=== PATIENT | female | born 1955 | race Caucasian/White ===

== ENCOUNTER 2018-04-05 20:21 | Emergency (ER) | payer MEDICARE, SELFPAY ==
[2018-04-05 20:22] VITALS: BP 161/92; PULSE 83; RESP 14; TEMP 36.4; O2SAT 97; BMI 25.4
--- NOTE | 2018-04-05 20:57 | ED.VISSUMM ---
- ER Visit Summary Date of Service: 04/05/18 Chief Complaint: Patient is here for medication refill. She is out of her propranolol, potassium, loratadine. History of Present Illness: The patient is a 63 F, she is asymptomatic. Physical Examination: Not appear in acute distress. Moist mucous membranes, no obvious facial deformity No C-spine tenderness supple neck. Regular rate and rhythm without any obvious murmurs Clear lungs bilaterally speaking in full sentences without any obvious respiratory distress Abdomen soft and nontender no guarding or rebound Moves all extremities without any difficulty or pain. Skin does not show any obvious rashes or lesions, no trauma. Alert oriented ?3 with no gross focal deficit Emergency Department Course and Treatment: Medications will be refilled she is told to follow-up with her PCP Disposition: [Discharge stable condition] Impression: [Medication refill] This note was generated with [employer] dictation software. It may contain incorrect words, spelling, and punctuation that were not noted in review of the chart prior to signing ED Disposition - Plan for ED Patient: Disposition: Home or Assisted Living Chief Complaint: Med Refill Prescriptions: Loratadine 10 mg PO DAILY #30 cap Potassium Chloride [K-Dur] 20 meq PO DAILY #30 tab Propranolol HCl 40 mg PO BID #60 tab Referrals: Marj Ryan MD [Primary Care Provider] - 3-5 Days
== END 2018-04-05 21:45 | disposition home or self-care (01) ==
PROVIDERS: Emergency Provider Emergency Medicine
DX: Z76.0 Encounter for issue of repeat prescription (principal); E11.9 Type 2 diabetes mellitus without complications; I10 Essential (primary) hypertension; Z79.899 Other long term (current) drug therapy
CPT/HCPCS: 99282

== ENCOUNTER 2018-06-14 03:34 | Emergency (ER) | payer MEDICARE, SELFPAY ==
[2018-06-14 03:35] VITALS: BP 186/88; PULSE 78; RESP 16; TEMP 36.8; O2SAT 100; BMI 25.6
--- NOTE | 2018-06-14 03:52 | ED.VIS.GEN ---
History of Present Illness Chief Complaint: Fall Informant: Patient, Family Onset: Today - JPTA Context: Sudden Onset - tripped over a cord Timing: Continuous Quality: ache Location: R shoulder Current Severity: Severe Maximum Severity: Severe Worsened by: movement Relieved by: remaining still Narrative: States that she bumped her head on the floor as well. She denies any significant headache, nausea, vomiting, loss of consciousness. She has no numbness in her hand, her elbow and distally right upper extremity are uninjured and without pain. She cannot move her right shoulder. She is right-hand dominant. - Past Medical History (1) Hyperlipidemia Status: Chronic (2) GERD (gastroesophageal reflux disease) Status: Chronic Past Medical History - Allergies and Home Meds Allergies/Adverse Reactions: Allergies codeine Adverse Reaction (Verified 04/05/18 20:22) Nausea/Vom/Diarrhea Primary Care Physician: Care Physician,No Primary [Primary Care Provider] - Smoking Status: Never smoker Review of Systems Eyes: Denies: Visual changes - bilaterally, Diplopia Cardiovascular: Denies: Chest pain, Palpitations Respiratory: Denies: Dyspnea, Cough Gastrointestinal: Denies: Abdominal pain, Nausea, Vomiting Musculoskeletal: Reports: Extremity Pain. Denies: Neck pain, Back pain Neurological: Denies: Headache, Weakness, Parasthesia, Numbness Physical Exam Vital Signs/Narrative: Vital Signs Temp Pulse Resp BP Pulse Ox 06/14/18 03:35 98.2 F 78 16 186/88 H 100 Inital Vital Signs reviewed: Yes General: Well nourished, Well developed, Unkempt Head: Normocephalic, Atraumatic Eyes: Perrl, EOMI ENT: Moist mucous membranes, No rhinorrhea Neck: Supple, Nontender, - - FROM Back: Nontender. Negative for: Spinal tenderness Extremities: Tenderness - At right AC joint with a deformity posteriorly/dorsally. Closed injury, no lacerations or breaks in the skin. No tenderness in the proximal humerus. Very limited range of motion secondary to pain. Excellent range of motion of the elbow and wrist and other joints of the right hand. Other extremities are atraumatic and benign. Skin: Normal color, No rash Neurological: Alert, Oriented x3, Cranial nerves II-XII grossly intact, Normal Strength, Normal Sensation, Normal Gait Psychological: Normal affect Diagnostic/Tx/Re-eval Right shoulder x-ray series interpreted by myself as displaced distal clavicle fracture. Humeral head is located and without acute fracture. - Medical Decision Making Patient was given [place], x-ray shows distal clavicular fracture without dislocation. She is placed in a sling, given a prescription for some [place], and advised to follow-up with orthopedics as an outpatient. ED Disposition - Plan for ED Patient: Disposition: Home or Assisted Living Chief Complaint: Fall Diagnosis: Displaced fracture of lateral end of right clavicle, initial encounter for closed fracture Instructions: ED Fx Clavicle, ED Sling Prescriptions: Hydrocodone Bitart/Apap 5-325 [[place] 5MG-325MG] 1 tab PO Q4H PRN PRN 2 Days #10 tab PRN Reason: Pain Referrals: Tiffany Hernandez DO [STAFF PHYSICIAN] - (call for appt to be seen within next 1-2 weeks)
--- NOTE | 2018-06-14 04:15 | RAD_ITS ---
STUDY: X-RAY - RIGHT SHOULDER REASON FOR EXAM: Female, 63 years old. Fall facial pain. TECHNIQUE: 4 view(s) of the shoulder. COMPARISON: None. FINDINGS: Normal glenohumeral articulation. There is a comminuted displaced fracture of the lateral end of the right clavicle. Normal acromion. Normal humeral head and visualized proximal humerus. The soft tissue structures are unremarkable. Normal visualized pulmonary apex. RAD/Shoulder min 2 Views IMPRESSION: There is a comminuted displaced fracture of the lateral end of the right clavicle. Electronically Signed: Lawson Arteaga MD at 4:39 EDT Tel , Service support ,
[2018-06-14] MEDS: HYDROcodone Bitartrate/Apap 5/325 Tablet PO (04:43)
[2018-06-14 04:50] VITALS: BP 166/88; PULSE 78; RESP 16; O2SAT 98
== END 2018-06-14 04:51 | disposition home or self-care (01) ==
PROVIDERS: Emergency Provider Emergency Medicine
DX: S42.031A Displaced fracture of lateral end of right clavicle, initial encounter for closed fracture (principal); W01.198A Fall on same level from slipping, tripping and stumbling with subsequent striking against other object, initial encounter; Y93.9 Activity, unspecified; Y92.9 Unspecified place or not applicable; Y99.9 Unspecified external cause status; E78.5 Hyperlipidemia, unspecified; K21.9 Gastro-esophageal reflux disease without esophagitis; Z79.899 Other long term (current) drug therapy
CPT/HCPCS: 73030; 99283

== ENCOUNTER 2018-06-16 19:06 | Emergency (ER) | payer MEDICARE, SELFPAY ==
[2018-06-16 19:07] VITALS: BP 158/87; PULSE 76; RESP 16; TEMP 36.6; O2SAT 98; BMI 26.5
--- NOTE | 2018-06-16 19:30 | RAD_ITS ---
STUDY: X-RAY - RIGHT CLAVICLE REASON FOR EXAM: Female, 63 years old. Known right clavicle fracture, increased pain. Question reinjury. TECHNIQUE: 2 view(s) of the clavicle. COMPARISON: Shoulder 06/14/2018. FINDINGS: Comminuted fracture of the left distal clavicle is again demonstrated. There is no displacement or angulation. Comminuted fractures extend superiorly and inferiorly. The acromioclavicular joint is maintained. There is increased dense material about the acromioclavicular joint which is increased compared to the prior study. This may represent early myositis ossificans. There is no new fracture. Bony structures are otherwise unremarkable. RAD/Clavicle IMPRESSION: 1. Distal clavicle fracture, no adverse change. No new fracture. 2. Increased dense material in the region of the AC joint, possible myositis ossificans. Electronically Signed: Joanie Barajas MD at 20:26 EDT Tel , Service support ,
[2018-06-16] MEDS: HYDROcodone Bitartrate/Apap 5/325 Tablet PO (19:43)
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
== END 2018-06-16 20:17 | disposition home or self-care (01) ==
PROVIDERS: Emergency Provider Emergency Medicine
DX: M25.519 Pain in unspecified shoulder (principal); S42.032A Displaced fracture of lateral end of left clavicle, initial encounter for closed fracture; W19.XXXA Unspecified fall, initial encounter; Y93.9 Activity, unspecified; Y92.9 Unspecified place or not applicable; Y99.9 Unspecified external cause status; E78.5 Hyperlipidemia, unspecified; K21.9 Gastro-esophageal reflux disease without esophagitis; Z79.899 Other long term (current) drug therapy
CPT/HCPCS: 73000; 99283

== ENCOUNTER → 2018-06-18 09:58 | Outpatient (CLI) | payer MEDICARE, SELFPAY ==
--- NOTE | 2018-06-18 10:01 | RAD_ITS ---
STUDY: X-RAY - RIGHT CLAVICLE REASON FOR EXAM: Fracture. TECHNIQUE: 2 view(s) of the clavicle. COMPARISON: Radiographs 06/16/2018. FINDINGS: There is no interval change of the comminuted distal clavicle fracture. There is calcification in the acromioclavicular joint capsule as on the prior study. Normal visualized sternoclavicular articulation. Normal visualized pulmonary apex. RAD/Clavicle IMPRESSION: No interval change of distal clavicle fracture. Electronically Signed: Georges Johnson MD at 10:43 EDT Tel , Service support ,
== END ==
PROVIDERS: Referring Provider Orthopaedic Surgery; Visit Provider Orthopaedic Surgery
DX: S42.002A Fracture of unspecified part of left clavicle, initial encounter for closed fracture (principal); X58.XXXA Exposure to other specified factors, initial encounter; Y93.9 Activity, unspecified; Y92.9 Unspecified place or not applicable; Y99.9 Unspecified external cause status
CPT/HCPCS: 73000

== ENCOUNTER 2018-07-02 00:31 | Emergency (ER) | payer MEDICARE, SELFPAY ==
[2018-07-02 00:32] VITALS: BP 156/86; PULSE 77; RESP 15; TEMP 36.9; O2SAT 96; BMI 25.0
--- NOTE | 2018-07-02 01:19 | ED.DCSUM_ITS ---
- ER Visit Summary Date of Service: 07/02/18 Chief Complaint: Right shoulder pain History of Present Illness: The patient is a 63 F who presents with right shoulder pain. She sustained a right clavicle fracture about 2-1/2 weeks ago. She has seen Dr. Hernandez in follow-up and is in the process of arranging for outpatient CT. She complains that she is out of pain medications and has been trying Tylenol and Aleve without relief so presented here. She has had one prior ER visit for pain medication refill. Denies numbness tingling weakness. Physical Examination: Afebrile vitals are stable No apparent distress resting comfortably Patient has some mild distal right clavicular tenderness no skin tenting no obvious bony deformity if she is neurovascularly intact with normal sensation and palpable radial pulse no soft tissue swelling skin warm and dry with brisk capillary refill Test Results: Not indicated Emergency Department Course and Treatment: Patient is 2-1/2 weeks out from her fracture. I do not believe continued opiates are indicated at this time. She was given naproxen as well as a prescription for the same. She was advised to follow-up with orthopedics and was discharged home. Treatment Plan: [] Disposition: Discharge Impression: Right clavicle fracture This note was generated with [employer] dictation software. It may contain incorrect words, spelling, and punctuation that were not noted in review of the chart prior to signing ED Disposition - Plan for ED Patient: Chief Complaint: Upper Extremity Injury Referrals: Care Physician,No Primary [Primary Care Provider] -
--- NOTE | 2018-07-02 01:19 | ED.DEP ---
ED Disposition - Plan for ED Patient: Chief Complaint: Upper Extremity Injury Instructions: ED Fx Clavicle Prescriptions: Naproxen [Naprosyn] 500 mg PO BID #20 tab Referrals: Care Physician,No Primary [Primary Care Provider] - Tiffany Hernandez DO [STAFF PHYSICIAN] -
[2018-07-02] MEDS: Naproxen 500 MG Tablet PO (01:29)
--- NOTE | 2018-07-02 01:31 | ED.RN ---
this rn educated pt on d/c instructions and prescription. pt verbalizes understanding and denies any further questions.pt educated on use and proper wear of sling. this rn adjusts sling for pt to fit properly.
== END 2018-07-02 01:35 | disposition home or self-care (01) ==
LOC: ED 01:24
PROVIDERS: Emergency Provider Emergency Medicine
DX: S42.001A Fracture of unspecified part of right clavicle, initial encounter for closed fracture (principal); X58.XXXA Exposure to other specified factors, initial encounter; Y93.9 Activity, unspecified; Y92.9 Unspecified place or not applicable; Y99.9 Unspecified external cause status; I10 Essential (primary) hypertension; Z79.899 Other long term (current) drug therapy
CPT/HCPCS: 99283

== ENCOUNTER → 2018-07-15 15:02 | Outpatient (CLI) | payer MEDICARE, SELFPAY ==
--- NOTE | 2018-07-15 15:06 | CT_ITS ---
STUDY: CT RIGHT CLAVICLE REASON FOR EXAM: Right clavicle fracture. TECHNIQUE: The patient was scanned in a multi detector CT scanner. High resolution transaxial imaging was performed without the administration of intravenous contrast material. Sagittal and coronal images were reconstructed. Individualized dose optimization techniques were used for this CT. COMPARISON: Radiographs 06/18/2018. FINDINGS: There is a comminuted fracture of the distal clavicle with mild superior displacement of the clavicular shaft (coronal reconstructions 44-48). Although there is some early callus formation there is no osseous bridging (coronal reconstructions 42-54). Normal glenohumeral articulation. Normal glenoid rim, neck and visualized scapula. Normal humeral head, neck and tuberosities. Normal coracoid process. There is calcification in the acromioclavicular joint capsule (coronal reconstructions 50-54). There is a Type II morphology (curved), with a neutral orientation. Normal right sternoclavicular joint. Normal visualized muscles and soft tissue structures. CT/Extremity Upper without Contra IMPRESSION: Distal clavicle fracture without osseous bridging. Electronically Signed: Georges Johnson MD at 13:13 EST Tel , Service support ,
--- OUTSIDE RECORDS SUMMARY | 2018-08-27 13:32 | XMS RPT_ITS ---
:1955 Author Organization OHIP Support Name Relationship Address Phone D Unavailable Unavailable Unavailable DICK, GENESIS Unavailable [address] + [place] [address] D Unavailable Unavailable Unavailable DICK, GENESIS Unavailable [address] + [place] [address] INOCENCIO JENNINGSLEY Unavailable Unavailable + INOCENCIO JENNINGSLEY Unavailable Unavailable + STEFFEN JENNINGS Unavailable Unavailable + D Unavailable Unavailable Unavailable DICK, GENESIS Unavailable [address] + [place] [address] D Unavailable Unavailable Unavailable DICK, GENESIS Unavailable [address] + [place] [address] D Unavailable Unavailable Unavailable DICK, GENESIS Unavailable [address] + [place] [address] D Unavailable Unavailable Unavailable DICK, GENESIS Unavailable [address] + [place] [address] D Unavailable Unavailable Unavailable DICK, GENESIS Unavailable [address] + [place] [address] D Unavailable Unavailable Unavailable DICK, GENESIS Unavailable [address] + [place] [address] INOCENCIO JENNINGSLEY Unavailable Unavailable + STEFFEN JENNINGS Unavailable Unavailable + STEFFEN JENNINGS Unavailable Unavailable + Care Team Providers Name Role Phone HEMA QUINTERO MD Attending Unavailable NEREYDA, MARJ Primary Care Unavailable WOAZUCENA ROBERTSON DO Attending Unavailable NEREYDA, MARJ Primary Care Unavailable Vladimir Lechuga Attending Unavailable Primay Care Physicia, No Primary Care Unavailable Primay Care Physicia, No Primary Care Unavailable NIRMAL GÓMEZ Attending Unavailable Primay Care Physicia, No Primary Care Unavailable Charlie Ricketts Attending Unavailable Chicorelli, Tiffany Attending Unavailable Primay Care Physicia, No Referring Unavailable Chicorelli, Tiffany Attending Unavailable Chicorelli, Tiffany Referring Unavailable Primay Care Physicia, No Primary Care Unavailable Primay Care Physicia, No Primary Care Unavailable Anmol Fleming Attending Unavailable Chicorelli, Tiffany Attending Unavailable Chicorelli, Tiffany Referring Unavailable Primay Care Physicia, No Primary Care Unavailable Ralph Wheatley Attending Unavailable Primay Care Physicia, No Referring Unavailable PROBLEMS PROBLEMS DATE TYPE CONDITION / CODE ATTENDING STATUS SOURCE 07/30/2018 Unknown S42.001A - Chicorelli, Active [facility] unspecified part Hospital of right Repository clavicle, initial encounter for closed fracture / S42.001A(ICD-10) 06/18/2018 Unknown S42.002A - Chicjackelinli, Active [facility] unspecified part Hospital of left clavicle, Repository initial encounter for closed fracture / S42.002A(ICD-10) 06/16/2018 Unknown S42.009A - Charlie Ricketts Active [facility] unspecified part Hospital of unspecified Repository clavicle, initial encounter for closed fracture / S42.009A(ICD-10) PROCEDURES PROCEDURES No Procedure Records FoundRESULTS RESULTS ORTHOPEDIC VISIT Observed: 07/25/2018 Status: F Source: MIKE REPORT 9:24 AM [facility] [place] [address] OFFICE VISIT Date of Service: 07/23/18 MR#: [id number] Acct: [id number] Name: QUEENIE WADSWORTH Rep #: [id number] : 1955 Provider: YANNI Wheatley Age/Sex: 63/F Location: [facility] [place] [place]: [place] Intake Intake Visit Reasons: clavicle Allergies codeine Adverse Reaction (Verified 07/02/18 00:31) Nausea/Vom/Diarrhea Medications Docusate Sodium [Colace] 100 mg PO DAILY #20 cap 11/06/14 [Rx Confirmed 07/02/18] Ibuprofen [Motrin] 400 mg PO Q6H #30 tab 11/10/14 [Rx Confirmed 07/02/18] Fenofibrate [Tricor] 145 mg PO DAILY #30 tab 01/21/15 [Rx Confirmed 07/02/18] Pravastatin [Pravachol] 40 mg PO DAILY #30 tab 01/21/15 [Rx Confirmed 07/02/18] Cyproheptadine HCl 4 mg PO BID #60 tab 04/12/15 [Rx Confirmed 07/02/18] Lisinopril [Zestril] 10 mg PO DAILY #30 tab 04/12/15 [Rx Confirmed 07/02/18] Calcium Carbonate/Vitamin D3 [Calcium 600 + D Tablet] 1 ea PO BID #60 tab 05/20/15 [Rx Confirmed 07/02/18] Cyproheptadine HCl 4 mg PO BID #60 tab 05/20/15 [Rx Confirmed 07/02/18] Loratadine [Claritin] 10 mg PO DAILY #30 tab 05/20/15 [Rx Confirmed 07/02/18] Pantoprazole Sodium [Protonix] 40 mg PO DAILY #30 tab 05/20/15 [Rx Confirmed 07/02/18] Potassium Chloride [K-Tab ER] 20 meq PO DAILY #30 tablet.er 05/20/15 [Rx Confirmed 07/02/18] Valacyclovir HCl [Valacyclovir] 1,000 mg PO DAILY #30 tab 05/20/15 [Rx Confirmed 07/02/18] Loratadine 10 mg PO DAILY #30 cap 04/05/18 [Rx Confirmed 07/02/18] Potassium Chloride [K-Dur] 20 meq PO DAILY #30 tab 04/05/18 [Rx Confirmed 07/02/18] Propranolol HCl 40 mg PO BID #60 tab 04/05/18 [Rx Confirmed 07/02/18] Naproxen [Naprosyn] 500 mg PO BID #20 tab 07/02/18 [Rx] PFSH Social History Smoking Status: Never smoker HPI clavicle: Details: QUEENIE WADSWORTH is a 63 year old F here today for right clavice ct scan f/u. She complains of pain all the time, in the trap and at the distal clavicle. She returned to the ED for pain and was given naproxen that is not helpful. She is not wearing a sling today. Denies numbness, tingling or other associated symptoms. Ortho Exam Right Shoulder Skin/Wound: No ecchymosis Contralateral Normal: Yes Testing: Positive TTP AC Joint; negative TTP Biceps, AROM-Forward Elevation 0-180 or AROM- External Rotation at side 0-60 SHOULDER: On inspection today of the right shoulder there is an evident bony protuberance on the distal clavicle region. This is the site of the fracture noted on x-ray. Tenderness today actually shows improvement from previous exam. She allows for palpation today without resisting or really guarding. There is still tenderness on palpation but is minimal. She is still limited in her range of motion as she states that all movements of the shoulder cause her pain and therefore she does not want to move it. Assessment AND Plan Problems 1. Closed nondisplaced fracture of acromial end of right clavicle with routine healing, subsequent encounter S42.034D Plan Patient is here today to go over her CAT scan results of the right clavicle. The CT scan images showed evidence of moderately comminuted fracture of the distal clavicle. There is some displacement at this time of the fracture site at the same time is relatively mild. We did discuss anatomy and physiology of the clavicle as well as the injury to this area. At this point it is over 6 weeks since her injury occurred. She does show some callus formation at the site and same time very minimal bridging. She actually has a minor tenderness on palpation of the fracture site which is some evidence of healing as this was initially extremely tender. So Being over 6 weeks since her injury, with some callus formation at the site, multiple small comminuted pieces involved, and relatively mild displacement, we discussed that surgical intervention at this time is not something that is the best next step. They state they do not want to have surgery at this time either. We discussed that the comminuted pieces at some point may cause some impingement leading to a arthroscopic decompression/debridement. At this time I would like patient to start some physical therapy to start working on motion of the shoulder to keep this from really getting stiff. Patient is to ice the area or can try some heat for relief and she can also take anti-inflammatories as needed. We are going to see her back in 3-4 weeks. Plan Detail Follow Up 3 Weeks Coding Level of Care Code Off vis,est,level 3 Diagnoses Closed nondisplaced fracture of acromial end of right clavicle with routine healing, subsequent encounter S42.034D Encounter type: subsequent encounter Fracture alignment: nondisplaced Laterality: right Fracture healing: with routine healing 07/25/18 0924 <Electronically signed by Ralph LIAO> Date Ralph LIAO Cosigner Signature: Date (if applicable) CC: EXTREMITY UPPER Observed: 07/15/2018 Status: F Source: LOMA MAR WITHOUT CONTRA 3:06 PM [facility] Imaging Services [address] [place] [address] Extremity Upper without Contra MR#: [id number] Acct: [id number] Name: ANANTHQUEENIE SCHRADER Carlene Rep #: [id number] : 1955 F 63 From: Georges Johnson MD PCP: Care Physician, No Primary Status: REG CLI Study: Extremity Upper without Contra Date of Exam: 07/15/18 Exam# [id number] Ordering Dr: Tiffany Hernandez DO STUDY: CT RIGHT CLAVICLE REASON FOR EXAM: Right clavicle fracture. TECHNIQUE: The patient was scanned in a multi detector CT scanner. High resolution transaxial imaging was performed without the administration of intravenous contrast material. Sagittal and coronal images were reconstructed. Individualized dose optimization techniques were used for this CT. COMPARISON: Radiographs 06/18/2018. FINDINGS: There is a comminuted fracture of the distal clavicle with mild superior displacement of the clavicular shaft (coronal reconstructions 44-48). Although there is some early callus formation there is no osseous bridging (coronal reconstructions 42-54). Normal glenohumeral articulation. Normal glenoid rim, neck and visualized scapula. Normal humeral head, neck and tuberosities. Normal coracoid process. There is calcification in the acromioclavicular joint capsule (coronal reconstructions 50-54). There is a Type II morphology (curved), with a neutral orientation. Normal right sternoclavicular joint. Normal visualized muscles and soft tissue structures. CT/Extremity Upper without Contra IMPRESSION: Distal clavicle fracture without osseous bridging. Electronically Signed: Georges Johnson MD at 13:13 EST Tel , Service support , CC: No Primary Care Physician; Tiffany Hernandez DO Mosaicist: Signed DISCHARGE INSTRUCTION Observed: 07/02/2018 Status: F Source: LOMA MAR 1:20 AM [facility] Medical Records Department [address] [place] [address] Discharge Instruction 07/02/189 MR#: [id number] Acct: [id number] Name: QUEENIE WADSWORTH Rep #: [id number] : 1955 63 From: Anmol Fleming MD PCP: Care Physician, No Primary Status: PRE ER ED Disposition - Plan for ED Patient: Chief Complaint: Upper Extremity Injury Instructions: ED Fx Clavicle Prescriptions: Naproxen [Naprosyn] 500 mg PO BID #20 tab Referrals: Care Physician,No Primary [Primary Care Provider] - Tiffany Hernandez DO [STAFF PHYSICIAN] - What to do if you have Problems For any increased pain, shortness of breath, bleeding, nausea or vomiting, chest pain, or any unexpected problems, contact your Primary Care Provider. Call [employer] [facility] ([phone]) or report to the closest Emergency Room. Call 911 if necessary. 07/02/18 0120 <Electronically signed by Anmol Fleming MD> Date Anmol Fleming MD Cosigner Signature (If Indicated): Date CC: No Primary Care Physician EMERGENCY DEPARTMENT Observed: 07/02/2018 Status: F Source: LOMA MAR SUMMARY 1:19 AM [facility] Medical Records Department [address] [facility] [place] [address] Emergency Department Summary 07/02/18 0117 MR#: [id number] Acct: [id number] Name: QUEENIE WADSWORTH Rep #: [id number] : 1955 63 From: Anmol Fleming MD PCP: Care Physician, No Primary Status: PRE ER - ER Visit Summary Date of Service: 07/02/18 Chief Complaint: Right shoulder pain History of Present Illness: The patient is a 63 F who presents with right shoulder pain. She sustained a right clavicle fracture about 2-1/2 weeks ago. She has seen Dr. Hernandez in follow-up and is in the process of arranging for outpatient CT. She complains that she is out of pain medications and has been trying Tylenol and Aleve without relief so presented here. She has had one prior ER visit for pain medication refill. Denies numbness tingling weakness. Physical Examination: Afebrile vitals are stable No apparent distress resting comfortably Patient has some mild distal right clavicular tenderness no skin tenting no obvious bony deformity if she is neurovascularly intact with normal sensation and palpable radial pulse no soft tissue swelling skin warm and dry with brisk capillary refill Test Results: Not indicated Emergency Department Course and Treatment: Patient is 2-1/2 weeks out from her fracture. I do not believe continued opiates are indicated at this time. She was given naproxen as well as a prescription for the same. She was advised to follow-up with orthopedics and was discharged home. Treatment Plan: [] Disposition: Discharge Impression: Right clavicle fracture This note was generated with Dragon dictation software. It may contain incorrect words, spelling, and punctuation that were not noted in review of the chart prior to signing ED Disposition - Plan for ED Patient: Chief Complaint: Upper Extremity Injury Referrals: Care Physician,No Primary [Primary Care Provider] - What to do if you have Problems For any increased pain, shortness of breath, bleeding, nausea or vomiting, chest pain, or any unexpected problems, contact your Primary Care Provider. Call [facility] ([phone]) or report to the closest Emergency Room. Call 911 if necessary. 07/02/18 0119 <Electronically signed by Anmol Fleming MD> Date Anmol Fleming MD Cosigner Signature (If Indicated): Date CC: No Primary Care Physician ORTHOPEDIC VISIT Observed: 06/18/2018 Status: F Source: MIKE REPORT 10:35 AM [facility] [address] [place] [address] OFFICE VISIT Date of Service: 06/18/18 MR#: [id number] Acct: [id number] Name: QUEENIE WADSWORTH Rep #: [id number] : 1955 Provider: Tiffany Hernandez DO Age/Sex: 63/F [place] [facility] [place]: Signed Intake Intake Visit Reasons: RIGHT CLAVICLE Is patient in pain?: Yes Pain scale (1-10): 9 Allergies codeine Adverse Reaction (Verified 06/16/18 19:07) Nausea/Vom/Diarrhea Medications Docusate Sodium [Colace] 100 mg PO DAILY #20 cap 11/06/14 [Rx Confirmed 05/06/17] Ibuprofen [Motrin] 400 mg PO Q6H #30 tab 11/10/14 [Rx Confirmed 05/06/17] Fenofibrate [Tricor] 145 mg PO DAILY #30 tab 01/21/15 [Rx Confirmed 05/06/17] Pravastatin [Pravachol] 40 mg PO DAILY #30 tab 01/21/15 [Rx Confirmed 05/06/17] Cyproheptadine HCl 4 mg PO BID #60 tab 04/12/15 [Rx Confirmed 05/06/17] Lisinopril [Zestril] 10 mg PO DAILY #30 tab 04/12/15 [Rx Confirmed 05/06/17] Calcium Carbonate/Vitamin D3 [Calcium 600 + D Tablet] 1 ea PO BID #60 tab 05/20/15 [Rx Confirmed 05/06/17] Cyproheptadine HCl 4 mg PO BID #60 tab 05/20/15 [Rx Confirmed 05/06/17] Loratadine [Claritin] 10 mg PO DAILY #30 tab 05/20/15 [Rx Confirmed 05/06/17] Pantoprazole Sodium [Protonix] 40 mg PO DAILY #30 tab 05/20/15 [Rx Confirmed 05/06/17] Potassium Chloride [K-Tab ER] 20 meq PO DAILY #30 tablet.er 05/20/15 [Rx Confirmed 05/06/17] Valacyclovir HCl [Valacyclovir] 1,000 mg PO DAILY #30 tab 05/20/15 [Rx Confirmed 05/06/17] Hydrocodone/Acetaminophen [[place] 7.5-325 Tablet] 1 ea PO Q6H PRN PRN #14 tab 05/06/17 [Rx] Loratadine 10 mg PO DAILY #30 cap 04/05/18 [Rx] Potassium Chloride [K-Dur] 20 meq PO DAILY #30 tab 04/05/18 [Rx] Propranolol HCl 40 mg PO BID #60 tab 04/05/18 [Rx] Hydrocodone Bitart/Apap 5-325 [[place] 5MG-325MG] 1 tab PO Q6H PRN PRN 3 Days #12 tab 06/16/18 [Rx] oxycodone-acetaminophen 10 mg-325 mg tablet 1 tab PO Q6H PRN 5 Days #30 tab 06/18/18 [Rx Confirmed 06/18/18] PFSH Social History Smoking Status: Never smoker HPI RIGHT CLAVICLE: Details: QUEENIE WADSWORTH is a 63 year old F here today for f/u left clavicle fracture from falling at home when she tripped in flip flops. She complains of pain in the entire shoulder. She has been compliant with the sling. Denies numbness, tingling or other associated symptoms. She has good rom in the hand and fingers, she states she has full rom of the elbow. She has been using the norco from the ED, the daughter states the medication is not helpful and has had to return her to the ED for additional medications, she also needed an extra pain medication to be able to sleep. Ortho Exam Right Shoulder SHOULDER: ttp at distal clavicle, med/uln/rad nerves intact, secondary survey negative Assessment AND Plan 1. Closed displaced fracture of acromial end of right clavicle, initial encounter S42.031A Plan Discussed risks and benefits of surgical versus nonsurgical intervention. Patient needs preop clearance and workup to ensure that she is stable and safe medically to have surgery. This is all discussed with family that was in the room. We will order CT first have a better idea of what the fracture itself looks like find a good day to fix and then family will discuss whether or not they are willing to proceed understanding the risks of surgery risks including but not limited to blood loss, blood clot, infection, neurovascular injury, failure procedure, loss of life and loss of limb. We will follow with patient after CT is done. Next This note was generated with [employer] dictation software. It may contain incorrect words, spelling, and punctuation that were not noted in checking the note before signing. This note was generated with [employer] dictation software. It may contain incorrect words, spelling, and punctuation that were not noted in checking the note before signing. X-rays were reviewed. There is displaced distal clavicle fracture noted. Explained that she will need a plate and screws to realign or allow it to heal on its own with potential for scope latera. We will order a CT scan prior to surgery to decide on the procedure to repair. SHe has right knee swelling as well and if she has surgery we can discuss an aspiration. Follow up after CT scan or sooner if pain, swelling, numbness or associated symptoms, or concerns develop. agree Plan Detail Other Orders Orders: Other Medications New: oxycodone-acetaminophen 10-325 mg take one ta1 tab PO Q6H 5 days PRN 30 tabs 0RF pain b every 6 hours as needed for pain, stop all oth er narcotics and tylenol Coding Level of Care Code Off vis,est,level 4 Diagnoses Closed displaced fracture of acromial end of right clavicle, initial encounter S42.031A Clavicle location: lateral end Encounter type: initial encounter 06/18/18 1035 <Electronically signed by Tiffany Hernandez DO> Date Tiffany Hernandez DO Cosigner Signature: Date (if applicable) CC: CLAVICLE Observed: 06/18/2018 Status: F Source: LOMA MAR 10:01 AM [facility] Imaging Services [address] [place] [address] Clavicle MR#: [id number] Acct: [id number] Name: QUEENIE WADSWORTH Rep #: [id number] : 1955 F 63 From: Georges Johnson MD PCP: Care Physician, No Primary Status: REG CLI Study: Clavicle Date of Exam: 06/18/18 Exam# [id number] Ordering Dr: Tiffany Hernandez DO STUDY: X-RAY - RIGHT CLAVICLE REASON FOR EXAM: Fracture. TECHNIQUE: 2 view(s) of the clavicle. COMPARISON: Radiographs 06/16/2018. FINDINGS: There is no interval change of the comminuted distal clavicle fracture. There is calcification in the acromioclavicular joint capsule as on the prior study. Normal visualized sternoclavicular articulation. Normal visualized pulmonary apex. RAD/Clavicle IMPRESSION: No interval change of distal clavicle fracture. Electronically Signed: Georges Johnson MD at 10:43 EDT Tel , Service support , CC: No Primary Care Physician; Tiffany Hernandez DO Mosaicist: Signed EMERGENCY DEPARTMENT Observed: 06/16/2018 Status: F Source: LOMA MAR SUMMARY 11:54 PM [facility] Medical Records Department [address] [place] [address] Emergency Department Summary 06/16/181952 MR#: [id number] Acct: [id number] Name: QUEENIE WADSWORTH Rep #: [id number] : 1955 63 From: Charlie Ricketts MD PCP: Care Physician, No Primary Status: DEP ER - ER Visit Summary Date of Service: 06/16/18 Chief Complaint: Shoulder pain History of Present Illness: The patient is a 63 F presenting for evaluation secondary to shoulder pain. Patient suffered a fall 2 days ago. She was in the emergency department had x-rays that showed that she had a comminuted distal clavicle fracture on the right. Patient states that she has been giving her dogs lots of hugs and kisses and it caused her to have increased pain. She reports a family member also padded her very hard on the back and it also caused her increased pain. Patient is going to follow-up with orthopedics coming early this week. Physical Examination: Vital signs are within normal limits. Right upper extremity exam shows no tenderness to palpation of the hand wrist forearm elbow or upper arm. There is pain in the shoulder with ecchymosis and swelling over the distal portion of the patient's clavicle. Test Results: Radiographs reconfirm a fracture and show no evidence of worsening Emergency Department Course and Treatment: Patient presented with shoulder pain. She was given [place] in the emergency department. Patient's prescription reporting record shows only 2 controlled substance prescription. Patient will be given 2 more days worth of [place] and is instructed she needs to follow-up with orthopedics. Disposition: Discharge Impression: 1. Right clavicle fracture, subsequent encounter This note was generated with [employer] software. It may contain incorrect words, spelling, and punctuation that were not noted in review of the chart prior to signing ED Disposition - Plan for ED Patient: Disposition: Home or Assisted Living Chief Complaint: Upper Extremity Injury Diagnosis: Right clavicle fracture Instructions: ED Fx Clavicle Prescriptions: Hydrocodone Bitart/Apap 5-325 [[place] 5MG-325MG] 1 tab PO Q6H PRN PRN 3 Days #12 tab PRN Reason: Pain What to do if you have Problems For any increased pain, shortness of breath, bleeding, nausea or vomiting, chest pain, or any unexpected problems, contact your Primary Care Provider. Call [facility] ([phone]) or report to the closest Emergency Room. Call 911 if necessary. 06/16/18 8687 <Electronically signed by Charlie Ricketts MD> Date Charlie Ricketts MD Cosigner Signature (If Indicated): Date CC: No Primary Care Physician CLAVICLE Observed: 06/16/2018 Status: F Source: LOMA MAR 7:25 PM [facility] Imaging Services [address] [place] [address] Clavicle MR#: [id number] Acct: [id number] Name: QUEENIE WADSWORTH Rep #: [id number] : 1955 F 63 From: Joanie Barajas MD PCP: Care Physician, No Primary Status: DEP ER Study: Clavicle Date of Exam: 06/16/18 Exam# [id number] Ordering Dr: Charlie Ricketts MD STUDY: X-RAY - RIGHT CLAVICLE REASON FOR EXAM: Female, 63 years old. Known right clavicle fracture, increased pain. Question reinjury. TECHNIQUE: 2 view(s) of the clavicle. COMPARISON: Shoulder 06/14/2018. FINDINGS: Comminuted fracture of the left distal clavicle is again demonstrated. There is no displacement or angulation. Comminuted fractures extend superiorly and inferiorly. The acromioclavicular joint is maintained. There is increased dense material about the acromioclavicular joint which is increased compared to the prior study. This may represent early myositis ossificans. There is no new fracture. Bony structures are otherwise unremarkable. RAD/Clavicle IMPRESSION: 1. Distal clavicle fracture, no adverse change. No new fracture. 2. Increased dense material in the region of the AC joint, possible myositis ossificans. Electronically Signed: Joanie Barajas MD at 20:26 EDT Tel , Service support , CC: No Primary Care Physician; Charlie Ricketts Mosaicist: Signed EMERGENCY DEPARTMENT Observed: 06/14/2018 Status: F Source: LOMA MAR SUMMARY 4:33 AM [facility] Medical Records Department [address] [place] [address] Emergency Department Summary 06/14/18 0352 MR#: [id number] Acct: [id number] Name: QUEENIE WADSWORTH Rep #: [id number] : 1955 63 From: Nirmal Gómez MD PCP: Care Physician, No Primary Status: REG ER History of Present Illness Chief Complaint: Fall Informant: Patient, Family Onset: Today - JPTA Context: Sudden Onset - tripped over a cord Timing: Continuous Quality: ache Location: R shoulder Current Severity: Severe Maximum Severity: Severe Worsened by: movement Relieved by: remaining still Narrative: States that she bumped her head on the floor as well. She denies any significant headache, nausea, vomiting, loss of consciousness. She has no numbness in her hand, her elbow and distally right upper extremity are uninjured and without pain. She cannot move her right shoulder. She is right-hand dominant. - Past Medical History (1) Hyperlipidemia Status: Chronic (2) GERD (gastroesophageal reflux disease) Status: Chronic Past Medical History - Allergies and Home Meds Allergies/Adverse Reactions: Allergies codeine Adverse Reaction (Verified 04/05/18 20:22) Nausea/Vom/Diarrhea Primary Care Physician: Care Physician,No Primary [Primary Care Provider] - Smoking Status: Never smoker Review of Systems Eyes: Denies: Visual changes - bilaterally, Diplopia Cardiovascular: Denies: Chest pain, Palpitations Respiratory: Denies: Dyspnea, Cough Gastrointestinal: Denies: Abdominal pain, Nausea, Vomiting Musculoskeletal: Reports: Extremity Pain. Denies: Neck pain, Back pain Neurological: Denies: Headache, Weakness, Parasthesia, Numbness Physical Exam Vital Signs/Narrative: Vital Signs 06/14/18 03:35 98.2 F 78 16 186/88 H 100 Inital Vital Signs reviewed: Yes General: Well nourished, Well developed, Unkempt Head: Normocephalic, Atraumatic Eyes: Perrl, EOMI ENT: Moist mucous membranes, No rhinorrhea Neck: Supple, Nontender, - - FROM Back: Nontender. Negative for: Spinal tenderness Extremities: Tenderness - At right AC joint with a deformity posteriorly/dorsally. Closed injury, no lacerations or breaks in the skin. No tenderness in the proximal humerus. Very limited range of motion secondary to pain. Excellent range of motion of the elbow and wrist and other joints of the right hand. Other extremities are atraumatic and benign. Skin: Normal color, No rash Neurological: Alert, Oriented x3, Cranial nerves II-XII grossly intact, Normal Strength, Normal Sensation, Normal Gait Psychological: Normal affect Diagnostic/Tx/Re-eval Right shoulder x-ray series interpreted by myself as displaced distal clavicle fracture. Humeral head is located and without acute fracture. - Medical Decision Making Patient was given [place], x-ray shows distal clavicular fracture without dislocation. She is placed in a sling, given a prescription for some [place], and advised to follow-up with orthopedics as an outpatient. ED Disposition - Plan for ED Patient: Disposition: Home or Assisted Living Chief Complaint: Fall Diagnosis: Displaced fracture of lateral end of right clavicle, initial encounter for closed fracture Instructions: ED Fx Clavicle, ED Sling Prescriptions: Hydrocodone Bitart/Apap 5-325 [[place] 5MG-325MG] 1 tab PO Q4H PRN PRN 2 Days #10 tab PRN Reason: Pain Referrals: Tiffany Hernandez DO [STAFF PHYSICIAN] - (call for appt to be seen within next 1-2 weeks) What to do if you have Problems For any increased pain, shortness of breath, bleeding, nausea or vomiting, chest pain, or any unexpected problems, contact your Primary Care Provider. Call [facility] ([phone]) or report to the closest Emergency Room. Call 911 if necessary. 06/14/18 0433 <Electronically signed by Nirmal Gómez MD> Date Nirmal Gómez MD Cosigner Signature (If Indicated): Date CC: No Primary Care Physician SHOULDER MIN 2 VIEWS Observed: 06/14/2018 Status: F Source: [place] 3:45 AM [facility] Imaging Services [address] [place] [address] Shoulder min 2 Views MR#: [id number] Acct: [id number] Name: ANANTHQUEENIE Rep #: [id number] : 1955 F 63 From: Lawson Arteaga MD PCP: Care Physician, No Primary Status: REG ER Study: Shoulder min 2 Views Date of Exam: 06/14/18 Exam# [id number] Ordering Dr: Nirmal Gómez MD STUDY: X-RAY - RIGHT SHOULDER REASON FOR EXAM: Female, 63 years old. Fall facial pain. TECHNIQUE: 4 view(s) of the shoulder. COMPARISON: None. FINDINGS: Normal glenohumeral articulation. There is a comminuted displaced fracture of the lateral end of the right clavicle. Normal acromion. Normal humeral head and visualized proximal humerus. The soft tissue structures are unremarkable. Normal visualized pulmonary apex. RAD/Shoulder min 2 Views IMPRESSION: There is a comminuted displaced fracture of the lateral end of the right clavicle. Electronically Signed: Lawson Arteaga MD at 4:39 EDT Tel , Service support , CC: No Primary Care Physician; NIRMAL GÓMEZ MD Mosaicist: Signed EMERGENCY DEPARTMENT Observed: 04/05/2018 Status: F Source: [place] [facility] SUMMARY 9:00 PM [facility] Medical Records Department [address] [place] [address] Emergency Department Summary 04/05/182056 MR#: [id number] Acct: [id number] Name: QUEENIE WADSWORTH Rep #: [id number] : 1955 63 From: Vladimir Lechuga MD PCP: Marj Ryan MD Status: PRE ER - ER Visit Summary Date of Service: 04/05/18 Chief Complaint: Patient is here for medication refill. She is out of her propranolol, potassium, loratadine. History of Present Illness: The patient is a 63 F, she is asymptomatic. Physical Examination: Not appear in acute distress. Moist mucous membranes, no obvious facial deformity No C-spine tenderness supple neck. Regular rate and rhythm without any obvious murmurs Clear lungs bilaterally speaking in full sentences without any obvious respiratory distress Abdomen soft and nontender no guarding or rebound Moves all extremities without any difficulty or pain. Skin does not show any obvious rashes or lesions, no trauma. Alert oriented 3 with no gross focal deficit Emergency Department Course and Treatment: Medications will be refilled she is told to follow-up with her PCP Disposition: [Discharge stable condition] Impression: [Medication refill] This note was generated with [employer] dictation software. It may contain incorrect words, spelling, and punctuation that were not noted in review of the chart prior to signing ED Disposition - Plan for ED Patient: Disposition: Home or Assisted Living Chief Complaint: Med Refill Prescriptions: Loratadine 10 mg PO DAILY #30 cap Potassium Chloride [K-Dur] 20 meq PO DAILY #30 tab Propranolol HCl 40 mg PO BID #60 tab Referrals: Marj Ryan MD [Primary Care Provider] - 3-5 Days What to do if you have Problems For any increased pain, shortness of breath, bleeding, nausea or vomiting, chest pain, or any unexpected problems, contact your Primary Care Provider. Call [facility] ([phone]) or report to the closest Emergency Room. Call 911 if necessary. 04/05/18 2100 <Electronically signed by Vladimir Lechuga MD> Date Vladimir Lechuga MD Cosigner Signature (If Indicated): Date CC: Marj Ryan MD ALLERGIES ALLERGIES DATE TYPE / CODE NAME / CODE REACTION SEVERITY SOURCE 07/02/2018 Drug codeine/F006 Nausea/Vom/Diarr Unknown [facility] Allergy/4160 468235([facility] 54447(SNOMED M) Repository CT) ENCOUNTERS ENCOUNTERS ADMIT/DISCHARGE ACCOUNT NUMBER ADMITTING ENCOUNTER LOCATION SOURCE CLASS 07/23/2018/07/23/20 [id number] Ambulatory BMSBuilding: Petal [facility] Repository 07/15/2018 [id number] Ambulatory [facility] ding:CT Repository 07/06/2018/07/07/20 [id number] Emergency BBuilding:ER Zo [address] [place] [address] Repository 07/02/2018/07/02/20 [id number] Emergency [address] ding:ED Repository 06/18/2018 [id number] Ambulatory [facility] ding:HPRAD Repository 06/18/2018/06/18/20 [id number] Ambulatory BMSBuilding: [place] 18 [facility] Repository 06/16/2018/06/16/20 [id number] Emergency [address] ding:ED Repository 06/14/2018/06/14/20 [id number] Emergency Petal Petal [address] [place] [address] ding:ED Repository 04/05/2018/04/05/20 [id number] Emergency Mike [place] 18 [facility] ding:ED Repository 01/03/2018/01/05/20 [id number] Emergency BBuilding:ER [address] Repository PAYERS PAYERS ENCOUNTER GUARANTOR PAYER SUBSCRIBER SOURCE 07/23/2018 QUEENIE K Primary QUEENIE K Mike [id number] Insurance:MYCARE CRSC SCHERERDOB: Community [address] *IN [facility] [id number] Number: Repository [id number]: 330 [id number] () Date:[id number] CLAIMS [address]PTPO [address] [place] [address]NC: 07/23/2018 Secondary NOT GIVENUNK Mike Insurance:SELF PAY [facility] Number: Effective Repository Date:2018-07-23 07/15/2018 QUEENIE K Primary QUEENIE K Petal [id number] Insurance:MYCARE CRSC SCHERERDOB: Community [address] *IN [facility] [id number] Number: Repository [phone]: 330 [id number] () Date:2697-38-19VQIS CLAIMS DEPTPO [address] [place] [address]HH: 07/15/2018 Secondary NOT GIVENUNK Mike Insurance:SELF PAY [facility] Number: Effective Repository Date:2018-07-08 07/06/2018 QUEENIE K Primary QUEENIE Concepcion [facility] SCHERERDOB: Insurance:CARESOURCE SCHERERDOB: [facility] 1955 [facility] [id number] O Repository [address] [place] [address] Number: [address] [place] [address]Wzj: [id number] [place] [address]Gmq: Date:2018-07-06 - ()Tel: [phone] (HP) () Name:NATTN Claims [id number] (WP) [address], [place] [address]ZA: 07/02/2018 QUEENIE K Primary QUEENIE K Petal [address] Insurance:MYCARE CRSC SCHERERDOB: Community [address] [place] [address], [place] [facility] [id number] Hospital [address]Pxb: (330) Number: Repository [phone] () [id number] Date:[id number] CLAIMS [address], [place] [address]EH: 07/02/2018 Secondary NOT GIVENUNK Mike Insurance:SELF PAY [facility] Number: Effective Repository Date:2018-07-02 06/18/2018 QUEENIE K Primary QUEENIE K Mike [address] Insurance:MYCARE CRSC SCHERERDOB: Community [address] [place] [address], [place] [facility] [id number] Hospital [address]Iuw: (330) Number: Repository [phone] () [id number] Date:8437-03-12JIOK [address]S [address] [address]FF: 06/18/2018 Secondary NOT GIVENUNK Petal Insurance:SELF PAY [facility] Number: Effective Repository Date:2018-06-18 06/18/2018 QUEENIE K Primary QUEENIE K Petal [address] Insurance:MYCARE CRSC SCHERERDOB: Community [address] [place] [address], [place] [facility] [id number] Hospital [address]Mpc: (330) Number: Repository [phone] () [id number] Date:0168-00-76VTML [address]S [address] [address]AU: 06/18/2018 Secondary NOT GIVENUNK Mike Insurance:SELF PAY [facility] Number: Effective Repository Date:2018-06-18 06/16/2018 Queenie K Primary Queenie K Mike [address] Insurance:MYCARE CRSC SchererDOB: Community [address], [place] [facility] [id number] Hospital [address]Nrf: (330) Number: Repository [phone] () [id number] Date:8461-80-32VQSC CLAIMS [address] [address]OP: 06/16/2018 Secondary NOT GIVENUNK Mike Insurance:SELF PAY [facility] Number: Effective Repository Date:2018-06-16 06/14/2018 Queenie K Primary Queenie K Mike [address] Insurance:MYCARE CRSC SchererDOB: Community [address], [place] [facility] [id number] Hospital [address]Puj: (330) Number: Repository [phone] () [id number] Date:[id number] [address]S [address] [address]NZ: 06/14/2018 Secondary NOT GIVENUNK Petal Insurance:SELF PAY [facility] Number: Effective Repository Date:2018-06-14 04/05/2018 Queenie K Primary Queenie K Petal [address] Insurance:MYCARE CRSC SchererDOB: Community [address] [facility] [id number] Hospital [address]Btw: (330) Number: Repository [phone] () [id number] Date:5068-86-89XBUY CLAIMS [address] [address]FS: 04/05/2018 Secondary NOT GIVENUNK Petal Insurance:SELF PAY [facility] Number: Effective Repository Date:2018-04-05 01/03/2018 QUEENIE Concepcion Primary QUEENIE [facility] SCHERERDOB: Insurance:[facility] SCHERERDOB: [facility] 1955 O [facility] [place] [id number] O [address]ository [address]WOOUNM [facility], DUALPolicy Number: [facility] [address], [place] [address]Apz: [id number] [place] [address]Bzx: Date:2018-01-03 ()Tel: [phone] (HP) (WP) Name:NATTN Claims [id number] (WP) [facility] [address], [place] [address]HQ:
== END ==
PROVIDERS: Referring Provider Orthopaedic Surgery; Visit Provider Orthopaedic Surgery
DX: S42.001A Fracture of unspecified part of right clavicle, initial encounter for closed fracture (principal); X58.XXXA Exposure to other specified factors, initial encounter; Y93.9 Activity, unspecified; Y92.9 Unspecified place or not applicable; Y99.9 Unspecified external cause status
CPT/HCPCS: 73200

== ENCOUNTER 2019-01-13 13:42 | Emergency (ER) | payer MEDICARE, SELFPAY ==
[2019-01-13 13:43] VITALS: BP 167/87; PULSE 77; RESP 16; TEMP 36.6; O2SAT 95; BMI 28.5
--- NOTE | 2019-01-13 14:28 | RAD_ITS ---
STUDY: X-RAY CHEST REASON FOR EXAM: Female, 63 years old. Edema TECHNIQUE: Portable upright chest COMPARISON: None. FINDINGS: The lungs are clear and expanded. Normal cardiomediastinal silhouette, jj and pleural margins. No acute osseous or upper abdominal process. RAD/Chest 1 View (Portable) IMPRESSION: No acute cardiopulmonary process. Electronically Signed: Dell Jones MD at 15:01 EDT Tel , Service support ,
[2019-01-13 14:33] LABS: Absolute Lymphocyte Count 1.01 X10^3/ul (0.83-4.51); Absolute Neutrophil Count 3.1 X10^3/uL (2.0-7.7); Basophil# 0.02 X10^3/uL; Basophil% 0.4 % (0-1); Eosinophil# 0.23 X10^3/uL; Eosinophils% 4.7 % (0-5); Hematocrit 41.3 % (37-47); Hemoglobin 13.5 g/dl (12.0-15.0); Lymphocyte # 1.01 X10^3/ul (4.0); Lymphocyte % 20.6 % (19-41); Mean Corp Hgb Conc 32.7 g/gl (32-36); Mean Corpuscular Hgb 28.8 pg (27.0-32.0); Mean Corpuscular Volume 88.1 fL (81-99); Mean Platelet Vol. 9.5 fl (6.2-12.0); Monocyte% 10.2 % (0-10); Neutrophil # 3.14 X10^3/uL (2.7-7.7); Neutrophil % 64.1 % (47-70); Platelet Count 241 K/mm3 (150-450); RBC Distribution Width CV 13.9 % (11.6-14.6); RBC Distribution Width SD 44.5 fl (35.1-43.9); Red Blood Count 4.69 M/mm3 (4.2-5.4); White Blood Count 4.9 K/mm3 (4.4-11.0)
[2019-01-13 14:34] LABS: POSITIVE COUNT NO; POSITIVE DIFFERENTIAL NO; POSITIVE MORPHOLOGY NO
[2019-01-13 14:43] LABS: ALB/GLOB Ratio 0.9 RATIO (0.9-2.4); AST(SGOT) 15 U/L (15-37); Alanine Aminotransfer ALT/SGPT 17 U/L (13-56); Albumin, Serum 3.5 g/dL (3.2-5.0); Alkaline Phosphatase 119 U/L (45-117); Anion Gap 6 (5-15); BUN 20 mg/dL (7-18); BUN/Creat Ratio 20.4 RATIO (10-20); Chloride 106 mmol/L (98-107); Creatinine, Serum 0.98 mg/dL (0.55-1.02); EST Glomerular Filtration Rate 61 mL/min (>60); Est Glom Filt Rate - Afr Amer 74 mL/min (>60); Estimated Creatinine Clearance 47.68 ml/min; Globulin 3.7 g/dL (2.2-4.2); Glucose 101 mg/dL (74-106); Potassium 3.5 mmol/L (3.5-5.1); Protein, Total 7.2 g/dL (6.4-8.2); Sodium Level 141 mmol/L (136-145)
--- NOTE | 2019-01-13 15:34 | ED.VISSUMM ---
- ER Visit Summary Date of Service: 01/13/19 Chief Complaint: [Edema History of Present Illness: The patient is a 63 F with bilateral lower extremity edema for 1 to 2 weeks. She has no chest pain shortness of breath no fever or chills no PE or DVT risk factors. Physical Examination: Not appear in acute distress. Moist mucous membranes, no obvious facial deformity No C-spine tenderness supple neck. Regular rate and rhythm without any obvious murmurs Clear lungs bilaterally speaking in full sentences without any obvious respiratory distress Abdomen soft and nontender no guarding or rebound Symmetric bilateral lower extremity edema Skin does not show any obvious rashes or lesions, no trauma. Alert oriented ?3 with no gross focal deficit Emergency Department Course and Treatment: She is clear lungs otherwise normal exam she has normal kidney function on work-up and a normal overall work-up. I will treat her with a low-dose of Lasix and discharge her to follow-up with PCP Disposition: Discharge stable condition Impression: Bilateral lower extremity edema This note was generated with [employer] dictation software. It may contain incorrect words, spelling, and punctuation that were not noted in review of the chart prior to signing ED Disposition - Plan for ED Patient: Disposition: Home or Assisted Living Prescriptions: Furosemide [Lasix] 20 mg PO DAILY #7 tab Referrals: Care Physician,No Primary [Primary Care Provider] - 5-7 Days
--- NOTE | 2019-01-13 15:37 | ED.DCSUM_ITS ---
- ER Visit Summary Date of Service: 01/13/19 Chief Complaint: [Edema History of Present Illness: The patient is a 63 F with bilateral lower extremity edema for 1 to 2 weeks. She has no chest pain shortness of breath no fever or chills no PE or DVT risk factors. Physical Examination: Not appear in acute distress. Moist mucous membranes, no obvious facial deformity No C-spine tenderness supple neck. Regular rate and rhythm without any obvious murmurs Clear lungs bilaterally speaking in full sentences without any obvious respiratory distress Abdomen soft and nontender no guarding or rebound Symmetric bilateral lower extremity edema Skin does not show any obvious rashes or lesions, no trauma. Alert oriented ?3 with no gross focal deficit Emergency Department Course and Treatment: She is clear lungs otherwise normal exam she has normal kidney function on work- up and a normal overall work-up. I will treat her with a low-dose of Lasix and discharge her to follow-up with PCP Disposition: Discharge stable condition Impression: Bilateral lower extremity edema This note was generated with [employer] dictation software. It may contain incorrect words, spelling, and punctuation that were not noted in review of the chart prior to signing ED Disposition - Plan for ED Patient: Disposition: Home or Assisted Living Prescriptions: Furosemide [Lasix] 20 mg PO DAILY #7 tab Referrals: Care Physician,No Primary [Primary Care Provider] - 5-7 Days
[2019-01-13 15:41] VITALS: BP 144/76; PULSE 77; RESP 16; O2SAT 95
== END 2019-01-13 15:42 | disposition home or self-care (01) ==
PROVIDERS: Emergency Provider Emergency Medicine
DX: R60.0 Localized edema (principal); E11.9 Type 2 diabetes mellitus without complications
CPT/HCPCS: 36415; 71045; 80053; 85025; 99282

== ENCOUNTER → 2019-02-04 | Outpatient (CLI) | payer MEDICARE, SELFPAY ==
[2019-02-04 14:57] VITALS: BMI 28.5
--- NOTE | 2019-02-04 15:07 | RAD_ITS ---
STUDY: X-RAY - LEFT KNEE REASON FOR EXAM: Female, 63 years old. Bilateral knee pain. TECHNIQUE: 4 view(s) of the knee. COMPARISON: January 21, 2014 FINDINGS: Generalized osteopenia with mild varus deformity. Normal visualized proximal tibia and fibula. Normal proximal tibiofibular articulation. Severe arthrosis of the medial compartment, mild arthrosis of the lateral compartment and severe arthrosis of the patellofemoral compartment. Progression of osteoarthrosis in each compartment. The soft tissue structures are unremarkable. RAD/Knee 4 or More Views IMPRESSION: Osteopenia with progression of tricompartmental arthrosis as described. Electronically Signed: Guicho Galeano MD at 16:30 EDT , Service support ,
--- NOTE | 2019-02-04 15:07 | RAD_ITS ---
STUDY: X-RAY - RIGHT KNEE REASON FOR EXAM: Bilateral knee pain. TECHNIQUE: 4 view(s) of the knee. COMPARISON: Radiographs 01/01/2012. FINDINGS: Normal visualized distal femur. Normal visualized proximal tibia and fibula. Normal proximal tibiofibular articulation. There is advanced arthrosis of the medial femorotibial compartment with marginal osteophytes and severe increased joint space loss. Normal lateral femorotibial compartment. There are small marginal osteophytes and mild joint space narrowing of the patellofemoral articulation. There are intra-articular bodies in the distal popliteus tendon sheath and posterior to the medial tibial plateau. There is chondrocalcinosis. RAD/Knee 4 or More Views IMPRESSION: Arthrosis of the medial femorotibial and patellofemoral compartments. Intra-articular bodies. Chondrocalcinosis. Electronically Signed: Georges Johnson MD at 10:48 EDT Tel , Service support ,
== END | disposition home or self-care (01) ==
LOC: HPRAD 15:05
PROVIDERS: Referring Provider Orthopaedic Surgery; Visit Provider Orthopaedic Surgery
DX: M25.561 Pain in right knee (principal); M25.562 Pain in left knee
CPT/HCPCS: 73564

== ENCOUNTER 2019-02-12 12:36 | Outpatient (RCR) | payer MEDICARE, SELFPAY ==
[2019-02-04 14:57] VITALS: BMI 28.5
--- NOTE | 2019-02-12 13:45 | HP.PTEVAL_ITS ---
Patient's Visit Information ADARSH WADSWORTH is a 63 year old F referred to Physical Therapy by Tiffany Hernandez DO with a diagnosis of BILATERAL KNEE ARTHRITIS,LBP. Date of Evaluation: 02/12/19 Physical Therapist: Cesar Moss PT, Cert MDT, OCS - Visit Plan Frequency: 1 VISITS Plan: PATIENT SEEN FOR PT EVAL ONLY PER PATIENT AND ONLY WANTS A TENS UNIT. - Subjective Findings: This 63 y/o female pesnets to pysical therapy with bilateral knee arthritis ,LBP .Patient has h/o of back,knee pain many years. Patient seen DR Hernandez did x-rays of knees DJD . Removed fuid from knees . Patient is here for TENS unit only per patient. Patient has h/o seen DR Chamberlain for pain managemnent. Patient stated that she will do exercises on own . Knee pain global ,and symtrical lumbar pain . Symptoms worse with walking ,standing unble to lift or squat. Patient does steps one step at time. Patient c/o parathesia fingers ,toes. Coughing/sneezing -. Bowel/bladder -. Symptoms of pain affect QOL. VOCATION: disablity. SOCIAL: single - Pain Bilateral Knee Pain Intensity (Out of 10): 7 Pain Intensity Range: 10 Bilateral Back Pain Intensity (Out of 10): 7 Pain Intensity Range: 10 - Objective POSTURE: mild foward ,bilteral knee varus. GAIT: antalgic gait bilateral knee varus slow waddle type gait. EDEMA: mild edema knee. PALPATION: global medial/lateral joint line,L-S. AROM: 0-120 supine knee flexion. MMT: quads/hams 4-/5,hip flexion 4-/5,hip abd 3+/5,ankle n4-/5. LUMBAR ROM: flexion mod loss,extension severe loss,side glides mod loss - Special Tests L/S Slump test left side: Negative L/S Slump test right side: Negative L/S Left Straight Leg Raise: Negative L/S Right Straight Leg Raise: Negative - Goals Goal 1:: Patient to be educated on TENS UNIT for ho.me - Rehabilitation Potential Physical Therapy Diagnosis: This patient has medical cormorbities to include pshyosocial along pain lumbar,knee with poor ROM ,strength impairs function thus benifit Rehabilitation Potential: Good - Anticipated Interventions Patient/Client Instruction: Educate patient on: Condition, Plan of Care Other: TENS UNIT Thank you for the opportunity to evaluate your patient. For Medicare and Medicare HMO plans, please review the plan of care and approve it. It will need to be FAXED BACK to us at [phone] for Medicare purposes. For Medicare only, by signing this I certify the plan of care. Please let me know if there are questions or concerns regarding this plan of care. Physician Signature: D ate:
== END 2019-02-12 19:00 | disposition home or self-care (01) ==
LOC: PT 12:36
PROVIDERS: Family Provider Internal Medicine; PCP Internal Medicine; Referring Provider Orthopaedic Surgery; Visit Provider Orthopaedic Surgery
DX: M17.0 Bilateral primary osteoarthritis of knee (principal); M54.5 Low back pain; Z87.39 Personal history of other diseases of the musculoskeletal system and connective tissue
CPT/HCPCS: 97163

== ENCOUNTER 2019-04-05 18:45 | Emergency (ER) | payer MEDICARE, SELFPAY ==
[2019-03-03 14:55] VITALS: BMI 28.5
[2019-04-05 18:46] VITALS: BP 136/77; PULSE 76; RESP 17; TEMP 36.8; O2SAT 92; BMI 29.2
[2019-04-05] MEDS: HYDROcodone Bitartrate/Apap 5/325 Tablet PO (19:43)
[2019-04-05 20:02] LABS: Absolute Lymphocyte Count 1.33 X10^3/uL (0.83-4.51); Absolute Neutrophil Count 2.3 X10^3/uL (2.0-7.7); Basophil# 0.03 X10^3/uL; Basophil% 0.7 % (0-1); Eosinophil# 0.37 X10^3/uL; Eosinophils% 8.3 % (0-5); Hematocrit 41.5 % (37-47); Hemoglobin 13.2 g/dL (12.0-15.0); Lymphocyte # 1.33 X10^3/ul (4.0); Lymphocyte % 29.7 % (19-41); Mean Corp Hgb Conc 31.8 g/dL (32-36); Mean Corpuscular Hgb 29.5 pg (27.0-32.0); Mean Corpuscular Volume 92.6 fL (81-99); Mean Platelet Vol. 9.8 fl (6.2-12.0); Monocyte# 0.41 X10^3/uL; Monocyte% 9.2 % (0-10); NRBC Flagged by Analyzer 0 % (0-5); Neutrophil # 2.32 X10^3/uL (2.7-7.7); Neutrophil % 51.7 % (47-70); Platelet Count 250 K/mm3 (150-450); RBC Distribution Width CV 14.2 % (11.6-14.6); RBC Distribution Width SD 49.1 fl (35.1-43.9); Red Blood Count 4.48 M/mm3 (4.2-5.4); White Blood Count 4.5 K/mm3 (4.4-11.0)
[2019-04-05 20:11] LABS: International Normalized Ratio 1.1; Prothrombin Time (Protime)PT. 13.7 SECONDS (11.7-14.9)
[2019-04-05 20:12] LABS: Anion Gap 9 (5-15); BUN 28 mg/dL (7-18); Calcium,Total 9.3 mg/dL (8.5-10.1); Chloride 112 mmol/L (98-107); Creatinine, Serum 1.27 mg/dL (0.55-1.02); EST Glomerular Filtration Rate 45 mL/min (>60); Est Glom Filt Rate - Afr Amer 55 mL/min (>60); Estimated Creatinine Clearance 36.33 ml/min; Glucose 85 mg/dL (74-106); Partial Thromboplast Time 29.3 Seconds (24.1-36.2); Potassium 4.1 mmol/L (3.5-5.1); Sodium Level 148 mmol/L (136-145)
[2019-04-05 20:49] LABS: AST(SGOT) 14 U/L (15-37); Alanine Aminotransfer ALT/SGPT 17 U/L (13-56); Albumin, Serum 3.6 g/dL (3.2-5.0); Alkaline Phosphatase 102 U/L (45-117); Bilirubin, Direct 0.12 mg/dL (0.00-0.30); Globulin 4.2 g/dL (2.2-4.2); Protein, Total 7.8 g/dL (6.4-8.2)
[2019-04-05] MEDS: 0.9% Normal Saline 1,000 ML 1000 ML IV (20:52)
[2019-04-05 21:37] LABS: Mucous, Urine 0 SEEN /hpf (<or=2+); Squamous Epithelial Cells - UA 0 SEEN /hpf (5-10)
[2019-04-05 21:38] LABS: Color, Urine Straw (Yellow); Glucose, Dipstick Normal (Normal); Ketone-Dipstick Negative (Negative); Leukocyte Esterase-Dipstick 100 /ul (Negative); Nitrite-Dipstick Negative (Negative); Occult Blood-Urine Negative /ul (Negative); Protein-Dipstick Negative (Negative); Urine Bilirubin Dipstick Negative (Negative); Urine Clarity Clear (Clear); Urine Urobilinogen Normal (Normal)
[2019-04-05 21:44] LABS: Bacteria 1+ /hpf (None Seen); Red Blood Cells-Urine 0-5 SEEN /hpf (0-5); White Blood Cells 5-10 SEEN /hpf (0-5)
--- NOTE | 2019-04-05 21:58 | ED.DCSUM_ITS ---
- ER Visit Summary Date of Service: 04/05/19 Chief Complaint: Rash History of Present Illness: The patient is a [address] Gorman. She reports that she has ulcers on her left buttock that began approximately 1 week ago. States that she believes these are from her diaper. She complains of a sharp pain in the area and stated 10 severity. Is worsened by sitting up. Is relieved by Volmax and Tylenol. She denies any change in soap, shampoo, laundry detergent, fabric softener. No new clothing, bedding, carpeting, or pets. Her review of systems is negative. Physical Examination: Vitals: Stable. Afebrile. General: Well-nourished and well-developed. Head: Normocephalic atraumatic. Neck: Supple, no lymphadenopathy. No JVD. Nontender. Cardiovascular: Regular rate and rhythm. No murmurs. Respiratory: No respiratory distress. Clear to auscultation bilaterally. Abdominal: Soft, nontender, nondistended, normal bowel sounds. No guarding, rebound, or peritoneal signs. Back: Nontender. Extremities: Nontender, no edema. Skin: Multiple superficial ulcers that are approximately 3 cm x 2 cm over the left buttock. There is no induration or fluctuance to suggest infection. There is no erythema. She has multiple 1 to 4 mm nonpalpable, non-blanchable purpura over her lateral left and right thighs, right lower back, and left back.. Neurologic: Alert and oriented ?3. Cranial nerves II through XII are intact. Normal strength and sensation. Psych: Normal affect. Test Results: CBC shows eosinophils of 8. Chem-7 shows a sodium 140, chloride 112, BUN 20, creatinine 1.27. BUN/creatinine ratio 22.0. Coags are normal. UA shows leukocytes and 5-10 white blood cells. Emergency Department Course and Treatment: Patient is due to a dose of [place] and Keflex. She had her wounds cleansed and a dressing was placed. Treatment Plan: Patient be discharged on Keflex for her urine. This will also hopefully prevent her ulcers on her left buttock from getting infected. She is instructed to follow-up with her primary care physician in 2 days for a wound check. She does understand that she will likely need to go to the wound center for these to heal. I suggested that she stop wearing a diaper. She also instructed to follow-up with Dr. Contreras of dermatology for further evaluation of her purpura. Return to the emergency department for any worsening symptoms. Disposition: To home in improved and stable condition. Impression: 1. Multiple superficial ulcers left buttock. 2. Purpura to left thigh and back. This note was generated with [employer] dictation software. It may contain incorrect words, spelling, and punctuation that were not noted in review of the chart prior to signing ED Disposition - Plan for ED Patient: Disposition: Home or Assisted Living Instructions: DERMATITIS, Non-Specific Prescriptions: Cephalexin [Keflex] 500 mg PO Q6 #28 cap Prescription Printed Hydrocodone Bitart/Apap 5-325 [[place] 5MG-325MG] 1 tab PO Q4H PRN PRN 2 Days #10 tab PRN Reason: Pain Prescription Printed Referrals: Sebastian Gorman MD [Primary Care Provider] - 2 Days for wound check Mitzi Contreras [NON-STAFF] - As soon as possible
[2019-04-05] MEDS: Cephalexin 250 MG Capsule 500 MG PO (22:16)
[2019-04-05 22:17] VITALS: BP 175/90; PULSE 63; RESP 16
== END 2019-04-05 22:25 | disposition home or self-care (01) ==
LOC: ED 19:33
PROVIDERS: Emergency Provider Emergency Medicine; Family Provider Internal Medicine; PCP Internal Medicine
DX: L98.411 Non-pressure chronic ulcer of buttock limited to breakdown of skin (principal); D69.2 Other nonthrombocytopenic purpura; J44.9 Chronic obstructive pulmonary disease, unspecified; E11.9 Type 2 diabetes mellitus without complications; I10 Essential (primary) hypertension; Z79.82 Long term (current) use of aspirin; Z79.899 Other long term (current) drug therapy
CPT/HCPCS: 80048; 80076; 81001; 85025; 85610; 85730; 96360; 96361; 99284; J7030; A4216

== ENCOUNTER → 2019-06-04 17:30 | Outpatient (CLI) | payer MEDICARE, SELFPAY ==
[2019-06-04 16:42] VITALS: BMI 29.2
[2019-06-05 10:04] LABS: Bacteria 0 SEEN /hpf (None Seen); Mucous, Urine 0 SEEN /hpf (<or=2+); Red Blood Cells-Urine 0 SEEN /hpf (0-5); White Blood Cells 0 SEEN /hpf (0-5)
[2019-06-05 12:12] LABS: Color, Urine Yellow (Yellow); Glucose, Dipstick Normal (Normal); Ketone-Dipstick Negative (Negative); Leukocyte Esterase-Dipstick Negative /ul (Negative); Nitrite-Dipstick Negative (Negative); Occult Blood-Urine Negative /ul (Negative); Protein-Dipstick Negative (Negative); Specific Gravity, Urine 1.015 (1.002-1.030); Urine Bilirubin Dipstick Negative (Negative); Urine Clarity Clear (Clear); Urine Urobilinogen Normal (Normal)
[2019-06-05 12:19] LABS: Squamous Epithelial Cells - UA 0-5 SEEN /hpf (5-10)
== END ==
PROVIDERS: Family Provider Internal Medicine; PCP Internal Medicine; Visit Provider Internal Medicine
DX: R10.2 Pelvic and perineal pain (principal)
CPT/HCPCS: 81001

== ENCOUNTER → 2019-06-24 13:00 | Outpatient (CLI) | payer MEDICARE, SELFPAY ==
[2019-05-14 11:52] VITALS: BMI 29.2
[2019-06-24 11:49] VITALS: BMI 29.2
--- NOTE | 2019-06-24 12:53 | EKG12_ITS ---
Test Reason : PRE OP Blood Pressure : / mmHG Vent. Rate : 070 BPM Atrial Rate : 070 BPM P-R Int : 144 ms QRS Dur : 082 ms QT Int : 448 ms P-R-T Axes : 068 024 094 degrees QTc Int : 483 ms Normal sinus rhythm Nonspecific T wave abnormality Prolonged QT Abnormal ECG Confirmed by SHARMIN FARLEY, KASSANDRA ([id number]), video editor DANNY RODRIGUEZ ([id number]) on 06/25/2019 11:15:00 AM Referred By: HITESH Confirmed By:KASSANDRA FINNEY MD
[2019-06-24 13:57] LABS: Hemoglobin A1c 5.6 % (4.2-6.3)
[2019-06-24 13:58] LABS: Anion Gap 7 (5-15); BUN 36 mg/dL (7-18); BUN/Creat Ratio 26.5 RATIO (10-20); Calcium,Total 9.3 mg/dL (8.5-10.1); Chloride 108 mmol/L (98-107); Creatinine, Serum 1.36 mg/dL (0.55-1.02); EST Glomerular Filtration Rate 42 mL/min (>60); Est Glom Filt Rate - Afr Amer 51 mL/min (>60); Glucose 108 mg/dL (74-106); Potassium 4.3 mmol/L (3.5-5.1); Sodium Level 140 mmol/L (136-145)
[2019-06-24 14:00] LABS: Alcohol, Blood (Medical)-Serum < 3.0 mg/dL
== END ==
PROVIDERS: Family Provider Internal Medicine; PCP Internal Medicine; Visit Provider Orthopaedic Surgery
DX: Z01.818 Encounter for other preprocedural examination (principal); I10 Essential (primary) hypertension; J45.909 Unspecified asthma, uncomplicated; E11.9 Type 2 diabetes mellitus without complications
CPT/HCPCS: 36415; 80048; 80320; 83036; 87077; 87081; 93005; G0480

== ENCOUNTER → 2019-12-16 12:11 | Outpatient (CLI) | payer MEDICARE, SELFPAY ==
[2019-09-10 18:50] VITALS: BMI 29.2
[2019-12-16 12:48] LABS: AST(SGOT) 19 U/L (15-37); Alanine Aminotransfer ALT/SGPT 20 U/L (13-56); Albumin, Serum 3.7 g/dL (3.2-5.0); Alkaline Phosphatase 99 U/L (45-117); Anion Gap 8 (5-15); BUN 34 mg/dL (7-18); BUN/Creat Ratio 25.2 RATIO (10-20); Calcium,Total 9.1 mg/dL (8.5-10.1); Chloride 107 mmol/L (98-107); Cholesterol 224 mg/dL (200); Creatinine, Serum 1.35 mg/dL (0.55-1.02); EST Glomerular Filtration Rate 42 mL/min (>60); Est Glom Filt Rate - Afr Amer 51 mL/min (>60); Globulin 3.8 g/dL (2.2-4.2); Glucose 121 mg/dL (74-106); High Density Lipoprotein 59 mg/dL; Potassium 3.4 mmol/L (3.5-5.1); Protein, Total 7.5 g/dL (6.4-8.2); Sodium Level 138 mmol/L (136-145); Triglycerides 137 mg/dL; Very Low Density Lipoprotein 27 mg/dL (5-40)
== END ==
PROVIDERS: PCP Internal Medicine; Referring Provider Internal Medicine; Visit Provider Internal Medicine
DX: I10 Essential (primary) hypertension (principal); E78.5 Hyperlipidemia, unspecified
CPT/HCPCS: 80053; 80061

== ENCOUNTER 2021-01-15 21:30 | Emergency (ER) | payer MEDICARE, MEDICAID, SELFPAY ==
[2020-01-15 16:30] VITALS: BMI 29.8
[2021-01-15 21:31] VITALS: BP 151/114; PULSE 83; RESP 16; TEMP 35.9; O2SAT 97; BMI 30.2
[2021-01-15 21:41] VITALS: O2SAT 98
--- NOTE | 2021-01-15 21:47 | EX.ED.GENINJ ---
HPI History of Present Illness Chief Complaint: Fall Informant: patient Narrative Narrative: 65-year-old female states she was at the [employer]rom[employer] sitting in a chair. She states that she was doing the laundry right side of her head. No loss of consciousness. She takes a daily aspirin. and fell over to the side. She struck the back of her head in the She states that she also struck the right shoulder on the ground. She states that it is painful for her to move it. [facility] Medical History (Updated 01/15/21 @ 21:[address] Trae Aguilar, DO) Cataracts, bilateral Chronic bronchitis Depression with anxiety Diabetes Gout Herpes History of gallstones History of pneumonia Hypertension IBS (irritable bowel syndrome) Non-smoker Osteoarthritis Seasonal allergies Home Medications citalopram 40 mg tablet 40 mg PO DAILY 01/24/19 [History Last Taken Unknown] vit A 7,160 unit-vit C 113 mg-vit E 100 vbve-vgea-mhehwb tablet 1 tab PO BID tab 01/24/19 [History Last Taken Unknown] quetiapine 50 mg PO QHS 06/24/19 [History Last Taken Unknown] quetiapine 400 mg PO QHS 06/24/19 [History Last Taken Unknown] fluticasone propionate 50 mcg/actuation nasal spray,suspension 2 spray INTRANASAL DAILY #47.4 g 07/23/19 [Rx Last Taken Unknown] amlodipine 2.5 mg tablet 2.5 mg PO DAILY #90 tab 04/06/20 [Rx Last Taken Unknown] famotidine 20 mg tablet 20 mg PO BID 60 Days #120 tab 06/03/20 [Rx Last Taken Unknown] sumatriptan succinate 25 mg tablet 25 mg PO ONCE PRN #20 tab 06/03/20 [Rx Last Taken Unknown] potassium chloride 20 mEq tablet,extended release(part/cryst) 20 meq .ROUTE .COMPLEX #90 tab 06/30/20 [Rx Last Taken Unknown] valacyclovir 500 mg tablet 500 mg PO DAILY #90 tab 06/30/20 [Rx Last Taken Unknown] aspirin 81 mg chewable tablet 81 mg PO DAILY@0800 #90 tab 07/29/20 [Rx Last Taken Unknown] lisinopril 20 mg tablet 20 mg PO DAILY #90 tab 08/11/20 [Rx Last Taken Unknown] oxybutynin chloride 15 mg tablet,extended release 24 hr 15 mg PO DAILY #90 tab 09/02/20 [Rx Last Taken Unknown] Allergy/AdvReac Type Severity Reaction Status Date / Time codeine AdvReac Nausea/Vom/ Verified 01/15/21 21:34 Diarrhea Family History Other Alcoholism Breast cancer Depression Diabetes Heart disease Hypertension Surgical History History of hysterectomy Hx of bladder repair surgery Social History Smoking Status: Never smoker alcohol intake: current alcohol intake frequency: holidays/special occasions only substance use type: marijuana what type of physical activity do you participate in: none ROS ROS ED Constitutional Constitutional ED: Denies chills or weight loss Eyes Eyes: Denies change in vision or diplopia ENT ENT ED: Denies ear pain, rhinorrhea or sore throat Cardiovascular Cardiovascular: Denies chest pain, orthopnea, palpitations or racing heartbeat Respiratory/Chest Respiratory/Chest: Denies cough, dyspnea or orthopnea Gastrointestinal Gastrointestinal: Denies abdominal pain, diarrhea, nausea or vomiting Genitourinary Genitourinary ED: Denies dysuria, hematuria or urinary frequency Musculoskeletal Musculoskeletal: Reports other Details: See history of present illness ; Denies arthralgias or myalgias Integumentary Denies abscess or rash Neurologic Neurologic: Reports headache(s); Denies weakness Psychiatric Psychiatric: Denies anxiety, depression, suicidal ideation or suicidal thoughts Endocrine Endocrinology: Denies polydipsia, polyphagia or polyuria Allergic/Immunologic Allergic/Immunologic ED: Denies mouth swelling, tongue swelling or urticaria EXAM Physical Exam Const Vital Signs: 01/15/21 21:31 01/15/21 21:41 Temperature 96.6 F L Temperature Source Temporal Pulse Rate 83 Respiratory Rate 16 Respiratory Effort Normal Respiratory Depth Normal Respiratory Pattern Normal Blood Pressure 151/114 H Blood Pressure Mean 126 Pulse Ox 97 98 Oxygen Delivery Method Room Air Room Air Positive well nourished and well developed General Appearance ED: well developed HEENT Reports normocephalic, head/scalp atraumatic and moist mucous membranes Eyes PERRL and EOMs intact bilaterally Neck no lymphadenopathy, supple and no JVD Resp normal respiratory effort and clear to auscultation bilaterally Cardio regular rate, regular rhythm and no murmurs GI normal to inspection, nondistended, normoactive bowel sounds and non-tender Palpation: soft Back/Spine no CVA tenderness and normal ROM Extremity full ROM Extremity Narrative: Patient has full range of motion but painful. There is no deformity. Neurovascular intact General Extremety ED: Yes tenderness; Negative for edema General Extremity: Negative for edema Neuro oriented x3 and CN's II-XII intact bilaterally Sensorium / Orientation: alert Motor Exam: strength 5/5 throughout Psych mental status grossly normal Mood & Affect: Negative for depressed or tearful Skin no rashes or lesions noted and no wounds MDM MDM MDM Narrative Medical decision making narrative: My impression of the plain films of the right shoulder is no acute fracture. CT of the brain was read by radiology reviewed by myself and is negative. Patient will be discharged home with supportive care. Instructions for ice Tylenol or Motrin. Follow with primary care 10 to 14 days if not improved Discharge Plan Triage Chief Complaint: Fall ED Provider: Trae Aguilar Dx/Rx/DC Orders Clinical Impression: Contusion of scalp, Contusion of right shoulder Instructions: ED Contusion, Upper Extremity, ED Head Injury (Adult) Prescriptions: No Action citalopram 40 mg tablet 40 mg PO DAILY RF: 0 vit A-vit C-vit A-avsf-uxeluz 7,160-113-100 wvcn-tf-bogs tablet 1 tab PO BID RF: 0 quetiapine 50 MG tablet 50 mg PO QHS RF: 0 quetiapine 400 MG tablet 400 mg PO QHS RF: 0 fluticasone propionate 50 mcg/actuation spray,suspension 2 spray intranasal DAILY Qty: 47.4 RF: 1 amlodipine 2.5 mg tablet 2.5 mg PO DAILY Qty: 90 RF: 1 famotidine 20 mg tablet 20 mg PO BID 60 Days Qty: 120 RF: 2 sumatriptan succinate [Imitrex] 25 mg tablet 25 mg PO ONCE PRN (Reason: Headache) Qty: 20 RF: 3 potassium chloride 20 mEq tablet,ER particles/crystals 20 meq .Route .COMPLEX Qty: 90 RF: 1 valacyclovir 500 mg tablet 500 mg PO DAILY Qty: 90 RF: 1 aspirin 81 mg tablet,chewable 81 mg PO DAILY@0800 Qty: 90 RF: 1 lisinopril 20 mg tablet 20 mg PO DAILY Qty: 90 RF: 1 oxybutynin chloride 15 mg tablet extended release 24hr 15 mg PO DAILY Qty: 90 RF: 1 Primary Care Provider: Sebastian Gorman Referrals: Sebastian Gorman MD [Primary Care Provider] - As Needed
--- NOTE | 2021-01-15 22:00 | CT_ITS ---
HISTORY: INJURY Technique:CT Head or Brain W/O Contrast Injection. Sagittal and coronal 2-D reformats Number of Images including paperwork:243 Comparison: None available. Findings: Periventricular deep and subcortical white matter disease is present. Paranasal sinuses are clear. The brain is atrophic. Calcific ASCVD involves intracranial arteries. No acute intracranial edema or hemorrhage. No acute abnormality of orbits. Middle ear cavities and mastoid air cells are well aerated. Skull is normal. CT/Brain/Head without Contrast IMPRESSION: No acute intracranial abnormality. Chronic changes as above. ASPECT 10. Individualized dose optimization techniques were used for this CT. at 2214 Reported and signed by: Scott Burkett MD Electronically Signed: Scott Burkett MD at 22:13 EDT Tel , Service support ,
--- NOTE | 2021-01-15 22:07 | RAD_ITS ---
HISTORY: INJURY Exam: Right Shoulder 4 images COMPARISON: None FINDINGS: # of images incl. paperwork: 4 XR Shoulder Min 2 Views: The humeral head is well-positioned within the glenoid fossa. No acute fracture or subluxation perceived. There is hyperostosis and irregular contour to the lateral aspect of the right clavicle extending to the right acromioclavicular joint suggestive of previous fracture healing is hyperostosis and ossification in the coracoclavicular ligament. The acromioclavicular joint is degenerative. The adjacent chest is unremarkable. RAD/Shoulder min 2 Views IMPRESSION: No acute fracture or dislocation to the Right shoulder. at 2224 Reported and signed by: Scott Burkett MD Electronically Signed: Scott Burkett MD at 22:23 EDT Tel , Service support ,
[2021-01-15 22:45] VITALS: RESP 16
== END 2021-01-15 22:45 | disposition home or self-care (01) ==
LOC: ED 22:32
PROVIDERS: Emergency Provider Emergency Medicine; PCP Internal Medicine
DX: S00.03XA Contusion of scalp, initial encounter (principal); S40.011A Contusion of right shoulder, initial encounter; W19.XXXA Unspecified fall, initial encounter
CPT/HCPCS: 70450; 73030; 99282

== ENCOUNTER → 2021-02-15 16:02 | Outpatient (CLI) | payer MEDICARE, MEDICAID, SELFPAY ==
[2021-02-15 15:29] VITALS: BMI 31.2
[2021-02-15 17:08] LABS: Absolute Lymphocyte Count 1.08 X10^3/uL (0.83-4.51); Absolute Neutrophil Count 4.3 X10^3/uL (2.0-7.7); Basophil# 0.03 X10^3/uL; Basophil% 0.5 % (0-1); Eosinophils% 4.8 % (0-5); Hematocrit 45.7 % (37-47); Hemoglobin 14.3 g/dL (12.0-15.0); Lymphocyte # 1.08 X10^3/ul (0.83-4.51); Lymphocyte % 17.3 % (19-41); Mean Corp Hgb Conc 31.3 g/dL (32-36); Mean Corpuscular Hgb 29.2 pg (27.0-32.0); Mean Corpuscular Volume 93.5 fL (81-99); NRBC Flagged by Analyzer 0 % (0-5); Neutrophil % 68.9 % (47-70); Platelet Count 312 K/mm3 (150-450); RBC Distribution Width CV 13.9 % (11.6-14.6); RBC Distribution Width SD 47.9 fl (35.1-43.9); Red Blood Count 4.89 M/mm3 (4.2-5.4); White Blood Count 6.2 K/mm3 (4.4-11.0)
[2021-02-15 18:00] LABS: AST(SGOT) 14 U/L (15-37); Alanine Aminotransfer ALT/SGPT 20 U/L (13-56); Albumin, Serum 3.9 g/dL (3.2-5.0); Alkaline Phosphatase 102 U/L (45-117); Anion Gap 8 (5-15); BUN 24 mg/dL (7-18); BUN/Creat Ratio 14.8 RATIO (10-20); Calcium,Total 9.6 mg/dL (8.5-10.1); Chloride 109 mmol/L (98-107); Cholesterol 260 mg/dL (200); Creatinine, Serum 1.62 mg/dL (0.55-1.02); EST Glomerular Filtration Rate 34 mL/min (>60); Est Glom Filt Rate - Afr Amer 41 mL/min (>60); Globulin 4.1 g/dL (2.2-4.2); Glucose 90 mg/dL (74-106); High Density Lipoprotein 48 mg/dL; Potassium 4.1 mmol/L (3.5-5.1); Sodium Level 140 mmol/L (136-145); Thyroid Stim Hormone (TSH) 1.53 uIU/mL (0.358-3.74); Triglycerides 359 mg/dL; Very Low Density Lipoprotein 72 mg/dL (5-40)
== END ==
PROVIDERS: PCP Internal Medicine; Referring Provider Nurse Practitioner Family; Visit Provider Nurse Practitioner Family
DX: I10 Essential (primary) hypertension (principal); E78.5 Hyperlipidemia, unspecified; F31.9 Bipolar disorder, unspecified; K21.9 Gastro-esophageal reflux disease without esophagitis
CPT/HCPCS: 36415; 80053; 80061; 84443; 85025

== ENCOUNTER → 2021-05-12 14:30 | Outpatient (CLI) | payer MEDICARE, MEDICAID, SELFPAY ==
[2021-05-12 15:03] LABS: Mucous, Urine 0 SEEN /hpf (<or=2+); Red Blood Cells-Urine 0 SEEN /hpf (0-5)
[2021-05-12 15:17] LABS: Anion Gap 6 (5-15); BUN 20 mg/dL (7-18); BUN/Creat Ratio 17.4 RATIO (10-20); Calcium,Total 10.1 mg/dL (8.5-10.1); Chloride 106 mmol/L (98-107); Creatinine, Serum 1.15 mg/dL (0.55-1.02); EST Glomerular Filtration Rate 51 mL/min (>60); Est Glom Filt Rate - Afr Amer 61 mL/min (>60); Glucose 133 mg/dL (74-106); Sodium Level 140 mmol/L (136-145)
[2021-05-12 16:43] LABS: Color, Urine Yellow (Yellow); Glucose, Dipstick Normal (Normal); Ketone-Dipstick Negative (Negative); Leukocyte Esterase-Dipstick 500 /ul (Negative); Nitrite-Dipstick Negative (Negative); Occult Blood-Urine Negative /ul (Negative); Protein-Dipstick 100 mg/dl (Negative); Specific Gravity, Urine 1.025 (1.002-1.030); Urine Bilirubin Dipstick Negative (Negative); Urine Clarity Clear (Clear); Urine Urobilinogen Normal (Normal)
[2021-05-12 16:49] LABS: Squamous Epithelial Cells - UA 5-10 SEEN /hpf (5-10); White Blood Cells 5-10 SEEN /hpf (0-5)
[2021-05-12 16:50] LABS: Bacteria 1+ /hpf (None Seen); Renal Epithelial Cells 0-5 SEEN /hpf (0-5)
== END ==
PROVIDERS: PCP Internal Medicine; Referring Provider Internal Medicine; Visit Provider Internal Medicine
DX: I10 Essential (primary) hypertension (principal); R10.2 Pelvic and perineal pain
CPT/HCPCS: 36415; 80048; 81001

== ENCOUNTER → 2021-07-05 14:24 | Outpatient (CLI) | payer MEDICARE, MEDICAID, SELFPAY ==
--- NOTE | 2021-07-05 14:26 | BI_ITS ---
MAMMOGRAPHY - BILATERAL SCREENING REASON FOR EXAM: Female, 66 years old. Routine annual screening examination. PERTINENT HISTORY: Aunt with breast cancer. TECHNIQUE: Digital bilateral breast ciro (3D mammographic acquisition) in the CC and MLO projections. 2-D mediolateral oblique (MLO) and craniocaudad (CC) views of both breasts were obtained. CAD: Full Field Digital Mammography with Computer Added Detection was performed. COMPARISON: None. Baseline examination. FINDINGS: Breast Composition: There are scattered areas of fibroglandular density. There are no dominant masses or suspicious calcifications. No other significant abnormalities are identified. BI/SCRN MAMM (CAD)W/CIRO BILAT IMPRESSION: Negative screening mammogram. Yearly followup mammogram recommended. (A) ASSESSMENT CATEGORY: BIRADS Category 1: Negative. A letter regarding these results will be sent to the patient by the facility within 30 days. Approximately 10% of breast cancers are not detected by mammography. A normal mammogram should not delay biopsy of a clinically suspicious abnormality. [id number] Electronically Signed: J Luis Doll MD at 15:36 EST , Service support ,
== END ==
PROVIDERS: PCP Internal Medicine; Referring Provider Nurse Practitioner Women's Health; Visit Provider Nurse Practitioner Women's Health
DX: Z12.31 Encounter for screening mammogram for malignant neoplasm of breast (principal); Z80.3 Family history of malignant neoplasm of breast
CPT/HCPCS: 77063; 77067

== ENCOUNTER → 2022-01-19 | Outpatient (CLI) | payer MEDICARE, MEDICAID, SELFPAY ==
--- NOTE | 2022-01-19 14:21 | BI_ITS ---
MAMMOGRAPHY - BILATERAL DIAGNOSTIC REASON FOR EXAM: Female, 66 years old. Painful right upper outer quadrant breast lump for 6 months. PERTINENT HISTORY: Aunt with breast cancer. TECHNIQUE: Digital bilateral breast dayan (3D mammographic acquisition) in the CC and MLO projections. 2-D mediolateral oblique (MLO) and craniocaudad (CC) views of both breasts were obtained. 90 degree lateral view of the left breast was obtained as well. CAD: Full Field Digital Mammography with Computer Added Detection was performed. COMPARISON: Comparison is made with prior study dated 04/04/2021. FINDINGS: Breast Composition: There are scattered areas of fibroglandular density. There are no dominant masses or suspicious calcifications. Stable small calcified nodules in breasts. No other significant abnormalities are identified. There has been no significant change since the prior study. BI/DIAG MAMM W/CAD, BILAT IMPRESSION: Stable bilateral diagnostic mammogram. With the patient''s history of a palpable lump in the right breast, correlation with ultrasound recommended. ASSESSMENT CATEGORY: BIRADS Category 0: Incomplete. Need additional imaging evaluation. A letter regarding these results will be sent to the patient by the facility within 30 days. Approximately 10% of breast cancers are not detected by mammography. A normal mammogram should not delay biopsy of a clinically suspicious abnormality. Electronically Signed: J Luis Doll MD at 15:26 EDT ,
--- NOTE | 2022-01-19 15:20 | US_ITS ---
STUDY: ULTRASOUND BREAST - RIGHT REASON FOR EXAM: Female, 66 years old. Pain in the right breast. TECHNIQUE: Axial and longitudinal images of the RIGHT breast were performed with a high resolution ultrasound transducer. # OF IMAGES: 40 COMPARISON: Comparison is made with prior mammogram done earlier today. FINDINGS: RIGHT Breast: Imaging of the upper medial aspect of the right breast was performed. There is a 6 mm x 5 mm x 5 mm hypoechoic/cystic nodule with calcific rims at the 11 o''clock position of the breast 4 cm from nipple. A similar appearing nodule is also seen at the 11 o''clock position in the breast at 3 cm from nipple and at the 10 o''clock position of the breast at 5 cm from the nipple. These correspond to the partially calcified nodules seen on the mammogram. US/Breast Limited Unilateral IMPRESSION: 3 subcentimeters nodules are seen in the upper medial aspect of the right breast corresponding to the partially calcified nodule on the mammogram. ASSESSMENT CATEGORY: BIRADS Category 2: Benign. A letter regarding these results will be sent to the patient by the facility within 30 days. Electronically Signed: J Luis Doll MD at 8:52 EDT ,
== END | disposition home or self-care (01) ==
PROVIDERS: PCP Internal Medicine; Visit Provider Internal Medicine
DX: N63.10 Unspecified lump in the right breast, unspecified quadrant (principal); N64.4 Mastodynia
CPT/HCPCS: 76642; 77062; 77066; G0279

== ENCOUNTER → 2022-05-16 | Outpatient (CLI) | payer MEDICARE, MEDICAID, SELFPAY ==
[2022-05-16 16:44] LABS: Absolute Lymphocyte Count 1.11 X10^3/uL (0.83-4.51); Absolute Neutrophil Count 3.8 X10^3/uL (2.0-7.7); Basophil# 0.02 X10^3/uL; Basophil% 0.4 % (0-1); Eosinophil# 0.24 X10^3/uL; Eosinophils% 4.3 % (0-5); Hematocrit 39.4 % (37-47); Hemoglobin 12.6 g/dL (12.0-15.0); Lymphocyte # 1.11 X10^3/ul (0.83-4.51); Lymphocyte % 19.9 % (19-41); Monocyte# 0.42 X10^3/uL; Monocyte% 7.5 % (0-10); NRBC Flagged by Analyzer 0 % (0-5); Neutrophil # 3.76 X10^3/uL (2.7-7.7); Neutrophil % 67.4 % (47-70); Platelet Count 268 K/mm3 (150-450); RBC Distribution Width CV 13.8 % (11.6-14.6); RBC Distribution Width SD 49.7 fl (35.1-43.9); Red Blood Count 4.06 M/mm3 (4.2-5.4); White Blood Count 5.6 K/mm3 (4.4-11.0)
[2022-05-16 17:15] LABS: ALB/GLOB Ratio 0.9 RATIO (0.9-2.4); AST(SGOT) 16 U/L (15-37); Alanine Aminotransfer ALT/SGPT 19 U/L (13-56); Albumin, Serum 3.5 g/dL (3.2-5.0); Alkaline Phosphatase 87 U/L (45-117); Anion Gap 7 (5-15); BUN 24 mg/dL (7-18); BUN/Creat Ratio 22.6 RATIO (10-20); Calcium,Total 9.5 mg/dL (8.5-10.1); Chloride 108 mmol/L (98-107); Cholesterol 116 mg/dL (200); Creatinine, Serum 1.06 mg/dL (0.55-1.02); EST Glomerular Filtration Rate 55 mL/min (>60); Est Glom Filt Rate - Afr Amer 67 mL/min (>60); Glucose 102 mg/dL (74-106); High Density Lipoprotein 56 mg/dL; Potassium 4.2 mmol/L (3.5-5.1); Protein, Total 7.5 g/dL (6.4-8.2); Sodium Level 140 mmol/L (136-145); Triglycerides 123 mg/dL; Very Low Density Lipoprotein 25 mg/dL (5-40)
== END | disposition home or self-care (01) ==
PROVIDERS: PCP Internal Medicine; Referring Provider Internal Medicine; Visit Provider Internal Medicine
DX: E78.5 Hyperlipidemia, unspecified (principal); I10 Essential (primary) hypertension
CPT/HCPCS: 36415; 80053; 80061; 85025

== ENCOUNTER 2023-10-06 14:01 | Emergency (ER) | payer MEDICARE, MEDICAID, SELFPAY ==
[2023-10-06 14:03] VITALS: BP 118/73; PULSE 92; RESP 18; TEMP 37.9; O2SAT 97
[2023-10-06 14:37] LABS: Absolute Neutrophil Count 4.3 X10^3/uL (2.0-7.7); Basophil# 0.03 X10^3/uL; Basophil% 0.6 % (0-1); Eosinophil# 0.01 X10^3/uL; Eosinophils% 0.2 % (0-5); Hematocrit 29.9 % (37-47); Hemoglobin 7.8 g/dL (12.0-15.0); Lymphocyte % 7.7 % (19-41); Mean Corp Hgb Conc 26.1 g/dL (32-36); Mean Corpuscular Hgb 16.7 pg (27.0-32.0); Mean Corpuscular Volume 63.9 fL (81-99); Mean Platelet Vol. 9.7 fl (6.2-12.0); Monocyte# 0.45 X10^3/uL; Monocyte% 8.7 % (0-10); NRBC Flagged by Analyzer 0 % (0-5); Neutrophil # 4.25 X10^3/uL (2.7-7.7); Neutrophil % 82.2 % (47-70); POSITIVE DIFFERENTIAL YES; POSITIVE MORPHOLOGY YES; Platelet Count 423 K/mm3 (150-450); RBC Distribution Width CV 20.2 % (11.6-14.6); RBC Distribution Width SD 44.7 fl (35.1-43.9); Red Blood Count 4.68 M/mm3 (4.2-5.4); White Blood Count 5.2 K/mm3 (4.4-11.0)
[2023-10-06 14:43] LABS: Differential Indicated SCAN CRITERIA MET
--- NOTE | 2023-10-06 14:56 | EX.ED.DYSGE1 ---
HPI <YANNI Banuelos - Last Filed: 10/06/23 18:31> History of Present Illness Chief Complaint: Abd Pain Narrative Narrative: Patient presenting today due to flulike symptoms that she has had for the past few days. She reports that she has concerns for walking pneumonia. She reports that she has had nasal congestion and a productive cough. She also reports that she has had generalized abdominal pain for, a long time. This pain is worse after she eat. This pain has never been worked up in the past. PMH includes CKD, GERD, bipolar disorder, hypertension, type 2 diabetes mellitus. She denies chest pain, shortness of breath, melena, and hematochezia. PFSH <YANNI Banuelos - Last Filed: 10/06/23 18:31> [facility] Medical History Abdominal pain Allergic rhinitis Bilateral primary osteoarthritis of knee Cataracts, bilateral Chronic bronchitis CKD (chronic kidney disease) Depression with anxiety Diabetes Gout Health care maintenance Herpes History of gallstones History of pneumonia Hypertension IBS (irritable bowel syndrome) Intertriginous dermatitis associated with moisture Neck pain Non-smoker Osteoarthritis Painful lumpy right breast Preventative health care Seasonal allergies Suprapubic pain Vomiting Home Medications citalopram 40 mg tablet 40 mg PO DAILY ANXIETY 01/24/19 [History Last Taken Unknown] vit A 7,160 unit-vit C 113 mg-vit E 100 [id number] tablet 1 tab PO BID SUPPLEMENT 01/24/19 [History Last Taken Unknown] quetiapine 400 mg tablet 400 mg PO QHS SLEEP 06/24/19 [History Last Taken Unknown] quetiapine 50 mg tablet 50 mg PO QHS SLEEP 06/24/19 [History Last Taken Unknown] bismuth subsalicylate 262 mg chewable tablet (Pepto-Bismol) 2 tab PO Q30-60M PRN 02/15/21 [History Last Taken Unknown] ipratropium bromide 21 mcg (0.03 %) nasal spray 2 spray intranasal BID-TID PRN allergy symptoms #30 mL 02/15/21 [Rx Last Taken Unknown] lisinopril 20 mg tablet 20 mg PO DAILY BP #90 tabs 02/15/21 [Rx Last Taken Unknown] potassium chloride 20 mEq tablet,extended release(part/cryst) 20 meq .Route .COMPLEX SUPPLEMENT #90 tabs 02/15/21 [Rx Last Taken Unknown] quetiapine 100 mg tablet 100 mg PO 02/15/21 [History Last Taken Unknown] quetiapine 25 mg tablet 25 mg PO 02/15/21 [History Last Taken Unknown] nystatin 100,000 unit/gram topical powder 1 applic topical TID #60 grams 05/12/21 [Rx Last Taken Unknown] clotrimazole-betamethasone 1 %-0.05 % topical cream 1 applic topical BID 2 weeks #45 grams 07/05/21 [Rx Last Taken Unknown] leg brace (BERTHA Knee Brace) #2 ea 10/19/21 [Rx Last Taken Unknown] aspirin 81 mg chewable tablet 81 mg PO DAILY@0800 BLOOD THINNER #90 tabs 01/11/22 [Rx Last Taken Unknown] rosuvastatin 10 mg tablet 10 mg PO DAILY #90 tabs 03/10/22 [Rx Last Taken Unknown] sumatriptan succinate 25 mg tablet (Imitrex) 25 mg PO ONCE PRN Headache #14 tabs 05/16/22 [Rx Last Taken Unknown] valacyclovir 500 mg tablet 500 mg PO DAILY HERPES #90 tabs 05/17/22 [Rx Last Taken Unknown] amlodipine 10 mg tablet 10 mg PO DAILY BP #90 tabs 08/29/22 [Rx Last Taken Unknown] pantoprazole 40 mg tablet,delayed release (Protonix) 40 mg PO DAILY #90 tabs 11/27/22 [Rx Last Taken Unknown] oxybutynin chloride 15 mg tablet,extended release 24 hr See Rx Instructions .Route .COMPLEX #60 tabs 03/02/23 [Rx Last Taken Unknown] cetirizine 10 mg tablet See Rx Instructions .Route .COMPLEX #30 tabs 03/29/23 [Rx Last Taken Unknown] Allergy/AdvReac Type Severity Reaction Status Date / Time codeine AdvReac Nausea/Vom/ Verified 10/06/23 14:01 Diarrhea Family History Other Alcoholism Breast cancer Depression Diabetes Heart disease Hypertension Surgical History History of hysterectomy Hx of bladder repair surgery Social History Smoking Status: Never smoker alcohol intake: current alcohol intake frequency: holidays/special occasions only substance use type: marijuana caffeine: Yes what type of physical activity do you participate in: none seatbelt use: always do you feel safe at home: Yes additional social history: retired ROS <YANNI Banuelos - Last Filed: 10/06/23 18:31> ROS ED Constitutional Constitutional ED: Reports fever(s); Denies chills Eyes Eyes: Denies blurry vision Cardiovascular Cardiovascular: Denies chest pain Respiratory/Chest Respiratory/Chest: Reports cough; Denies dyspnea Gastrointestinal Gastrointestinal: Reports abdominal pain; Denies constipation, diarrhea, hematochezia, melena, nausea or vomiting Genitourinary Genitourinary ED: Denies dysuria, hematuria or urinary urgency Musculoskeletal Musculoskeletal: Denies arthralgias or myalgias Integumentary Denies rash Neurologic Neurologic: Denies weakness EXAM <YANNI Banuelos - Last Filed: 10/06/23 18:31> Physical Exam Const Vital Signs: 10/06/23 14:03 10/06/23 17:22 Temperature 100.2 F H 98.5 F Temperature Source Oral Pulse Rate 92 88 Respiratory Rate 18 16 Blood Pressure 118/73 120/64 Blood Pressure Mean 88 82 Pulse Ox 97 95 Oxygen Delivery Method Room Air Positive well nourished, well developed and no apparent distress General Appearance ED: well developed HEENT Reports normocephalic and head/scalp atraumatic Mouth ED: Yes moist mucous membranes normal Eyes PERRL and EOMs intact bilaterally General Eye ED: Negative for scleral icterus Neck full ROM and supple Chest Wall inspection of chest normal Resp normal respiratory effort and clear to auscultation bilaterally Cardio regular rate and regular rhythm GI soft to palpation, non-tender, non-distended and no masses Back/Spine normal ROM and normal to inspection Extremity normal to inspection and full ROM Neuro oriented x3, CN's II-XII intact bilaterally, moves all extremities, no focal motor deficits and no sensory deficits noted Sensorium / Orientation: awake and alert Psych mental status grossly normal and thought process normal Skin no rashes or lesions noted and no wounds <Dr. Jeffrey Norris DO - Last Filed: 10/06/23 18:42> Physical Exam Const Vital Signs: 10/06/23 14:03 10/06/23 17:22 Temperature 100.2 F H 98.5 F Temperature Source Oral Pulse Rate 92 88 Respiratory Rate 18 16 Blood Pressure 118/73 120/64 Blood Pressure Mean 88 82 Pulse Ox 97 95 Oxygen Delivery Method Room Air General Appearance ED: pallor Skin General Skin Exam: pallor [facility] <YANNI Banuelos - Last Filed: 10/06/23 18:31> [facility] Narrative Medical decision making narrative: Patient presenting today due to cold-like symptoms and abdominal pain. She reports that she has had both of the symptoms for a long time and is unable to give me a timeframe for how long they have been going on for. The triage note does say that patient is jaundiced, however, she does not have scleral icterus and is more so pale appearing, not jaundiced. Labs obtained. She does have an H&H of 7.8 and 29.9, this is decreased from previous labs in 2021. She denies any melena/hematochezia. She also has elevated AST, ALT, and alkaline phosphatase. She denies any history of hepatitis or alcohol use. CT of the abdomen and pelvis shows intra and extrahepatic bile duct distention. She is influenza A positive and was given Toradol for fever and abdominal pain, she was also given IV fluids. I do recommend that she call her PCP and have a follow-up appointment in the next 3 to 5 days to have the anemia worked up and the elevated liver enzymes. Given I do not know when her flulike symptoms started, I do not think that Tamiflu is appropriate. Supportive care measures discussed. She will be discharged home in stable condition and is comfortable with plan. Lab Data Labs: Laboratory Results - last 24 hr 10/06/23 10/06/23 14:30 15:20 WBC 5.2 RBC 4.68 Hgb 7.8 L Hct 29.9 L MCV 63.9 L MCH 16.7 L MCHC 26.1 L RDW Std Deviation 44.7 H RDW Coeff of Jose Alfredo 20.2 H Plt Count 423 MPV 9.7 Immature Gran % (Auto) 0.600 Neut % (Auto) 82.2 H Lymph % (Auto) 7.7 L [place] % (Auto) 8.7 Eos % (Auto) 0.2 Baso % (Auto) 0.6 Absolute Neuts (auto) 4.3 Absolute Lymphs (auto) 0.40 L Nucleated RBC % 0 Differential Comment SEE COMMENT Platelet Estimate SLT INC RBC Morphology N CHROM Hypochromasia 1+ Anisocytosis 1+ Microcytosis 1+ Ovalocytes RARE Sodium 138 Potassium 3.4 L Chloride 105 Carbon Dioxide 27.0 Anion Gap 6 BUN 15 Creatinine 1.32 H Est GFR (MDRD) Af Amer 52 L Est GFR (MDRD) Non-Af 43 L BUN/Creatinine Ratio 11.4 Glucose 113 H Calcium 9.7 Total Bilirubin 0.60 AST 178 H ALT 69 H Alkaline Phosphatase 173 H Total Protein 7.2 Albumin 3.5 Globulin 3.7 Albumin/Globulin Ratio 0.9 Lipase 79 H Urine Color Yellow Urine Clarity Sl. Cloudy Urine pH 5.0 Ur Specific Burr 1.025 Urine Protein 100 H Urine Glucose (UA) Normal Urine Ketones 5 H Urine Occult Blood 10 H Urine Nitrite Negative Urine Bilirubin Negative Urine Urobilinogen Normal Ur Leukocyte Esterase Negative Urine RBC 0 SEEN Urine WBC 0-5 SEEN Ur Squamous Epith Cells 0-5 SEEN Amorphous Sediment 1+ Urine Bacteria 0 SEEN Urine Mucus 0 SEEN Radiography Diagnostic Testing: Clinical Impression(s) from Imaging Studies Chest X-Ray 10/06/23 15:02 IMPRESSION: Normal x-ray examination of the chest. Electronically Signed: Leonel Bran MD at 15:26 EST , Abdomen/Pelvis CT 10/06/23 15:11 IMPRESSION: 1. Small hiatal hernia. 2. Prominent intra and extrahepatic bile duct distention, correlate with liver function tests. 3. Bilateral renal scarring especially on the right where there is marked renal atrophy 4. Abnormal bladder with a markedly thickened wall though it is suboptimally evaluated because of nondistention. Electronically Signed: Leonel Bran MD at 16:21 EST , <Dr. Jeffrey Norris, DO - Last Filed: 10/06/23 18:42> [facility] Lab Data Labs: Laboratory Results - last 24 hr 10/06/23 10/06/23 14:30 15:20 WBC 5.2 RBC 4.68 Hgb 7.8 L Hct 29.9 L MCV 63.9 L MCH 16.7 L MCHC 26.1 L RDW Std Deviation 44.7 H RDW Coeff of Jose Alfredo 20.2 H Plt Count 423 MPV 9.7 Immature Gran % (Auto) 0.600 Neut % (Auto) 82.2 H Lymph % (Auto) 7.7 L [place] % (Auto) 8.7 Eos % (Auto) 0.2 Baso % (Auto) 0.6 Absolute Neuts (auto) 4.3 Absolute Lymphs (auto) 0.40 L Nucleated RBC % 0 Differential Comment SEE COMMENT Platelet Estimate SLT INC RBC Morphology N CHROM Hypochromasia 1+ Anisocytosis 1+ Microcytosis 1+ Ovalocytes RARE Sodium 138 Potassium 3.4 L Chloride 105 Carbon Dioxide 27.0 Anion Gap 6 BUN 15 Creatinine 1.32 H Est GFR (MDRD) Af Amer 52 L Est GFR (MDRD) Non-Af 43 L BUN/Creatinine Ratio 11.4 Glucose 113 H Calcium 9.7 Total Bilirubin 0.60 AST 178 H ALT 69 H Alkaline Phosphatase 173 H Total Protein 7.2 Albumin 3.5 Globulin 3.7 Albumin/Globulin Ratio 0.9 Lipase 79 H Urine Color Yellow Urine Clarity Sl. Cloudy Urine pH 5.0 Ur Specific Burr 1.025 Urine Protein 100 H Urine Glucose (UA) Normal Urine Ketones 5 H Urine Occult Blood 10 H Urine Nitrite Negative Urine Bilirubin Negative Urine Urobilinogen Normal Ur Leukocyte Esterase Negative Urine RBC 0 SEEN Urine WBC 0-5 SEEN Ur Squamous Epith Cells 0-5 SEEN Amorphous Sediment 1+ Urine Bacteria 0 SEEN Urine Mucus 0 SEEN Radiography Diagnostic Testing: Clinical Impression(s) from Imaging Studies Chest X-Ray 10/06/23 15:02 IMPRESSION: Normal x-ray examination of the chest. Electronically Signed: Leonel Bran MD at 15:26 EST , Abdomen/Pelvis CT 10/06/23 15:11 IMPRESSION: 1. Small hiatal hernia. 2. Prominent intra and extrahepatic bile duct distention, correlate with liver function tests. 3. Bilateral renal scarring especially on the right where there is marked renal atrophy 4. Abnormal bladder with a markedly thickened wall though it is suboptimally evaluated because of nondistention. Electronically Signed: Leonel Bran MD at 16:21 EST , Treatment and Re-Evaluation :: ED attending note: I evaluated the patient in conjunction with the RENE. I agree with his/her statements and above findings. I have personally performed a face to face assessment of the patient and have reviewed the RENE Note. I performed a substantive portion of the visit including all aspects of the following. I personally saw the patient performed chart review, physical exam, reviewed labs, imaging (if obtained), and formulated a treatment and management plan. This note was generated with [employer] dictation software. It may contain incorrect words, spelling, and punctuation that were not noted in review of the chart prior to signing. Discharge Plan Triage Chief Complaint: Abd Pain Other Complaint: Nausea/Vomiting ED Midlevel Provider: Sera Maldonado ED Provider: Jeffrey Norris Dx/Rx/DC Orders Clinical Impression: Transaminitis, Influenza A, Anemia, Abdominal pain, chronic, generalized Instructions: Anemia, ED Abdominal Pain Unkn Cause Fem, ED Influenza (Adult) Prescriptions: No Action citalopram 40 mg tablet 40 mg PO DAILY vit A-vit C-vit [id number] 7,160-113-100 [id number] tablet 1 tab PO BID quetiapine 100 mg tablet 100 mg PO quetiapine 25 mg tablet 25 mg PO bismuth subsalicylate [Pepto-Bismol] 262 mg tablet,chewable 2 tab PO Q30-60M PRN Rx Instructions: do not exceed 16 tabs per 24 hrs lisinopril 20 mg tablet 20 mg PO DAILY Qty: 90 1RF potassium chloride 20 mEq tablet,ER particles/crystals 20 meq .Route .COMPLEX Qty: 90 1RF Rx Instructions: Dissolve in 4 oz of water daily ipratropium bromide 21 mcg (0.03 %) spray,non-aerosol 2 spray intranasal BID-TID PRN (Reason: allergy symptoms) Qty: 30 1RF Rx Instructions: administer into each nostril nystatin 100,000 unit/gram powder 1 applic topical TID Qty: 60 2RF clotrimazole-betamethasone 1-0.05 % cream 1 applic topical BID 14 Days Qty: 45 1RF (DME) BERTHA Knee Brace Misc See Rx Instructions .ROUTE .MEDSUPPLY Qty: 2 2RF Rx Instructions: As directed sumatriptan succinate [Imitrex] 25 mg tablet 25 mg PO ONCE PRN (Reason: Headache) Qty: 14 3RF quetiapine 50 MG tablet 50 mg PO QHS quetiapine 400 MG tablet 400 mg PO QHS Rx Instructions: TAKE 1 TABLET AT BEDTIME aspirin 81 mg tablet,chewable 81 mg PO DAILY@0800 Qty: 90 3RF rosuvastatin 10 mg tablet 10 mg PO DAILY Qty: 90 3RF valacyclovir 500 mg tablet 500 mg PO DAILY Qty: 90 1RF amlodipine 10 mg tablet 10 mg PO DAILY Qty: 90 2RF pantoprazole [Protonix] 40 mg tablet,delayed release (DR/EC) 40 mg PO DAILY Qty: 90 1RF oxybutynin chloride 15 mg tablet extended release 24hr See Rx Instructions .ROUTE .COMPLEX Qty: 60 1RF Dose Instruction: TAKE 1 TABLET BY MOUTH DAILY FOR BLADDER Rx Instructions: TAKE 1 TABLET BY MOUTH DAILY FOR BLADDER cetirizine 10 mg tablet See Rx Instructions .ROUTE .COMPLEX Qty: 30 0RF Dose Instruction: TAKE 1 TABLET BY MOUTH DAILY NEEDED FOR ALLERGY SYMPTOMS Rx Instructions: TAKE 1 TABLET BY MOUTH DAILY NEEDED FOR ALLERGY SYMPTOMS Primary Care Provider: Dede Giles Referrals: Sebastian Gorman MD [Med Staff - Active Staff] - 3-5 Days Activity Restrictions/Additional Instructions: Please call your PCP to make an appointment to be seen in the next 5 to 7 days. Your liver enzymes are elevated, this will need to be worked up. Also, you are anemic and should have this worked up by your PCP. Return for any worsening of your symptoms. Take aspirin as needed for fevers. Disposition Disposition: Home, Self Care Discharge Date/Time: 10/06/23 17:22
[2023-10-06 15:00] LABS: ALB/GLOB Ratio 0.9 RATIO (0.9-2.4); AST(SGOT) 178 U/L (15-37); Alanine Aminotransfer ALT/SGPT 69 U/L (13-56); Albumin, Serum 3.5 g/dL (3.2-5.0); Alkaline Phosphatase 173 U/L (45-117); Anion Gap 6 (5-15); BUN 15 mg/dL (7-18); BUN/Creat Ratio 11.4 RATIO (10-20); Calcium,Total 9.7 mg/dL (8.5-10.1); Chloride 105 mmol/L (98-107); Creatinine, Serum 1.32 mg/dL (0.55-1.02); EST Glomerular Filtration Rate 43 mL/min (>60); Est Glom Filt Rate - Afr Amer 52 mL/min (>60); Globulin 3.7 g/dL (2.2-4.2); Glucose 113 mg/dL (74-106); Potassium 3.4 mmol/L (3.5-5.1); Protein, Total 7.2 g/dL (6.4-8.2); Sodium Level 138 mmol/L (136-145)
--- NOTE | 2023-10-06 15:02 | RAD_ITS ---
STUDY: X-RAY CHEST REASON FOR EXAM: Female, 68 years old. cough TECHNIQUE: Frontal and lateral views of the chest. COMPARISON: None. FINDINGS: The lungs are clear and expanded. There is no demonstrated pleural abnormality. Normal size heart. Normal mediastinum and jj. Normal visualized pulmonary arteries. Normal visualized aortic arch and descending thoracic aorta. Normal visualized thoracic spine. Normal visualized ribs, clavicles, and shoulders. There is no demonstrated abnormality of the visualized soft tissue structures of the upper abdomen. RAD/Chest PA and Lateral IMPRESSION: Normal x-ray examination of the chest. Electronically Signed: Leonel Bran MD at 15:26 EST ,
--- NOTE | 2023-10-06 15:11 | CT_ITS ---
EXAM: CT ABDOMEN AND PELVIS WITH INTRAVENOUS CONTRAST CLINICAL INDICATION: abdominal pain TECHNIQUE: Helically acquired images were obtained of the abdomen and pelvis with intravenous contrast. This CT exam was performed using one or more of the following dose reduction techniques: automated exposure control, adjustment of the mA and/or kV according to patient size, and/or use of iterative reconstruction technique. CONTRAST: IV 100mL Isovue-370 RADIATION DOSE: CTDIvol = 19.32 mGy, DLP = 741.34 mGy-cm COMPARISON: No relevant prior studies available. FINDINGS: LOWER THORAX: Unremarkable. Lung bases are clear. No cardiomegaly. No significant pericardial effusion. ABDOMEN: LIVER: Fatty infiltration. Prominent intrahepatic bile duct distention.. Homogeneous. No focal mass. GALLBLADDER AND BILE DUCTS: Absent gallbladder. Prominent intra and especially extrahepatic bile duct distention. Common bile duct reaches a greatest dimension of approximately 1.9 cm down to the ampulla. No calcified gallstones. PANCREAS: Unremarkable. No focal cystic or solid mass. SPLEEN: Unremarkable. Normal size without focal cystic or solid mass. ADRENALS: Unremarkable. No nodules. KIDNEYS AND URETERS: Markedly scarring and abnormally small right kidney consistent with chronic atrophy. Lesser degree of cortical scarring of the left kidney which is enlarged. There is a 3 mm nonobstructing mid left renal stone and a 1.9 cm lower pole cyst. STOMACH AND BOWEL: Evaluation of the GI tract is limited by absence of oral contrast. Small hiatal hernia. Cannot exclude stomach wall thickening. No dilated loops of bowel or evidence for obstruction. Cannot exclude segmental thickening of the viramontes of the small or large bowel. Cannot exclude enteritis or colitis. Moderate diffuse fecal retention. PELVIS: APPENDIX: No evidence of acute appendicitis. BLADDER: Bladder is suboptimally evaluated because it is nondistended but nevertheless appears there appears to be a markedly thickened bladder wall. Question cystitis. Correlate with urinalysis. Infiltrating process is not excluded. REPRODUCTIVE: Absent uterus. ABDOMEN and PELVIS: INTRAPERITONEAL SPACE: Unremarkable. No ascites or other fluid collection. No free air. BONES/JOINTS: Degenerative changes of the lower lumbar spine. No suspicious lytic or blastic abnormality. SOFT TISSUES: Unremarkable. No discrete abdominal or pelvic wall hernia. VASCULATURE: Tortuous calcified aorta without aneurysm. LYMPH NODES: Unremarkable. No enlarged lymph nodes. CT/Abdomen/Pelvis W IV Cont ONLY IMPRESSION: 1. Small hiatal hernia. 2. Prominent intra and extrahepatic bile duct distention, correlate with liver function tests. 3. Bilateral renal scarring especially on the right where there is marked renal atrophy 4. Abnormal bladder with a markedly thickened wall though it is suboptimally evaluated because of nondistention. Electronically Signed: Leonel Bran MD at 16:21 EST ,
[2023-10-06 15:12] LABS: Anisocytosis 1+; Hypochromasia 1+; Microcytosis 1+; Ovalocyte RARE; Platelet Estimate SLT INC (ADEQ); Red Cell Morphology N CHROM NORMAL (NORM C&C)
[2023-10-06 15:30] LABS: Bacteria 0 SEEN /hpf (None Seen); Mucous, Urine 0 SEEN /hpf (<or=2+); Red Blood Cells-Urine 0 SEEN /hpf (0-5)
[2023-10-06 15:31] LABS: Color, Urine Yellow (Yellow); Glucose, Dipstick Normal (Normal); Ketone-Dipstick 5 mg/dl (Negative); Leukocyte Esterase-Dipstick Negative /ul (Negative); Nitrite-Dipstick Negative (Negative); Occult Blood-Urine 10 /ul (Negative); Protein-Dipstick 100 mg/dl (Negative); Specific Gravity, Urine 1.025 (1.002-1.030); Urine Bilirubin Dipstick Negative (Negative); Urine Clarity Sl. Cloudy (Clear); Urine Urobilinogen Normal (Normal)
[2023-10-06 15:41] LABS: Amorphous Sediment 1+; Squamous Epithelial Cells - UA 0-5 SEEN /hpf (5-10)
[2023-10-06 15:42] LABS: White Blood Cells 0-5 SEEN /hpf (0-5)
[2023-10-06 15:43] LABS: Lipase 79 U/L (13-75)
--- OUTSIDE RECORDS SUMMARY | 2023-10-06 15:51 | XMS RPT_ITS | CCD ---
Author Name Unknown Address [address] [place] [address] Organization [facility] Care Team Providers Care Paper Cone Maker Name Role Phone BIANCA FARLEY, YE Marin Primary Care Physician Allergies Allergy Classification Reported Allergen(s) Allergy Type Date of Onset Reaction(s) Facility (1 source) Codeine; Translations: [codeine] Drug Allergy [facility] Medications Current Medications Medication Drug Class(es) Dates Sig (Normalized) Sig (Original) amantadine hydrochloride 100 mg oral tablet (1 source) Influenza A M2 Protein Inhibitor Start: 11-13-2014 amantadine 100 mg oral tablet Dose : 100 mg = 1 tab(s), Oral, BID Start Date: 11/13/14 Status: Ordered aspirin 81 mg oral tablet (1 source) Platelet Aggregation Inhibitor, Nonsteroidal Anti-inflammatory Drug Start: 11-13-2014 take 1 dose by mouth once daily aspirin Dose : 81 mg =, Oral, qDay Start Date: 11/13/14 Status: Ordered Calcium (1 source) Phosphate Binder, Calcium Start: 11-13-2014 take 1 tablet by mouth three times daily Calcium 600+D Dose = 1 tab(s), Oral, TID Start Date: 11/13/14 Status: Ordered citalopram 40 mg oral tablet (1 source) Serotonin Reuptake Inhibitor Start: 11-13-2014 citalopram 40 mg oral tablet Dose : 40 mg = 1 tab(s), Oral, qDay, # 30 tab(s) Start Date: 11/13/14 Status: Ordered fenofibrate 40 mg oral tablet (1 source) Peroxisome Proliferator Receptor alpha Agonist Start: 11-13-2014 fenofibrate 40 mg oral tablet Dose : 40 mg = 1 tab(s), Oral, qDay, # 30 tab(s) Start Date: 11/13/14 Status: Ordered lisinopril 5 mg oral tablet (1 source) Angiotensin Converting Enzyme Inhibitor Start: 11-13-2014 lisinopril 5 mg oral tablet Dose : 5 mg = 1 tab(s), Oral, Daily Start Date: 11/13/14 Status: Ordered ondansetron 4 mg oral tablet, disintegrating (1 source) Start: 10-06-2021 End: 10-09-2021 ondansetron 4 mg oral tablet, disintegrating Dose : 4 mg = 1 tab(s), Oral, q6h, X 3 day(s), # 12 tab(s), 0 Refill(s), 10/09/21 21:16:00 EST Start Date: 10/06/21 Stop Date: 10/09/21 Status: Ordered pantoprazole 40 mg delayed release oral tablet (1 source) Proton Pump Inhibitor Start: 11-13-2014 pantoprazole 40 mg oral enteric coated tablet Dose : 40 mg = 1 tab(s), Oral, BIDAC Start Date: 11/13/14 Status: Ordered Potassium Chloride (1 source) Start: 11-13-2014 potassium chloride Start Date: 11/13/14 Status: Ordered pravastatin sodium 40 mg oral tablet (1 source) HMG-CoA Reductase Inhibitor Start: 11-13-2014 pravastatin 40 mg oral tablet Dose : 40 mg = 1 tab(s), Oral, qHS Start Date: 11/13/14 Status: Ordered QUEtiapine 400 mg oral tablet (1 source) Atypical Antipsychotic Start: 11-13-2014 SEROquel 400 mg oral tablet Dose : 400 mg = 1 tab(s), Oral, qHS Start Date: 11/13/14 Status: Ordered tolterodine tartrate 2 mg oral tablet (1 source) Cholinergic Muscarinic Antagonist Start: 11-13-2014 tolterodine 2 mg oral tablet Dose : 2 mg = 1 tab(s), Oral, BID, # 180 tab(s) Start Date: 11/13/14 Status: Ordered valACYclovir 500 mg oral tablet (1 source) Herpesvirus Nucleoside Analog DNA Polymerase Inhibitor, Herpes Simplex Virus Nucleoside Analog DNA Polymerase Inhibitor, Herpes Zoster Virus Nucleoside Analog DNA Polymerase Inhibitor Start: 11-13-2014 Valtrex 500 mg oral tablet Dose : 500 mg = 1 tab(s), Oral, q12h Start Date: 11/13/14 Status: Ordered Problems Problem Classification Problem Date Documented Da te Episodic/Chronic Diabetes mellitus without complication (1 source) Diabetes mellitus 11-13-2014 Chronic Disorders of lipid metabolism (1 source) Hypercholesterolemia 11-13-2014 Chronic E Codes: Fall (1 source) Fall 01-03-2018 Essential hypertension (1 source) Hypertensive disorder 11-13-2014 Chronic Mood disorders (1 source) Depressive disorder 11-13-2014 Chronic Open wounds of head; neck; and trunk (1 source) Laceration of forehead 01-03-2018 Episodic Results Test Name Value Interpretation Reference Range Facil ity Vital Signs Date Time Vital Sign Value Performing Clinician Faci lity 10-06-2021 21:32-0500 Diastolic blood pressure 70 mm[Hg] LANDON GOSS MD [facility] 10-06-2021 21:32-0500 Heart rate 83 /min LANDON GOSS MD [facility] 10-06-2021 21:32-0500 Mean blood pressure 89 mm[Hg] LANDON GOSS MD [facility] 10-06-2021 21:32-0500 Systolic blood pressure 128 mm[Hg] LANDON GOSS MD [facility] 10-06-2021 19:25-0500 Body temperature 98.6 [degF] LANDON GOSS MD [facility] 10-06-2021 19:25-0500 Diastolic blood pressure 67 mm[Hg] LANDON GOSS MD [facility] 10-06-2021 19:25-0500 Heart rate 88 /min LANDON GOSS MD [facility] 10-06-2021 19:25-0500 Systolic blood pressure 120 mm[Hg] LANDON GOSS MD [facility] Encounters Encounter Date Encounter Type Care Provider Facility Start: 10-06-2021 End: 10-06-2021 Emergency department patient visit LANDON GOSS MD [facility] Procedures Date Procedure Procedure Detail Performing Clinician Cholecystectomy LANDON GOSS MD Hysterectomy LANDON GOSS MD Sling operation stress incontinence LANDON GOSS MD Immunizations Immunization Date Immunization Notes Care Provider Fa cility 01-04-2018 tetanus toxoid, redu lay diphtheria toxoid, and acellular pertussis vaccine, adsorbed; Translations: [Boostrix (Tdap)] LANDON GOSS MD [facility] Social History Date Type Detail Facility Ex-smoker (finding) [facility] Sex Assigned At Female [facility] Hospital Discharge instructions 10-06-2021 Note Date & Type Note Facility 10-06-2021 Hospital Discharg e instructions Patient Education 10/06/2021 21:16:39 Back Pain (Acute or Chronic) Back Pain (Acute or Chronic) Back pain is one of the most common problems. The good news is that most people feel better in 1 to 2 weeks, and most of the rest in 1 to 2 months. Most people can remain active. People who have pain describe it differently not everyone is the same. The pain can be sharp, stabbing, shooting, aching, cramping or burning. Movement, standing, bending, lifting, sitting, or walking may worsen pain. It can be localized to one spot or area, or it can be more generalized. It can spread or radiate upwards, to the front, or go down your arms or legs (sciatica). It can cause muscle spasm. Most of the time, mechanical problems with the muscles or spine cause the pain. Mechanical problems are usually caused by an injury to the muscles or ligaments. While illness can cause back pain, it is usually not caused by a serious illness. Mechanical problems include: Physical activity such as sports, exercise, work, or normal activity Overexertion, lifting, pushing, pulling incorrectly or too aggressively Sudden twisting, bending, or stretching from an accident, or accidental movement Poor posture Stretching or moving wrong, without noticing pain at the time Poor coordination, lack of regular exercise (check with your doctor about this) Spinal disc disease or arthritis Stress Pain can also be related to , or illness like appendicitis, bladder or kidney infections, pelvic infections, and many other things. Acute back pain usually gets better in 1 to 2 weeks. Back pain related to disk disease, arthritis in the spinal joints or spinal stenosis (narrowing of the spinal canal) can become chronic and last for months or years. Unless you had a physical injury (for example, a car accident or fall) X-rays are usually not needed for the initial evaluation of back pain. If pain continues and does not respond to medical treatment, X-rays and other tests may be needed. Home care Try these home care recommendations: When in bed, try to find a position of comfort. A firm mattress is best. Try lying flat on your back with pillows under your knees. You can also try lying on your side with your knees bent up towards your chest and a pillow between your knees. At first, do not try to stretch out the sore spots. If there is a strain, it is not like the good soreness you get after exercising without an injury. In this case, stretching may make it worse. Don't sit for long periods, as in a long car ride or during other travel. This puts more stress on the lower back than standing or walking. During the first 24 to 72 hours after an acute injury or flare up of chronic back pain, apply an ice pack to the painful area for 20 minutes and then remove it for 20 minutes. Do this over a period of 60 to 90 minutes or several times a day. This will reduce swelling and pain. Wrap the ice pack in a thin towel or plastic to protect your skin. You can start with ice, then switch to heat. Heat (hot shower, hot bath, or heating pad) reduces pain and works well for muscle spasms. Heat can be applied to the painful area for 20 minutes then remove it for 20 minutes. Do this over a period of 60 to 90 minutes or several times a day. Do not sleep on a heating pad. It can lead to skin younger or tissue damage. You can alternate ice and heat therapy. Talk with your doctor about the best treatment for your back pain. Therapeutic massage can help relax the back muscles without stretching them. Be aware of safe lifting methods and do not lift anything without stretching first. Medicines Talk to your doctor before using medicine, especially if you have other medical problems or are taking other medicines. You may use [id number] medicine as directed on the bottle to control pain, unless another pain medicine was prescribed. If you have chronic conditions like diabetes, liver or kidney disease, stomach ulcers, or gastrointestinal bleeding, or are taking blood thinners, talk to your doctor before taking any medicine. Be careful if you are given a prescription medicines, narcotics, or medicine for muscle spasms. They can cause drowsiness, affect your coordination, reflexes, and judgement. Do not drive or operate heavy machinery. Follow-up care Follow up with your healthcare provider, or as advised. A radiologist will review any X-rays that were taken. Your provide will notify you of any new findings that may affect your care. Call 911 Call 911 if any of the following occur: Trouble breathing Confusion Very drowsy or trouble awakening Fainting or loss of consciousness Rapid or very slow heart rate Loss of bowel or bladder control When to seek medical advice Call your healthcare provider right away if any of these occur: Pain becomes worse or spreads to your legs Weakness or numbness in one or both legs Numbness in the groin or genital area [id number] [employer]. [address] [place] [address]. All rights reserved. This information is not intended as a substitute for professional medical care. Always follow your healthcare professional's instructions. 10/06/2021 21:16:28 Abdominal Pain, Unknown Cause, (Female) Unknown Causes of Abdominal Pain (Female) The exact cause of your belly (abdominal) pain is not clear. This does not mean that this is something to worry about. Everyone likes to know the exact cause of the problem. But sometimes with belly pain, there is no clear-cut cause, and this could be a good thing. The good news is that your symptoms can be treated, and you will feel better. Your condition does not seem serious now. But sometimes the signs of a serious problem may take more time to appear. For this reason, it is important for you to watch for any new symptoms, problems, or worsening of your condition. Over the next few days, the abdominal pain may come and go. Or it may be constant. Other common symptoms can include nausea and vomiting. Sometimes it can be difficult to tell if you feel nauseous. You may just feel bad and not connect that feeling to nausea. Constipation, diarrhea, and a fever may go along with the pain. The pain may continue even if treated correctly over the following days. Depending on how things go, sometimes the cause can become clear and may need more or different treatment. Additional evaluations, medicines, or tests may also be needed. Home care Your healthcare provider may prescribe medicine for pain, symptoms, or an infection. Follow the healthcare provider's instructions for taking these medicines. General care Rest as much as you can until your next exam. No strenuous activities. Try to find positions that ease discomfort. A small pillow placed on the abdomen may help relieve pain. Something warm on your abdomen (such as a heating pad) may help, but be careful not to burn yourself. Diet Don t force yourself to eat, especially if having cramps, vomiting, or diarrhea. Water is important so you don't get dehydrated. Soup may also be good. Sports drinks may also help, especially if they are not too acidic. Don't drink sugary drinks as this can make things worse. Take liquids in small amounts. Don t guzzle them. Caffeine sometimes makes the pain and cramping worse. Don t take dairy products if you have vomiting or diarrhea. Don't eat large amounts at a time. Wait a few minutes between bites. Eat a diet low in fiber (called a low-residue diet). Foods allowed include refined breads, white rice, fruit and vegetable juices without pulp, tender meats. These foods will pass more easily through the intestine. Don t have whole-grain foods, whole fruits and vegetables, meats, seeds and nuts, fried or fatty foods, dairy, alcohol and spicy foods until your symptoms go away. Follow-up care Follow up with your healthcare provider, or as advised, if your pain does not begin to improve in the next 24 hours. Call 911 Call 911 if any of these occur: Trouble breathing Confusion Fainting or loss of consciousness Rapid heart rate Seizure When to seek medical advice Call your healthcare provider right away if any of these occur: Pain gets worse or moves to the right lower abdomen New or worsening vomiting or diarrhea Swelling of the abdomen Unable to pass stool for more than 3 days Fever of 100.4 F (38 C) or higher, or as directed by your healthcare provider. Blood in vomit or bowel movements (dark red or black color) Yellow color of eyes and skin (jaundice) Weakness, dizziness Chest, arm, back, neck, or jaw pain Unexpected vaginal bleeding or missed period Can't keep down liquids or water and you are getting dehydrated [id number] [employer]. [address] [place] [address]. All rights reserved. This information is not intended as a substitute for professional medical care. Always follow your healthcare professional's instructions. Follow Up Care 10/06/2021 19:15:01 With:YE VALENZUELA MD Address: [address] [place] [address] [place] [address]- [phone] When:2-4 days [facility] Evaluation + Plan note Note Date & Type Note Facility Evaluation + Plan note No data available for this section [facility] Summary Purpose Family History No Family History Records Found Advance Directives No Advanced Directives Records Found Additional Source Comments INFORMATION SOURCE (unrecogn ized section and content) FOR RECORDS PERTAINING TO PATIENTS WHO ARE OR HAVE BEEN ENROLLED IN A CHEMICAL DEPENDENCY/SUBSTANCEABUSE PROGRAM, SOME INFORMATION MAY BE OMITTED. This clinical summary was aggregated from multiple sources. Caution should be exercised in using it in the provision of clinical care. This summary normalizes information from multiple sources, and as a consequence, information in this document may materially change the coding, format and clinical context of patient data. In addition, data may be omitted in some cases. CLINICAL DECISIONS SHOULD BE BASED ON THE PRIMARY CLINICAL RECORDS. [employer], Part of [employer] provides no warranty or guarantee of the accuracy or completeness of information in this document.
[2023-10-06] MEDS: Ketorolac 15 MG/ML Vial IV (15:52)
[2023-10-06] MEDS: 0.9% Normal Saline (1000mL) 1,000 ML 999 ML IV (15:52)
[2023-10-06] MEDS: Aspirin 325 MG Tablet PO (17:17)
[2023-10-06 17:22] VITALS: BP 120/64; PULSE 88; RESP 16; TEMP 36.9; O2SAT 95
== END 2023-10-06 17:22 | disposition home or self-care (01) ==
PROVIDERS: Physician Assistant; Emergency Provider Emergency Medicine; PCP Family Medicine; Visit Provider Emergency Medicine
DX: R74.01 Elevation of levels of liver transaminase levels (principal); F31.9 Bipolar disorder, unspecified; E11.22 Type 2 diabetes mellitus with diabetic chronic kidney disease; I12.9 Hypertensive chronic kidney disease with stage 1 through stage 4 chronic kidney disease, or unspecified chronic kidney disease; J10.1 Influenza due to other identified influenza virus with other respiratory manifestations; D64.9 Anemia, unspecified; R11.2 Nausea with vomiting, unspecified; N18.9 Chronic kidney disease, unspecified; Z79.82 Long term (current) use of aspirin; Z79.899 Other long term (current) drug therapy
CPT/HCPCS: 71046; 74177; 80053; 81001; 83690; 85025; 87631; 96361; 96374; 99282; J7030; Q9967; A4216

== ENCOUNTER 2024-04-18 23:18 | Emergency (ER) | payer MEDICARE, MEDICAID, SELFPAY ==
[2024-04-18 23:20] VITALS: BP 240/212; PULSE 58; RESP 19; TEMP 36.8; O2SAT 99; BMI 25.2
--- NOTE | 2024-04-18 23:55 | EKG12_ITS ---
Test Reason : MHC Blood Pressure : / mmHG Vent. Rate : 069 BPM Atrial Rate : 069 BPM P-R Int : 104 ms QRS Dur : 076 ms QT Int : 414 ms P-R-T Axes : -26 016 072 degrees QTc Int : 443 ms Sinus rhythm with sinus arrhythmia with short IL with Premature ventricular complexes or Fusion compl exes Nonspecific ST abnormality Abnormal ECG Confirmed by JACKLYN TORRES ([id number]), editor index ZULMA COLLAZO ([id number]) on 04/22/2024 8:21:03 AM Referred By: Confirmed By:JACKLYN TORRES
--- NOTE | 2024-04-18 23:56 | EX.ED.VIS.PS ---
HPI HPI - Psych History of Present Illness Chief Complaint: Mental Health Informant: patient Narrative Narrative: 69-year-old with suicide ideation wanting to stab herself in the stomach. She states she had a knife earlier and she was trying to do this and somebody got it away from her, it is very difficult to get a good history from her she is very angry and verbally hostile/aggressive, she goes from 1 topic to the other. When asked about blood pressure medicines she states she is supposed to be on them but has not had them for a year and list multiple reasons about whose fault it is why she is not on them. She cannot tell me any specifics. She states she sees Dr. Azul with psychiatry for her anxiety, depression, bipolar disorder but has not seen her in over a year because my daughter feels that she has to take her to work every morning instead of taking me to the doctor. [facility] Medical History Bilateral primary osteoarthritis of knee Painful lumpy right breast Vomiting Abdominal pain Health care maintenance Neck pain Intertriginous dermatitis associated with moisture Suprapubic pain Preventative health care CKD (chronic kidney disease) Allergic rhinitis Non-smoker Chronic bronchitis Herpes History of gallstones Cataracts, bilateral IBS (irritable bowel syndrome) History of pneumonia Osteoarthritis Hypertension Seasonal allergies Gout Diabetes Depression with anxiety Home Medications ?Medication ?Instructions ?Recorded ?Last Taken ?Type citalopram 40 mg tablet 40 mg PO DAILY ANXIETY 01/24/19 Unknown History vit A 7,160 unit-vit C 113 mg-vit 1 tab PO BID SUPPLEMENT 01/24/19 Unknown History E 100 [id number]-gpmfwk tablet quetiapine 400 mg tablet 400 mg PO QHS SLEEP 06/24/19 Unknown History quetiapine 50 mg tablet 50 mg PO QHS SLEEP 06/24/19 Unknown History bismuth subsalicylate 262 mg 2 tab PO Q30-60M PRN 02/15/21 Unknown History chewable tablet (Pepto-Bismol) ipratropium bromide 21 mcg (0.03 2 spray intranasal BID-TID PRN 02/15/21 Unknown Rx %) nasal spray allergy symptoms #30 mL lisinopril 20 mg tablet 20 mg PO DAILY BP #90 tabs 02/15/21 Unknown Rx potassium chloride 20 mEq 20 meq .Route .COMPLEX SUPPLEMENT 02/15/21 Unknown Rx tablet,extended release(part/cryst) #90 tabs quetiapine 100 mg tablet 100 mg PO 02/15/21 Unknown History quetiapine 25 mg tablet 25 mg PO 02/15/21 Unknown History nystatin 100,000 unit/gram topical 1 applic topical TID #60 grams 05/12/21 Unknown Rx powder clotrimazole-betamethasone 1 1 applic topical BID 2 weeks #45 07/05/21 Unknown Rx %-0.05 % topical cream grams leg brace (BERTHA Knee Brace) #2 ea 10/19/21 Unknown Rx aspirin 81 mg chewable tablet 81 mg PO DAILY@0800 BLOOD THINNER 01/11/22 Unknown Rx #90 tabs rosuvastatin 10 mg tablet 10 mg PO DAILY #90 tabs 03/10/22 Unknown Rx sumatriptan succinate 25 mg tablet 25 mg PO ONCE PRN Headache #14 tabs 05/16/22 Unknown Rx (Imitrex) valacyclovir 500 mg tablet 500 mg PO DAILY HERPES #90 tabs 05/17/22 Unknown Rx amlodipine 10 mg tablet 10 mg PO DAILY BP #90 tabs 08/29/22 Unknown Rx pantoprazole 40 mg tablet,delayed 40 mg PO DAILY #90 tabs 11/27/22 Unknown Rx release (Protonix) oxybutynin chloride 15 mg See Rx Instructions .Route 03/02/23 Unknown Rx tablet,extended release 24 hr .COMPLEX #60 tabs cetirizine 10 mg tablet See Rx Instructions .Route 03/29/23 Unknown Rx .COMPLEX #30 tabs ondansetron 4 mg disintegrating 4 mg PO Q8H PRN PRN Nausea #10 tabs 10/07/23 Unknown Rx tablet Allergy/AdvReac Type Severity Reaction Status Date / Time codeine AdvReac Nausea/Vom/ Verified 10/06/23 14:01 Diarrhea Family History Other Alcoholism Breast cancer Depression Diabetes Heart disease Hypertension Surgical History History of hysterectomy Hx of bladder repair surgery Social History Smoking Status: Never smoker alcohol intake: current alcohol intake frequency: holidays/special occasions only substance use type: marijuana caffeine: Yes what type of physical activity do you participate in: none seatbelt use: always do you feel safe at home: Yes additional social history: retired ROS ROS ED Constitutional Constitutional ED: Denies chills or fever(s) Eyes Eyes: Denies change in vision or diplopia ENT ENT ED: Denies rhinorrhea or sore throat Cardiovascular Cardiovascular: Denies chest pain or palpitations Respiratory/Chest Respiratory/Chest: Denies cough or dyspnea Gastrointestinal Gastrointestinal: Denies abdominal pain, diarrhea, nausea or vomiting Genitourinary Genitourinary ED: Reports other Details: Chronically intermittently incontinent of stool and urine, no changes ; Denies dysuria or hematuria Musculoskeletal Musculoskeletal: Denies back pain or neck pain Integumentary Denies abscess or rash Neurologic Neurologic: Denies headache(s), paresthesias or weakness Psychiatric Psychiatric: Reports anxiety, depression, suicidal ideation and suicidal thoughts; Denies homicidal ideation EXAM Physical Exam Const Vital Signs: 04/18/24 23:20 04/19/24 00:24 Temperature 98.2 F Temperature Source Temporal Pulse Rate 58 L 87 Respiratory Rate 19 H 16 Blood Pressure 240/212 H 147/112 H Blood Pressure Mean 221 123 Pulse Ox 99 96 Oxygen Delivery Method Room Air Room Air Positive well nourished and well developed General Appearance ED: well developed and NAD HEENT Reports moist mucous membranes normocephalic and atraumatic Eyes PERRL and EOMs intact bilaterally General Eye ED: Negative for scleral icterus Neck no lymphadenopathy and supple Resp normal respiratory effort and clear to auscultation bilaterally Cardio no murmurs Rate: regular rate Rhythm: regular rhythm GI non-tender and non-distended Auscultation: normoactive bowel sounds Palpation: soft Back/Spine no CVA tenderness and normal ROM Extremity normal to inspection General Extremety ED: Negative for edema General Extremity: Negative for edema Neuro oriented x3, CN's II-XII intact bilaterally, no sensory deficits noted and gait normal Sensorium / Orientation: alert Motor Exam: strength 5/5 throughout Psych mental status grossly normal, thought process normal, cooperative, activity/motor behavior normal and denies homicidal ideation Psych Narrative: Patient is not physically violent, but she is angry and verbally aggressive/hostile Attitude: agitated and aggressive Activity / Motor Behavior: appropriate eye contact and psychomotor agitation Speech: pressured Mood & Affect: depressed, anxious, labile affect and hostile affect Thought Content: suicidality Skin Lesions: no lesions Rashes: no rashes MDM MDM MDM Narrative Medical decision making narrative: Labs noted and normal except for potassium 3.1 and THC in her urine. Her blood pressure was treated and came down to 147 systolic, she was also given a Zyprexa Zydis because she wanted Seroquel which she has not had in a month in order to help calm down. This helped some but she was still talking continuously for the last several hours. She states she has not slept. I suspect she is probably manic. That and the suicidality, she will need to be admitted psychiatrically. She is medically cleared and is given a dose of oral potassium chloride and mental health will be contacted for evaluation. Lab Data Attestation: I reviewed the patient's lab results. Labs: Laboratory Results - last 24 hr 04/18/24 04/18/24 23:36 23:52 WBC 7.4 RBC 5.44 H Hgb 13.9 Hct 46.3 MCV 85.1 MCH 25.6 L MCHC 30.0 L RDW Std Deviation 58.3 H RDW Coeff of Jose Alfredo 19.1 H Plt Count 390 MPV 11.0 Immature Gran % (Auto) 0.100 Neut % (Auto) 54.4 Lymph % (Auto) 34.4 [place] % (Auto) 7.9 Eos % (Auto) 2.7 Baso % (Auto) 0.5 Absolute Neuts (auto) 4.0 Absolute Lymphs (auto) 2.56 Nucleated RBC % 0 Sodium 140 Potassium 3.1 L Chloride 107 Carbon Dioxide 28.0 Anion Gap 5 BUN 17 Creatinine 1.13 H Estim Creat Clear Calc 41.99 Est GFR (MDRD) Af Amer 62 Est GFR (MDRD) Non-Af 51 L BUN/Creatinine Ratio 15.0 Glucose 86 Calcium 10.1 Total Bilirubin 0.90 AST 18 ALT 15 Alkaline Phosphatase 95 Troponin I High Sens 30 Total Protein 8.4 H Albumin 4.0 Globulin 4.4 H Albumin/Globulin Ratio 0.9 Urine Opiates Screen NEGATIVE Urine Methadone Screen NEGATIVE Ur Barbiturates Screen NEGATIVE Ur Phencyclidine Scrn NEGATIVE Ur Amphetamines Screen NEGATIVE MDMA (Ecstasy) Screen NEGATIVE U Benzodiazepines Scrn NEGATIVE Urine Cocaine Screen NEGATIVE U Cannabinoids Screen POSITIVE H Ur Drug Screen Comment Ethyl Alcohol < 3.0 Rhythm Strip Rhythm Strip: Sinus Rhythm Rate: 70 Ectopy: PVC(s) EKG Initial EKG: Attestation: I personally reviewed and interpreted this EKG as follows: Interpretation: Sinus Rhythm and No Acute Injury Pattern Management Discussion w/another healthcare provider: Behavioral health Discharge Plan Triage Chief Complaint: Mental Health ED Provider: Alex Jimenez Dx/Rx/DC Orders Clinical Impression: Suicide ideation, Bipolar I disorder with agnes, Episode of hypertension, Hypokalemia Prescriptions: No Action citalopram 40 mg tablet 40 mg PO DAILY vit A-vit C-vit Y-kyoi-alzmqe 7,160-113-100 wnqj-jx-noaj tablet 1 tab PO BID quetiapine 100 mg tablet 100 mg PO quetiapine 25 mg tablet 25 mg PO bismuth subsalicylate [Pepto-Bismol] 262 mg tablet,chewable 2 tab PO Q30-60M PRN Rx Instructions: do not exceed 16 tabs per 24 hrs lisinopril 20 mg tablet 20 mg PO DAILY Qty: 90 1RF potassium chloride 20 mEq tablet,ER particles/crystals 20 meq .Route .COMPLEX Qty: 90 1RF Rx Instructions: Dissolve in 4 oz of water daily ipratropium bromide 21 mcg (0.03 %) spray,non-aerosol 2 spray intranasal BID-TID PRN (Reason: allergy symptoms) Qty: 30 1RF Rx Instructions: administer into each nostril nystatin 100,000 unit/gram powder 1 applic topical TID Qty: 60 2RF clotrimazole-betamethasone 1-0.05 % cream 1 applic topical BID 14 Days Qty: 45 1RF (DME) BERTHA Knee Brace Misc See Rx Instructions .ROUTE .MEDSUPPLY Qty: 2 2RF Rx Instructions: As directed sumatriptan succinate [Imitrex] 25 mg tablet 25 mg PO ONCE PRN (Reason: Headache) Qty: 14 3RF quetiapine 50 MG tablet 50 mg PO QHS quetiapine 400 MG tablet 400 mg PO QHS Rx Instructions: TAKE 1 TABLET AT BEDTIME ondansetron 4 mg tablet,disintegrating 4 mg PO Q8H PRN PRN (Reason: Nausea) Qty: 10 0RF aspirin 81 mg tablet,chewable 81 mg PO DAILY@0800 Qty: 90 3RF rosuvastatin 10 mg tablet 10 mg PO DAILY Qty: 90 3RF valacyclovir 500 mg tablet 500 mg PO DAILY Qty: 90 1RF amlodipine 10 mg tablet 10 mg PO DAILY Qty: 90 2RF pantoprazole [Protonix] 40 mg tablet,delayed release (DR/EC) 40 mg PO DAILY Qty: 90 1RF oxybutynin chloride 15 mg tablet extended release 24hr See Rx Instructions .ROUTE .COMPLEX Qty: 60 1RF Dose Instruction: TAKE 1 TABLET BY MOUTH DAILY FOR BLADDER Rx Instructions: TAKE 1 TABLET BY MOUTH DAILY FOR BLADDER cetirizine 10 mg tablet See Rx Instructions .ROUTE .COMPLEX Qty: 30 0RF Dose Instruction: TAKE 1 TABLET BY MOUTH DAILY NEEDED FOR ALLERGY SYMPTOMS Rx Instructions: TAKE 1 TABLET BY MOUTH DAILY NEEDED FOR ALLERGY SYMPTOMS Primary Care Provider: Dede Giles Referrals: Dede Giles MD [Primary Care Provider] - Print Language: Swiss Disposition Disposition: Psychiatric Hospital or Unit
[2024-04-19] MEDS: cloNIDine HCl 0.1 MG Tablet 0.3 MG PO (00:11)
[2024-04-19 00:24] VITALS: BP 147/112; PULSE 87; RESP 16; O2SAT 96
[2024-04-19 00:42] LABS: Alcohol, Blood (Medical)-Serum < 3.0 mg/dL
[2024-04-19 00:44] LABS: Absolute Lymphocyte Count 2.56 X10^3/uL (0.83-4.51); Basophil# 0.04 X10^3/uL; Basophil% 0.5 % (0-1); Eosinophils% 2.7 % (0-5); Hematocrit 46.3 % (37-47); Hemoglobin 13.9 g/dL (12.0-15.0); Lymphocyte # 2.56 X10^3/ul (0.83-4.51); Lymphocyte % 34.4 % (19-41); Mean Corpuscular Hgb 25.6 pg (27.0-32.0); Mean Corpuscular Volume 85.1 fL (81-99); Monocyte# 0.59 X10^3/uL; Monocyte% 7.9 % (0-10); NRBC Flagged by Analyzer 0 % (0-5); Neutrophil # 4.04 X10^3/uL (2.7-7.7); Neutrophil % 54.4 % (47-70); Platelet Count 390 K/mm3 (150-450); RBC Distribution Width CV 19.1 % (11.6-14.6); RBC Distribution Width SD 58.3 fl (35.1-43.9); Red Blood Count 5.44 M/mm3 (4.2-5.4); White Blood Count 7.4 K/mm3 (4.4-11.0)
[2024-04-19 01:07] LABS: Amphetamine Urine VISTA NEGATIVE (<1000 ng/mL); Barbiturate Urine VISTA NEGATIVE (< 200 ng/mL); Benzodiazepine Urine VISTA NEGATIVE (< 200 ng/mL); Cocaine Urine VISTA NEGATIVE (< 300 ng/mL); Ecstacy Urine VISTA NEGATIVE (< 500 ng/mL); Methadone Urine VISTA NEGATIVE (< 300 ng/mL); PCP Urine VISTA NEGATIVE (< 25 ng/mL); THC Urine VISTA POSITIVE (< 50 ng/mL); Vista UDS pH Range 5
[2024-04-19 01:14] LABS: ALB/GLOB Ratio 0.9 RATIO (0.9-2.4); AST(SGOT) 18 U/L (15-37); Alanine Aminotransfer ALT/SGPT 15 U/L (13-56); Alkaline Phosphatase 95 U/L (45-117); Anion Gap 5 (5-15); BUN 17 mg/dL (7-18); Calcium,Total 10.1 mg/dL (8.5-10.1); Chloride 107 mmol/L (98-107); Creatinine, Serum 1.13 mg/dL (0.55-1.02); EST Glomerular Filtration Rate 51 mL/min (>60); Est Glom Filt Rate - Afr Amer 62 mL/min (>60); Estimated Creatinine Clearance 41.99 ml/min; Globulin 4.4 g/dL (2.2-4.2); Glucose 86 mg/dL (74-106); Potassium 3.1 mmol/L (3.5-5.1); Protein, Total 8.4 g/dL (6.4-8.2); Sodium Level 140 mmol/L (136-145); Troponin-I HS 30 pg/mL (3.0-54.0)
[2024-04-19] MEDS: OLANZapine 5 MG/TAB TAB.RAPDIS 10 MG PO (01:20)
--- NOTE | 2024-04-19 03:41 | ED.RN ---
PT HAS BEEN REFERRED TO [facility]
[2024-04-19 04:49] VITALS: BP 131/68; PULSE 120; RESP 18; O2SAT 97
[2024-04-19] MEDS: Potassium Chloride Oral Tablet 20 MEQ 40 MEQ PO (07:12)
[2024-04-19 09:56] VITALS: BP 153/85; PULSE 69; RESP 16; TEMP 36.7; O2SAT 97
[2024-04-19 11:39] LABS: Bedside Glucose 169 mg/dL (74-106)
== END 2024-04-19 11:40 ==
PROVIDERS: Emergency Provider Emergency Medicine; PCP Family Medicine; Visit Provider Emergency Medicine
DX: F31.9 Bipolar disorder, unspecified (principal); E11.22 Type 2 diabetes mellitus with diabetic chronic kidney disease; R45.851 Suicidal ideations; R45.5 Hostility; R45.1 Restlessness and agitation; E87.6 Hypokalemia; F41.9 Anxiety disorder, unspecified; I12.9 Hypertensive chronic kidney disease with stage 1 through stage 4 chronic kidney disease, or unspecified chronic kidney disease; N18.9 Chronic kidney disease, unspecified; I49.3 Ventricular premature depolarization; Z79.82 Long term (current) use of aspirin; Z79.899 Other long term (current) drug therapy
CPT/HCPCS: 80053; 80307; 82077; 82962; 84484; 85025; 93005; 99283

== ENCOUNTER 2024-09-27 16:07 | Emergency (ER) | payer MEDICARE, MEDICAID, SELFPAY ==
[2024-09-27 16:08] VITALS: BP 194/99; PULSE 82; RESP 18; TEMP 36.4; O2SAT 99; BMI 26.2
--- NOTE | 2024-09-27 16:54 | EKG12_ITS ---
Test Reason : Blood Pressure : */* mmHG Vent. Rate : 69 BPM Atrial Rate : 69 BPM P-R Int : 140 ms QRS Dur : 76 ms QT Int : 466 ms P-R-T Axes : 76 2 83 degrees QTcB Int : 499 ms Sinus rhythm with occasional Premature ventricular complexes Septal infarct , age undetermined Abnormal ECG Confirmed by YARIEL FARLEY, ERICKA ([id number]), movie editor ZULMA COLLAZO ([id number]) on 09/29/2024 6:34:00 AM Referred By: Confirmed By: ERICKA SALDIVAR MD
--- NOTE | 2024-09-27 16:55 | EX.ED.VIS.PS ---
HPI HPI - Psych History of Present Illness Chief Complaint: Suicidal Narrative Narrative: 69-year-old female past medical history of bipolar disorder, states she ran out of her Seroquel approximately 2 months ago. She presents with suicidal ideation and worsening depression. She reported that she is homeless, she relates history that she was at [facility] in March of last year where she stayed for 3 weeks. When she was discharged, she states her daughter brought her back to [facility], but does not want her to live with them any longer. She states she was dropped off in 2 different places in [place]. Per triage, she has been staying at [facility] or in a laundromat. She relates history that she is more depressed and suicidal and that she has a friend in [facility] is willing to take her in. She plans on committing suicide by running out of into traffic in front of a jew[employer]-itruck. [facility] Medical History Bilateral primary osteoarthritis of knee Painful lumpy right breast Vomiting Abdominal pain Health care maintenance Neck pain Intertriginous dermatitis associated with moisture Suprapubic pain Preventative health care CKD (chronic kidney disease) Allergic rhinitis Non-smoker Chronic bronchitis Herpes History of gallstones Cataracts, bilateral IBS (irritable bowel syndrome) History of pneumonia Osteoarthritis Hypertension Seasonal allergies Gout Diabetes Depression with anxiety Home Medications ?Medication ?Instructions ?Recorded ?Last Taken ?Type citalopram 40 mg tablet 40 mg PO DAILY ANXIETY 01/24/19 Unknown History Held on 09/27/24. Instructions: pt is out of med vit A 7,160 unit-vit C 113 mg-vit 1 tab PO BID SUPPLEMENT 01/24/19 Unknown History E 100 iddv-lkuo-xiumfj tablet Held on 09/27/24. Instructions: pt is out of med quetiapine 400 mg tablet 400 mg PO QHS SLEEP 06/24/19 Unknown History Held on 09/27/24. Instructions: pt is out of med quetiapine 50 mg tablet 50 mg PO QHS SLEEP 06/24/19 Unknown History Held on 09/27/24. Instructions: pt is out of med bismuth subsalicylate 262 mg 2 tab PO Q30-60M PRN diarrhea 02/15/21 Unknown History chewable tablet (Pepto-Bismol) Held on 09/27/24. Instructions: pt is out of med ipratropium bromide 21 mcg (0.03 2 spray intranasal BID-TID PRN 02/15/21 Unknown Rx %) nasal spray allergy symptoms #30 mL Held on 09/27/24. Instructions: pt is out of med lisinopril 20 mg tablet 20 mg PO DAILY BP #90 tabs 02/15/21 Unknown Rx Held on 09/27/24. Instructions: pt is out of med potassium chloride 20 mEq 20 meq .Route .COMPLEX SUPPLEMENT 02/15/21 Unknown Rx tablet,extended release(part/cryst) #90 tabs Held on 09/27/24. Instructions: pt is out of med quetiapine 100 mg tablet 100 mg PO 02/15/21 Unknown History Held on 09/27/24. Instructions: pt is out of med quetiapine 25 mg tablet 25 mg PO 02/15/21 Unknown History Held on 09/27/24. Instructions: pt is out of med nystatin 100,000 unit/gram topical 1 applic topical TID #60 grams 05/12/21 Unknown Rx powder Held on 09/27/24. Instructions: pt is out of med clotrimazole-betamethasone 1 1 applic topical BID 2 weeks #45 07/05/21 Unknown Rx %-0.05 % topical cream grams Held on 09/27/24. Instructions: pt is out of med leg brace (BERTHA Knee Brace) #2 ea 10/19/21 Unknown Rx aspirin 81 mg chewable tablet 81 mg PO DAILY@0800 BLOOD THINNER 01/11/22 Unknown Rx Held on 09/27/24. #90 tabs Instructions: is out of rosuvastatin 10 mg tablet 10 mg PO DAILY #90 tabs 03/10/22 Unknown Rx Held on 09/27/24. Instructions: pt is out of med sumatriptan succinate 25 mg tablet 25 mg PO ONCE PRN Headache #14 tabs 05/16/22 Unknown Rx (Imitrex) Held on 09/27/24. Instructions: pt is out of med valacyclovir 500 mg tablet 500 mg PO DAILY HERPES #90 tabs 05/17/22 Unknown Rx Held on 09/27/24. Instructions: pt is out of med amlodipine 10 mg tablet 10 mg PO DAILY BP #90 tabs 08/29/22 Unknown Rx Held on 09/27/24. Instructions: pt is out of med pantoprazole 40 mg tablet,delayed 40 mg PO DAILY #90 tabs 11/27/22 Unknown Rx release (Protonix) Held on 09/27/24. Instructions: pt is out of med oxybutynin chloride 15 mg See Rx Instructions .Route 03/02/23 Unknown Rx tablet,extended release 24 hr .COMPLEX #60 tabs Held on 09/27/24. Instructions: pt is out of med cetirizine 10 mg tablet See Rx Instructions .Route 03/29/23 Unknown Rx Held on 09/27/24. .COMPLEX #30 tabs Instructions: pt is out of med ondansetron 4 mg disintegrating 4 mg PO Q8H PRN PRN Nausea #10 tabs 10/07/23 Unknown Rx tablet Held on 09/27/24. Instructions: pt is out of med Allergy/AdvReac Type Severity Reaction Status Date / Time codeine AdvReac Nausea/Vom/ Verified 09/27/24 16:12 Diarrhea Family History Other Alcoholism Breast cancer Depression Diabetes Heart disease Hypertension Surgical History Hx of bladder repair surgery History of hysterectomy Social History Smoking Status: Never smoker alcohol intake: current alcohol intake frequency: holidays/special occasions only substance use type: marijuana caffeine: Yes what type of physical activity do you participate in: none seatbelt use: always do you feel safe at home: Yes additional social history: retired ROS ROS ED ROS Narrative Constitutional: No fever, no chills. HEENT: No sore throat. No neck pain. No loss of vision. No rhinorrhea. Cardiovascular: No chest pain. No palpitations. No pedal edema. Respiratory: No cough, no shortness of breath. Abdominal: No abdominal pain. No nausea. No vomiting. Genitourinary: No dysuria. No hematuria. Musculoskeletal: No myalgias. No arthralgias. Neurologic: No headaches. No dizziness. No lightheadedness. Skin: No rash. No change in color. Psychiatric: Positive depression. Positive suicidal ideation with plan to run out into traffic and get hit by a semitruck. EXAM Physical Exam Narrative Exam Narrative: Afebrile. Vital signs noted. Cardiovascular examination reveals a regular rate and rhythm. Lungs clear to auscultation bilaterally. Abdomen soft and nontender with normoactive bowel sounds. Neurological examination is nonfocal and nonlateralizing. Ambulatory to cot. Psychiatric examination reveals positive suicidal ideation with plan. Tearful on examination. No active hallucinations. Const Vital Signs: 09/27/24 16:08 09/27/24 20:43 Temperature 97.5 F L Temperature Source Temporal Pulse Rate 82 Respiratory Rate 18 Blood Pressure 194/99 H 139/61 H Blood Pressure Mean 130 87 Pulse Ox 99 Oxygen Delivery Method Room Air MDM MDM MDM Narrative Medical decision making narrative: Given the patient's suicidal ideation with plan, medical clearance labs will be obtained. I do feel that her worsening depression may be secondary to the fact that she has run out of medications. She is usually seen by the counseling center. I reviewed her laboratory work and she has normal white count of 7.3 with hemoglobin 14.5, hematocrit slightly hemoconcentrated 47.2 with platelet count normal at 307. CMP is remarkable for potassium of 3.4 which think is nonspecific. ALT and AST are normal as well as alk phos. Urinalysis is positive for nitrites with greater than 100 WBCs. She was given her first dose of cephalexin here in the emergency department. Ethyl alcohol is negative. Urine for drugs of abuse is positive for cannabinoids. At this point in time, I do feel she is medically cleared. It was felt that she will most likely need placement given her suicidal ideation with plan. I discussed the patient with crisis/the crisis counselor who will work on placement. Currently, patient is in stable condition. Of note, patient had a headache as well so she was administered Tylenol. She is currently awaiting placement. Patient will be signed out to the overnight physician to continue observation as she awaits for psychiatric hospital placement. History & Record Review Discussion w/independent historian: Patient Lab Data Attestation: I reviewed the patient's lab results. Labs: Laboratory Results - last 24 hr 09/27/24 09/27/24 09/27/24 16:54 17:25 17:33 WBC 7.3 RBC 5.16 Hgb 14.5 Hct 47.2 H MCV 91.5 MCH 28.1 MCHC 30.7 L RDW Std Deviation 46.5 H RDW Coeff of Jose Alfredo 13.7 Plt Count 307 MPV 10.2 Immature Gran % (Auto) 0.300 Neut % (Auto) 78.6 H Lymph % (Auto) 14.0 L [place] % (Auto) 5.5 Eos % (Auto) 1.2 Baso % (Auto) 0.4 Absolute Neuts (auto) 5.7 Absolute Lymphs (auto) 1.02 Nucleated RBC % 0 Sodium 138 Potassium 3.4 L Chloride 107 Carbon Dioxide 23.0 Anion Gap 8 BUN 11 Creatinine 0.79 Estim Creat Clear Calc 60.43 Est GFR (MDRD) Af Amer 94 Est GFR (MDRD) Non-Af 77 BUN/Creatinine Ratio 14.0 Glucose 105 Calcium 9.7 Total Bilirubin 0.90 AST 18 ALT 16 Alkaline Phosphatase 89 Total Protein 7.9 Albumin 3.6 Globulin 4.3 H Albumin/Globulin Ratio 0.8 L Urine Color Yellow Urine Clarity Sl. Cloudy Urine pH 6.5 Ur Specific [place] 1.010 Urine Protein 500 H Urine Glucose (UA) Normal Urine Ketones 5 H Urine Occult Blood 25 H Urine Nitrite Positive H Urine Bilirubin Negative Urine Urobilinogen Normal Ur Leukocyte Esterase 500 H Urine RBC 0-5 SEEN Urine WBC >100 SEEN Ur Squamous Epith Cells 0-5 SEEN Urine Bacteria 3+ Urine Mucus 0 SEEN Urine Opiates Screen NEGATIVE Urine Methadone Screen NEGATIVE Ur Barbiturates Screen NEGATIVE Ur Phencyclidine Scrn NEGATIVE Ur Amphetamines Screen NEGATIVE MDMA (Ecstasy) Screen NEGATIVE U Benzodiazepines Scrn NEGATIVE Urine Cocaine Screen NEGATIVE U Cannabinoids Screen POSITIVE H Ur Drug Screen Comment Ethyl Alcohol < 3.0 Management Discussion w/another healthcare provider: Behavioral health Discharge Plan Triage Chief Complaint: Suicidal ED Provider: Mike May Dx/Rx/DC Orders Clinical Impression: Depression, Suicidal ideation, Urinary tract infection Prescriptions: No Action citalopram 40 mg tablet 40 mg PO DAILY vit A-vit C-vit J-ntxk-uzkank 7,160-113-100 qdnj-ad-mxqn tablet 1 tab PO BID quetiapine 100 mg tablet 100 mg PO quetiapine 25 mg tablet 25 mg PO bismuth subsalicylate [Pepto-Bismol] 262 mg tablet,chewable 2 tab PO Q30-60M PRN (Reason: diarrhea) Rx Instructions: do not exceed 16 tabs per 24 hrs lisinopril 20 mg tablet 20 mg PO DAILY Qty: 90 1RF potassium chloride 20 mEq tablet,ER particles/crystals 20 meq .Route .COMPLEX Qty: 90 1RF Rx Instructions: Dissolve in 4 oz of water daily ipratropium bromide 21 mcg (0.03 %) spray,non-aerosol 2 spray intranasal BID-TID PRN (Reason: allergy symptoms) Qty: 30 1RF Rx Instructions: administer into each nostril nystatin 100,000 unit/gram powder 1 applic topical TID Qty: 60 2RF clotrimazole-betamethasone 1-0.05 % cream 1 applic topical BID 14 Days Qty: 45 1RF (DME) BERTHA Knee Brace Misc See Rx Instructions .ROUTE .MEDSUPPLY Qty: 2 2RF Rx Instructions: As directed sumatriptan succinate [Imitrex] 25 mg tablet 25 mg PO ONCE PRN (Reason: Headache) Qty: 14 3RF quetiapine 50 MG tablet 50 mg PO QHS quetiapine 400 MG tablet 400 mg PO QHS Rx Instructions: TAKE 1 TABLET AT BEDTIME ondansetron 4 mg tablet,disintegrating 4 mg PO Q8H PRN PRN (Reason: Nausea) Qty: 10 0RF aspirin 81 mg tablet,chewable 81 mg PO DAILY@0800 Qty: 90 3RF rosuvastatin 10 mg tablet 10 mg PO DAILY Qty: 90 3RF valacyclovir 500 mg tablet 500 mg PO DAILY Qty: 90 1RF amlodipine 10 mg tablet 10 mg PO DAILY Qty: 90 2RF pantoprazole [Protonix] 40 mg tablet,delayed release (DR/EC) 40 mg PO DAILY Qty: 90 1RF oxybutynin chloride 15 mg tablet extended release 24hr See Rx Instructions .ROUTE .COMPLEX Qty: 60 1RF Dose Instruction: TAKE 1 TABLET BY MOUTH DAILY FOR BLADDER Rx Instructions: TAKE 1 TABLET BY MOUTH DAILY FOR BLADDER cetirizine 10 mg tablet See Rx Instructions .ROUTE .COMPLEX Qty: 30 0RF Dose Instruction: TAKE 1 TABLET BY MOUTH DAILY NEEDED FOR ALLERGY SYMPTOMS Rx Instructions: TAKE 1 TABLET BY MOUTH DAILY NEEDED FOR ALLERGY SYMPTOMS Primary Care Provider: Dede Giles Referrals: Dede Giles MD [Primary Care Provider] - Print Language: Urdu Disposition Disposition: Psychiatric Hospital or Unit
[2024-09-27 17:35] LABS: Absolute Lymphocyte Count 1.02 X10^3/uL (0.83-4.51); Absolute Neutrophil Count 5.7 X10^3/uL (2.0-7.7); Basophil# 0.03 X10^3/uL; Basophil% 0.4 % (0-1); Eosinophil# 0.09 X10^3/uL; Eosinophils% 1.2 % (0-5); Hematocrit 47.2 % (37-47); Hemoglobin 14.5 g/dL (12.0-15.0); Lymphocyte # 1.02 X10^3/ul (0.83-4.51); Mean Corp Hgb Conc 30.7 g/dL (32-36); Mean Corpuscular Hgb 28.1 pg (27.0-32.0); Mean Corpuscular Volume 91.5 fL (81-99); Mean Platelet Vol. 10.2 fl (6.2-12.0); Monocyte% 5.5 % (0-10); NRBC Flagged by Analyzer 0 % (0-5); Neutrophil # 5.71 X10^3/uL (2.7-7.7); Neutrophil % 78.6 % (47-70); Platelet Count 307 K/mm3 (150-450); RBC Distribution Width CV 13.7 % (11.6-14.6); RBC Distribution Width SD 46.5 fl (35.1-43.9); Red Blood Count 5.16 M/mm3 (4.2-5.4); White Blood Count 7.3 K/mm3 (4.4-11.0)
[2024-09-27 17:36] LABS: POSITIVE COUNT NO; POSITIVE DIFFERENTIAL NO; POSITIVE MORPHOLOGY NO
[2024-09-27 17:49] LABS: Alcohol, Blood (Medical)-Serum < 3.0 mg/dL
[2024-09-27 17:53] LABS: Mucous, Urine 0 SEEN /hpf (<or=2+)
[2024-09-27 17:57] LABS: Color, Urine Yellow (Yellow); Glucose, Dipstick Normal (Normal); Ketone-Dipstick 5 mg/dl (Negative); Leukocyte Esterase-Dipstick 500 /ul (Negative); Nitrite-Dipstick Positive (Negative); Occult Blood-Urine 25 /ul (Negative); Protein-Dipstick 500 mg/dl (Negative); Urine Bilirubin Dipstick Negative (Negative); Urine Clarity Sl. Cloudy (Clear); Urine Urobilinogen Normal (Normal); Urine pH 6.5 (5.0 - 8.0)
[2024-09-27 17:57] LABS: ALB/GLOB Ratio 0.8 RATIO (0.9-2.4); AST(SGOT) 18 U/L (15-37); Alanine Aminotransfer ALT/SGPT 16 U/L (13-56); Albumin, Serum 3.6 g/dL (3.2-5.0); Alkaline Phosphatase 89 U/L (45-117); Anion Gap 8 (5-15); BUN 11 mg/dL (7-18); Calcium,Total 9.7 mg/dL (8.5-10.1); Chloride 107 mmol/L (98-107); Creatinine, Serum 0.79 mg/dL (0.55-1.02); EST Glomerular Filtration Rate 77 mL/min (>60); Est Glom Filt Rate - Afr Amer 94 mL/min (>60); Estimated Creatinine Clearance 60.43 ml/min; Globulin 4.3 g/dL (2.2-4.2); Glucose 105 mg/dL (74-106); Potassium 3.4 mmol/L (3.5-5.1); Protein, Total 7.9 g/dL (6.4-8.2); Sodium Level 138 mmol/L (136-145)
[2024-09-27 18:10] LABS: Amphetamine Urine NEGATIVE (<1000 ng/mL); Barbiturate Urine VISTA NEGATIVE (< 200 ng/mL); Benzodiazepine Urine VISTA NEGATIVE (< 200 ng/mL); Cocaine Urine VISTA NEGATIVE (< 300 ng/mL); Ecstacy Urine VISTA NEGATIVE (< 500 ng/mL); Methadone Urine VISTA NEGATIVE (< 300 ng/mL); PCP Urine VISTA NEGATIVE (< 25 ng/mL); THC Urine VISTA POSITIVE (< 50 ng/mL); Vista UDS pH Range 6
[2024-09-27 18:26] LABS: Bacteria 3+ /hpf (None Seen)
[2024-09-27 18:29] LABS: Red Blood Cells-Urine 0-5 SEEN /hpf (0-5); Squamous Epithelial Cells - UA 0-5 SEEN /hpf (5-10); White Blood Cells >100 SEEN /hpf (0-5)
[2024-09-27] MEDS: Cephalexin 250 MG Capsule 500 MG PO (18:46)
[2024-09-27] MEDS: Potassium Chloride Oral Tablet 20 MEQ 40 MEQ PO (19:34)
[2024-09-27] MEDS: Acetaminophen 325 MG Tablet 650 MG PO (19:50)
--- NOTE | 2024-09-27 20:30 | ED.RN ---
Person calls ER asking to speak to patient. This nurse asks if she can tell her who is calling, caller states uh it is her daughter. This nurse asks for name, caller states uh it is Sharmin the only fucking daughter she has. This nurse states to Sharmin that this nurse is just confirming to protect patient privacy. This nurse to room, asked pt if she would like to speak to Sharmin. Pt asks to ask daughter what she wants. Nurse asked daughter, she states just never mind, I was going to see if she wanted me to go get her dogs food and feed them but I guess I will just fucking do it since she will not speak to me. This nurse asks if caller needs anything else, caller begins rambling and cussing about patient's dogs and having to care for them. Attempted to redirect, caller continues to ramble and cuss about same. Call ended by this nurse.
[2024-09-27 20:43] VITALS: BP 139/61
[2024-09-27] MEDS: hydrOXYzine PAM 25 MG Capsule 50 MG PO (21:39)
[2024-09-27 22:27] VITALS: BP 139/61; PULSE 82; RESP 16; TEMP 36.4; O2SAT 99
== END 2024-09-28 01:43 ==
PROVIDERS: Emergency Provider Emergency Medicine; PCP Family Medicine; Visit Provider Emergency Medicine
DX: F32.A Depression, unspecified (principal); J42 Unspecified chronic bronchitis; E11.22 Type 2 diabetes mellitus with diabetic chronic kidney disease; N39.0 Urinary tract infection, site not specified; R45.851 Suicidal ideations; N18.9 Chronic kidney disease, unspecified; R51.9 Headache, unspecified; F41.9 Anxiety disorder, unspecified; Z59.02 Unsheltered homelessness; Z79.82 Long term (current) use of aspirin; Z79.899 Other long term (current) drug therapy
CPT/HCPCS: 80048; 80053; 80307; 81001; 82077; 85025; 93005; 99285

== ENCOUNTER 2024-11-01 20:33 | Emergency (ER) | payer MEDICARE, MEDICAID, SELFPAY ==
[2024-11-01 20:36] VITALS: BP 164/121; PULSE 58; RESP 18; TEMP 36.4; O2SAT 97; BMI 27.8
[2024-11-01 20:53] VITALS: BP 143/65; PULSE 58; RESP 16; O2SAT 96
--- NOTE | 2024-11-01 20:53 | EDS_ITS ---
HPI <YANNI Floyd - Last Filed: 11/01/24 21:53> History of Present Illness Chief Complaint: Headache Narrative Narrative: 69-year-old female with PMH of hypertension, bipolar, migraines presents with a bifrontal headache that started last night and is gradually worsened throughout the day. She had a lot to eat for dinner and then vomited once which she attributes to her headache. She has no abdominal pain. No fever, chills, or neck stiffness. She states she used to be prescribed Imitrex for her migraines but her insurance changed and she had to get a new doctor and never got it refilled. She has had no fall or head trauma. PFSH <YANNI Floyd - Last Filed: 11/01/24 21:53> [facility] Medical History Bilateral primary osteoarthritis of knee Painful lumpy right breast Vomiting Abdominal pain Health care maintenance Neck pain Intertriginous dermatitis associated with moisture Suprapubic pain Preventative health care CKD (chronic kidney disease) Allergic rhinitis Non-smoker Chronic bronchitis Herpes History of gallstones Cataracts, bilateral IBS (irritable bowel syndrome) History of pneumonia Osteoarthritis Hypertension Seasonal allergies Gout Diabetes Depression with anxiety Home Medications ?Medication ?Instructions ?Recorded ?Last Taken ?Type vit A 7,160 unit-vit C 113 mg-vit 1 tab PO BID SUPPLEM ENT 01/24/19 Unknown History E 100 jgqx-[id number]-sevlqv tablet Held on 09/27/24. Instructions: pt is out of med bismuth subsalicylate 262 mg 2 tab PO Q30-60M PRN diar jimmie 02/15/21 Unknown History chewable tablet (Pepto-Bismol) Held on 09/27/24. Instructions: pt is out of med ipratropium bromide 21 mcg (0.03 2 spray intranasal BI D-TID PRN 02/15/21 Unknown Rx %) nasal spray allergy symptoms #30 mL lisinopril 20 mg tablet 20 mg PO DAILY BP #90 tabs 0 02/15/21 Unknown Rx quetiapine 25 mg tablet 25 mg PO QHS 02/15/21 Unknow n History nystatin 100,000 unit/gram topical 1 applic topical TI D #60 grams 05/12/21 Unknown Rx powder Held on 09/27/24. Instructions: pt is out of med clotrimazole-betamethasone 1 1 applic topical BID 2 we eks #45 07/05/21 Unknown Rx %-0.05 % topical cream grams Held on 09/27/24. Instructions: pt is out of med leg brace (BERTHA Knee Brace) #2 ea 10/19/21 Unknown Rx aspirin 81 mg chewable tablet 81 mg PO DAILY@0800 BLOO D THINNER 01/11/22 Unknown Rx #90 tabs rosuvastatin 10 mg tablet 10 mg PO DAILY #90 tabs 02/18 10/11 Unknown Rx Held on 09/27/24. Instructions: pt is out of med sumatriptan succinate 25 mg tablet 25 mg PO ONCE PRN H eadache #14 tabs 05/16/22 Unknown Rx (Imitrex) Held on 09/27/24. Instructions: pt is out of med valacyclovir 500 mg tablet 500 mg PO DAILY HERPES #90 tabs 05/17/22 Unknown Rx Held on 09/27/24. Instructions: pt is out of med amlodipine 10 mg tablet 10 mg PO DAILY BP #90 tabs 0 08/29/22 Unknown Rx pantoprazole 40 mg tablet,delayed 40 mg PO DAILY #90 t abs 11/27/22 Unknown Rx release (Protonix) oxybutynin chloride 15 mg See Rx Instructions .Route 0 03/02/23 Unknown Rx tablet,extended release 24 hr .COMPLEX #60 tabs Held on 09/27/24. Instructions: pt is out of med cetirizine 10 mg tablet See Rx Instructions .Route 0 03/29/23 Unknown Rx Held on 09/27/24. .COMPLEX #30 tabs Instructions: pt is out of med ondansetron 4 mg disintegrating 4 mg PO Q8H PRN PRN Na usea #10 tabs 10/07/23 Unknown Rx tablet Held on 09/27/24. Instructions: pt is out of med Allergy/AdvReac Type Severity Reaction Status Date / Time codeine AdvReac Nausea/Vom/ Verified 11/01/24 20:35 Diarrhea Family History Other Alcoholism Breast cancer Depression Diabetes Heart disease Hypertension Surgical History Hx of bladder repair surgery History of hysterectomy Social History Smoking Status: Never smoker alcohol intake: current alcohol intake frequency: holidays/special occasions only substance use type: marijuana caffeine: Yes what type of physical activity do you participate in: none seatbelt use: always do you feel safe at home: Yes additional social history: retired ROS <YANNI Floyd - Last Filed: 11/01/24 21:53> ROS ED ROS Narrative Constitutional: Negative for fever, chills, malaise. Eyes: Negative for visual change. GI: Negative for nausea, vomiting. Neuro: Positive for headache. EXAM <YANNI Floyd - Last Filed: 11/01/24 21:53> Physical Exam Narrative Exam Narrative: CONST: Patient sitting in no acute distress. EYES: Normal inspection. PERRL, EOMI. ENT: Normal inspection, moist mucous membranes. NECK: Normal inspection. No meningismus. RESP: No respiratory distress, CTAB. CVS: Regular rate and rhythm, no murmur, no gallop. ABD: Soft and nontender, no guarding or rebound, nondistended. SKIN: Color normal, no rash, warm, dry, intact. EXTREMITIES: Normal appearance, no pedal edema. NEURO: Alert and answering questions appropriately. Cranial nerves II through XII intact, no upper or lower extremity drift, normal finger-nose bilaterally. PSYCH: Normal affect. Const Vital Signs: 11/01/24 20:36 11/01/24 20:43 11/01/24 20:53 Temperature 97.5 F L Temperature Source Temporal Pulse Rate 58 L 58 L Respiratory Rate 18 16 Respiratory Effort Normal Non-Labored Respiratory Pattern Normal Blood Pressure 164/121 H 143/65 H Blood Pressure Mean 135 91 Pulse Ox 97 96 Oxygen Delivery Method Room Air Room Air <Mike May MD - Last Filed: 11/03/24 23:29> Physical Exam Const Vital Signs: 11/01/24 20:36 11/01/24 20:43 11/01/24 20:53 Temperature 97.5 F L Temperature Source Temporal Pulse Rate 58 L 58 L Respiratory Rate 18 16 Respiratory Effort Normal Non-Labored Respiratory Pattern Normal Blood Pressure 164/121 H 143/65 H Blood Pressure Mean 135 91 Pulse Ox 97 96 Oxygen Delivery Method Room Air Room Air MDM <YANNI Floyd - Last Filed: 11/01/24 21:53> [facility] Narrative Medical decision making narrative: Differential includes but not limited to tension headache versus migraine versus intracranial process 69-year-old female has a gradual onset bifrontal headache that started last night. 1 episode of nausea and vomiting this evening. It feels similar to prior diagnosis of migraines. She is to be prescribed Imitrex but ran out. She appears well and nontoxic. Initial BP in triage was 164/121 but was rechecked and is 143/65. Eitel signs stable. She has a normal neurological exam. She has no fever or neck pain or meningismus or any concern for infectious etiology. Since headache feels similar to her prior migraines and it was not sudden onset and her exam is benign I do not think CT imaging of the brain is indicated. She was treated with IM Toradol and subcutaneous Imitrex. She was reevaluated at 9:50 PM and is feeling improvement and would like to be discharged to get some sleep. She was instructed follow-up with her primary care doctor or return if symptoms worsen. <Mike May MD - Last Filed: 11/03/24 23:29> [facility] History & Record Review Discussion w/independent historian: Patient Treatment and Re-Evaluation Narrative: Dr. May: I have personally performed a face to face assessment of the patient and have reviewed the RENE Note. I performed a substantive portion of the visit including all aspects of the following. My spencer findings include: History is migraine history, out of Imitrex. Positive headache. History of psychiatric problems with recent admission. Exam is afebrile. Vital signs noted. Nontoxic-appearing. Cardiovascular exa mination regular rate and rhythm. Lungs clear to auscultation bilaterally. Abdomen soft and nontender without guarding or rebound. Neurological examination is nonfocal, nonlateralizing. Medical Decision Making: Migraine medication in the form of Imitrex. Improvement in migraine. Discharge. Other additions or changes: [None] Discharge Plan Triage Chief Complaint: Headache ED Midlevel Provider: Gloria Solitario ED Provider: Mike May Dx/Rx/DC Orders Clinical Impression: Migraine Instructions: Migraine Tension Headaches Prescriptions: No Action vit A-vit C-vit H-pxph-vfrcfo 7,160-113-100 lrhc-fv-sdrh tablet 1 tab PO BID quetiapine 25 mg tablet 25 mg PO QHS bismuth subsalicylate [Pepto-Bismol] 262 mg tablet,chewable 2 tab PO Q30-60M PRN (Reason: diarrhea) Rx Instructions: do not exceed 16 tabs per 24 hrs lisinopril 20 mg tablet 20 mg PO DAILY Qty: 90 1RF ipratropium bromide 21 mcg (0.03 %) spray,non-aerosol 2 spray intranasal BID-TID PRN (Reason: allergy symptoms) Qty: 30 1RF Rx Instructions: administer into each nostril nystatin 100,000 unit/gram powder 1 applic topical TID Qty: 60 2RF clotrimazole-betamethasone 1-0.05 % cream 1 applic topical BID 14 Days Qty: 45 1RF (DME) BERTHA Knee Brace Misc See Rx Instructions .ROUTE .MEDSUPPLY Qty: 2 2RF Rx Instructions: As directed sumatriptan succinate [Imitrex] 25 mg tablet 25 mg PO ONCE PRN (Reason: Headache) Qty: 14 3RF ondansetron 4 mg tablet,disintegrating 4 mg PO Q8H PRN PRN (Reason: Nausea) Qty: 10 0RF aspirin 81 mg tablet,chewable 81 mg PO DAILY@0800 Qty: 90 3RF rosuvastatin 10 mg tablet 10 mg PO DAILY Qty: 90 3RF valacyclovir 500 mg tablet 500 mg PO DAILY Qty: 90 1RF amlodipine 10 mg tablet 10 mg PO DAILY Qty: 90 2RF pantoprazole [Protonix] 40 mg tablet,delayed release (DR/EC) 40 mg PO DAILY Qty: 90 1RF oxybutynin chloride 15 mg tablet extended release 24hr See Rx Instructions .ROUTE .COMPLEX Qty: 60 1RF Dose Instruction: TAKE 1 TABLET BY MOUTH DAILY FOR BLADDER Rx Instructions: TAKE 1 TABLET BY MOUTH DAILY FOR BLADDER cetirizine 10 mg tablet See Rx Instructions .ROUTE .COMPLEX Qty: 30 0RF Dose Instruction: TAKE 1 TABLET BY MOUTH DAILY NEEDED FOR ALLERGY SYMPTOMS Rx Instructions: TAKE 1 TABLET BY MOUTH DAILY NEEDED FOR ALLERGY SYMPTOMS Primary Care Provider: Dede Giles Referrals: Dede Giles MD [Primary Care Provider] - Activity Restrictions/Additional Instructions: Follow-up with your primary care doctor for your migraines. If symptoms worsen come back to the ER. Print Language: [place] Disposition Disposition: Home, Self Care Discharge Date/Time: 11/01/24 22:09
[2024-11-01] MEDS: SUMAtriptan 6 MG/0.5 ML Vial SC (20:59)
[2024-11-01] MEDS: Ketorolac 15 MG/ML Vial IM (20:59)
[2024-11-01 22:04] VITALS: BP 157/72; PULSE 72; RESP 18; TEMP 36.7; O2SAT 97
== END 2024-11-01 22:09 | disposition home or self-care (01) ==
PROVIDERS: Emergency Provider Emergency Medicine; PCP Family Medicine; Visit Provider Emergency Medicine
DX: G43.909 Migraine, unspecified, not intractable, without status migrainosus (principal); J42 Unspecified chronic bronchitis; E11.22 Type 2 diabetes mellitus with diabetic chronic kidney disease; I12.9 Hypertensive chronic kidney disease with stage 1 through stage 4 chronic kidney disease, or unspecified chronic kidney disease; N18.9 Chronic kidney disease, unspecified; Z79.82 Long term (current) use of aspirin; Z79.899 Other long term (current) drug therapy
CPT/HCPCS: 96372; 99283; J3030

== ENCOUNTER 2024-12-03 15:09 | Emergency (ER) | payer MEDICARE, SELFPAY ==
[2024-12-03 15:09] VITALS: BP 111/61; PULSE 74; RESP 18; TEMP 36.4; O2SAT 99; BMI 28.4
--- NOTE | 2024-12-03 15:23 | EDS_ITS ---
HPI <CHEYANNE Matthew - Last Filed: 12/03/24 15:32> History of Present Illness Chief Complaint: Abscess Narrative Narrative: Patient is a 69-year-old female with history of anxiety, depression, hypertension who presents to the [facility] for rectal pain. Patient states that she had a harsh/hard bowel movement that was painful a couple days ago since then she has been having pain to her rectal area. Patient daughter looked at the site and said it might be an abscess and to get it checked out. Patient denies any fever or chills. PFS <CHEYANNE Matthew - Last Filed: 12/03/24 15:32> [facility] Medical History Bilateral primary osteoarthritis of knee Painful lumpy right breast Vomiting Abdominal pain Health care maintenance Neck pain Intertriginous dermatitis associated with moisture Suprapubic pain Preventative health care CKD (chronic kidney disease) Allergic rhinitis Non-smoker Chronic bronchitis Herpes History of gallstones Cataracts, bilateral IBS (irritable bowel syndrome) History of pneumonia Osteoarthritis Hypertension Seasonal allergies Gout Diabetes Depression with anxiety Home Medications ?Medication ?Instructions ?Recorded ?Last Taken ?Type vit A 7,160 unit-vit C 113 mg-vit 1 tab PO BID SUPPLEM ENT 01/24/19 Unknown History E 100 mslp-xzku-efriai tablet Held on 09/27/24. Instructions: pt is out of med bismuth subsalicylate 262 mg 2 tab PO Q30-60M PRN diar jimmie 02/15/21 Unknown History chewable tablet (Pepto-Bismol) Held on 09/27/24. Instructions: pt is out of med ipratropium bromide 21 mcg (0.03 2 spray intranasal BI D-TID PRN 02/15/21 Unknown Rx %) nasal spray allergy symptoms #30 mL lisinopril 20 mg tablet 20 mg PO DAILY BP #90 tabs 0 02/15/21 Unknown Rx quetiapine 25 mg tablet 25 mg PO QHS 02/15/21 Unknow n History nystatin 100,000 unit/gram topical 1 applic topical TI D #60 grams 05/12/21 Unknown Rx powder Held on 09/27/24. Instructions: pt is out of med clotrimazole-betamethasone 1 1 applic topical BID 2 we eks #45 07/05/21 Unknown Rx %-0.05 % topical cream grams Held on 09/27/24. Instructions: pt is out of med leg brace (BERTHA Knee Brace) #2 ea 10/19/21 Unknown Rx aspirin 81 mg chewable tablet 81 mg PO DAILY@0800 BLOO D THINNER 01/11/22 Unknown Rx #90 tabs rosuvastatin 10 mg tablet 10 mg PO DAILY #90 tabs 02/18 10/11 Unknown Rx Held on 09/27/24. Instructions: pt is out of med sumatriptan succinate 25 mg tablet 25 mg PO ONCE PRN H eadache #14 tabs 05/16/22 Unknown Rx (Imitrex) Held on 09/27/24. Instructions: pt is out of med valacyclovir 500 mg tablet 500 mg PO DAILY HERPES #90 tabs 05/17/22 Unknown Rx Held on 09/27/24. Instructions: pt is out of med amlodipine 10 mg tablet 10 mg PO DAILY BP #90 tabs 0 08/29/22 Unknown Rx pantoprazole 40 mg tablet,delayed 40 mg PO DAILY #90 t abs 11/27/22 Unknown Rx release (Protonix) oxybutynin chloride 15 mg See Rx Instructions .Route 0 03/02/23 Unknown Rx tablet,extended release 24 hr .COMPLEX #60 tabs Held on 09/27/24. Instructions: pt is out of med cetirizine 10 mg tablet See Rx Instructions .Route 0 03/29/23 Unknown Rx Held on 09/27/24. .COMPLEX #30 tabs Instructions: pt is out of med ondansetron 4 mg disintegrating 4 mg PO Q8H PRN PRN Na usea #10 tabs 10/07/23 Unknown Rx tablet Held on 09/27/24. Instructions: pt is out of med docusate sodium 100 mg capsule 100 mg PO BID #20 caps 12/03/24 Unknown Rx (Colace) hydrocortisone 2.5 % topical cream 1 applic [place] BID 10 days #30 grams 12/03/24 Unknown Rx with perineal applicator (Procto-Med HC) Allergy/AdvReac Type Severity Reaction Status Date / Time codeine AdvReac Nausea/Vom/ Verified 11/01/24 20:35 Diarrhea Family History Other Alcoholism Breast cancer Depression Diabetes Heart disease Hypertension Surgical History Hx of bladder repair surgery History of hysterectomy Social History Smoking Status: Never smoker alcohol intake: current alcohol intake frequency: holidays/special occasions only substance use type: marijuana caffeine: Yes what type of physical activity do you participate in: none seatbelt use: always do you feel safe at home: Yes additional social history: retired ROS <CHEYANNE Matthew - Last Filed: 12/03/24 15:32> ROS ED ROS Narrative Constitutional: Negative for fever, chills, weight loss, weakness Eyes: Negative for vision loss, vision change, double vision ENT: Negative for any sore throat, ear pain, congestion Cardiovascular: Negative for any chest pain, tightness, palpitations Respiratory: Negative for any cough, sputum production, hemoptysis, dyspnea, dyspnea on exertion, orthopnea Gastrointestinal: Negative for any abdominal pain, nausea, vomiting, diarrhea, constipation, blood in stool, blood in vomit. Positive for rectal pain : Negative for any urinary frequency, dysuria, retention, blood in urine Muscle skeletal: Negative for any neck pain, back pain Neurological: Negative for any headache, syncope, dizziness Skin: Negative for any rashes, itching, abrasions, lacerations Psychiatric: Negative for any depression, anxiety, stress, suicidal ideation, homicidal ideation Hematologic: Negative for any excessive bruising, easy bleeding EXAM <CHEYANNE Matthew - Last Filed: 12/03/24 15:32> Physical Exam Narrative Exam Narrative: Vital signs reviewed. HEET: Head normocephalic atraumatic, TMs clear bilaterally. Posterior pharynx is clear, moist mucous membranes. Nares clear bilaterally. Neck: Supple with no lymphadenopathy or tenderness. No signs of meningismus. Cardiac: Regular rate and rhythm no murmurs gallops or rubs, equal peripheral pulses bilaterally. Respiratory: Lungs clear to auscultation bilaterally. No chest tenderness. Abdomen: Soft, nontender, nondistended. No abdominal bruit or pulsatile masses. No hepatosplenomegaly Extremities: No peripheral edema, no signs of gross trauma or deformity. Active full range of motion of all extremities. Neuro: Cranial nerves II through XII intact, no focal neurological deficits. Skin: Clean dry and intact with no rash, purpura, petechiae, vesicles or pustules. Backs/flank: No CVA tenderness, no midline spinal tenderness, no deformity. Psych: Normal mood and affect. No SI, HI or acute psychosis. Rectal: Rectal exam with female nurse bracelet and brooch maker Daly, looking at the rectum, there seems to be significant hemorrhoids. There is no thrombosed hemorrhoids. These are not bleeding. However they are tender to the touch. I do not see any signs of infection, abscesses. Const Vital Signs: 12/03/24 15:09 Temperature 97.6 F L Temperature Source Temporal Pulse Rate 74 Respiratory Rate 18 Blood Pressure 111/61 Blood Pressure Mean 77 Pulse Ox 99 Oxygen Delivery Method Room Air <Dr. Socrates Arteaga, - Last Filed: 12/03/24 15:36> Physical Exam Const Vital Signs: 12/03/24 15:09 Temperature 97.6 F L Temperature Source Temporal Pulse Rate 74 Respiratory Rate 18 Blood Pressure 111/61 Blood Pressure Mean 77 Pulse Ox 99 Oxygen Delivery Method Room Air [facility] <CHEYANNE Matthew - Last Filed: 12/03/24 15:32> [facility] Treatment and Re-Evaluation :: Differential diagnosis includes however is not limited to: Rectal abscess, pilonidal cyst, internal hemorrhoids, external hemorrhoids, thrombosed hemorrhoids Patient appears generally well, vital signs are stable, patient is nontoxic- appearing. Presenting to the [facility] part with complaints of rectal pain. On my physical examination, this does appear to be hemorrhoids. They are fleshy colored, there is no bleeding, there is no evidence of any thrombosis. Patient will be placed on hydrocortisone cream, Anusol. Patient instructed to use MiraLAX to have softer bowel movements. She is agreeable with this plan. <Dr. Socrates Arteaga, - Last Filed: 12/03/24 15:36> [facility] Narrative Medical decision making narrative: I have personally performed a face to face assessment of the patient and have r eviewed the RENE Note. I performed a substantive portion of the visit including all aspects of the following. My spencer findings include: History: The patient presents with perirectal pain that has been getting worse over the past 3 to 4 days. Patient states it is gradually getting worse. Patient describes it as cramping but occasionally stabbing. Patient states it is mainly over the perirectal area. Patient states it is worse with movement. Patient states nothing seems to help with it. Patient denies any fevers or chills. Patient denies any nausea or vomiting. Patient does admit to some constipation. Exam: Vital signs are stable. Patient is afebrile. Patient is in no acute distress. Oral mucosa is pink and moist. Neck is supple. Trachea is midline. There is no JVD. Heart with regular rate and rhythm. Lungs are clear and equal bilaterally. Abdomen is soft. Bowel sounds are normal. There is mild suprapubic tenderness. There is no rebound or guarding noted. Chaperoned rectal exam did show external hemorrhoids. There is no thrombosis. There is no bleeding noted. There is tenderness to palpation over the hemorrhoids. Cranial nerves II through XII are intact. There are no focal motor or sensory deficits. Medical Decision Making: Patient was advised of her findings. Patient was advised that these are external hemorrhoids. Patient was instructed to use warm sitz bath's. Patient was given prescriptions for Colace and hydrocortisone cream. Patient was instructed to follow-up with her primary care physician in 5 to 7 days. Patient understood and was agreeable with the plan. All questions were answered. Discharge Plan Triage Chief Complaint: Abscess ED Midlevel Provider: Vladimir Barnett ED Provider: Socrates Arteaga Dx/Rx/DC Orders Clinical Impression: Acute hemorrhoid, Constipation Instructions: Diagnosing Hemorrhoids, ED Hemorrhoids Prescriptions: New docusate sodium [Colace] 100 mg capsule 100 mg PO BID Qty: 20 0RF hydrocortisone [Procto-Med HC] 2.5 % cream with perineal applicator 1 applic [place] BID 10 Days Qty: 30 0RF No Action vit A-vit C-vit E-qabz-lahcbl 7,160-113-100 zvxa-si-qtrb tablet 1 tab PO BID quetiapine 25 mg tablet 25 mg PO QHS bismuth subsalicylate [Pepto-Bismol] 262 mg tablet,chewable 2 tab PO Q30-60M PRN (Reason: diarrhea) Rx Instructions: do not exceed 16 tabs per 24 hrs lisinopril 20 mg tablet 20 mg PO DAILY Qty: 90 1RF ipratropium bromide 21 mcg (0.03 %) spray,non-aerosol 2 spray intranasal BID-TID PRN (Reason: allergy symptoms) Qty: 30 1RF Rx Instructions: administer into each nostril nystatin 100,000 unit/gram powder 1 applic topical TID Qty: 60 2RF clotrimazole-betamethasone 1-0.05 % cream 1 applic topical BID 14 Days Qty: 45 1RF (DME) BERTHA Knee Brace Misc See Rx Instructions .ROUTE .MEDSUPPLY Qty: 2 2RF Rx Instructions: As directed sumatriptan succinate [Imitrex] 25 mg tablet 25 mg PO ONCE PRN (Reason: Headache) Qty: 14 3RF ondansetron 4 mg tablet,disintegrating 4 mg PO Q8H PRN PRN (Reason: Nausea) Qty: 10 0RF aspirin 81 mg tablet,chewable 81 mg PO DAILY@0800 Qty: 90 3RF rosuvastatin 10 mg tablet 10 mg PO DAILY Qty: 90 3RF valacyclovir 500 mg tablet 500 mg PO DAILY Qty: 90 1RF amlodipine 10 mg tablet 10 mg PO DAILY Qty: 90 2RF pantoprazole [Protonix] 40 mg tablet,delayed release (DR/EC) 40 mg PO DAILY Qty: 90 1RF oxybutynin chloride 15 mg tablet extended release 24hr See Rx Instructions .ROUTE .COMPLEX Qty: 60 1RF Dose Instruction: TAKE 1 TABLET BY MOUTH DAILY FOR BLADDER Rx Instructions: TAKE 1 TABLET BY MOUTH DAILY FOR BLADDER cetirizine 10 mg tablet See Rx Instructions .ROUTE .COMPLEX Qty: 30 0RF Dose Instruction: TAKE 1 TABLET BY MOUTH DAILY NEEDED FOR ALLERGY SYMPTOMS Rx Instructions: TAKE 1 TABLET BY MOUTH DAILY NEEDED FOR ALLERGY SYMPTOMS Primary Care Provider: Dede Giles Referrals: Dede Giles MD [Primary Care Provider] - Activity Restrictions/Additional Instructions: Please use the Print Language: Wolof Disposition Disposition: Home, Self Care
== END 2024-12-03 15:51 | disposition home or self-care (01) ==
LOC: ED 15:43
PROVIDERS: Emergency Provider Emergency Medicine; PCP Family Medicine; Referring Provider Emergency Medicine; Visit Provider Emergency Medicine
DX: K64.4 Residual hemorrhoidal skin tags (principal); J42 Unspecified chronic bronchitis; E11.22 Type 2 diabetes mellitus with diabetic chronic kidney disease; K59.00 Constipation, unspecified; I12.9 Hypertensive chronic kidney disease with stage 1 through stage 4 chronic kidney disease, or unspecified chronic kidney disease; N18.9 Chronic kidney disease, unspecified; Z79.82 Long term (current) use of aspirin; Z79.899 Other long term (current) drug therapy; F32.A Depression, unspecified; F41.9 Anxiety disorder, unspecified
CPT/HCPCS: 99282

== ENCOUNTER 2025-01-28 12:24 | Inpatient (IN) | payer MEDICARE, MEDICAID, SELFPAY ==
[2025-01-28 12:26] VITALS: BP 138/66; PULSE 77; RESP 16; TEMP 36.9; O2SAT 99; BMI 26.0
--- NOTE | 2025-01-28 17:17 | EX.ED.DYSGE1 ---
HPI History of Present Illness Chief Complaint: General Illness Informant: patient Onset/Context/Timing Onset: - (Ears) Context: Gradual Onset Timing: Continuous Quality: Aching Location: Bilateral hips, bilateral knees, right ankle Worsened by: Walking Relieved by: Nothing Narrative Narrative: Patient presents because he wants to be placed in an assisted living facility. Patient states she is currently living in a van with her family. Patient states she has been having pain in her hips, knees, and right ankle for years. Patient describes it as aching. Patient states she has been falling frequently due to the pain. Patient states her pain is worse with walking. Patient admits to some subjective chills. Patient admits to some shortness of breath that is due to her family smoking in the van. Patient admits to some urinary frequency. Patient admits to pain in her neck and back. Patient also admits to a headache. [facility] Medical History Bilateral primary osteoarthritis of knee Painful lumpy right breast Vomiting Abdominal pain Health care maintenance Neck pain Intertriginous dermatitis associated with moisture Suprapubic pain Preventative health care CKD (chronic kidney disease) Allergic rhinitis Non-smoker Chronic bronchitis Herpes History of gallstones Cataracts, bilateral IBS (irritable bowel syndrome) History of pneumonia Osteoarthritis Hypertension Seasonal allergies Gout Diabetes Depression with anxiety Home Medications ?Medication ?Instructions ?Recorded ?Last Taken ?Type vit A 7,160 unit-vit C 113 mg-vit 1 tab PO BID SUPPLEMENT 01/24/19 Unknown History E 100 coqx-yxmz-mfylbf tablet Held on 09/27/24. Instructions: pt is out of med ipratropium bromide 21 mcg (0.03 2 spray intranasal BID-TID PRN 02/15/21 Unknown Rx %) nasal spray allergy symptoms #30 mL lisinopril 20 mg tablet 20 mg PO DAILY BP #90 tabs 02/15/21 Unknown Rx quetiapine 25 mg tablet 25 mg PO QHS 02/15/21 Unknown History nystatin 100,000 unit/gram topical 1 applic topical TID #60 grams 05/12/21 Unknown Rx powder Held on 09/27/24. Instructions: pt is out of med clotrimazole-betamethasone 1 1 applic topical BID 2 weeks #45 07/05/21 Unknown Rx %-0.05 % topical cream grams Held on 09/27/24. Instructions: pt is out of med leg brace (BERTHA Knee Brace) #2 ea 10/19/21 Unknown Rx aspirin 81 mg chewable tablet 81 mg PO DAILY@0800 BLOOD THINNER 01/11/22 Unknown Rx #90 tabs rosuvastatin 10 mg tablet 10 mg PO DAILY #90 tabs 03/10/22 Unknown Rx Held on 09/27/24. Instructions: pt is out of med sumatriptan succinate 25 mg tablet 25 mg PO ONCE PRN Headache #14 tabs 05/16/22 Unknown Rx (Imitrex) Held on 09/27/24. Instructions: pt is out of med valacyclovir 500 mg tablet 500 mg PO DAILY HERPES #90 tabs 05/17/22 Unknown Rx Held on 09/27/24. Instructions: pt is out of med pantoprazole 40 mg tablet,delayed 40 mg PO DAILY #90 tabs 11/27/22 Unknown Rx release (Protonix) cetirizine 10 mg tablet See Rx Instructions .Route 03/29/23 Unknown Rx Held on 09/27/24. .COMPLEX #30 tabs Instructions: pt is out of med ondansetron 4 mg disintegrating 4 mg PO Q8H PRN PRN Nausea #10 tabs 10/07/23 Unknown Rx tablet Held on 09/27/24. Instructions: pt is out of med docusate sodium 100 mg capsule 100 mg PO BID #20 caps 12/03/24 Unknown Rx (Colace) hydrocortisone 2.5 % topical cream 1 applic UT BID 10 days #30 grams 12/03/24 Unknown Rx with perineal applicator (Procto-Med HC) amlodipine 10 mg tablet 5 mg PO DAILY BP 01/28/25 Unknown History divalproex 500 mg tablet,delayed 500 mg PO BID 01/28/25 Unknown History release lisinopril 20 1 tab PO BID 01/28/25 Unknown History mg-hydrochlorothiazide 12.5 mg tablet mirtazapine 7.5 mg tablet 7.5 mg PO QHS 01/28/25 Unknown History isxznpjo-hvn-ctjq-FA-Ca carb-vit K 1 tab PO DAILY 01/28/25 Unknown History 18 mg iron-400 mcg-500 mg tablet (One-A-Day Womens Formula) oxybutynin chloride 15 mg 5 mg PO BID 01/28/25 Unknown History tablet,extended release 24 hr potassium 20 mg chewable tablet 20 mg PO DAILY 01/28/25 Unknown History quetiapine 50 mg tablet (Seroquel) 50 mg PO QHS 01/28/25 Unknown History Allergy/AdvReac Type Severity Reaction Status Date / Time codeine AdvReac Nausea/Vom/ Verified 01/28/25 12:26 Diarrhea Family History Other Alcoholism Breast cancer Depression Diabetes Heart disease Hypertension Surgical History Hx of bladder repair surgery History of hysterectomy Social History Smoking Status: Never smoker alcohol intake: current alcohol intake frequency: holidays/special occasions only substance use type: marijuana caffeine: Yes what type of physical activity do you participate in: none seatbelt use: always do you feel safe at home: Yes additional social history: retired ROS ROS ED Constitutional Constitutional ED: Reports chills and subjective; Denies fever(s) Eyes Eyes: Denies blurry vision or change in vision ENT ENT ED: Denies rhinorrhea or sore throat Cardiovascular Cardiovascular: Denies chest pain or palpitations Respiratory/Chest Respiratory/Chest: Reports dyspnea; Denies cough Gastrointestinal Gastrointestinal: Reports diarrhea; Denies nausea or vomiting Genitourinary Genitourinary ED: Reports urinary frequency; Denies dysuria or hematuria Musculoskeletal Musculoskeletal: Reports back pain and neck pain Integumentary Reports rash; Denies abscess Neurologic Neurologic: Reports headache(s); Denies weakness Allergic/Immunologic Allergic/Immunologic ED: Denies mouth swelling or urticaria EXAM Physical Exam Const Vital Signs: 01/28/25 12:26 01/28/25 17:00 01/28/25 20:00 Temperature 98.4 F Temperature Source Oral Pulse Rate 77 75 Respiratory Rate 16 16 Respiratory Effort Normal Non-Labored Respiratory Pattern Normal Blood Pressure 138/66 H 148/78 H Blood Pressure Mean 90 101 Pulse Ox 99 100 Oxygen Delivery Method Room Air Room Air 01/28/25 20:20 Temperature 98.3 F Temperature Source Pulse Rate 75 Respiratory Rate 16 Respiratory Effort Respiratory Pattern Blood Pressure 130/78 H Blood Pressure Mean 95 Pulse Ox 100 Oxygen Delivery Method Positive well nourished and well developed General Appearance ED: well developed and NAD HEENT Reports moist mucous membranes Neck supple and no JVD Resp normal respiratory effort and clear to auscultation bilaterally Cardio regular rate and regular rhythm GI non-tender and non-distended Palpation: soft Extremity normal to inspection General Extremety ED: Negative for edema General Extremity: Negative for edema Neuro oriented x3, CN's II-XII intact bilaterally and no sensory deficits noted Sensorium / Orientation: alert Motor Exam: general weakness Psych Mood & Affect: depressed MDM MDM MDM Narrative Medical decision making narrative: Medical screening labs will be obtained. CBC will be obtained to assess for leukocytosis and anemia. Basic metabolic profile will be obtained to assess for electrolyte abnormality and renal function. Urinalysis will be obtained to assess for urinary tract infection and hematuria. History & Record Review Additional record(s) reviewed:: Prior ED visit and Prior labs Lab Data Attestation: I reviewed the patient's lab results. Lab results narrative: CBC was reviewed and was within normal limits. Basic metabolic profile was reviewed. BUN was 34 and creatinine was 1.63. These were increased from previous results. Urinalysis was reviewed. Leukocyte Estrace was 500. There are 10-25 white blood cells but rare bacteria. Labs: Laboratory Results - last 24 hr 01/28/25 01/28/25 17:47 18:36 WBC 4.5 RBC 4.57 Hgb 14.0 Hct 44.5 MCV 97.4 MCH 30.6 MCHC 31.5 L RDW Std Deviation 52.5 H RDW Coeff of Jose Alfredo 14.6 Plt Count 173 MPV 11.7 Immature Gran % (Auto) 0.400 Neut % (Auto) 41.2 L Lymph % (Auto) 43.0 H [place] % (Auto) 9.3 Eos % (Auto) 5.7 H Baso % (Auto) 0.4 Absolute Neuts (auto) 1.9 L Absolute Lymphs (auto) 1.95 Nucleated RBC % 0 Sodium 141 Potassium 4.6 Chloride 104 Carbon Dioxide 24.5 Anion Gap 13 BUN 34 H Creatinine 1.63 H Estim Creat Clear Calc 29.57 L Est GFR (MDRD) Non-Af 34 L BUN/Creatinine Ratio 20.7 H Glucose 95 Calcium 9.8 Urine Color Straw Urine Clarity Sl. Cloudy Urine pH 6.5 Ur Specific [place] 1.010 Urine Protein 30 H Urine Glucose (UA) Normal Urine Ketones Negative Urine Occult Blood Negative Urine Nitrite Negative Urine Bilirubin Negative Urine Urobilinogen Normal Ur Leukocyte Esterase 500 H Urine RBC 0-5 SEEN Urine WBC 10-25 SEEN Ur Squamous Epith Cells 0 SEEN Urine Bacteria RARE Urine Mucus 0 SEEN Management Discussion w/another healthcare provider: Hospitalist Treatment and Re-Evaluation :: Patient was given IV fluids. Patient was given a dose of Rocephin. Patient was advised of her findings. Case was discussed with hospitalist. She will admit the patient to her service. Patient understands and was agreeable with the plan. All questions were answered. Discharge Plan Triage Chief Complaint: General Illness ED Provider: Socrates Arteaga Dx/Rx/DC Orders Clinical Impression: SABINE (acute kidney injury), Homelessness, Urinary tract infection, Chronic pain of both knees Prescriptions: No Action vit A-vit C-vit Y-clrh-asrpzk 7,160-113-100 xeav-ba-pign tablet 1 tab PO BID quetiapine 25 mg tablet 25 mg PO QHS lisinopril 20 mg tablet 20 mg PO DAILY Qty: 90 1RF ipratropium bromide 21 mcg (0.03 %) spray,non-aerosol 2 spray intranasal BID-TID PRN (Reason: allergy symptoms) Qty: 30 1RF Rx Instructions: administer into each nostril nystatin 100,000 unit/gram powder 1 applic topical TID Qty: 60 2RF clotrimazole-betamethasone 1-0.05 % cream 1 applic topical BID 14 Days Qty: 45 1RF (DME) BERTHA Knee Brace Misc See Rx Instructions .ROUTE .MEDSUPPLY Qty: 2 2RF Rx Instructions: As directed sumatriptan succinate [Imitrex] 25 mg tablet 25 mg PO ONCE PRN (Reason: Headache) Qty: 14 3RF ondansetron 4 mg tablet,disintegrating 4 mg PO Q8H PRN PRN (Reason: Nausea) Qty: 10 0RF docusate sodium [Colace] 100 mg capsule 100 mg PO BID Qty: 20 0RF hydrocortisone [Procto-Med HC] 2.5 % cream with perineal applicator 1 applic UT BID 10 Days Qty: 30 0RF divalproex 500 mg tablet,delayed release (DR/EC) 500 mg PO BID mirtazapine 7.5 mg tablet 7.5 mg PO QHS lisinopril-hydrochlorothiazide 20-12.5 mg tablet 1 tab PO BID potassium 20 mg tablet,chewable 20 mg PO DAILY One-A-Day Womens Formula 18 mg iron-400 mcg-500 mg tablet 1 tab PO DAILY quetiapine [Seroquel] 50 mg tablet 50 mg PO QHS oxybutynin chloride 15 mg tablet extended release 24hr 5 mg PO BID amlodipine 10 mg tablet 5 mg PO DAILY aspirin 81 mg tablet,chewable 81 mg PO DAILY@0800 Qty: 90 3RF rosuvastatin 10 mg tablet 10 mg PO DAILY Qty: 90 3RF valacyclovir 500 mg tablet 500 mg PO DAILY Qty: 90 1RF pantoprazole [Protonix] 40 mg tablet,delayed release (DR/EC) 40 mg PO DAILY Qty: 90 1RF cetirizine 10 mg tablet See Rx Instructions .ROUTE .COMPLEX Qty: 30 0RF Dose Instruction: TAKE 1 TABLET BY MOUTH DAILY NEEDED FOR ALLERGY SYMPTOMS Rx Instructions: TAKE 1 TABLET BY MOUTH DAILY NEEDED FOR ALLERGY SYMPTOMS Primary Care Provider: Dede Giles Referrals: Dede Giles MD [Primary Care Provider] - Print Language: Austrian Disposition Disposition: Acute Care Hospital [facility]
[2025-01-28 17:55] LABS: Absolute Lymphocyte Count 1.95 X10^3/uL (0.83-4.51); Absolute Neutrophil Count 1.9 X10^3/uL (2.0-7.7); Basophil# 0.02 X10^3/uL; Basophil% 0.4 % (0-1); Eosinophil# 0.26 X10^3/uL; Eosinophils% 5.7 % (0-5); Hematocrit 44.5 % (37-47); Lymphocyte # 1.95 X10^3/ul (0.83-4.51); Mean Corp Hgb Conc 31.5 g/dL (32-36); Mean Corpuscular Hgb 30.6 pg (27.0-32.0); Mean Corpuscular Volume 97.4 fL (81-99); Mean Platelet Vol. 11.7 fl (6.2-12.0); Monocyte# 0.42 X10^3/uL; Monocyte% 9.3 % (0-10); NRBC Flagged by Analyzer 0 % (0-5); Neutrophil # 1.87 X10^3/uL (2.7-7.7); Neutrophil % 41.2 % (47-70); Platelet Count 173 K/mm3 (150-450); RBC Distribution Width CV 14.6 % (11.6-14.6); RBC Distribution Width SD 52.5 fl (35.1-43.9); Red Blood Count 4.57 M/mm3 (4.2-5.4); White Blood Count 4.5 K/mm3 (4.4-11.0)
[2025-01-28 18:11] LABS: Anion Gap 13 (5-15); BUN 34 mg/dL (4-19); BUN/Creat Ratio 20.7 RATIO (10-20); Calcium,Total 9.8 mg/dL (7.6-11.0); Carbon Dioxide 24.5 mmol/L (21.0-32.0); Chloride 104 mmol/L (98-108); Creatinine, Serum 1.63 mg/dL (0.70-1.20); EST Glomerular Filtration Rate 34 (>60); Estimated Creatinine Clearance 29.57 ml/min (50-250); Glucose 95 mg/dL (70-99); Potassium 4.6 mmol/L (3.3-5.1); Sodium Level 141 mmol/L (133-145)
[2025-01-28 18:47] LABS: Mucous, Urine 0 SEEN /hpf (<or=2+); Squamous Epithelial Cells - UA 0 SEEN /hpf (5-10)
[2025-01-28] MEDS: 0.9% Normal Saline (1000mL) 1,000 ML 1000 ML IV (18:47)
[2025-01-28 18:57] LABS: Color, Urine Straw (Yellow); Glucose, Dipstick Normal (Normal); Ketone-Dipstick Negative (Negative); Leukocyte Esterase-Dipstick 500 /ul (Negative); Nitrite-Dipstick Negative (Negative); Occult Blood-Urine Negative /ul (Negative); Protein-Dipstick 30 mg/dl (Negative); Urine Bilirubin Dipstick Negative (Negative); Urine Clarity Sl. Cloudy (Clear); Urine Urobilinogen Normal (Normal); Urine pH 6.5 (5.0 - 8.0)
[2025-01-28 19:16] LABS: White Blood Cells 10-25 SEEN /hpf (0-5)
[2025-01-28 19:17] LABS: Bacteria RARE /hpf (None Seen); Red Blood Cells-Urine 0-5 SEEN /hpf (0-5)
[2025-01-28 20:00] VITALS: BP 148/78; PULSE 75; RESP 16; O2SAT 100
[2025-01-28 20:20] VITALS: BP 130/78; PULSE 75; RESP 16; TEMP 36.8; O2SAT 100
--- NOTE | 2025-01-28 20:43 | PCM.HP.STD ---
HPI - General General Date of Admission: 01/28/25 Date of Service: 01/28/25 Chief Complaint: Bilateral lower extremity pain HPI Narrative ADARSH WADSWORTH, is a 69 F who presented to the emergency department [facility] on 01/28/2025 after being brought to the emergency department by a tax compliance representative from the [facility] as the patient desired to and agreed to being evaluated for care home placement. It was explained to the high school social studies tutor in the emergency department that the patient has been living in a van with several dogs and multiple people. The liaison from the clinic stated that the patient's family has been dropping her off and the area arcos during the day and that she is having trouble navigating the trails and paths with her wheelchair and that she will have to urinate outside her and her pants because she cannot reach bathrooms. She evidently is living in this van with 8 dogs and 4 other people. She often does not have enough to eat or any way to wash her close and she was unable to remember the last time she was able to shower. She indicated that she will often wash her arms and face and neck in the bathrooms at [facility]. She does not sleep well and has difficulty ambulating due to chronic pain in her knees. She is using a wheelchair due to her inability to ambulate. Patient indicated she would like to be assessed for care home placement. She did have a mental health hospitalization about a year ago. She states she has significant urinary incontinence and has significant bladder issues. She did ask that we uptitrate her medication during her hospital course however I indicated this might not be the best option we really should probably have her follow-up with urology. She also asked me if I could take water off her knees.. We did discuss the recall events for her to follow-up with orthopedic surgery as an outpatient after we can get her to a better living environment. Patient admits to marijuana use. States she used to drink quite a bit of alcohol but does not drink any longer. Vital signs on presentation showed temperature of 98.4, heart rate 77, respiratory 16, blood pressure was 138/66 and pulse ox was 99% on room air. CBC was unremarkable. She has a lymphocytosis and an eosinophilia. Chemistry panel shows elevated serum creatinine from comparison in September of this year. Her baseline appears to be 0.8-1.1 serum creatinine at presentation was 1.63 with a BUN of 34. UA was significant for leuk esterase, white cells, and bacteria. PEND[facility]ALE TO [facility] Medical History Bilateral primary osteoarthritis of knee Painful lumpy right breast Vomiting Abdominal pain Health care maintenance Neck pain Intertriginous dermatitis associated with moisture Suprapubic pain Preventative health care CKD (chronic kidney disease) Allergic rhinitis Non-smoker Chronic bronchitis Herpes History of gallstones Cataracts, bilateral IBS (irritable bowel syndrome) History of pneumonia Osteoarthritis Hypertension Seasonal allergies Gout Diabetes Depression with anxiety Home Medications ?Medication ?Instructions ?Recorded ?Last Taken ?Type quetiapine 25 mg tablet 25 mg PO QHS 02/15/21 Unknown History leg brace (BERTHA Knee Brace) #2 ea 10/19/21 Unknown Rx aspirin 81 mg chewable tablet 81 mg PO DAILY@0800 BLOOD THINNER 01/11/22 Unknown Rx #90 tabs sumatriptan succinate 25 mg tablet 25 mg PO ONCE PRN Headache #14 tabs 05/16/22 Unknown Rx (Imitrex) Held on 09/27/24. Instructions: pt is out of med pantoprazole 40 mg tablet,delayed 40 mg PO DAILY stomach #90 tabs 11/27/22 Unknown Rx release (Protonix) cetirizine 10 mg tablet See Rx Instructions .Route 03/29/23 Unknown Rx Held on 09/27/24. .COMPLEX #30 tabs Instructions: pt is out of med amlodipine 10 mg tablet 5 mg PO DAILY BP 01/28/25 Unknown History divalproex 500 mg tablet,delayed 500 mg PO BID 01/28/25 Unknown History release lisinopril 20 1 tab PO BID bp 01/28/25 Unknown History mg-hydrochlorothiazide 12.5 mg tablet mirtazapine 7.5 mg tablet 7.5 mg PO QHS sleep 01/28/25 Unknown History gjozqyfa-woo-cyaz-FA-Ca carb-vit K 1 tab PO DAILY supplemt 01/28/25 Unknown History 18 mg iron-400 mcg-500 mg tablet (One-A-Day Womens Formula) oxybutynin chloride 15 mg 5 mg PO BID urinary 01/28/25 Unknown History tablet,extended release 24 hr potassium 20 mg chewable tablet 20 mg PO DAILY supplement 01/28/25 Unknown History quetiapine 50 mg tablet (Seroquel) 50 mg PO QHS mood 01/28/25 Unknown History Allergy/AdvReac Type Severity Reaction Status Date / Time codeine AdvReac Nausea/Vom/ Verified 01/28/25 12:26 Diarrhea Family History Other Alcoholism Breast cancer Depression Diabetes Heart disease Hypertension Surgical History Hx of bladder repair surgery History of hysterectomy Social History Smoking Status: Never smoker alcohol intake: current alcohol intake frequency: holidays/special occasions only substance use type: marijuana caffeine: Yes what type of physical activity do you participate in: none seatbelt use: always do you feel safe at home: Yes additional social history: retired ROS Constitutional Constitutional: Denies anorexia, change in weight, chills, fatigue, fever(s), malaise, night sweats, weakness or other Eyes Eyes: Denies blurry vision, change in eye color, change in vision, discharge from eye(s), double vision, erythema, eye pain, loss of vision or other ENT HEENT: Denies abnormal hearing, dysphagia, ear pain, epistaxis, headache(s), hearing loss, nasal congestion, nasal discharge, post nasal drip, sinus pressure, sore throat or other Cardiovascular Cardiovascular: Denies chest pain, claudication, dyspnea on exertion, edema, lightheadedness, orthopnea, palpitations, paroxysmal nocturnal dyspnea, rapid heart rate, syncope or other Respiratory/Chest Respiratory/Chest: Denies cough, dyspnea, excessive phlegm production, hemoptysis, productive cough, shortness of breath at rest, shortness of breath with exertion, wheezing or other Gastrointestinal Gastrointestinal: Denies abdominal pain, coffee ground emesis, constipation, diarrhea, dyspepsia, hematemesis, hematochezia, loose stools, melena, nausea, vomiting or other Genitourinary Genitourinary: Reports burning urination, dysuria, nocturia, urinary frequency and urinary incontinence; Denies difficulty urinating, hematuria, urinary hesitancy, urinary urgency or other Musculoskeletal Musculoskeletal: Reports joint pain, joint stiffness and other Details: Bilateral knee pain Neurologic Neurologic: Reports abnormal gait and other Details: Abnormal gait due to pain in her legs ; Denies abnormal speech, confusion, disequilibrium, dizziness, focal weakness, headache(s), numbness, paresthesias, seizure-like activity, seizures, syncope, tingling or tremor(s) Psychiatric Psychiatric: Reports anxiety, depression and other Details: History of bipolar disorder ; Denies homicidal ideation or suicidal ideation Endocrine Endocrinology: Denies change in body appearance, cold intolerance, excessive sweating, heat intolerance, polydipsia, polyuria or other Hematologic/Lymphatic Hematologic/Lymphatic: Denies anemia, easy bleeding, easy bruising, lymphadenopathy or other Allergic/Immunologic Allergic/Immunologic: Denies rhinitis, hives, eczemia, asthma or other Vital Signs Vital Signs Vital Signs: 01/28/25 12:26 01/28/25 17:00 01/28/25 20:00 Temperature 98.4 F Temperature Source Oral Pulse Rate 77 75 Respiratory Rate 16 16 Respiratory Effort Normal Non-Labored Respiratory Pattern Normal Blood Pressure 138/66 H 148/78 H Blood Pressure Mean 90 101 Pulse Ox 99 100 Oxygen Delivery Method Room Air Room Air 01/28/25 20:20 Temperature 98.3 F Temperature Source Pulse Rate 75 Respiratory Rate 16 Respiratory Effort Respiratory Pattern Blood Pressure 130/78 H Blood Pressure Mean 95 Pulse Ox 100 Oxygen Delivery Method Weight Weight: 64.682 kg Body Mass Index (BMI) 26.0 Physical Exam Const alert, oriented x3 and no apparent distress; Negative for healthy appearing or well nourished Constitutional Narrative: Thin, malnourished, upper middle-aged, white female who appears much older than stated age, sitting up in bed, appears comfortable currently, nontoxic General Appearance: cooperative HEENT normocephalic, head/scalp atraumatic and moist oral mucous membranes HEENT Narrative: Hair loss noted, edentulous, Mallampati is 1, no thrush, temporal wasting is present Eyes EOMs intact bilaterally and conjunctivae normal Eyes Narrative: No scleral icterus Neck supple Neck Narrative: Trachea midline, no thyroid enlargement Resp normal respiratory effort, no retractions, no use of accessory muscles and clear to auscultation bilaterally Resp Narrative: Diminished but clear Auscultation: Negative for rales, rhonchi or wheezes Cardio regular rate, regular rhythm, S1 normal heart sound, S2 normal heart sound, no rub, no gallops and no clicks; Negative for no murmurs Cardio Narrative: 2 out of 6 systolic murmur loudest at right upper sternal border GI normal to inspection, nondistended, normoactive bowel sounds, soft to palpation and non-tender Extremity no clubbing, cyanosis or edema Extremity Narrative: Pedal and radial pulses are 2+,, decreased lean muscle mass especially bilateral lower extremities, bilateral knees appear to be arthritic but no joint effusions are present Skin Skin Narrative: Scattered excoriations, skin is pale Neuro oriented x3, moves all extremities and no focal motor deficits Speech: speech normal Psych affect normal Psych Narrative: Very pleasant, interacts appropriately, eye contact is good Results Lab / Micro Data 01/28/25 17:47 01/28/25 17:47 Labs: Laboratory Results - last 24 hr 01/28/25 17:47: WBC 4.5, RBC 4.57, Hgb 14.0, Hct 44.5, MCV 97.4, MCH 30.6, MCHC 31.5 L, RDW Std Deviation 52.5 H, RDW Coeff of Jose Alfredo 14.6, Plt Count 173, MPV 11.7, Immature Gran % (Auto) 0.400, Neut % (Auto) 41.2 L, Lymph % (Auto) 43.0 H, [place] % (Auto) 9.3, Eos % (Auto) 5.7 H, Baso % (Auto) 0.4, Absolute Neuts (auto) 1.9 L, Absolute Lymphs (auto) 1.95, Nucleated RBC % 0, Sodium 141, Potassium 4.6, Chloride 104, Carbon Dioxide 24.5, Anion Gap 13, BUN 34 H, Creatinine 1.63 H, Estim Creat Clear Calc 29.57 L, Est GFR (MDRD) Non-Af 34 L, BUN/Creatinine Ratio 20.7 H, Glucose 95, Calcium 9.8 01/28/25 18:36: Urine Color Straw, Urine Clarity Sl. Cloudy, Urine pH 6.5, Ur Specific [place] 1.010, Urine Protein 30 H, Urine Glucose (UA) Normal, Urine Ketones Negative, Urine Occult Blood Negative, Urine Nitrite Negative, Urine Bilirubin Negative, Urine Urobilinogen Normal, Ur Leukocyte Esterase 500 H, Urine RBC 0-5 SEEN, Urine WBC 10-25 SEEN, Ur Squamous Epith Cells 0 SEEN, Urine Bacteria RARE, Urine Mucus 0 SEEN Assessment & Plan Assessment/Plan (1) Abnormal urinalysis: (2) SABINE (acute kidney injury): (3) Homelessness: (4) Generalized weakness: (5) Falls: (6) Chronic pain: PLAN: Plan Abnormal urinalysis - Suspicious for infection - Will treat empirically with ceftriaxone - Cultures were sent will await results - Patient does have significant urinary incontinence at baseline - Check renal ultrasound SABINE - Baseline serum creatinine appears to run between 0.8 and 1.1 - 1.63 on presentation and consistent with dehydration - Hold lisinopril/HCTZ - Was given 1 L IV fluids in the emergency department will order 2 more liters - Avoid nephrotoxins - Repeat lab in a.m. Generalized weakness and falls - Patient has significant lower extremity weakness at baseline and is fairly nonambulatory utilizing wheelchair - Has significant chronic knee pain - PT/OT consultation - Previous images of her knees show significant degenerative arthrosis bilaterally that is severe--> these x-rays are from 2021 - Would recommend that patient follow-up with orthopedic surgery for consideration of replacements versus injections - Will schedule Tylenol 1000 every 8 - Gabapentin 100 3 times daily - As needed oxycodone Suspected severe malnutrition - Supplements ordered - Consult dietitian Urinary incontinence - Sounds like patient may have some bladder prolapse - Will continue home oxybutynin 5 twice daily - Outpatient referral to urology with Dr. Goncalves after D/C Essential hypertension - Hold home HCTZ lisinopril due to SABINE - Continue home amlodipine - As needed hydralazine for systolic pressure greater than 160 GERD - Continue on PPI History of migraine headaches - Was previously on sumatriptan hand but currently on hold Bipolar disorder - Continue home Seroquel - Continue home divalproex - Continue home mirtazapine - Patient did have psychiatric admission about 1 year ago--> will trip PAA screen DVT prophylaxis - Heparin 3 times daily CODE STATUS - Full code as discussed with patient prior to admission Charges/Coding Visit Charges Inpatient E&M: 74578 Init Hosp L3
--- NOTE | 2025-01-28 20:58 | CM.ED ---
Social Work Patient was brought to ED by Mel Villela from [facility] due to patient agreeing to be assessed for alf placement.?? Mel met with NITA and explained that patient has been living in a van with several dogs and multiple people.? Mel stated that patients family have been dropping patient off in the [place] during the day, that she is having trouble navigating the trails/paths with her wheelchair and that she will urinate outside or in her pants because she cannot reach the bathrooms.?? NITA met with patient and patients grandson Lizbeth.? Patient stated she wanted her grandson to stay during the conversation.?? Patient reports that she is living in a van with 8 dogs, 2 large and 6 small, and 4 other people; patients daughter, her daughters , a granddaughter and granddaughters girlfriend.??? Patient stated there were five other people in the van as her sister had been living with them but last week.?? Patient reports that her family will often leave her in a park during the day.? Patient also reports that she often does not have enough to eat, that she has no way to wash her clothing and cannot remember the last time she was able to shower.? Patient states that she often will wash her arms, face and neck in the [employer] bathrooms.?Patient states she is unable to sleep well due to all the noise in the van at night. Patient also reports that she is often in pain due to her knees, has been using a wheelchair because she is unable to ambulate. ? Patient states she is ready to move to a different location and would like to be assessed for a alf. Tyesha Thakur, PALEOLOGY PROFESSOR, CAR SUPPLIER
[2025-01-28] MEDS: Ceftriaxone 1 GM/50 ML BAG IV (21:20)
[2025-01-28] MEDS: Acetaminophen 500 MG Tablet 1000 MG PO (21:22)
[2025-01-28 21:49] VITALS: O2SAT 98
--- NOTE | 2025-01-28 21:49 | US_ITS ---
PROCEDURE: KIDNEY AND BLADDER 01/28/2025 REASON FOR EXAM: SABINE/UTI TECHNIQUE: Renal and bladder ultrasound. COMPARISON: None. FINDINGS: Right kidney measures 6.1 cm in length. Renal cortex measures 0.9 cm. No calculi or hydronephrosis. Left kidney measures 12.4 cm in length. Cortex measures 1.4 cm. No calculi or hydronephrosis. Left kidney 2.1 x 1.8 x 1.4 cm simple cyst. The urinary bladder is decompressed limiting assessment. US/Kidney and Bladder IMPRESSION: Atrophic right kidney. Left kidney simple cyst. Reading Location: [place] [id number]
[2025-01-28 22:00] VITALS: BP 132/94; PULSE 69; RESP 18; TEMP 37.1; O2SAT 99
[2025-01-28 22:01] VITALS: BMI 27.8
--- OUTSIDE RECORDS SUMMARY | 2025-01-28 22:07 | XMS RPT_ITS | CCD ---
Author Organization [facility] Care Team Providers Care Lawn Care Worker Name Role Phone SEBASTIAN GORMAN MD Primary Care Physician [phone] [facility] Dr[facility] Cortes Primary Care Provider [phone] [facility] Dr[facility] Cortes Attending Provider [phone] [facility] Dr[facility] Cortes Referring Provider [phone] [facility] Dr[facility] Cortes Primary Care Provider [phone] [facility], Dr. Cortes Attending Provider [phone] [facility], Dr. Cortes Referring Provider [phone] MD Chava Gardner Attending Provider Dr. Rashawn Salas Attending Provider Chan FARLEY, Dr. Aguayo Primary Care Provide r Mike May MD Attending Provider [phone] Mike May MD Emergency Provider Dr. Socrates Arteaga DO Referring Provider Dr. Socrates Arteaga DO Emergency Provider Mike May Attending Unavailable Dede Giles Primary Care Unavailable Socrates Arteaga Referring Unavailable Socrates Arteaga Attending Unavailable Dede Giles Primary Care Unavailable Mike May Attending Unavailable Dede Giles Primary Care Unavailable Alex Jimenez Attending Unavailable Dede Giles Primary Care Unavailable Chan FARLEY, Dr. Aguayo Primary Care Provide r Mike May MD Attending Provider Mike May MD Emergency Provider [phone] Socrates Arteaga DO Attending Provider [phone] Dr. Lizzy Adrian DO Admit Provider Dr. Lizzy Adrian DO Attending Provider Allergies Allergy Classification Reported Allergen(s) Allergy Type Date of Onset Reaction(s) Facility (7 sources) Codeine; Translations: [codeine] Drug Allergy 2 Nausea/Vom/Diar [facility] (1 source) Codeine Drug Allergy 5 [facility] Repository Medications Current Medications Medication Drug Class(es) Dates Sig (Normalized) Sig (Original) amantadine hydrochloride 100 mg oral tablet (1 source) Influenza A M2 Protein Inhibitor Start: 11-13-2014 amantadine 100 mg oral tablet Dose : 100 mg = 1 tab(s), Oral, BID Start Date: 11/13/14 Status: Ordered amLODIPine 10 mg oral tablet (20 sources) Dihydropyridine Calcium Channel Edin Start: 01-28-2025 take 5 mg by mouth once daily Amlodipine 10 mg tablet Active 5 mg PO DAILY January 28, 2025 12:00am Start: 12-28-2021 End: 01-28-2025 take 1 tablet by mouth once daily Amlodipine 10 mg tablet Discontinued 10 mg PO DAILY August 29, 2022 11:16am January 28, 2025 7:58pm Start: 05-12-2021 End: 12-28-2021 take 1 tablet by mouth once daily Amlodipine 5 mg tablet Discontinued 5 mg PO DAILY November 03, 2021 3:52pm December 28, 2021 5:35pm Start: 01-24-2019 End: 05-12-2021 take 1 tablet by mouth once daily Amlodipine 2.5 mg tablet Discontinued 2.5 mg PO DAILY April 06, 2020 8:30am February 15, 2021 3:50pm betamethasone 0.5 mg/ml / clotrimazole 10 mg/ml topical cream (6 sources) Azole Antifungal, Corticosteroid Start: 07-05-2021 Clotrimazole-Betamethasone 1-0.05 % cream Active 1 NMA TOPICAL TWICE A DAY 45 July 05, 2021 1:00am On Hold: pt is out of med Start: 07-05-2021 Clotrimazole-B etamethasone Active 1 APPLIC TOPICAL TWICE A DAY 45 July 05, 2021 12:00am Calcium (1 source) Phosphate Binder, Calcium Start: 11-13-2014 take 1 tablet by mouth three times daily Calcium 600+D Dose = 1 tab(s), Oral, TID Start Date: 11/13/14 Status: Ordered docusate sodium 100 mg oral capsule (8 sources) Start: 12-03-2024 take 1 capsule by mouth twice daily Docusate Sodium (Colace) 100 mg capsule Active 100 mg PO TWICE A DAY December 03, 2024 12:00am Start: 11-06-2014 End: 01-24-2019 take 1 capsule by mouth once daily Docusate Sodium 100 MG capsule Discontinued 100 mg PO DAILY November 06, 2014 12:00am January 24, 2019 1:58pm hydroCHLOROthiazide 12.5 mg / lisinopril 20 mg oral tablet (1 source) Thiazide Diuretic, Angiotensin Converting Enzyme Inhibitor Start: 01-28-2025 Lisinopril-Hydrochlorothiazi de 20-12.5 mg tablet Active 1 {tbl} PO TWICE A DAY January 28, 2025 12:00am hydrocortisone 25 mg/ml topical cream (2 sources) Corticosteroid Start: 12-03-2024 Hydrocortisone (Procto-Med H c) 2.5 % cream with perineal applicator Active 1 NMA RC TWICE A DAY 30 December 03, 2024 12:00am ipratropium bromide 0.021 mg/actuat metered dose nasal spray (6 sources) Anticholinergic Start: 02-15-2021 Ipratropium [place] 21 mcg ( 0.03 %) spray,non-aerosol Active 2 NMA INTRANASAL 2 to 3 times per day as needed for allergy symptoms February 15, 2021 12:00am administer into each nostril Start: 02-15-2021 Ipratropium Br omide Active 2 SPRAY INTRANASAL 2 to 3 times per day February 14, 2021 11:00pm administer into each nostril Leg Brace (Ludwin Knee Brace) m isc (6 sources) Start: 10-19-2021 Leg Brace (Ludwin Knee Brace) misc Active 0 .ROUTE .MEDSUPPLY October 19, 2021 7:48pm As directed Start: 10-19-2021 Leg Brace (Ludwin Knee Brace) misc Active 0 .ROUTE .MEDSUPPLY October 19, 2021 1:00am As directed Start: 10-19-2021 Leg Brace (Ludwin Knee Brace) misc Active 0 .ROUTE .MEDSUPPLY October 19, 2021 12:00am As directed mirtazapine 7.5 mg oral tablet (1 source) Start: 01-28-2025 take 1 tablet by mouth at bedtime Mirtazapine 7.5 mg tablet Active 7.5 mg PO AT BEDTIME January 28, 2025 12:00am Yv-Bt-Gtik-Fa-Ca Carb-Vit K (One-A-Day Womens Formula) 18 mg iron-400 mcg-500 mg tablet (1 source) Start: 01-28-2025 Iy-Sj-Emgc-Fa- Ca Carb-Vit K (One-A-Day Womens Formula) 18 mg iron-400 mcg-500 mg tablet Active 1 {tbl} PO DAILY January 28, 2025 12:00am nystatin 100 unt/mg topical powder (6 sources) Polyene Antifungal Start: 05-12-2021 Nystatin 100,000 unit/gram powder Active 1 NMA TOPICAL THREE TIMES A DAY 60 May 12, 2021 12:00am On Hold: pt is out of med Start: 05-12-2021 Nystatin Activ e 1 APPLIC TOPICAL THREE TIMES A DAY 60 May 11, 2021 11:00pm ondansetron 4 mg disintegrating oral tablet (3 sources) Serotonin-3 Receptor Antagonist Start: 10-07-2023 take 1 tablet by mouth every eight hours as needed for nausea Ondansetron 4 mg tablet,disintegrating Active 4 mg PO EVERY 8 HOURS NEEDED as needed for Nausea October 07, 2023 1:00am On Hold: pt is out of med ondansetron 4 mg oral tablet, disintegrating (1 source) Start: 10-06-2021 End: 10-09-2021 ondansetron 4 mg oral tablet, disintegrating Dose : 4 mg = 1 tab(s), Oral, q6h, X 3 day(s), # 12 tab(s), 0 Refill(s), 10/09/21 21:16:00 EST Start Date: 10/06/21 Stop Date: 10/09/21 Status: Ordered 24 hr oxybutynin chloride 15 mg extended release oral tablet (20 sources) Cholinergic Muscarinic Antagonist Start: 01-28-2025 take 1 tablet by mouth twice daily Oxybutynin Chloride 15 mg tablet extended release 24hr Active 5 mg PO TWICE A DAY January 28, 2025 12:00am Start: 12-17-2019 End: 01-28-2025 take 1 tablet by mouth once daily Oxybutynin Chloride 15 mg tablet extended release 24hr Discontinued 0 .ROUTE .COMPLEX 60 March 02, 2023 8:39am January 28, 2025 7:58pm On Hold: pt is out of med TAKE 1 TABLET BY MOUTH DAILY FOR BLADDER Start: 04-18-2019 End: 12-17-2019 take 1 tablet by mouth once daily Oxybutynin Chloride 10 mg tablet extended release 24hr Discontinued 10 mg PO DAILY August 06, 2019 2:35pm December 17, 2019 6:21pm TAKE 1 TABLET BY MOUTH DAILY Start: 03-03-2019 End: 04-18-2019 take 1 tablet by mouth twice daily Oxybutynin Chloride 5 mg tablet Discontinued 5 mg PO TWICE A DAY March 03, 2019 3:24pm April 18, 2019 1:02pm Start: 02-26-2019 End: 03-03-2019 take 1 tablet by mouth once daily Oxybutynin Chloride 10 mg tablet extended release 24hr Discontinued 10 mg PO DAILY February 26, 2019 6:40pm March 03, 2019 2:52pm Start: 01-24-2019 End: 02-26-2019 take 1 tablet by mouth once daily Oxybutynin Chloride 5 mg tablet extended release 24hr Discontinued 5 mg PO DAILY January 24, 2019 2:17pm February 26, 2019 6:41pm pantoprazole 40 mg delayed release oral tablet (16 sources) Proton Pump Inhibitor Start: 05-16-2022 End: 11-27-2022 take 1 tablet by mouth once daily Pantoprazole (Protonix) 40 mg tablet,delayed release (DR/EC) Active 40 mg PO DAILY November 27, 2022 5:47pm Start: 11-13-2014 End: 01-24-2019 take 1 tablet by mouth once daily Pantoprazole 40 MG tablet Discontinued 40 mg PO DAILY May 20, 2015 12:00am January 24, 2019 1:46pm Potassium (1 source) Start: 01-28-2025 take 1 tablet by mouth once daily Potassium 20 mg tablet,chewable Active 20 mg PO DAILY January 28, 2025 12:00am QUEtiapine 50 mg oral tablet (20 sources) Atypical Antipsychotic Start: 01-28-2025 take 1 tablet by mouth at bedtime Quetiapine (Seroquel) 50 mg tablet Active 50 mg PO AT BEDTIME January 28, 2025 12:00am Start: 02-15-2021 take 1 tablet by ed th at bedtime Quetiapine 25 mg tablet Active 25 mg PO AT BEDTIME February 15, 2021 12:00am Start: 02-15-2021 End: 11-01-2024 take 1 tablet by mouth at bedtime Quetiapine 100 mg tablet Discontinued 100 mg PO AT BEDTIME February 15, 2021 12:00am November 01, 2024 8:50pm On Hold: pt is out of med Start: 06-24-2019 End: 11-01-2024 take 1 tablet by mouth at bedtime Quetiapine 50 MG tablet Discontinued 50 mg PO AT BEDTIME June 24, 2019 1:00am November 01, 2024 8:52pm On Hold: pt is out of med Start: 06-11-2019 End: 06-24-2019 Quetiapine Discontinued 0 .R OUTE .COMPLEX June 11, 2019 12:46pm June 24, 2019 11:44am TAKE 1 TABLET AT BEDTIME Start: 01-24-2019 End: 03-28-2019 Quetiapine (Seroquel) 400 mg tablet Discontinued 450 mg PO AT BEDTIME March 28, 2019 1:33pm March 28, 2019 2:20pm Start: 11-13-2014 End: 11-01-2024 Quetiapine 400 mg tablet Discontinued 0 .ROUTE .COMPLEX June 11, 2019 1:46pm June 24, 2019 12:44pm TAKE 1 TABLET AT BEDTIME rosuvastatin calcium 10 mg oral tablet (11 sources) HMG-CoA Reductase Inhibitor Start: 02-16-2021 End: 03-10-2022 take 1 tablet by mouth once daily Rosuvastatin 10 mg tablet Active 10 mg PO DAILY March 10, 2022 3:09pm On Hold: pt is out of med tolterodine tartrate 2 mg oral tablet (1 source) Cholinergic Muscarinic Antagonist Start: 11-13-2014 tolterodine 2 mg oral tablet Dose : 2 mg = 1 tab(s), Oral, BID, # 180 tab(s) Start Date: 11/13/14 Status: Ordered divalproex sodium 500 mg delayed release oral tablet (1 source) Mood Stabilizer, Anti-epileptic Agent Start: 01-28-2025 take 1 tablet by mouth twice daily Divalproex 500 mg tablet,delayed release (DR/EC) Active 500 mg PO TWICE A DAY January 28, 2025 12:00am Vit A-Vit C-Vit V-Ensd-Bnjykc (3 sources) Start: 01-24-2019 take 1 tablet by mouth twice daily Vit A-Vit C-Vit B-Wgeq-Nmtenr Active 1 TABLET PO TWICE A DAY January 24, 2019 1:59pm Start: 01-24-2019 take 1 tablet by ed twice daily Vit A-Vit C-Vit A-Regt-Rfzvax Active 1 TABLET PO TWICE A DAY January 23, 2019 11:00pm Vit A-Vit C-Vit Z-Bnbw-Ocjjy r 7,160-113-100 vqds-me-rjwl tablet (3 sources) Start: 01-24-2019 Vit A-Vit C-Vi t N-Ugui-Dplyhj 7,160-113-100 xsmj-cg-xwyc tablet Active 1 {tbl} PO TWICE A DAY January 24, 2019 12:00am On Hold: pt is out of med Completed/Discontinued Medications Medication Drug Class(es) Dates Sig (Normalized) Sig (Original) acetaminophen 325 mg / HYDROcodone bitartrate 5 mg oral tablet (18 sources) Opioid Agonist Start: 04-05-2019 End: 04-09-2019 Hydrocodone-Acetami nophen 1 TABLET tablet Discontinued 1 {tbl} PO EVERY 4 HOURS NEEDED as needed for Pain 05 21April 05, 2019 April 06, 2019 12:00am April 09, 2019 12:07am Start: 04-05-2019 End: 04-09-2019 take 1 tablet by mouth every four hours as needed Hydrocodone-Acetaminophen Discontinued 1 TABLET PO EVERY 4 HOURS NEEDED 05 21April 05, 2019 April 08, 2019 11:07pm Start: 06-16-2018 End: 06-19-2018 Hydrocodone-Acetaminophen 1 TABLET tablet Discontinued 1 {tbl} PO EVERY 6 HOURS NEEDED as needed for Pain 12 June 16, 2018 12:00am June 18, 2018 12:00am June 19, 2018 12:09am Start: 06-16-2018 End: 06-19-2018 take 1 tablet by mouth every six hours as needed Hydrocodone-Acetaminophen Discontinued 1 TABLET PO EVERY 6 HOURS NEEDED 12 June 15, 2018 11:00pm June 18, 2018 11:09pm Start: 06-14-2018 End: 06-16-2018 Hydrocodone-Acetaminophen 1 TABLET tablet Discontinued 1 {tbl} PO EVERY 4 HOURS NEEDED as needed for Pain 05 21June 14, 2018 12:00am June 15, 2018 12:00am June 16, 2018 12:11am Start: 06-14-2018 End: 06-16-2018 take 1 tablet by mouth every four hours as needed Hydrocodone-Acetaminophen Discontinued 1 TABLET PO EVERY 4 HOURS NEEDED 05 21June 13, 2018 11:00pm June 15, 2018 11:11pm acetaminophen 325 mg / oxyCODONE hydrochloride 10 mg oral tablet (6 sources) Opioid Agonist Start: 06-18-2018 End: 06-23-2018 take 1 tablet by mouth every six hours as needed for pain Oxycodone-Acetaminophen 10-325 mg tablet Discontinued 1 {tbl} PO EVERY 6 HOURS as needed for pain 16 01June 18, 2018 June 22, 2018 12:00am June 23, 2018 12:14am take one tab every 6 hours as needed for pain, stop all other narcotics and tylenol Start: 06-18-2018 End: 06-23-2018 take 1 tablet by mouth every six hours as needed for pain Oxycodone-Acetaminophen Discontinued 1 TABLET PO EVERY 6 HOURS 16 01June 18, 2018 June 22, 2018 11:14pm take one tab every 6 hours as needed for pain, stop all other narcotics and tylenol aspirin 81 mg chewable tablet (20 sources) Platelet Aggregation Inhibitor, Nonsteroidal Anti-inflammatory Drug Start: 04-05-2019 End: 01-11-2022 take 1 tablet by mouth once daily Aspirin 81 mg tablet,chewable Discontinued 81 mg PO DAILY@0800 90 August 17, 2021 11:45am January 11, 2022 9:00am Start: 11-13-2014 take 1 dose by mouth once jose angel y aspirin Dose : 81 mg =, Oral, qDay Start Date: 11/13/14 Status: Ordered bismuth subsalicylate 262 mg oral tablet (6 sources) Bismuth Start: 02-15-2021 take 2 tablets by mouth every twenty-four hours Bismuth Subsalicylate (Pepto-Bismol) 262 mg tablet,chewable Active 2 TABLET PO every 30 to 60 minutes February 14, 2021 11:00pm do not exceed 16 tabs per 24 hrs Start: 02-15-2021 End: 01-28-2025 Bismuth Subsalicylate (Pepto -Bismol) 262 mg tablet,chewable Discontinued 2 {tbl} PO every 30 to 60 minutes as needed for diarrhea February 15, 2021 12:00am January 28, 2025 7:52pm On Hold: pt is out of med do not exceed 16 tabs per 24 hrs calcium carbonate 1500 mg / cholecalciferol 800 unt oral tablet (6 sources) Vitamin D Start: 05-20-2015 End: 01-24-2019 Calcium Carbonate-Vitamin D3 1 EACH tablet Discontinued 1 NMA PO TWICE A DAY 60 May 20, 2015 12:00am January 24, 2019 2:21pm Start: 05-20-2015 End: 01-24-2019 Calcium Carbonate-Vitamin D3 Discontinued 1 EACH PO TWICE A DAY 60 May 19, 2015 11:00pm January 24, 2019 1:21pm cephalexin 500 mg oral capsule (6 sources) Cephalosporin Antibacterial Start: 04-05-2019 End: 04-15-2019 take 1 capsule by mouth every six hours Cephalexin 500 MG capsule Discontinued 500 mg PO EVERY 6 HOURS April 05, 2019 12:00am April 15, 2019 2:33pm cetirizine hydrochloride 10 mg oral tablet (20 sources) Histamine-1 Receptor Antagonist Start: 02-15-2021 End: 03-29-2023 take 1 tablet by mouth once daily as needed Cetirizine 10 mg tablet Discontinued 0 .ROUTE .COMPLEX January 19, 2023 4:35pm March 29, 2023 5:12pm TAKE 1 TABLET BY MOUTH DAILY NEEDED FOR ALLERGY SYMPTOMS citalopram 40 mg oral tablet (7 sources) Serotonin Reuptake Inhibitor Start: 11-13-2014 End: 11-01-2024 take 1 tablet by mouth once daily Citalopram 40 mg tablet Discontinued 40 mg PO DAILY January 24, 2019 12:00am November 01, 2024 8:51pm On Hold: pt is out of med cyproheptadine hydrochloride 4 mg oral tablet (12 sources) Start: 04-12-2015 End: 01-24-2019 take 1 tablet by mouth twice daily Cyproheptadine 4 MG tablet Discontinued 4 mg PO TWICE A DAY 60 May 20, 2015 12:00am January 24, 2019 1:45pm famotidine 20 mg oral tablet (20 sources) Histamine-2 Receptor Antagonist Start: 12-12-2021 End: 05-16-2022 take 1 tablet by mouth twice daily as needed for gastroesophageal reflux disease Famotidine 20 mg tablet Discontinued 20 mg PO TWICE A DAY as needed for GERD 120 December 12, 2021 2:21pm May 16, 2022 3:50pm Start: 02-15-2021 End: 12-12-2021 take 1 tablet by mouth once daily as needed for gastroesophageal reflux disease Famotidine 20 mg tablet Discontinued 20 mg PO DAILY as needed for GERD 90 90 February 15, 2021 3:48pm December 12, 2021 2:21pm Start: 12-17-2019 End: 02-15-2021 take 1 tablet by mouth twice daily Famotidine 20 mg ta blet Discontinued 20 mg PO TWICE A DAY 120 60 June 03, 2020 9:33am February 15, 2021 3:50pm Start: 01-24-2019 End: 12-17-2019 take 1 tablet by mouth once daily Famotidine 20 mg tab let Discontinued 20 mg PO DAILY 90 August 06, 2019 2:34pm December 17, 2019 5:38pm fenofibrate 145 mg oral tablet (7 sources) Peroxisome Proliferator Receptor alpha Agonist Start: 01-21-2015 End: 01-24-2019 take 1 tablet by mouth once daily Fenofibrate Nanocrystallized 145 MG tablet Discontinued 145 mg PO DAILY 30 January 21, 2015 12:00am January 24, 2019 1:58pm Start: 11-13-2014 fenofibrate 40 mg oral tablet Dose : 40 mg = 1 tab(s), Oral, qDay, # 30 tab(s) Start Date: 11/13/14 Status: Ordered fluticasone propionate 0.05 mg/actuat metered dose nasal spray (20 sources) Corticosteroid Start: 07-23-2019 End: 02-15-2021 Fluticasone Propionate 50 mcg/actuation spray,suspension Discontinued 2 NMA INTRANASAL DAILY 47.4 July 23, 2019 9:27am February 15, 2021 3:24pm administer into each nostril Start: 06-24-2019 End: 07-23-2019 Fluticasone Propionate 16 GM spray,suspension Discontinued 2 NMA INTRANASAL DAILY June 24, 2019 12:44pm July 23, 2019 9:28am administer into each nostril Start: 01-24-2019 End: 06-24-2019 take 50 ug nasal route once daily Fluticasone Propionate (Flonase Allergy Relief) 50 mcg/actuation spray,suspension Discontinued 2 NMA INTRANASAL DAILY 15.8 May 19, 2019 3:28pm June 24, 2019 12:44pm administer into each nostril Start: 01-24-2019 End: 02-15-2021 take 1 spray(s) nasal route once daily Fluticasone Propionate Discontinued 2 SPRAY INTRANASAL DAILY 47.4 July 23, 2019 8:27am February 15, 2021 2:24pm administer into each nostril furosemide 20 mg oral tablet (6 sources) Loop Diuretic Start: 01-13-2019 End: 01-24-2019 take 1 tablet by mouth once daily Furosemide 20 MG tablet Discontinued 20 mg PO DAILY January 13, 2019 12:00am January 24, 2019 1:58pm ibuprofen 400 mg oral tablet (6 sources) Nonsteroidal Anti-inflammatory Drug Start: 11-10-2014 End: 01-24-2019 take 1 tablet by mouth every six hours Ibuprofen 400 MG tablet Discontinued 400 mg PO EVERY 6 HOURS November 10, 2014 12:00am January 24, 2019 2:00pm lisinopril 20 mg oral tablet (20 sources) Angiotensin Converting Enzyme Inhibitor Start: 01-24-2019 End: 02-15-2021 take 1 tablet by mouth once daily Lisinopril 20 mg tablet Discontinued 20 mg PO DAILY August 11, 2020 3:03pm February 15, 2021 3:50pm Start: 04-12-2015 End: 01-24-2019 take 1 tablet by mouth once daily Lisinopril 10 MG tablet Discontinued 10 mg PO DAILY April 12, 2015 12:00am January 24, 2019 1:45pm Start: 11-13-2014 lisinopril 5 m g oral tablet Dose : 5 mg = 1 tab(s), Oral, Daily Start Date: 11/13/14 Status: Ordered loratadine 10 mg oral capsule (12 sources) Start: 04-05-2018 End: 01-24-2019 take 1 capsule by mouth once daily Loratadine 10 MG capsule Discontinued 10 mg PO DAILY April 05, 2018 12:00am January 24, 2019 2:00pm Start: 05-20-2015 End: 01-24-2019 take 1 tablet by mouth once daily Loratadine 10 MG tablet Discontinued 10 mg PO DAILY May 20, 2015 12:00am January 24, 2019 2:00pm miconazole nitrate 0.02 mg/mg topical powder (6 sources) Azole Antifungal Start: 09-10-2019 End: 12-17-2019 Miconazole Nitrate 2 % powder Discontinued 1 NMA TOPICAL TWICE A DAY September 10, 2019 1:00am December 17, 2019 5:13pm microencapsulated potassium chloride 20 meq extended release oral tablet (20 sources) Start: 03-03-2019 End: 11-01-2024 Potassium Chloride 20 mEq tablet,ER particles/crystals Discontinued 20 meq .Route .COMPLEX June 30, 2020 11:24am February 15, 2021 3:50pm Dissolve in 4 oz of water daily Start: 04-05-2018 End: 03-03-2019 take 1 tablet by mouth once daily Potassium Chloride 20 mEq tablet,ER particles/crystals Discontinued 0 .ROUTE .COMPLEX February 14, 2019 12:44pm March 03, 2019 3:26pm TAKE 1 TABLET BY MOUTH DAILY Start: 05-20-2015 End: 01-24-2019 take 1 tablet by mouth once daily Potassium Chloride 20 MEQ tablet extended release Discontinued 20 meq PO DAILY May 20, 2015 12:00am January 24, 2019 1:46pm Start: 11-13-2014 potassium chlo ride Start Date: 11/13/14 Status: Ordered pravastatin sodium 40 mg oral tablet (7 sources) HMG-CoA Reductase Inhibitor Start: 11-13-2014 End: 01-24-2019 take 1 tablet by mouth once daily Pravastatin 40 MG tablet Discontinued 40 mg PO DAILY January 21, 2015 12:00am January 24, 2019 2:00pm propranolol hydrochloride 40 mg oral tablet (6 sources) beta-Adrenergic Edin Start: 04-05-2018 End: 01-24-2019 take 1 tablet by mouth twice daily Propranolol 40 MG tablet Discontinued 40 mg PO TWICE A DAY 60 April 05, 2018 12:00am January 24, 2019 2:03pm SUMAtriptan 25 mg oral tablet (20 sources) Serotonin-1b and Serotonin-1d Receptor Agonist Start: 01-24-2019 End: 05-16-2022 take 1 tablet by mouth once as needed for headache Sumatriptan Succinate (Imitrex) 25 mg tablet Discontinued 25 mg PO ONCE as needed for Headache March 07, 2021 4:03pm May 16, 2022 3:51pm valACYclovir 500 mg oral tablet (20 sources) Herpesvirus Nucleoside Analog DNA Polymerase Inhibitor, Herpes Simplex Virus Nucleoside Analog DNA Polymerase Inhibitor, Herpes Zoster Virus Nucleoside Analog DNA Polymerase Inhibitor Start: 05-20-2015 End: 01-24-2019 take 1 tablet by mouth once daily Valacyclovir 1,000 MG tablet Discontinued 1000 mg PO DAILY May 20, 2015 12:00am January 24, 2019 2:21pm Start: 11-13-2014 End: 05-17-2022 take 1 tablet by mouth once daily Valacyclovir 500 mg tablet Discontinued 500 mg PO DAILY November 16, 2021 8:45am May 17, 2022 12:23pm Problems Problem Classification Problem Date Documented Da te Episodic/Chronic Abdominal pain (20 sources) Suprapubic pain; Translations: [Pelvic and perineal pain] Episodic Acute and unspecified renal failure (2 sources) Acute renal failure syndrome; Translations: [Acute kidney failure, unspecified] 01-28-2025 Episodic Administrative/social admission (2 sources) Homeless; Translations: [Homeless] 01-28-2025 Episodic Anxiety disorders (6 sources) Mixed anxiety and depressive disorder; Translations: [Other specified anxiety disorders] 01-24-2019 Chronic Chronic kidney disease (6 sources) Chronic kidney disease; Translations: [Chronic kidney disease, unspecified] 02-16-2021 Chronic Deficiency and other anemia (4 sources) Anemia; Translations: [Anemia, unspecified] 10-06-2023 Episodic Diabetes mellitus without complication (7 sources) Diabetes mellitus; Translations: [Type 2 diabetes mellitus without complications] 11-13-2014 Chronic Diabetes mellitus without complication (6 sources) Prediabetes; Translations: [Prediabetes] 12-17-2019 Episodic Disorders of lipid metabolism (9 sources) Hypercholesterolemia; Translations: [Hyperlipidemia] 11-13-2014 Chronic E Codes: Fall (6 sources) Fall; Translations: [Unspecified fall, initial encounter] 01-15-2021 Episodic E Codes: Fall (1 source) Fall 01-03-2018 Esophageal disorders (7 sources) Gastroesophageal reflux disease; Translations: [Gastro-esophageal reflux disease without esophagitis] Chronic Essential hypertension (13 sources) Hypertensive disorder; Translations: [Essential (primary) hypertension] 11-13-2014 Chronic Fluid and electrolyte disorders (3 sources) Hypokalemia; Translations: [Hypokalemia] 04-27-2024 Episodic Fracture of upper limb (12 sources) Fracture of clavicle; Translations: [Fracture of unspecified part of right clavicle, initial encounter for closed fracture] 06-17-2018 Episodic Genitourinary symptoms and ill-defined conditions (6 sources) Urinary incontinence; Translations: [Unspecified urinary incontinence] 03-03-2019 Chronic Genitourinary symptoms and ill-defined conditions (2 sources) Abnormal urinalysis; Translations: [Unspecified abnormal findings in urine] 01-28-2025 Episodic Gout and other crystal arthropathies (6 sources) Gout; Translations: [Gout, unspecified] 01-24-2019 Chronic Headache; including migraine (3 sources) Migraine; Translations: [Migraine, unspecified, not intractable, without status migrainosus] 11-01-2024 Chronic Headache; including migraine (1 source) Headache; including migraine; Translations: [Headache, unspecified] Onset: Hemorrhoids (2 sources) Hemorrhoids; Translations: [Unspecified hemorrhoids] 12-03-2024 Episodic Influenza (4 sources) Influenza due to Influenza A virus; Translations: [Influenza due to other identified influenza virus with other respiratory manifestations] 10-06-2023 Episodic Malaise and fatigue (2 sources) Asthenia; Translations: [Weakness] 01-28-2025 Episodic Mood disorders (13 sources) Depressive disorder; Translations: [Bipolar disorder] 11-13-2014 Chronic Nausea and vomiting (7 sources) Vomiting; Translations: [Vomiting, unspecified] Episodic Nonmalignant breast conditions (7 sources) Mastodynia; Translations: [Painful lumpy right breast] Episodic Open wounds of head; neck; and trunk (1 source) Laceration of forehead 01-03-2018 Episodic Osteoarthritis (14 sources) Osteoarthritis; Translations: [Unspecified osteoarthritis, unspecified site] Chronic Other connective tissue disease (2 sources) Recurrent falls ; Translations: [Repeated falls] 01-28-2025 Episodic Other gastrointestinal disorders (2 sources) Constipation; Translations: [Constipation, unspecified] 12-03-2024 Episodic Other inflammatory condition of skin (6 sources) Irritant contact dermatitis; Translations: [Erythema intertrigo] 05-12-2021 Episodic Other liver diseases (4 sources) Enzyme level - finding; Translations: [Elevated transaminase measurement] 10-06-2023 Episodic Other nervous system disorders (2 sources) Chronic pain; Translations: [Other chronic pain] 01-28-2025 Chronic Other non-traumatic joint disorders (1 source) Pain in right knee; Translations: [Chronic pain of both knees] 01-28-2025 Episodic Other upper respiratory disease (6 sources) Allergic rhinitis; Translations: [Allergic rhinitis, unspecified] 02-15-2021 Chronic Skin and subcutaneous tissue infections (1 source) Cutaneous abscess, unspecified; Translations: [Cutaneous abscess, unspecified] Onset: Episodic Spondylosis; intervertebral disc disorders; other back problems (6 sources) Neck pain; Translations: [Cervicalgia] 07-13-2021 Episodic Suicide and intentional self-inflicted injury (7 sources) Suicidal thoughts; Translations: [Suicidal ideations] Onset: 5 10-06-2024 Episodic Superficial injury; contusion (12 sources) Contusion of scalp; Translations: [Contusion of scalp, initial encounter] 01-15-2021 Episodic Urinary tract infections (4 sources) Urinary tract infectious disease; Translations: [Urinary tract infection, site not specified] 10-06-2024 Episodic Results Test Name Value Interpretation Reference Range Facility Absolute lymphocyte countOrd ered By: Socrates Arteaga on 01-28-2025 Lymphocytes Auto (Unsp spec) [#/Vol] 1.95 10*3/uL 0.83-4.51 [facility] Absolute neutrophil countOrd ered By: Socrates Arteaga on 01-28-2025 Neutrophils (Bld) [#/Vol] 1.9 10*3/uL Low 2.0-7.7 [facility] Anion gap in Serum or Plasma Ordered By: Socrates Arteaga on 01-28-2025 Anion gap [Moles/Vol] 13 mmol/L 5-15 [facility] Automated lymphocyte count a s percentage of total leukocytesOrdered By: Socrates Arteaga on 01-28-2025 Lymphocytes/100 WBC Auto (Unsp spec) 43.0 % High 19-41 [facility] BUN/creatinine ratioOrdered By: Socrates Arteaga on 01-28-2025 Urea nitrogen/Creatinine [Mass ratio] 20.7 mg/mg High 10-20 [facility] Basophil percentageOrdered B y: Socrates Arteaga on 01-28-2025 Basophils/100 WBC (Bld) 0.4 % 0-1 [facility] Bilirubin Test strip Ql (U)O rdered By: Socrates Arteaga on 01-28-2025 Bilirubin Ql (U) Negative Negative [facility] Carbon dioxide, total [Moles /volume] in Central venous bloodOrdered By: Socrates Arteaga on 01-28-2025 CO2 [Moles/Vol] 24.5 mmol/L 21.0-32.0 [facility] Chloride assayOrdered By: Kermit Arteaga on 01-28-2025 Chloride [Moles/Vol] 104 mmol/L 98-108 [facility] Eosinophil percentageOrdered By: Socrates Arteaga on 01-28-2025 Eosinophils/100 WBC (Bld) 5.7 % High 0-5 [facility] Erythrocyte distribution wid th ratioOrdered By: Socrates Arteaga on 01-28-2025 Erythrocyte distribution width (RBC) [Ratio] 14.6 % 11.6-14.6 [facility] Erythrocyte distribution wid th standard deviationOrdered By: Socrates Arteaga on 01-28-2025 Erythrocyte distribution width (RBC) [Ratio] 52.5 fl High 35.1-43.9 [facility] Glomerular filtration rate ( GFR) estimation/1.73 sq m using serum, plasma, or whole bOrdered By: Socrates Arteaga on 01-28-2025 GFR/1.73 sq M.predicted among non-blacks MDRD (S/P/Bld) [Vol rate/Area] 34 mL/min/{1.73_m2} Low >60 [facility] Comment on above: mL/min/1.73m2 CKD-EP I Creatinine Equation (2020) Hematocrit Auto (Bld) [Volum e fraction]Ordered By: Socrates Arteaga on 01-28-2025 Hematocrit (Bld) [Volume fraction] 44.5 % 37-47 [facility] Hemoglobin measurementOrdere d By: Socrates Arteaga on 01-28-2025 Hemoglobin (Bld) [Mass/Vol] 14.0 g/dL 12.0-15. 0 [facility] Immature granulocytes/100 WB C Auto (Bld)Ordered By: Socrates Arteaga on 01-28-2025 Immature granulocytes/100 WBC (Bld) 0.400 % 0.0-0.9 [facility] Comment on above: IG% - Immature Granu locytes (promyelocytes, myelocytes and metamyelocytes) > 1% indicates that a LEFT SHIFT is Present. Ketones Test strip Ql (U)Ord ered By: Socrates Arteaga on 01-28-2025 Ketones Ql (U) Negative Negative [facility] MCV (mean corpuscular volume ) determinationOrdered By: Socrates Arteaga on 01-28-2025 MCV (RBC) [Entitic vol] 97.4 fL 81-99 [facility] Mean corpuscular hemoglobin (MCH) determinationOrdered By: Socrates Arteaga on 01-28-2025 MCH (RBC) [Entitic mass] 30.6 pg 27.0-32.0 [facility] Mean corpuscular hemoglobin concentration (MCHC) determinationOrdered By: Socrates Arteaga on 01-28-2025 MCHC (RBC) [Mass/Vol] 31.5 g/dL Low 32-36 [facility] Mean platelet volume determi nationOrdered By: Socrates Arteaga on 01-28-2025 Platelet mean volume (Bld) [Entitic vol] 11.7 fL 6.2-12.0 [facility] Microscopic analysis of urin e for red blood cells (RBC)Ordered By: Socrates Arteaga on 01-28-2025 Microscopic analysis of urine for red blood cells (RBC) 0-5 SEEN /hpf 0-5 [facility] Monocyte percentageOrdered B y: Socrates Arteaga on 01-28-2025 Monocytes/100 WBC (Bld) 9.3 % 0-10 [facility] Mucus LM Ql (Urine sed)Order ed By: Socrates Arteaga on 01-28-2025 Mucus Ql (Urine sed) 0 SEEN /hpf [facility] Neutrophil percentageOrdered By: Socrates Arteaga on 01-28-2025 Neutrophils/100 WBC (Bld) 41.2 % Low 47-70 [facility] Nitrite Test strip Ql (U)Ord ered By: Socrates Arteaga on 01-28-2025 Nitrite Ql (U) Negative Negative [facility] Nucleated red blood cell per centageOrdered By: Socrates Arteaga on 01-28-2025 Nucleated RBC/100 WBC (Bld) [Ratio] 0 % 0-5 [facility] Platelet countOrdered By: Kermit Arteaga on 01-28-2025 Platelets (Bld) [#/Vol] 173 10*3/uL 150-450 [facility] Potassium measurement (mass/ volume)Ordered By: Socrates Arteaga on 01-28-2025 Potassium (Unsp spec) [Mass/Vol] 4.6 mmol/L 3.3-5.1 [facility] Protein Test strip Ql (U)Ord ered By: Socrates Arteaga on 01-28-2025 Protein Ql (U) 30 mg/dl High Negative [facility] RBC Auto (Bld) [#/Vol]Ordere d By: Socrates Arteaga on 01-28-2025 RBC (Bld) [#/Vol] 4.57 10*6/uL 4.2-5.4 [facility] Serum creatinine measurement (mass/volume)Ordered By: Socrates Arteaga on 01-28-2025 Creatinine [Mass/Vol] 1.63 mg/dL High 0.70-1.20 [facility] Serum glucose measurement (m ass/volume)Ordered By: Socrates Arteaga on 01-28-2025 Glucose [Mass/Vol] 95 mg/dL 70-99 [facility] Serum or plasma calcium raeann urement (mass/volume)Ordered By: Socrates Arteaga on 06-11-2025 Calcium [Mass/Vol] 9.8 mg/dL 7.6-11.0 [facility] Serum or plasma urea nitroge n measurement (mass/volume)Ordered By: Socrates Arteaga on 01-28-2025 Urea nitrogen [Mass/Vol] 34 mg/dL High 4-19 [facility] Sodium levelOrdered By: Socrates Arteaga on 01-28-2025 Sodium [Moles/Vol] 141 mmol/L 133-145 [facility] Squamous epithelial cells de tection in urine sediment by light microscopyOrdered By: Socrates Arteaga on 01-28-2025 Epithelial cells.squamous LM Ql (Urine sed) 0 SEEN /hpf 5-10 [facility] Urine clarityOrdered By: Jacklyn Arteaga on 01-28-2025 Clarity (U) Sl. Cloudy Clear [facility] Urine color determinationOrd ered By: Socrates Arteaga on 01-28-2025 Color (U) Straw Yellow [facility] Urine glucose detectionOrder ed By: Socrates Arteaga on 01-28-2025 Glucose Ql (U) Normal mg/dl Normal [facility] Urine leukocyte esterase det ection by dipstickOrdered By: Socrates Arteaga on 01-28-2025 Leukocyte esterase Test strip Ql (U) 500 /ul High Negative [facility] Urine pHOrdered By: Socrates villela on 01-28-2025 pH (U) 6.5 [pH] 5.0 - 8.0 [facility] Urine sediment bacteria coun t by microscopy (number/high power field)Ordered By: Socrates Arteaga on 01-28-2025 Bacteria LM.HPF (Urine sed) [#/Area] RARE /hpf None Seen [facility] Urine specific gravity measu rementOrdered By: Socrates Arteaga on 01-28-2025 Specific gravity (U) [Rel density] 1.010 1.002-1.03 0 [facility] Urine urobilinogen measureme ntOrdered By: Socrates Arteaga on 01-28-2025 Urobilinogen Ql (U) Normal mg/dl Normal [facility] White blood cell (WBC) count Ordered By: Socrates Arteaga on 01-28-2025 WBC (Bld) [#/Vol] 4.5 10*3/uL 4.4-11.0 [facility] White blood cell countOrdere d By: Socrates Arteaga on 01-28-2025 White blood cell count 10-25 SEEN /hpf 0-5 [facility] Emergency Department Summary on 12-03-2024 Emergency Department Summary [facility] Medical Records Department [address] [place] [address] Emergency Department Summary 12/03/24 MR#: [id number] Acct: [id number] Name: ADARSH WADSWORTH Rep #: [id number] : 1955 69 From: Socrates Arteaga DO PCP: Dr. Dede Giles MD Status:DEP ER Location: ED HPI History of Present Illness Chief Complaint: Abscess Narrative Narrative: Patient is a 69-year-old female with history of anxiety, depression, hypertension who presents to the [facility] apartment for rectal pain. Patient states that she had a harsh/hard bowel movement that was painful a couple days ago since then she has been having pain to her rectal area. Patient daughter looked at the site and said it might be an abscess and to get it checked out. Patient denies any fever or chills. [facility] Medical History Bilateral primary osteoarthritis of knee Painful lumpy right breast Vomiting Abdominal pain Health care maintenance Neck pain Intertriginous dermatitis associated with moisture Suprapubic pain Preventative health care CKD (chronic kidney disease) Allergic rhinitis Non-smoker Chronic bronchitis Herpes History of gallstones Cataracts, bilateral IBS (irritable bowel syndrome) History of pneumonia Osteoarthritis Hypertension Seasonal allergies Gout Diabetes Depression with anxiety Home Medications ???Medication ???Instructions ???Recorded ???Last Taken ???Type vit A 7,160 unit-vit C 113 mg-vit 1 tab PO BID SUPPLEMENT 01/24/19 Unknown History E 100 pnio-zmje-[id number] tablet Held on 09/27/24. Instructions: pt is out of med bismuth subsalicylate 262 mg 2 tab PO Q30-60M PRN diarrhea 01/19 05/10 Unknown History chewable tablet (Pepto-Bismol) Held on 09/27/24. Instructions: pt is out of med ipratropium bromide 21 mcg (0.03 2 spray intranasal BID-TID PRN Unknown Rx %) nasal spray allergy symptoms #30 mL lisinopril 20 mg tablet 20 mg PO DAILY BP #90 tabs 1 Unknown Rx quetiapine 25 mg tablet 25 mg PO QHS 02/15/21 Unknown Hist ory nystatin 100,000 unit/gram topical 1 applic topical TID #60 grams 0 05/12/21 Unknown Rx powder Held on 09/27/24. Instructions: pt is out of med clotrimazole-betametha sone 1 1 applic topical BID 2 weeks #45 1 09/04/20 Unknown Rx %-0.05 % topical cream grams Held on 09/27/24. Instructions: pt is out of med leg brace (LUDWIN Knee Brace) #2 ea 10/19/21 Unknown Rx aspirin 81 mg chewable tablet 81 mg PO DAILY@0800 BLOOD THINNER 01/11/22 Unknown Rx #90 tabs rosuvastatin 10 mg tablet 10 mg PO DAILY #90 tabs 03/10/22 U nknown Rx Held on 09/27/24. Instructions: pt is out of med sumatriptan succinate 25 mg tablet 25 mg PO ONCE PRN Headache #14 t abs 05/16/22 Unknown Rx (Imitrex) Held on 09/27/24. Instructions: pt is out of med valacyclovir 500 mg tablet 500 mg PO DAILY HERPES #90 tabs Unknown Rx Held on 09/27/24. Instructions: pt is out of med amlodipine 10 mg tablet 10 mg PO DAILY BP #90 tabs 3 Unknown Rx pantoprazole 40 mg tablet,delayed 40 mg PO DAILY #90 tabs 11/27/22 Unknown Rx release (Protonix) oxybutynin chloride 15 mg See Rx Instructions .Route 3 Unknown Rx tablet,extended release 24 hr .COMPLEX #60 tabs Held on 09/27/24. Instructions: pt is out of med cetirizine 10 mg tablet See Rx Instructions .Route 3 Unknown Rx Held on 09/27/24. .COMPLEX #30 tabs Instructions: pt is out of med ondansetron 4 mg disintegrating 4 mg PO Q8H PRN PRN Nausea #10 tab s 10/07/23 Unknown Rx tablet Held on 09/27/24. Instructions: pt is out of med docusate sodium 100 mg capsule 100 mg PO BID #20 caps 12/03/24 Un known Rx (Colace) hydrocortisone 2.5 % topical cream 1 applic OK BID 10 days #30 gram s 12/03/24 Unknown Rx with perineal applicator (Procto-Med HC) Allergy/AdvReac Type Severity Reaction Status Date / Time codeine AdvReac Nausea/Vom/ Verified 11/01/24 20:35 Diarrhea Family History Other Alcoholism Breast cancer Depression Diabetes Heart disease Hypertension Surgical History Hx of bladder repair surgery History of hysterectomy Social History Smoking Status: Never smoker alcohol intake: current alcohol intake frequency: holidays/special occasions only substance use type: marijuana caffeine: Yes what type of physical activity do you participate in: none seatbelt use: always do you feel safe at home: Yes additional social history: retired ROS ROS ED ROS Narrative Constitutional: Negative for fever, chills (more content not included)... Normal [facility] Emergency Department Summary on 11-01-2024 Emergency Department Summary [facility] Medical Records Department [address] [place] [address] Emergency Department Summary 11/01/24 MR#: [id number] Acct: [id number] Name: ADARSH WADSWORTH Rep #: [id number] : 1955 69 From: Mike May MD PCP: Dr. Dede Giles MD Status:DEP ER Location: ED HPI History of Present Illness Chief Complaint: Headache Narrative Narrative: 69-year-old female with PMH of hypertension, bipolar, migraines presents with a bifrontal headache that started last night and is gradually worsened throughout the day. She had a lot to eat for dinner and then vomited once which she attributes to her headache. She has no abdominal pain. No fever, chills, or neck stiffness. She states she used to be prescribed Imitrex for her migraines but her insurance changed and she had to get a new doctor and never got it refilled. She has had no fall or head trauma. [facility] Medical History Bilateral primary osteoarthritis of knee Painful lumpy right breast Vomiting Abdominal pain Health care maintenance Neck pain Intertriginous dermatitis associated with moisture Suprapubic pain Preventative health care CKD (chronic kidney disease) Allergic rhinitis Non-smoker Chronic bronchitis Herpes History of gallstones Cataracts, bilateral IBS (irritable bowel syndrome) History of pneumonia Osteoarthritis Hypertension Seasonal allergies Gout Diabetes Depression with anxiety Home Medications ???Medication ???Instructions ???Recorded ???Last Taken ???Type vit A 7,160 unit-vit C 113 mg-vit 1 tab PO BID SUPPLEMENT 01/24/19 Unknown History E 100 oztq-tmtm-gcukud tablet Held on 09/27/24. Instructions: pt is out of med bismuth subsalicylate 262 mg 2 tab PO Q30-60M PRN diarrhea 01/19 05/10 Unknown History chewable tablet (Pepto-Bismol) Held on 09/27/24. Instructions: pt is out of med ipratropium bromide 21 mcg (0.03 2 spray intranasal BID-TID PRN Unknown Rx %) nasal spray allergy symptoms #30 mL lisinopril 20 mg tablet 20 mg PO DAILY BP #90 tabs 1 Unknown Rx quetiapine 25 mg tablet 25 mg PO QHS 02/15/21 Unknown Hist ory nystatin 100,000 unit/gram topical 1 applic topical TID #60 grams 0 05/12/21 Unknown Rx powder Held on 09/27/24. Instructions: pt is out of med clotrimazole-betametha sone 1 1 applic topical BID 2 weeks #45 1 09/04/20 Unknown Rx %-0.05 % topical cream grams Held on 09/27/24. Instructions: pt is out of med leg brace (LUDWIN Knee Brace) #2 ea 10/19/21 Unknown Rx aspirin 81 mg chewable tablet 81 mg PO DAILY@0800 BLOOD THINNER 01/11/22 Unknown Rx #90 tabs rosuvastatin 10 mg tablet 10 mg PO DAILY #90 tabs 03/10/22 U nknown Rx Held on 09/27/24. Instructions: pt is out of med sumatriptan succinate 25 mg tablet 25 mg PO ONCE PRN Headache #14 t abs 05/16/22 Unknown Rx (Imitrex) Held on 09/27/24. Instructions: pt is out of med valacyclovir 500 mg tablet 500 mg PO DAILY HERPES #90 tabs Unknown Rx Held on 09/27/24. Instructions: pt is out of med amlodipine 10 mg tablet 10 mg PO DAILY BP #90 tabs 3 Unknown Rx pantoprazole 40 mg tablet,delayed 40 mg PO DAILY #90 tabs 11/27/22 Unknown Rx release (Protonix) oxybutynin chloride 15 mg See Rx Instructions .Route 3 Unknown Rx tablet,extended release 24 hr .COMPLEX #60 tabs Held on 09/27/24. Instructions: pt is out of med cetirizine 10 mg tablet See Rx Instructions .Route 3 Unknown Rx Held on 09/27/24. .COMPLEX #30 tabs Instructions: pt is out of med ondansetron 4 mg disintegrating 4 mg PO Q8H PRN PRN Nausea #10 tab s 10/07/23 Unknown Rx tablet Held on 09/27/24. Instructions: pt is out of med Allergy/AdvReac Type Severity Reaction Status Date / Time codeine AdvReac Nausea/Vom/ Verified 11/01/24 20:35 Diarrhea Family History Other Alcoholism Breast cancer Depression Diabetes Heart disease Hypertension Surgical History Hx of bladder repair surgery History of hysterectomy Social History Smoking Status: Never smoker alcohol intake: current alcohol intake frequency: holidays/special occasions only substance use type: marijuana caffeine: Yes what type of physical activity do you participate in: none seatbelt use: always do you feel safe at home: Yes additional social history: retired ROS ROS ED ROS Narrative Constitutional: Negative for fever, chills, malaise. Eyes: Negative for visual change. GI: Negative for nausea, vomiting. Neuro: Positive for headache. EXAM Physical Exam (more content not included)... Normal [facility] 12 Lead EKGon 09-27-2024 12 Lead EKG [facility] Cardiovascular Services [address] [place] [address] 12 Lead EKG 09/27/24 1700 MR#: [id number] Acct: [id number] Name: ADARSH WADSWORTH Rep #: [id number] : 1955 69 From: Rashawn Salas MD Attending Dr: Status: DEP ER Ordering Dr: Mike May MD Date: 09/27/24 Location: ED Sex: F C Admitted: Test Reason : Blood Pressure : */* mmHG Vent. Rate : 69 BPM Atrial Rate : 69 BPM P-R Int : 140 ms QRS Dur : 76 ms QT Int : 466 ms P-R-T Axes : 76 2 83 degrees QTcB Int : 499 ms Sinus rhythm with occasional Premature ventricular complexes Septal infarct , age undetermined Abnormal ECG Confirmed by YARIEL FARLEY, RASHAWN ([id number]), newspaper or periodical editor ZULMA COLLAZO ([id number]) on 09/29/2024 6:34:00 AM Referred By: Confirmed By: RASHAWN SALAS MD 09/29/24 0634 Date Rashawn Salas MD CC: Dr. Mike May MD; Dr. Dede Giles MD Signed Normal [facility] Absolute neutrophil countOrd ered By: Mike May on 09-27-2024 Neutrophils (Bld) [#/Vol] 5.7 10*3/uL 2.0-7.7 [facility] Albumin to globulin ratioOrd ered By: Mike May on 09-27-2024 Albumin/Globulin [Mass ratio] 0.8 {ratio} Low 0.9-2.4 [facility] Alcohol, Blood (Medical)-Ser umon 09-27-2024 SERUM ETOH < 3.0 Normal [facility] Comment on above: Result Comment: The serum:whole blood ethanol ratio is approximately 1.14 and varies slightly with hematocrit. Medical Alcohol reference interval and critical value in non-tolerant individuals; 50 - 100 Impairment 100 Intoxication 100 - 250 Severe Poisoning 250 - 400 Deep/possible fatal coma Performed By: #### L 501.9100, L505.5000, L100.0100 ####[facility] [id number] [place], [address] Basic Metabolic Profile (BMP )on 09-27-2024 BUN/CRE 14.0 RATIO Normal 10-20 [facility] Comment on above: Performed By: #### L 500.2500, L100.0100, L500.4050, L505.5000 #### [facility] [address] [place], [address] CA,Total 9.7 mg/dL Normal 8.5-10.1 [facility] Comment on above: Performed By: #### L 500.2500, L100.0100, L500.4050, L505.5000 #### [facility] [address] [place], [address] Chloride [Moles/Vol] 107 mmol/L Normal 98-107 [facility] Comment on above: Performed By: #### L 500.2500, L100.0100, L500.4050, L505.5000 #### [facility] [address] [place], [address] CO2 [Moles/Vol] 23.0 mmol/L Normal 21.0-32.0 [facility] Comment on above: Performed By: #### L 500.2500, L100.0100, L500.4050, L505.5000 #### [facility] [address] [place], [address] Creatinine [Mass/Vol] 0.79 mg/dL Normal 0.55-1.02 [facility] Comment on above: Result Comment: The validity of the calculated GFR GFRAA in patients over 70 years has not been determined. Clinical correlation is essential. Performed By: #### L 500.2500, L100.0100, L500.4050, L505.5000 #### [facility] [address] [place], [address] ECRCL 60.43 ml/min Normal [facility] Comment on above: Performed By: #### L 500.2500, L100.0100, L500.4050, L505.5000 #### [facility] [address] [place], [address] EST GFR - AA 94 mL/min Normal >60 [facility] Comment on above: Result Comment: Afri can Irish GFR Calc Performed By: #### L 500.2500, L100.0100, L500.4050, L505.5000 #### [facility] [address] [place], [address] GAP 8 Normal 5-15 [facility] Comment on above: Performed By: #### L 500.2500, L100.0100, L500.4050, L505.5000 #### [facility] [address] [place], [address] GFR/1.73 sq M.predicted among non-blacks MDRD (S/P/Bld) [Vol rate/Area] 77 mL/min/{1.73_m2} Normal >60 [facility] Comment on above: Result Comment: Non- GFR Calc Performed By: #### L 500.2500, L100.0100, L500.4050, L505.5000 #### [facility] [address] [place], [address] Glucose [Mass/Vol] 105 mg/dL Normal 74-106 [facility] Comment on above: Result Comment: Fast ing Glucose result from 100 to 125 mg/dL suggests IMPAIRED HOMEOSTASIS per A.D.A. criteria. Performed By: #### L 500.2500, L100.0100, L500.4050, L505.5000 #### [facility] [address] [place], [address] Potassium [Moles/Vol] 3.4 mmol/L Low 3.5-5.1 [facility] Comment on above: Performed By: #### L 500.2500, L100.0100, L500.4050, L505.5000 #### [facility] [address] [place], [address] Sodium [Moles/Vol] 138 mmol/L Normal 136-145 [facility] Comment on above: Performed By: #### L 500.2500, L100.0100, L500.4050, L505.5000 #### [facility] [address] [place], [address] Urea nitrogen [Mass/Vol] 11 mg/dL Normal 7-18 [facility] Comment on above: Performed By: #### L 500.2500, L100.0100, L500.4050, L505.5000 #### [facility] [address] [place], [address] Basophil percentageOrdered B y: Mike May on 09-27-2024 Basophils/100 WBC (Bld) 0.4 % 0-1 [facility] Bilirubin Test strip Ql (U)O rdered By: Mike May on 09-27-2024 Bilirubin Ql (U) Negative Negative [facility] Bilirubin, totalOrdered By: Mike May on 09-27-2024 Bilirubin [Mass/Vol] 0.90 mg/dL 0.20-1.00 [facility] Comment on above: For patients on eltr ombopag therapy, use of Dimension [place] TBIL is not recommended. Blood urea nitrogen (BUN)/cr eatinine ratioOrdered By: Mike May on 09-27-2024 Urea nitrogen/Creatinine [Mass ratio] 14.0 mg/mg 10-20 [facility] CBC W/Diff, Automatedon Absolute Lymph 1.02 X10 3/uL Normal 0.83-4.51 [facility] Comment on above: Performed By: #### L 501.9100, L505.5000, L100.0100 #### [facility] [address] [place], [address] Absolute Neut 5.7 X10 3/uL Normal 2.0-7.7 [facility] Comment on above: Performed By: #### L 501.9100, L505.5000, L100.0100 #### [facility] [address] [place], [address] Basophils/100 WBC (Bld) 0.4 % Normal 0-1 [facility] Comment on above: Performed By: #### L 501.9100, L505.5000, L100.0100 #### [facility] [address] [place], [address] Eosinophils/100 WBC (Bld) 1.2 % Normal 0-5 [facility] Comment on above: Performed By: #### L 501.9100, L505.5000, L100.0100 #### [facility] [address] [place], [address] Erythrocyte distribution width (RBC) [Ratio] 13.7 % Normal 11.6-14.6 [facility] Comment on above: Performed By: #### L 501.9100, L505.5000, L100.0100 #### [facility] [address] [place], [address] Hematocrit (Bld) [Volume fraction] 47.2 % High 37-47 [facility] Comment on above: Performed By: #### L 501.9100, L505.5000, L100.0100 #### [facility] [address] [place], [address] Hemoglobin (Bld) [Mass/Vol] 14.5 g/dL Normal 12.0-15. 0 [facility] Comment on above: Performed By: #### L 501.9100, L505.5000, L100.0100 #### [facility] [address] [place], [address] IG% 0.300 Normal 0.0-0.9 [facility] Comment on above: Result Comment: IG% - Immature Granulocytes (promyelocytes, myelocytes and metamyelocytes) > 1% indicates that a LEFT SHIFT is Present. Performed By: #### L 501.9100, L505.5000, L100.0100 #### [facility] [address] [place], [address] Lymphocytes/100 WBC (Bld) 14.0 % Low 19-41 [facility] Comment on above: Performed By: #### L 501.9100, L505.5000, L100.0100 #### [facility] [address] [place], [address] MCH (RBC) [Entitic mass] 28.1 pg Normal 27.0-32.0 [facility] Comment on above: Performed By: #### L 501.9100, L505.5000, L100.0100 #### [facility] [address] [place], [address] MCHC (RBC) [Mass/Vol] 30.7 g/dL Low 32-36 [facility] Comment on above: Performed By: #### L 501.9100, L505.5000, L100.0100 #### [facility] [address] [place], [address] MCV (RBC) [Entitic vol] 91.5 fL Normal 81-99 [facility] Comment on above: Performed By: #### L 501.9100, L505.5000, L100.0100 #### [facility] [address] [place], [address] Monocytes/100 WBC (Bld) 5.5 % Normal 0-10 [facility] Comment on above: Performed By: #### L 501.9100, L505.5000, L100.0100 #### [facility] [address] [place], [address] Neutrophils/100 WBC (Bld) 78.6 % High 47-70 [facility] Comment on above: Performed By: #### L 501.9100, L505.5000, L100.0100 #### [facility] [address] [place], [address] Nucleated RBC (Bld) [#/Vol] 0 10*3/uL Normal 0-5 [facility] Comment on above: Performed By: #### L 501.9100, L505.5000, L100.0100 #### [facility] [address] [place], [address] Platelet mean volume (Bld) [Entitic vol] 10.2 fL Normal 6.2-12.0 [facility] Comment on above: Performed By: #### L 501.9100, L505.5000, L100.0100 #### [facility] [address] [place], [address] Platelets (Bld) [#/Vol] 307 10*3/uL Normal 150-450 [facility] Comment on above: Performed By: #### L 501.9100, L505.5000, L100.0100 #### [facility] [address] [place], [address] RBC (Bld) [#/Vol] 5.16 10*6/uL Normal 4.2-5.4 [facility] Comment on above: Performed By: #### L 501.9100, L505.5000, L100.0100 #### [facility] [address] [place], [address] RDW SD 46.5 fl High 35.1-43.9 [facility] Comment on above: Performed By: #### L 501.9100, L505.5000, L100.0100 #### [facility] [address] [place], [address] WBC (Bld) [#/Vol] 7.3 10*3/uL Normal 4.4-11.0 [facility] Comment on above: Performed By: #### L 501.9100, L505.5000, L100.0100 #### [facility] [address] [place], [address] Absolute Neut Normal 2.0-7.7 [facility] Comment on above: Result Comment: Canc elled via OM: MD Ordered Performed By: #### L 500.2500, L100.0100, L500.4050, L505.5000 #### [facility] [address] [place], [address] HCT Normal 37-47 [facility] Comment on above: Result Comment: Canc elled via OM: MD Ordered Performed By: #### L 500.2500, L100.0100, L500.4050, L505.5000 #### [facility] [address] [place], [address] HGB Normal 12.0-15.0 [facility] Comment on above: Result Comment: Canc elled via OM: MD Ordered Performed By: #### L 500.2500, L100.0100, L500.4050, L505.5000 #### [facility] [address] [place], [address] MCH Normal 27.0-32.0 [facility] Comment on above: Result Comment: Canc elled via OM: MD Ordered Performed By: #### L 500.2500, L100.0100, L500.4050, L505.5000 #### [facility] [address] [place], [address] MCHC Normal 32-36 [facility] Comment on above: Result Comment: Canc elled via OM: MD Ordered Performed By: #### L 500.2500, L100.0100, L500.4050, L505.5000 #### [facility] [address] [place], [address] MCV Normal 81-99 [facility] Comment on above: Result Comment: Canc elled via OM: MD Ordered Performed By: #### L 500.2500, L100.0100, L500.4050, L505.5000 #### [facility] [address] [place], [address] NEUT% Normal 47-70 [facility] Comment on above: Result Comment: Canc elled via OM: MD Ordered Performed By: #### L 500.2500, L100.0100, L500.4050, L505.5000 #### [facility] [address] [place], [address] PLT Normal 150-450 [facility] Comment on above: Result Comment: Canc elled via OM: MD Ordered Performed By: #### L 500.2500, L100.0100, L500.4050, L505.5000 #### [facility] [address] [place], [address] RBC Normal 4.2-5.4 [facility] Comment on above: Result Comment: Canc elled via OM: MD Ordered Performed By: #### L 500.2500, L100.0100, L500.4050, L505.5000 #### [facility] [address] [place], [address] RDW CV Normal 11.6-14.6 [facility] Comment on above: Result Comment: Canc elled via OM: MD Ordered Performed By: #### L 500.2500, L100.0100, L500.4050, L505.5000 #### [facility] [address] [place], [address] RDW SD Normal 35.1-43.9 [facility] Comment on above: Result Comment: Canc elled via OM: MD Ordered Performed By: #### L 500.2500, L100.0100, L500.4050, L505.5000 #### [facility] [address] [place], [address] WBC Normal 4.4-11.0 [facility] Comment on above: Result Comment: Canbenjamin elled via OM: MD Ordered Performed By: #### L 500.2500, L100.0100, L500.4050, L505.5000 #### [facility] [address] [place], [address] Carbon dioxide measurementOr dered By: [place] May on 09-27-2024 CO2 [Moles/Vol] 23.0 mmol/L 21.0-32.0 [facility] Chloride measurementOrdered By: [place] May on 09-27-2024 Chloride [Moles/Vol] 107 mmol/L 98-107 [facility] Comprehensive Metabolic Prof ilon 09-27-2024 Albumin [Mass/Vol] 3.6 g/dL Normal 3.2-5.0 [facility] Comment on above: Performed By: #### L 500.2500, L100.0100, L500.4050, L505.5000 #### [facility] [address] [place], [address] Albumin/Globulin [Mass ratio] 0.8 {ratio} Low 0.9-2.4 [facility] Comment on above: Performed By: #### L 500.2500, L100.0100, L500.4050, L505.5000 #### [facility] [address] [place], [address] ALK P 89 U/L Normal 45-117 [facility] Comment on above: Performed By: #### L 500.2500, L100.0100, L500.4050, L505.5000 #### [facility] [address] [place], [address] ALT [Catalytic activity/Vol] 16 U/L Normal 13-56 [facility] Comment on above: Performed By: #### L 500.2500, L100.0100, L500.4050, L505.5000 #### [facility] [address] [place], [address] AST [Catalytic activity/Vol] 18 U/L Normal 15-37 [facility] Comment on above: Performed By: #### L 500.2500, L100.0100, L500.4050, L505.5000 #### [facility] [address] [place], [address] Bilirubin [Mass/Vol] 0.90 mg/dL Normal 0.20-1.00 [facility] Comment on above: Result Comment: For patients on eltrombopag therapy, use of Dimension [place] TBIL is not recommended. Performed By: #### L 500.2500, L100.0100, L500.4050, L505.5000 #### [facility] [address] [place], [address] Globulin (S) [Mass/Vol] 4.3 g/dL High 2.2-4.2 [facility] Comment on above: Performed By: #### L 500.2500, L100.0100, L500.4050, L505.5000 #### [facility] [address] [place], [address] T PROT 7.9 g/dL Normal 6.4-8.2 [facility] Comment on above: Performed By: #### L 500.2500, L100.0100, L500.4050, L505.5000 #### [facility] [address] [place], [address] Emergency Department Summary on 09-27-2024 Emergency Department Summary [facility] Medical Records Department [address] [place] [address] Emergency Department Summary 09/27/24 MR#: [id number] Acct: [id number] Name: ADARSH WADSWORTH Rep #: [id number] : 1955 69 From: [place] MD PCP: Dr. Dede Giles MD Status:REG ER Location: ED ADDENDUM by Dr. [place] MD on 09/27/24 at 2139 EKG was obtained and interpreted by myself independently as normal sinus rhythm at 69 bpm with PVCs, no acute ST changes. No STEMI. Patient was requesting something for sleep. I reviewed her medications she has not been on benzodiazepines previously. She will be administered Vistaril 50 mg orally to help with anxiety as well. 09/27/242138 Cosigner Signature (if applicable): cc: Dr. Dede Giles MD * Signed HPI HPI - Psych History of Present Illness Chief Complaint: Suicidal Narrative Narrative: 69-year-old female past medical history of bipolar disorder, states she ran out of her Seroquel approximately 2 months ago. She presents with suicidal ideation and worsening depression. She reported that she is homeless, she relates history that she was at [facility] in March of last year where she stayed for 3 weeks. When she was discharged, she states her daughter brought her back to [facility], but does not want her to live with them any longer. She states she was dropped off in 2 different places in [place]. Per triage, she has been [facility]. She relates history that she is more depressed and suicidal and that she has a friend in [facility] is willing to take her in. She plans on committing suicide by running out of into traffic in front of a [employer]. [facility] Medical History Bilateral primary osteoarthritis of knee Painful lumpy right breast Vomiting Abdominal pain Health care maintenance Neck pain Intertriginous dermatitis associated with moisture Suprapubic pain Preventative health care CKD (chronic kidney disease) Allergic rhinitis Non-smoker Chronic bronchitis Herpes History of gallstones Cataracts, bilateral IBS (irritable bowel syndrome) History of pneumonia Osteoarthritis Hypertension Seasonal allergies Gout Diabetes Depression with anxiety Home Medications ???Medication ???Instructions ???Recorded ???Last Taken ???Type citalopram 40 mg tablet 40 mg PO DAILY ANXIETY 01/24/19 Un known History Held on 09/27/24. Instructions: pt is out of med vit A 7,160 unit-vit C 113 mg-vit 1 tab PO BID SUPPLEMENT 01/24/19 Unknown History E 100 dpwm-jriz-[id number] tablet Held on 09/27/24. Instructions: pt is out of med quetiapine 400 mg tablet 400 mg PO QHS SLEEP 06/24/19 Unkno wn History Held on 09/27/24. Instructions: pt is out of med quetiapine 50 mg tablet 50 mg PO QHS SLEEP 06/24/19 Unknow n History Held on 09/27/24. Instructions: pt is out of med bismuth subsalicylate 262 mg 2 tab PO Q30-60M PRN diarrhea 01/19 05/10 Unknown History chewable tablet (Pepto-Bismol) Held on 09/27/24. Instructions: pt is out of med ipratropium bromide 21 mcg (0.03 2 spray intranasal BID-TID PRN Unknown Rx %) nasal spray allergy symptoms #30 mL Held on 09/27/24. Instructions: pt is out of med lisinopril 20 mg tablet 20 mg PO DAILY BP #90 tabs 1 Unknown Rx Held on 09/27/24. Instructions: pt is out of med potassium chloride 20 mEq 20 meq .Route .COMPLEX SUPPLEMENT 02/15/21 Unknown Rx tablet,extended release(part/cryst) #90 tabs Held on 09/27/24. Instructions: pt is out of med quetiapine 100 mg tablet 100 mg PO 02/15/21 Unknown History Held on 09/27/24. Instructions: pt is out of med quetiapine 25 mg tablet 25 mg PO 02/15/21 Unknown History Held on 09/27/24. Instructions: pt is out of med nystatin 100,000 unit/gram topical 1 applic topical TID #60 grams 0 05/12/21 Unknown Rx powder Held on 09/27/24. Instructions: pt is out of med clotrimazole-betametha sone 1 1 applic topical BID 2 weeks #45 1 09/04/20 Unknown Rx %-0.05 % topical cream grams Held on 09/27/24. Instructions: pt is out of med leg brace (LUDWIN Knee Brace) #2 ea 10/19/21 Unknown Rx aspirin 81 mg chewable tablet 81 mg PO DAILY@0800 BLOOD THINNER 01/11/22 Unknown Rx Held on 09/27/24. #90 tabs Instructions: is out of rosuvastatin 10 mg tablet 10 mg PO DAILY #90 tabs 03/10/22 U nknown Rx Held on 09/27/24. Instructions: pt is out of med sumatriptan succinate 25 mg tablet 25 mg PO ONCE PRN Headache #14 t abs 05/16/22 Unknown Rx (Imitrex) Held on 09/27/24. Instructions: pt is out of med valacyclovir 500 mg tablet 500 mg PO DAILY HERPES #90 tabs Unknown Rx Held on 09/27/24. Instructions: pt is (more content not included)... Normal [facility] Eosinophil percentageOrdered By: [place] May on 09-27-2024 Eosinophils/100 WBC (Bld) 1.2 % 0-5 [facility] Epithelial cells.squamous LM Ql (Urine sed)Ordered By: [place] May on 09-27-2024 Epithelial cells.squamous LM.HPF (Urine sed) [#/Area] 0 /[HPF] 5-10 [facility] Erythrocyte distribution wid th ratioOrdered By: [place] May on 09-27-2024 Erythrocyte distribution width (RBC) [Ratio] 13.7 % 11.6-14.6 [facility] Erythrocyte distribution wid th standard deviationOrdered By: [place] May on 09-27-2024 Erythrocyte distribution width (RBC) [Entitic vol] 46.5 fL High 35.1-43.9 [facility] Estimated glomerular filtrat ion rate (GFR) AmericanOrdered By: [place] May on 09-27-2024 Estimated GFR (MDRD) Amer 94 mL/min >60 [facility] Comment on above: GFR Calc Estimation of creatinine ash aranceOrdered By: [place] May on 09-27-2024 Estimated Creatinine Clearance Calc 60.43 ml/min [facility] Glomerular filtration rate ( GFR) estimationOrdered By: [place] May on 09-27-2024 Estimated GFR (MDRD) Non-Af Amer 77 mL/min >60 [facility] Comment on above: Non- GFR Calc Glucose Ql (U)Ordered By: [place] May on 09-27-2024 Urine Glucose (UA) Normal mg/dl Normal [facility] Glucose measurementOrdered B y: [place] May on 09-27-2024 Glucose [Mass/Vol] 105 mg/dL 74-106 [facility] Comment on above: Fasting Glucose resu lt from 100 to 125 mg/dL suggests IMPAIRED HOMEOSTASIS per A.D.A. criteria. Hematocrit Auto (Bld) [Volum e fraction]Ordered By: [place] May on 09-27-2024 Hematocrit (Bld) [Volume fraction] 47.2 % High 37-47 [facility] Hemoglobin measurementOrdere d By: [place] May on 09-27-2024 Hemoglobin (Bld) [Mass/Vol] 14.5 g/dL 12.0-15. 0 [facility] Immature granulocytes/100 WB C Auto (Bld)Ordered By: [place] May on 09-27-2024 Immature granulocytes/100 WBC (Bld) 0.300 % 0.0-0.9 [facility] Comment on above: IG% - Immature Granu locytes (promyelocytes, myelocytes and metamyelocytes) > 1% indicates that a LEFT SHIFT is Present. Ketones Test strip Ql (U)Ord ered By: [place] May on 09-27-2024 Ketones Ql (U) 5 mg/dl High Negative [facility] - Chemistry and C hemistry - challengeOrdered By: [place] May on 09-27-2024 AST [Catalytic activity/Vol] 18 U/L 15-37 [facility] Lymphocytes Auto (Unsp spec) [#/Vol]Ordered By: [place] May on 09-27-2024 Lymphocytes (Bld) [#/Vol] 1.02 10*3/uL 0.83-4.5 1 [facility] Lymphocytes/100 WBC Auto (Un sp spec)Ordered By: [place] May on 09-27-2024 Lymphocytes/100 WBC (Bld) 14.0 % Low 19-41 [facility] MCV (mean corpuscular volume ) determinationOrdered By: [place] May on 09-27-2024 MCV (RBC) [Entitic vol] 91.5 fL 81-99 [facility] Mean corpuscular hemoglobin (MCH) determinationOrdered By: [place] May on 09-27-2024 MCH (RBC) [Entitic mass] 28.1 pg 27.0-32.0 [facility] Mean corpuscular hemoglobin concentration (MCHC) determinationOrdered By: [place] May on 09-27-2024 MCHC (RBC) [Mass/Vol] 30.7 g/dL Low 32-36 [facility] Mean platelet volume determi nationOrdered By: [place] May on 09-27-2024 Platelet mean volume (Bld) [Entitic vol] 10.2 fL 6.2-12.0 [facility] Methadone, urineOrdered By: [place] May on 09-27-2024 Urine Methadone Screen Negative < 300 ng/mL [facility] Microscopic analysis of urin e for red blood cells (RBC)Ordered By: [place] May on 09-27-2024 Urine RBC 0-5 SEEN /hpf 0-5 [facility] Monocyte percentageOrdered B y: [place] May on 09-27-2024 Monocytes/100 WBC (Bld) 5.5 % 0-10 [facility] Mucus LM Ql (Urine sed)Order ed By: [place] May on 09-27-2024 Mucus Ql (Urine sed) 0 SEEN /hpf [facility] Neutrophil percentageOrdered By: [place] May on 09-27-2024 Neutrophils/100 WBC (Bld) 78.6 % High 47-70 [facility] Nitrite Test strip Ql (U)Ord ered By: [place] May on 09-27-2024 Nitrite Ql (U) Positive High Negative [facility] No Panel InformationOrdered By: [place] May on 09-27-2024 Urine Drug Screen Comment [facility] Comment on above: CONFIRMATORY TESTING FOR ALL POSITIVE URINE DRUG SCREENRESULTS WILL ONLY BE SENT OUT UPON PHYSICIAN ORDER. [facility]IST[facility] Urine Drug Screen methods provide only preliminaryanalytical test results. A more specific alternate chemicalmethod must be used in order to obtain a confirmedanalytical result. Gas chromatography/mass spectrometery(GC/MS) is the preferred confirmatory method. Clinicalconsideration and professional judgement should be appliedto any drug of abuse test result, particularly whenpreliminary positive results are used. URINE TCA TESTING MUST BE ORDERED SEPARATELY. USE TESTMNEMONIC: [facility] Nucleated red blood cell per centageOrdered By: [place] May on 09-27-2024 Nucleated RBC/100 WBC (Bld) [Ratio] 0 % 0-5 [facility] Platelet countOrdered By: [place] May on 09-27-2024 Platelets (Bld) [#/Vol] 307 10*3/uL 150-450 [facility] Potassium measurementOrdered By: [place] May on 09-27-2024 Potassium [Moles/Vol] 3.4 mmol/L Low 3.5-5.1 [facility] Protein Test strip Ql (U)Ord ered By: [place] May on 09-27-2024 Protein Ql (U) 500 mg/dl High Negative [facility] Quantitative urine opiates m easurementOrdered By: [place] May on 09-27-2024 Opiates Ql (U) Negative < 300 ng/mL [facility] RBC Auto (Bld) [#/Vol]Ordere d By: [place] May on 09-27-2024 RBC (Bld) [#/Vol] 5.16 10*6/uL 4.2-5.4 [facility] Serum anion gap measurementO rdered By: [place] May on 09-27-2024 Anion gap [Moles/Vol] 8 mmol/L 5-15 [facility] Serum ethanol measurementOrd ered By: [place] May on 09-27-2024 Ethyl Alcohol Level < 3.0 mg/dL [facility] Comment on above: The serum:whole bloo d ethanol ratio is approximately 1.14and varies slightly with hematocrit. Medical Alcohol reference interval and critical value innon-tolerant individuals; 50 - 100 Impairment 100 Intoxication 100 - 250 Severe Poisoning 250 - 400 Deep/possible fatal coma Serum globulin measurementOr dered By: [place] May on 09-27-2024 Globulin (S) [Mass/Vol] 4.3 g/dL High 2.2-4.2 [facility] Serum or plasma alanine hernandez otransferase (ALT) measurementOrdered By: [place] May on 09-27-2024 ALT [Catalytic activity/Vol] 16 U/L 13-56 [facility] Serum or plasma albumin raeann urement (mass/volume)Ordered By: [place] May on 09-27-2024 Albumin [Mass/Vol] 3.6 g/dL 3.2-5.0 [facility] Serum or plasma alkaline kareen sphatase measurementOrdered By: [place] May on 09-27-2024 ALP [Catalytic activity/Vol] 89 U/L 45-117 [facility] Serum or plasma calcium raeann urement (mass/volume)Ordered By: [place] May on 09-27-2024 Calcium [Mass/Vol] 9.7 mg/dL 8.5-10.1 [facility] Serum or plasma creatinine m easurement (mass/volume)Ordered By: [place] May on 09-27-2024 Creatinine [Mass/Vol] 0.79 mg/dL 0.55-1.02 [facility] Comment on above: The validity of the calculated GFR & GFRAA in patients over 70 years has not been determined. Clinical correlation is essential. Serum or plasma urea nitroge n measurement (mass/volume)Ordered By: [place] May on 09-27-2024 Urea nitrogen [Mass/Vol] 11 mg/dL 7-18 [facility] Sodium levelOrdered By: [place] May on 09-27-2024 Sodium [Moles/Vol] 138 mmol/L 136-145 [facility] Total proteinOrdered By: Diane May on 09-27-2024 Protein [Mass/Vol] 7.9 g/dL 6.4-8.2 [facility] Urinalysis, Completeon 09-27 EPI,SQUAMOUS 0-5 SEEN Normal 5-10 [facility] Comment on above: Order Comment: CLEAN CATCH Performed By: #### L 400.0001 #### [facility] [address] [place], [place], [id number] RBC 0-5 SEEN Normal 0-5 [facility] Comment on above: Order Comment: CLEAN CATCH Performed By: #### L 400.0001 #### [facility] [address] [place], [place], [id number] WBC >100 SEEN Normal 0-5 [facility] Comment on above: Order Comment: CLEAN CATCH Performed By: #### L 400.0001 #### [facility] [address] [place], [address] BACTERIA 3+ /hpf Normal None Seen [facility] Comment on above: Order Comment: CLEAN CATCH Performed By: #### L 400.0001 #### [facility] [address] [place], [address] Mucus Ql (Urine sed) 0 SEEN Normal [facility] Comment on above: Order Comment: CLEAN CATCH Performed By: #### L 400.0001 #### [facility] [address] [place], [address] Urine Drug Screen (VISTA)on 09-27-2024 AMPHETAMINES Negative Normal <1000 ng/mL [facility] Comment on above: Performed By: #### L 501.9100, L505.5000, L100.0100 ####[facility] [address] [place], [address] BARBITIURATES Negative Normal < 200 ng/mL [facility] Comment on above: Performed By: #### L 501.9100, L505.5000, L100.0100 ####[facility] [address] [place], [address] BENZODIAZIPINE Negative Normal < 200 ng/mL [facility] Comment on above: Performed By: #### L 501.9100, L505.5000, L100.0100 ####[facility] [address] [place], [address] COCAINE Negative Normal < 300 ng/mL [facility] Comment on above: Performed By: #### L 501.9100, L505.5000, L100.0100 ####[facility] [address] [place], [address] ECSTACY Negative Normal < 500 ng/mL [facility] Comment on above: Performed By: #### L 501.9100, L505.5000, L100.0100 ####[facility] [address] [place], [address] METHADONE Negative Normal < 300 ng/mL [facility] Comment on above: Performed By: #### L 501.9100, L505.5000, L100.0100 ####[facility] [address] [place], [address] OPIATES Negative Normal < 300 ng/mL [facility] Comment on above: Performed By: #### L 501.9100, L505.5000, L100.0100 ####[facility] [address] [place], [address] PCP Negative Normal < 25 ng/mL [facility] Comment on above: Performed By: #### L 501.9100, L505.5000, L100.0100 ####[facility] [address] [place], [address] THC Positive Abnormal < 50 ng/mL [facility] Comment on above: Performed By: #### L 501.9100, L505.5000, L100.0100 ####[facility] [address] [place], [address] VISTA UDS PH 6 Normal [facility] Comment on above: Performed By: #### L 501.9100, L505.5000, L100.0100 ####[facility] [address] [place], [address] AMPHETAMINES Normal <1000 ng/mL [facility] Comment on above: Result Comment: Bhupinder ren via OM: Ordered Performed By: #### L 500.2500, L100.0100, L500.4050, L505.5000 #### [facility] [address] [place], [address] BARBITIURATES Normal < 200 ng/mL [facility] Comment on above: Result Comment: Canc elled via OM: MD Ordered Performed By: #### L 500.2500, L100.0100, L500.4050, L505.5000 #### [facility] [address] [place], [address] BENZODIAZIPINE Normal < 200 ng/mL [facility] Comment on above: Result Comment: Canc elled via OM: MD Ordered Performed By: #### L 500.2500, L100.0100, L500.4050, L505.5000 #### [facility] [address] [place], [address] COCAINE Normal < 300 ng/mL [facility] Comment on above: Result Comment: Canc elled via OM: MD Ordered Performed By: #### L 500.2500, L100.0100, L500.4050, L505.5000 #### [facility] [address] [place], [address] DRUG CONFIRM Normal [facility] Comment on above: Result Comment: Canc elled via OM: MD Ordered Performed By: #### L 500.2500, L100.0100, L500.4050, L505.5000 #### [facility] [address] [place], [address] ECSTACY Normal < 500 ng/mL [facility] Comment on above: Result Comment: Canc elled via OM: MD Ordered Performed By: #### L 500.2500, L100.0100, L500.4050, L505.5000 #### [facility] [address] [place], [address] METHADONE Normal < 300 ng/mL [facility] Comment on above: Result Comment: Canc elled via OM: MD Ordered Performed By: #### L 500.2500, L100.0100, L500.4050, L505.5000 #### [facility] [address] [place], [address] OPIATES Normal < 300 ng/mL [facility] Comment on above: Result Comment: Canc elled via OM: MD Ordered Performed By: #### L 500.2500, L100.0100, L500.4050, L505.5000 #### [facility] [address] [place], [address] PCP Normal < 25 ng/mL [facility] Comment on above: Result Comment: Canc elled via OM: MD Ordered Performed By: #### L 500.2500, L100.0100, L500.4050, L505.5000 #### [facility] [address] [place], [address] THC Normal < 50 ng/mL [facility] Comment on above: Result Comment: Canc elled via OM: MD Ordered Performed By: #### L 500.2500, L100.0100, L500.4050, L505.5000 #### [facility] [address] [place], [address] VISTA UDS PH Normal [facility] Comment on above: Result Comment: Canc elled via OM: MD Ordered Performed By: #### L 500.2500, L100.0100, L500.4050, L505.5000 #### [facility] [address] [place], [address] Urine amphetamine measuremen tOrdered By: [place] May on 09-27-2024 Amphetamines Ql (U) Negative <1000 ng/mL [facility] Urine barbiturates measureme ntOrdered By: [place] May on 09-27-2024 Urine Barbiturates Screen Negative < 200 ng/mL [facility] Urine benzodiazepine levelOr dered By: [place] May on 09-27-2024 Benzodiazepines Ql (U) Negative < 200 ng/mL [facility] Urine blood detectionOrdered By: [place] May on 09-27-2024 Urine Occult Blood 25 /ul High Negative [facility] Urine clarityOrdered By: Diane May on 09-27-2024 Clarity (U) Sl. Cloudy Clear [facility] Urine cocaine levelOrdered B y: [place] May on 09-27-2024 Cocaine Ql (U) Negative < 300 ng/mL [facility] Urine color determinationOrd ered By: [place] May on 09-27-2024 Color (U) Yellow Yellow [facility] Urine beszr-1-tdjrlqsgangklq abinol (THC) measurementOrdered By: [place] May on 09-27-2024 Cannabinoids Screen Ql (U) Positive High < 50 ng/m L [facility] Urine leukocyte esterase det ection by dipstickOrdered By: [place] May on 09-27-2024 Leukocyte esterase Test strip Ql (U) 500 /ul High Negative [facility] Urine methylenedioxymethamph etamine (MDMA) measurementOrdered By: [place] May on 09-27-2024 MDMA (Ecstasy) Screen Negative < 500 ng/mL [facility] Urine pHOrdered By: [place] ceja on 09-27-2024 pH (U) 6.5 [pH] 5.0 - 8.0 [facility] Urine phencyclidine (PCP) de tectionOrdered By: [place] May on 09-27-2024 Phencyclidine Ql (U) Negative < 25 ng/mL [facility] Urine sediment bacteria coun t by microscopy (number/high power field)Ordered By: [place] May on 09-27-2024 Bacteria LM.HPF (Urine sed) [#/Area] 3 /[HPF] None Seen [facility] Urine specific gravity measu rementOrdered By: [place] May on 09-27-2024 Specific gravity (U) [Rel density] 1.010 1.002-1.03 0 [facility] Urobilinogen Ql (U)Ordered B y: [place] May on 09-27-2024 Urine Urobilinogen Normal mg/dl Normal [facility] White blood cell (WBC) count Ordered By: [place] May on 09-27-2024 WBC (Bld) [#/Vol] 7.3 10*3/uL 4.4-11.0 [facility] White blood cell countOrdere d By: [place] May on 09-27-2024 Urine WBC >100 SEEN /hpf 0-5 [facility] Alcohol, Blood (Medical)-Ser umon 04-19-2024 SERUM ETOH < 3.0 Normal [facility] Comment on above: Result Comment: The serum:whole blood ethanol ratio is approximately 1.14 and varies slightly with hematocrit. Medical Alcohol reference interval and critical value in non-tolerant individuals; 50 - 100 Impairment 100 Intoxication 100 - 250 Severe Poisoning 250 - 400 Deep/possible fatal coma Performed By: #### L 501.4020, L501.9100, L100.0100, L505.5000, L500.4050 ####[facility] [address] [place], [address] Bedside Glucoseon 04-19-2024 FINGERSTICK GLU 169 mg/dL High 74-106 [facility] Comment on above: Result Comment: VI ATKINSON OF PATIENT CARE PER NURSING PROTOCOL Performed By: #### L 501.080 #### [facility] [address] [place], [address] CBC W/Diff, Automatedon 03-22 Absolute Lymph 2.56 X10 3/uL Normal 0.83-4.51 [facility] Comment on above: Performed By: #### L 501.4020, L501.9100, L100.0100, L505.5000, L500.4050 ####[facility] [address] [place], [address] Absolute Neut 4.0 X10 3/uL Normal 2.0-7.7 [facility] Comment on above: Performed By: #### L 501.4020, L501.9100, L100.0100, L505.5000, L500.4050 ####[facility] [address] [place], [address] Basophils/100 WBC (Bld) 0.5 % Normal 0-1 [facility] Comment on above: Performed By: #### L 501.4020, L501.9100, L100.0100, L505.5000, L500.4050 ####[facility] [address] [place], [address] Eosinophils/100 WBC (Bld) 2.7 % Normal 0-5 [facility] Comment on above: Performed By: #### L 501.4020, L501.9100, L100.0100, L505.5000, L500.4050 ####[facility] [address] [place], [address] Erythrocyte distribution width (RBC) [Ratio] 19.1 % High 11.6-14.6 [facility] Comment on above: Performed By: #### L 501.4020, L501.9100, L100.0100, L505.5000, L500.4050 ####[facility] [address] [place], [address] Hematocrit (Bld) [Volume fraction] 46.3 % Normal 37-47 [facility] Comment on above: Performed By: #### L 501.4020, L501.9100, L100.0100, L505.5000, L500.4050 ####[facility] [address] [place], [address] Hemoglobin (Bld) [Mass/Vol] 13.9 g/dL Normal 12.0-15. 0 [facility] Comment on above: Performed By: #### L 501.4020, L501.9100, L100.0100, L505.5000, L500.4050 ####[facility] [address] [place], [address] IG% 0.100 Normal 0.0-0.9 [facility] Comment on above: Result Comment: IG% - Immature Granulocytes (promyelocytes, myelocytes and metamyelocytes) > 1% indicates that a LEFT SHIFT is Present. Performed By: #### L 501.4020, L501.9100, L100.0100, L505.5000, L500.4050 ####[facility] [address] [place], [address] Lymphocytes/100 WBC (Bld) 34.4 % Normal 19-41 [facility] Comment on above: Performed By: #### L 501.4020, L501.9100, L100.0100, L505.5000, L500.4050 ####[facility] [address] [place], [address] MCH (RBC) [Entitic mass] 25.6 pg Low 27.0-32.0 [facility] Comment on above: Performed By: #### L 501.4020, L501.9100, L100.0100, L505.5000, L500.4050 ####[facility] [address] [place], [address] MCHC (RBC) [Mass/Vol] 30.0 g/dL Low 32-36 [facility] Comment on above: Performed By: #### L 501.4020, L501.9100, L100.0100, L505.5000, L500.4050 ####[facility] [address] [place], [address] MCV (RBC) [Entitic vol] 85.1 fL Normal 81-99 [facility] Comment on above: Performed By: #### L 501.4020, L501.9100, L100.0100, L505.5000, L500.4050 ####[facility] [address] [place], [address] Monocytes/100 WBC (Bld) 7.9 % Normal 0-10 [facility] Comment on above: Performed By: #### L 501.4020, L501.9100, L100.0100, L505.5000, L500.4050 ####[facility] [address] [place], [address] Neutrophils/100 WBC (Bld) 54.4 % Normal 47-70 [facility] Comment on above: Performed By: #### L 501.4020, L501.9100, L100.0100, L505.5000, L500.4050 ####[facility] [address] [place], [address] Nucleated RBC (Bld) [#/Vol] 0 10*3/uL Normal 0-5 [facility] Comment on above: Performed By: #### L 501.4020, L501.9100, L100.0100, L505.5000, L500.4050 ####[facility] [address] [place], [address] Platelet mean volume (Bld) [Entitic vol] 11.0 fL Normal 6.2-12.0 [facility] Comment on above: Performed By: #### L 501.4020, L501.9100, L100.0100, L505.5000, L500.4050 ####[facility] [address] [place], [address] Platelets (Bld) [#/Vol] 390 10*3/uL Normal 150-450 [facility] Comment on above: Performed By: #### L 501.4020, L501.9100, L100.0100, L505.5000, L500.4050 ####[facility] [address] [place], [address] RBC (Bld) [#/Vol] 5.44 10*6/uL High 4.2-5.4 [facility] Comment on above: Performed By: #### L 501.4020, L501.9100, L100.0100, L505.5000, L500.4050 ####[facility] [address] [place], [address] RDW SD 58.3 fl High 35.1-43.9 [facility] Comment on above: Performed By: #### L 501.4020, L501.9100, L100.0100, L505.5000, L500.4050 ####[facility] [address] [place], [address] WBC (Bld) [#/Vol] 7.4 10*3/uL Normal 4.4-11.0 [facility] Comment on above: Performed By: #### L 501.4020, L501.9100, L100.0100, L505.5000, L500.4050 ####[facility] [address] [place], [address] Comprehensive Metabolic Prof aron 04-19-2024 Albumin [Mass/Vol] 4.0 g/dL Normal 3.2-5.0 [facility] Comment on above: Order Comment: 'TROP ' Serial specimen #1, #2 or #3: 1 Performed By: #### L 501.4020, L501.9100, L100.0100, L505.5000, L500.4050 ####[facility] [address] [place], [address] Albumin/Globulin [Mass ratio] 0.9 {ratio} Normal 0.9-2.4 [facility] Comment on above: Order Comment: 'TROP ' Serial specimen #1, #2 or #3: 1 Performed By: #### L 501.4020, L501.9100, L100.0100, L505.5000, L500.4050 ####[facility] [address] [place], [address] ALK P 95 U/L Normal 45-117 [facility] Comment on above: Order Comment: 'TROP ' Serial specimen #1, #2 or #3: 1 Performed By: #### L 501.4020, L501.9100, L100.0100, L505.5000, L500.4050 ####[facility] [address] [place], [address] ALT [Catalytic activity/Vol] 15 U/L Normal 13-56 [facility] Comment on above: Order Comment: 'TROP ' Serial specimen #1, #2 or #3: 1 Performed By: #### L 501.4020, L501.9100, L100.0100, L505.5000, L500.4050 ####[facility] [address] [place], [address] AST [Catalytic activity/Vol] 18 U/L Normal 15-37 [facility] Comment on above: Order Comment: 'TROP ' Serial specimen #1, #2 or #3: 1 Performed By: #### L 501.4020, L501.9100, L100.0100, L505.5000, L500.4050 ####[facility] [address] [place], [address] Bilirubin [Mass/Vol] 0.90 mg/dL Normal 0.20-1.00 [facility] Comment on above: Order Comment: 'TROP ' Serial specimen #1, #2 or #3: 1 Result Comment: For patients on eltrombopag therapy, use of Dimension [place] TBIL is not recommended. Performed By: #### L 501.4020, L501.9100, L100.0100, L505.5000, L500.4050 ####[facility] [address] [place], [address] BUN/CRE 15.0 RATIO Normal 10-20 [facility] Comment on above: Order Comment: 'TROP ' Serial specimen #1, #2 or #3: 1 Performed By: #### L 501.4020, L501.9100, L100.0100, L505.5000, L500.4050 ####[facility] [address] [place], [address] CA,Total 10.1 mg/dL Normal 8.5-10.1 [facility] Comment on above: Order Comment: 'TROP ' Serial specimen #1, #2 or #3: 1 Performed By: #### L 501.4020, L501.9100, L100.0100, L505.5000, L500.4050 ####[facility] [address] [place], [address] Chloride [Moles/Vol] 107 mmol/L Normal 98-107 [facility] Comment on above: Order Comment: 'TROP ' Serial specimen #1, #2 or #3: 1 Performed By: #### L 501.4020, L501.9100, L100.0100, L505.5000, L500.4050 ####[facility] [address] [place], [address] CO2 [Moles/Vol] 28.0 mmol/L Normal 21.0-32.0 [facility] Comment on above: Order Comment: 'TROP ' Serial specimen #1, #2 or #3: 1 Performed By: #### L 501.4020, L501.9100, L100.0100, L505.5000, L500.4050 ####[facility] [address] [place], [address] Creatinine [Mass/Vol] 1.13 mg/dL High 0.55-1.02 [facility] Comment on above: Order Comment: 'TROP ' Serial specimen #1, #2 or #3: 1 Result Comment: The validity of the calculated GFR GFRAA in patients over 70 years has not been determined. Clinical correlation is essential. Performed By: #### L 501.4020, L501.9100, L100.0100, L505.5000, L500.4050 ####[facility] [address] [place], [address] ECRCL 41.99 ml/min Normal [facility] Comment on above: Order Comment: 'TROP ' Serial specimen #1, #2 or #3: 1 Performed By: #### L 501.4020, L501.9100, L100.0100, L505.5000, L500.4050 ####[facility] [address] [place], [address] EST GFR - AA 62 mL/min Normal >60 [facility] Comment on above: Order Comment: 'TROP ' Serial specimen #1, #2 or #3: 1 Result Comment: Afri can Irish GFR Calc Performed By: #### L 501.4020, L501.9100, L100.0100, L505.5000, L500.4050 ####[facility] [address] [place], [address] GAP 5 Normal 5-15 [facility] Comment on above: Order Comment: 'TROP ' Serial specimen #1, #2 or #3: 1 Performed By: #### L 501.4020, L501.9100, L100.0100, L505.5000, L500.4050 ####[facility] [address] [place], [address] GFR/1.73 sq M.predicted among non-blacks MDRD (S/P/Bld) [Vol rate/Area] 51 mL/min/{1.73_m2} Low >60 [facility] Comment on above: Order Comment: 'TROP ' Serial specimen #1, #2 or #3: 1 Result Comment: Non- GFR Calc Performed By: #### L 501.4020, L501.9100, L100.0100, L505.5000, L500.4050 ####[facility] [address] [place], [address] Globulin (S) [Mass/Vol] 4.4 g/dL High 2.2-4.2 [facility] Comment on above: Order Comment: 'TROP ' Serial specimen #1, #2 or #3: 1 Performed By: #### L 501.4020, L501.9100, L100.0100, L505.5000, L500.4050 ####[facility] [address] [place], [address] Glucose [Mass/Vol] 86 mg/dL Normal 74-106 [facility] Comment on above: Order Comment: 'TROP ' Serial specimen #1, #2 or #3: 1 Performed By: #### L 501.4020, L501.9100, L100.0100, L505.5000, L500.4050 ####[facility] [address] [place], [address] Potassium [Moles/Vol] 3.1 mmol/L Low 3.5-5.1 [facility] Comment on above: Order Comment: 'TROP ' Serial specimen #1, #2 or #3: 1 Performed By: #### L 501.4020, L501.9100, L100.0100, L505.5000, L500.4050 ####[facility] [address] [place], [address] Sodium [Moles/Vol] 140 mmol/L Normal 136-145 [facility] Comment on above: Order Comment: 'TROP ' Serial specimen #1, #2 or #3: 1 Performed By: #### L 501.4020, L501.9100, L100.0100, L505.5000, L500.4050 ####[facility] [address] [place], [address] T PROT 8.4 g/dL High 6.4-8.2 [facility] Comment on above: Order Comment: 'TROP ' Serial specimen #1, #2 or #3: 1 Performed By: #### L 501.4020, L501.9100, L100.0100, L505.5000, L500.4050 ####[facility] [address] [place], [address] Urea nitrogen [Mass/Vol] 17 mg/dL Normal 7-18 [facility] Comment on above: Order Comment: 'TROP ' Serial specimen #1, #2 or #3: 1 Performed By: #### L 501.4020, L501.9100, L100.0100, L505.5000, L500.4050 ####[facility] [address] [place], [address] L501.4020on 04-19-2024 TROPONIN-I HS 30 pg/mL Normal 3.0-54.0 [facility] Comment on above: Order Comment: 'TROP ' Serial specimen #1, #2 or #3: 1 Result Comment: Plea se Note: New Test Units and Gender Specific Reference Ranges. For more information see Policy Stat Procedure [place] High Sensitivity Troponin (TNIH) and attachments. Performed By: #### L 501.4020, L501.9100, L100.0100, L505.5000, L500.4050 ####[facility] [address] [place], [address] Urine Drug Screen (VISTA)on 04-19-2024 AMPHETAMINES Negative Normal <1000 ng/mL [facility] Comment on above: Performed By: #### L 501.4020, L501.9100, L100.0100, L505.5000, L500.4050 ####[facility] [address] [place], [address] BARBITIURATES Negative Normal < 200 ng/mL [facility] Comment on above: Performed By: #### L 501.4020, L501.9100, L100.0100, L505.5000, L500.4050 ####[facility] [address] [place], [address] BENZODIAZIPINE Negative Normal < 200 ng/mL [facility] Comment on above: Performed By: #### L 501.4020, L501.9100, L100.0100, L505.5000, L500.4050 ####[facility] [address] [place], [address] COCAINE Negative Normal < 300 ng/mL [facility] Comment on above: Performed By: #### L 501.4020, L501.9100, L100.0100, L505.5000, L500.4050 ####[facility] [address] [place], [address] ECSTACY Negative Normal < 500 ng/mL [facility] Comment on above: Performed By: #### L 501.4020, L501.9100, L100.0100, L505.5000, L500.4050 ####[facility] [address] [place], [address] METHADONE Negative Normal < 300 ng/mL [facility] Comment on above: Performed By: #### L 501.4020, L501.9100, L100.0100, L505.5000, L500.4050 ####[facility] [address] [place], [address] OPIATES Negative Normal < 300 ng/mL [facility] Comment on above: Performed By: #### L 501.4020, L501.9100, L100.0100, L505.5000, L500.4050 ####[facility] [address] [place], [address] PCP Negative Normal < 25 ng/mL [facility] Comment on above: Performed By: #### L 501.4020, L501.9100, L100.0100, L505.5000, L500.4050 ####[facility] [address] [place], [address] THC Positive Abnormal < 50 ng/mL [facility] Comment on above: Performed By: #### L 501.4020, L501.9100, L100.0100, L505.5000, L500.4050 ####[facility] [address] [place], [address] VISTA UDS PH 5 Normal [facility] Comment on above: Performed By: #### L 501.4020, L501.9100, L100.0100, L505.5000, L500.4050 ####[facility] [address] [place], [address] 12 Lead EKGon 04-18-2024 12 Lead EKG [facility] [address] [address] 12 Lead EKG 04/19/24 0035 MR#: [id number] Acct: [id number] Name: ADARSH WADSWORTH Rep #: [id number] : 1955 69 From: Jacklyn Burton MD Attending Dr: Status: DEP ER Ordering Dr: Alex Jimenez MD Date: 04/18/24 Location: ED Sex: F C Admitted: Test Reason : MHC Blood Pressure : / mmHG Vent. Rate : 069 BPM Atrial Rate : 069 BPM P-R Int : 104 ms QRS Dur : 076 ms QT Int : 414 ms P-R-T Axes : -26 016 072 degrees QTc Int : 443 ms Sinus rhythm with sinus arrhythmia with short OK with Premature ventricular complexes or Fusion complexes Nonspecific ST abnormality Abnormal ECG Confirmed by JACKLYN BURTON ([id number]), newspaper or periodical editor ZULMA COLLAZO ([id number]) on 04/22/2024 8:21:03 AM Referred By: Confirmed By:JACKLYN BURTON 04/22/24820 Date Jacklyn Burton MD CC: Dr. Alex Jimenez MD; Dr. Dede Giles MD Signed Normal [facility] Emergency Department Summary on 04-18-2024 Emergency Department Summary [facility] Medical Records Department [address] [address] Emergency Department Summary 04/18/24 MR#: [id number] Acct: [id number] Name: ADARSH WADSWORTH Rep #: [id number] : 1955 69 From: Alex Jimenez MD PCP: Dr. Dede Giles MD Status:REG ER Location: ED HPI HPI - Psych History of Present Illness Chief Complaint: Mental Health Informant: patient Narrative Narrative: 69-year-old with suicide ideation wanting to stab herself in the stomach. She states she had a knife earlier and she was trying to do this and somebody got it away from her, it is very difficult to get a good history from her she is very angry and verbally hostile/aggressive, she goes from 1 topic to the other. When asked about blood pressure medicines she states she is supposed to be on them but has not had them for a year and list multiple reasons about whose fault it is why she is not on them. She cannot tell me any specifics. She states she sees Dr. Azul with psychiatry for her anxiety, depression, bipolar disorder but has not seen her in over a year because my daughter feels that she has to take her to work every morning instead of taking me to the doctor. PFSH [facility] Medical History Bilateral primary osteoarthritis of knee Painful lumpy right breast Vomiting Abdominal pain Health care maintenance Neck pain Intertriginous dermatitis associated with moisture Suprapubic pain Preventative health care CKD (chronic kidney disease) Allergic rhinitis Non-smoker Chronic bronchitis Herpes History of gallstones Cataracts, bilateral IBS (irritable bowel syndrome) History of pneumonia Osteoarthritis Hypertension Seasonal allergies Gout Diabetes Depression with anxiety Home Medications ???Medication ???Instructions ???Recorded ???Last Taken ???Type citalopram 40 mg tablet 40 mg PO DAILY ANXIETY 01/24/19 Unknown History vit A 7,160 unit-vit C 113 mg-vit 1 tab PO BID SUPPLEMENT 01/24/19 Unknown History E 100 qurk-camx-zmjckl tablet quetiapine 400 mg tablet 400 mg PO QHS SLEEP 06/24/19 Unknown History quetiapine 50 mg tablet 50 mg PO QHS SLEEP 06/24/19 Unknown History bismuth subsalicylate 262 mg 2 tab PO Q30-60M PRN 02/15/21 Unknown History chewable tablet (Pepto-Bismol) ipratropium bromide 21 mcg (0.03 2 spray intranasal BID-TID PRN 02/15/21 Unknown Rx %) nasal spray allergy symptoms #30 mL lisinopril 20 mg tablet 20 mg PO DAILY BP #90 tabs 02/15/21 Unknown Rx potassium chloride 20 mEq 20 meq .Route .COMPLEX SUPPLEMENT 02/15/21 Unknown Rx tablet,extended release(part/cryst) #90 tabs quetiapine 100 mg tablet 100 mg PO 02/15/21 Unknown History quetiapine 25 mg tablet 25 mg PO 02/15/21 Unknown History nystatin 100,000 unit/gram topical 1 applic topical TID #60 grams 05/12/21 Unknown Rx powder clotrimazole-betametha sone 1 1 applic topical BID 2 weeks #45 07/05/21 Unknown Rx %-0.05 % topical cream grams leg brace (LUDWIN Knee Brace) #2 ea 10/19/21 Unknown Rx aspirin 81 mg chewable tablet 81 mg PO DAILY@0800 BLOOD THINNER 01/11/22 Unknown Rx #90 tabs rosuvastatin 10 mg tablet 10 mg PO DAILY #90 tabs 03/10/22 Unknown Rx sumatriptan succinate 25 mg tablet 25 mg PO ONCE PRN Headache #14 tabs 05/16/22 Unknown Rx (Imitrex) valacyclovir 500 mg tablet 500 mg PO DAILY HERPES #90 tabs 05/17/22 Unknown Rx amlodipine 10 mg tablet 10 mg PO DAILY BP #90 tabs 08/29/22 Unknown Rx pantoprazole 40 mg tablet,delayed 40 mg PO DAILY #90 tabs 11/27/22 Unknown Rx release (Protonix) oxybutynin chloride 15 mg See Rx Instructions .Route 03/02/23 Unknown Rx tablet,extended release 24 hr .COMPLEX #60 tabs cetirizine 10 mg tablet See Rx Instructions .Route 03/29/23 Unknown Rx .COMPLEX #30 tabs ondansetron 4 mg disintegrating 4 mg PO Q8H PRN PRN Nausea #10 tabs 10/07/23 Unknown Rx tablet Allergy/AdvReac Type Severity Reaction Status Date / Time codeine AdvReac Nausea/Vom/ Verified 10/06/23 14:01 Diarrhea Family History Other Alcoholism Breast cancer Depression Diabetes Heart disease Hypertension Surgical History History of hysterectomy Hx of bladder repair surgery Social History Smoking Status: Never smoker alcohol intake: current alcohol intake frequency: holidays/special occasions only substance use type: marijuana caffeine: Yes what type of physical activity do you participate in: none seatbelt use: always do you feel safe at home: Yes additional social history: retired ROS ROS ED Constitutional Constitutional ED: Denies chills or fever(s) (more content not included)... Normal [facility] Absolute lymphocyte countOrd ered By: Sera Maldonado on 10-06-2023 Lymphocytes Auto (Unsp spec) [#/Vol] 0.40 10*3/uL 0.83-4.51 [facility] Amorphous sediment detection in urine sediment by light microscopyOrdered By: Sera Maldonado on 10-06-2023 Amorphous sediment LM Ql (Urine sed) 1+ [facility] Automated lymphocyte count a s percentage of total leukocytesOrdered By: Sera Maldonado on 10-06-2023 Lymphocytes/100 WBC Auto (Unsp spec) 7.7 % 19-41 [facility] Basophil percentageOrdered B y: Sera Maldonado on 10-06-2023 Basophil percentage 0-5 SEEN /hpf 0-5 [facility] Basophils/100 WBC (Bld) 0.6 % 0-1 [facility] Bilirubin [Mass/Vol] 0.60 mg/dL 0.20-1.00 [facility] Comment on above: For patients on eltr ombopag therapy, use of Dimension [place] TBIL is not recommended. Chloride [Moles/Vol] 105 mmol/L 98-107 [facility] Eosinophils/100 WBC (Bld) 0.2 % 0-5 [facility] Glucose [Mass/Vol] 113 mg/dL 74-106 [facility] Comment on above: Fasting Glucose resu lt from 100 to 125 mg/dL suggests IMPAIRED HOMEOSTASIS per A.D.A. criteria. Hemoglobin (Bld) [Mass/Vol] 7.8 g/dL 12.0-15. 0 [facility] Monocytes/100 WBC (Bld) 8.7 % 0-10 [facility] Neutrophils (Bld) [#/Vol] 4.3 10*3/uL 2.0-7.7 [facility] Neutrophils/100 WBC (Bld) 82.2 % 47-70 [facility] Potassium [Moles/Vol] 3.4 mmol/L 3.5-5.1 [facility] Comment on above: Slight Hemolysis, Re sult may be falsely increased. Protein [Mass/Vol] 7.2 g/dL 6.4-8.2 [facility] Sodium [Moles/Vol] 138 mmol/L 136-145 [facility] WBC (Bld) [#/Vol] 5.2 10*3/uL 4.4-11.0 [facility] Bilirubin Test strip Ql (U)O rdered By: Sera Maldonado on 10-06-2023 Bilirubin Ql (U) Negative Negative [facility] Blood manual differential co mment interpretation (narrative result)Ordered By: Sera Maldonado on 10-06-2023 Manual differential comment Steven (Bld) [Interp] SEE COMMENT [facility] Comment on above: LYMPHOPENIA NOTED Blood platelet adequacy dete ction by light microscopyOrdered By: Sera Maldonado on 10-06-2023 Platelets LM Ql (Bld) SLT INC ADEQ [facility] Determination of erythrocyte mean corpuscular volume (MCV)Ordered By: Sera Maldonado on 10-06-2023 MCV (RBC) [Entitic vol] 63.9 fL 81-99 [facility] Erythrocyte distribution wid th ratioOrdered By: Sera Maldonado on 10-06-2023 Erythrocyte distribution width (RBC) [Ratio] 20.2 % 11.6-14.6 [facility] Erythrocyte distribution wid th standard deviationOrdered By: Sera Maldonado on 10-06-2023 Erythrocyte distribution width (RBC) [Entitic vol] 44.7 fL 35.1-43.9 [facility] Hematocrit Auto (Bld) [Volum e fraction]Ordered By: Sera Maldonado on 10-06-2023 Hematocrit (Bld) [Volume fraction] 29.9 % 37-47 [facility] Hypochromatic red blood cell detectionOrdered By: Sera Maldonado on 10-06-2023 Hypochromia Ql (Bld) 1+ [facility] Immature granulocytes/100 WB C Auto (Bld)Ordered By: Sera Maldonado on 10-06-2023 Immature granulocytes/100 WBC (Bld) 0.600 % 0.0-0.9 [facility] Comment on above: IG% - Immature Granu locytes (promyelocytes, myelocytes and metamyelocytes) > 1% indicates that a LEFT SHIFT is Present. Ketones Test strip Ql (U)Ord ered By: Sera Maldonado on 10-06-2023 Ketones Ql (U) 5 mg/dl Negative [facility] Laboratory - Chemistry and C hemistry - challengeOrdered By: Sera Madlonado on 10-06-2023 Albumin/Globulin [Mass ratio] 0.9 {ratio} 0.9-2.4 [facility] ALP [Catalytic activity/Vol] 173 U/L 45-117 [facility] ALT [Catalytic activity/Vol] 69 U/L 13-56 [facility] CO2 [Moles/Vol] 27.0 mmol/L 21.0-32.0 [facility] Globulin (S) [Mass/Vol] 3.7 g/dL 2.2-4.2 [facility] Lipase [Catalytic activity/Vol] 79 U/L 13-75 [facility] Comment on above: Please note:LIPASE r evised reference range effective 22. New Lipase methodology. Expected to produce lower values than the previous assay method. NEW Reference Range: 13 - 75 U/L Urea nitrogen/Creatinine [Mass ratio] 11.4 mg/mg 10-20 [facility] Laboratory - Hematology and Cell countsOrdered By: Sera Maldonado on 10-06-2023 Anisocytosis Ql (Bld) 1+ [facility] MCH (RBC) [Entitic mass] 16.7 pg 27.0-32.0 [facility] MCHC (RBC) [Mass/Vol] 26.1 g/dL 32-36 [facility] Nucleated RBC/100 WBC (Bld) [Ratio] 0 % 0-5 [facility] Platelet mean volume (Bld) [Entitic vol] 9.7 fL 6.2-12.0 [facility] Platelets (Bld) [#/Vol] 423 10*3/uL 150-450 [facility] Laboratory - Microbiology an d Antimicrobial susceptibilityOrdered By: Sera Maldonado on 10-06-2023 SARS-CoV-2 (COVID-19) RNA PONCE+probe Ql (Unsp spec) Influenzae A [facility] Mucus LM Ql (Urine sed)Order ed By: Sera Maldonado on 10-06-2023 Mucus Ql (Urine sed) 0 SEEN /hpf [facility] Nitrite Test strip Ql (U)Ord ered By: Sera Maldonado on 10-06-2023 Nitrite Ql (U) Negative Negative [facility] No Panel InformationOrdered By: Sera Maldonado on 10-06-2023 Urine RBC 0 SEEN /hpf 0-5 [facility] Estimated GFR (MDRD) Amer 52 mL/min >60 [facility] Comment on above: GFR Calc Estimated GFR (MDRD) Non-Af Amer 43 mL/min >60 [facility] Comment on above: Non- GFR Calc Ovalocyte detectionOrdered B y: Sera Maldonado on 10-06-2023 Ovalocytes LM Ql (Bld) RARE [facility] Protein Test strip Ql (U)Ord ered By: Sera Maldonado on 10-06-2023 Protein Ql (U) 100 mg/dl Negative [facility] RBC Auto (Bld) [#/Vol]Ordere d By: Sera Maldonado on 10-06-2023 RBC (Bld) [#/Vol] 4.68 10*6/uL 4.2-5.4 [facility] RBC morphologyOrdered By: Sabrina Maldonado on 10-06-2023 RBC morphology finding Nom (Bld) N CHROM NORMAL NORM C&C [facility] Serum or plasma calcium raeann urement (mass/volume)Ordered By: Sera Maldonado on 10-06-2023 Calcium [Mass/Vol] 9.7 mg/dL 8.5-10.1 [facility] Serum or plasma creatinine m easurement (mass/volume)Ordered By: Sera Maldonado on 10-06-2023 Creatinine [Mass/Vol] 1.32 mg/dL 0.55-1.02 [facility] Comment on above: The validity of the calculated GFR & GFRAA in patients over 70 years has not been determined. Clinical correlation is essential. Serum or plasma urea nitroge n measurement (mass/volume)Ordered By: Sera Maldonado on 10-06-2023 Urea nitrogen [Mass/Vol] 15 mg/dL 7-18 [facility] Squamous epithelial cells de tection in urine sediment by light microscopyOrdered By: Sera Maldonado on 10-06-2023 Epithelial cells.squamous LM Ql (Urine sed) 0-5 SEEN /hpf 5-10 [facility] Thin prep Papanicolaou smear with manual screeningOrdered By: Sera Maldonado on 10-06-2023 Thin prep Papanicolaou smear with manual screening 1+ [facility] Thin prep Papanicolaou smear with manual screening 3.5 g/dL 3.2-5.0 [facility] Thin prep Papanicolaou smear with manual screening 178 U/L 15-37 [facility] Comment on above: Slight Hemolysis, Re sult may be falsely increased. Thin prep Papanicolaou smear with manual screening 6 5-15 [facility] Urine blood detectionOrdered By: Sera Maldonado on 10-06-2023 RBC Ql (U) 10 /ul Negative [facility] Urine clarityOrdered By: Walker Maldonado on 10-06-2023 Clarity (U) Sl. Cloudy Clear [facility] Urine color determinationOrd ered By: Sera Maldonado on 10-06-2023 Color (U) Yellow Yellow [facility] Urine glucose detectionOrder ed By: Sera Maldonaod on 10-06-2023 Glucose Ql (U) Normal mg/dl Normal [facility] Urine leukocyte esterase det ection by dipstickOrdered By: Sera Maldonado on 10-06-2023 Leukocyte esterase Test strip Ql (U) Negative Negative [facility] Urine pHOrdered By: Nancy Maldonado on 10-06-2023 pH (U) 5.0 [pH] 5.0 - 8.0 [facility] Urine sediment bacteria coun t by microscopy (number/high power field)Ordered By: Sera Maldonado on 10-06-2023 Bacteria LM.HPF (Urine sed) [#/Area] 0 /[HPF] None Seen [facility] Urine specific gravity measu rementOrdered By: Sera Maldonado on 10-06-2023 Specific gravity (U) [Rel density] 1.025 1.002-1.03 0 [facility] Urine urobilinogen measureme ntOrdered By: Sera Maldonado on 10-06-2023 Urobilinogen Ql (U) Normal mg/dl Normal [facility] Absolute lymphocyte counton 05-16-2022 Lymphocytes Auto (Unsp spec) [#/Vol] 1.11 10*3/uL 0.83-4.51 [facility] Work Phone: Basophil percentageon 2021 Basophils/100 WBC (Bld) 0.4 % 0-1 [facility] Work Phone: Bilirubin [Mass/Vol] 0.30 mg/dL 0.20-1.00 [facility] Work Phone: Comment on above: For patients on eltr ombopag therapy, use of Dimension [place] TBIL is not recommended. Chloride [Moles/Vol] 108 mmol/L 98-107 [facility] Work Phone: Cholesterol [Mass/Vol] 116 mg/dL <200 [facility] Work Phone: Comment on above: <200 mg/dL Desirable 200-240 mg/dL Borderline >240 mg/dL High Risk Eosinophils/100 WBC (Bld) 4.3 % 0-5 [facility] Work Phone: Glucose [Mass/Vol] 102 mg/dL 74-106 [facility] Work Phone: [phone] Comment on above: Fasting Glucose resu lt from 100 to 125 mg/dL suggests IMPAIRED HOMEOSTASIS per A.D.A. criteria. Neutrophils (Bld) [#/Vol] 3.8 10*3/uL 2.0-7.7 [facility] Work Phone: Neutrophils/100 WBC (Bld) 67.4 % 47-70 [facility] Work Phone: Potassium [Moles/Vol] 4.2 mmol/L 3.5-5.1 [facility] Work Phone: Protein [Mass/Vol] 7.5 g/dL 6.4-8.2 [facility] Work Phone: Sodium [Moles/Vol] 140 mmol/L 136-145 [facility] Work Phone: Triglyceride [Mass/Vol] 123 mg/dL <199 [facility] Work Phone: Comment on above: The drugs N-Acetylcy steine and Metamizole may falsely depress this assay.Serum Triglycerides Reference Interval Normal <150 mg/dL Borderline high 150 - 199 mg/dL High 200 - 499 mg/dL Very High > or = 500 mg/dL WBC (Bld) [#/Vol] 5.6 10*3/uL 4.4-11.0 [facility] Work Phone: Blood erythrocytes count (nu mber/volume)on 05-16-2022 RBC (Bld) [#/Vol] 4.06 10*6/uL 4.2-5.4 [facility] Work Phone: Blood hemoglobin measurement (mass/volume)on 05-16-2022 Hemoglobin (Bld) [Mass/Vol] 12.6 g/dL 12.0-15. 0 [facility] Work Phone: Blood lymphocytes/100 leukoc yteson 05-16-2022 Lymphocytes/100 WBC (Bld) 19.9 % 19-41 [facility] Work Phone: Blood monocytes/100 leukocyt eson 05-16-2022 Monocytes/100 WBC (Bld) 7.5 % 0-10 [facility] Work Phone: Blood platelet mean volumeon 05-16-2022 Platelet mean volume (Bld) [Entitic vol] 10.0 fL 6.2-12.0 [facility] Work Phone: Determination of erythrocyte mean corpuscular volume (MCV)on 05-16-2022 MCV (RBC) [Entitic vol] 97.0 fL 81-99 [facility] Work Phone: Hematocrit Auto (Bld) [Volum e fraction]on 05-16-2022 Hematocrit (Bld) [Volume fraction] 39.4 % 37-47 [facility] Work Phone: Laboratory - Chemistry and C hemistry - challengeon 05-16-2022 ALP [Catalytic activity/Vol] 87 U/L 45-117 [facility] Work Phone: [phone] ALT [Catalytic activity/Vol] 19 U/L 13-56 [facility] Work Phone: CO2 [Moles/Vol] 25.0 mmol/L 21.0-32.0 [facility] Work Phone: Globulin (S) [Mass/Vol] 4.0 g/dL 2.2-4.2 [facility] Work Phone: Urea nitrogen/Creatinine [Mass ratio] 22.6 mg/mg 10-20 [facility] Work Phone: Laboratory - Hematology and Cell countson 05-16-2022 Erythrocyte distribution width (RBC) [Entitic vol] 49.7 fL 35.1-43.9 [facility] Work Phone: Erythrocyte distribution width (RBC) [Ratio] 13.8 % 11.6-14.6 [facility] Work Phone: [phone] Immature granulocytes/100 WBC (Bld) 0.500 % 0.0-0.9 [facility] Work Phone: Comment on above: IG% - Immature Granu locytes (promyelocytes, myelocytes and metamyelocytes) > 1% indicates that a LEFT SHIFT is Present. MCH (RBC) [Entitic mass] 31.0 pg 27.0-32.0 [facility] Work Phone: [phone] Nucleated RBC/100 WBC (Bld) [Ratio] 0 % 0-5 [facility] Work Phone: [phone] MCHC Auto (RBC) [Mass/Vol]on 05-16-2022 MCHC (RBC) [Mass/Vol] 32.0 g/dL 32-36 [facility] Work Phone: No Panel Informationon 05-16 Estimated GFR (MDRD) Amer 67 mL/min >60 [facility] Work Phone: Comment on above: GFR Calc Estimated GFR (MDRD) Non-Af Amer 55 mL/min >60 [facility] Work Phone: Comment on above: Non- GFR Calc Platelets bldon 05-16-2022 Platelets (Bld) [#/Vol] 268 10*3/uL 150-450 [facility] Work Phone: Serum or plasma albumin raeann urement (mass/volume)on 05-16-2022 Albumin [Mass/Vol] 3.5 g/dL 3.2-5.0 [facility] Work Phone: Serum or plasma albumin/glob ulin mass ratioon 05-16-2022 Albumin/Globulin [Mass ratio] 0.9 {ratio} 0.9-2.4 [facility] Work Phone: Serum or plasma calcium raeann urement (mass/volume)on 05-16-2022 Calcium [Mass/Vol] 9.5 mg/dL 8.5-10.1 [facility] Work Phone: Serum or plasma cholesterol in HDL measurement (mass/volume)on 05-16-2022 Cholesterol in HDL [Mass/Vol] 56 mg/dL >40 [facility] Work Phone: Comment on above: The drugs N-Acetylcy steine and Metamizole may falsely depress this assay. Reference Range HDL <40 mg/dL Low HDL Cholesterol HDL >or= 60 mg/dL High HDL Cholesterol Serum or plasma cholesterol in VLDL measurement (mass/volume)on 05-16-2022 Cholesterol in VLDL [Mass/Vol] 25 mg/dL 5-40 [facility] Work Phone: Serum or plasma creatinine m easurement (mass/volume)on 05-16-2022 Creatinine [Mass/Vol] 1.06 mg/dL 0.55-1.02 [facility] Work Phone: Comment on above: The validity of the calculated GFR & GFRAA in patients over 70 years has not been determined. Clinical correlation is essential. Serum or plasma low density lipoprotein (LDL) cholesterol measurement (mass/volume)on 05-16-2022 Cholesterol in LDL [Mass/Vol] 35 mg/dL 0-130 [facility] Work Phone: Serum or plasma urea nitroge n measurement (mass/volume)on 05-16-2022 Urea nitrogen [Mass/Vol] 24 mg/dL 7-18 [facility] Work Phone: Thin prep Papanicolaou smear with manual screeningon 05-16-2022 Thin prep Papanicolaou smear with manual screening 16 U/L 15-37 [facility] Work Phone: Thin prep Papanicolaou smear with manual screening 7 5-15 [facility] Work Phone: [id number] 10-07-2021 Date of Onset [id number] Invalid Interpretation Code [facility] ([place] Comment on above: Performed By: #### C OVD19 #### [place] [address] Employed in Healthcare No [facility] ([place] Comment on above: Performed By: #### C OVD19 #### [place] [address] First Test No [facility] ([place] Comment on above: Performed By: #### C OVD19 #### [place] [id number] [place], [place] [address] Hospitalized No [facility] ([place] Comment on above: Performed By: #### C OVD19 #### [facility] [address] [place], [place] [address] ICU No [facility] ([place] Comment on above: Performed By: #### C OVD19 #### [place] [id number] [place], [place] [address] Not [facility] ([place] Comment on above: Performed By: #### C OVD19 #### [address] [address] Resides in Congregate Care Setting No Normal [facility] ([place] Comment on above: Performed By: #### C OVD19 #### [place] [address] SARS-CoV-2 (COVID-19) RNA PONCE+probe Ql (Unsp spec) Negative Normal Negative [facility] ([place] Comment on above: Performed By: #### C OVD19 #### [place] [address] SARS-CoV-2 (COVID-19) RNA PONCE+probe Ql (Unsp spec) Normal [facility] ([place] Comment on above: Result Comment: Nega tive results do not preclude SARS-CoV-2 infection and should not be used as the sole basis for patient management decisions. Negative results must be combined with clinical observations, patient history, and epidemiological information. There is a risk of false negative values resulting from improperly collected, transported, or handled specimens. There is a risk of false negative values due to the presence of sequence variants in the pathogen targets of the assay, procedural errors, amplification inhibitors in specimens, or inadequate numbers of organisms for amplification. LEONEL SARS-CoV-2 Assay is a Real-Time reverse-transcriptase polymerase chain reaction (RT-PCR) based qualitative in vitro diagnostic test intended for the qualitative detection of nucleic acid from the SARS-CoV-2 in nasopharyngeal swab specimens collected from individuals suspected of COVID-19 by their healthcare provider. Testing is limited to laboratories certified under the Clinical Laboratory Improvement Amendments of 1988 (CLIA), 42 U.S.C. ?263a, to perform moderate and high complexity tests. COVID-19 Int Performed By: #### C OVD19 #### [place] [address] Symptomatic as Defined by CDC No Normal [facility] ([place] Comment on above: Performed By: #### C OVD19 #### [place] [address] .Auto Diffon 10-06-2021 Basophil, Absolute 0.00 10 3/mcL Normal 0.00-0.19 [facility] ([place]) Comment on above: Performed By: #### C BC, ADIFF, ANEU, LIP, CMP, GFR #### [address] [address] Basophils/100 WBC (Bld) 0.5 % Normal 0.0-2.5 [facility] ([place]) Comment on above: Performed By: #### C BC, ADIFF, ANEU, LIP, CMP, GFR #### [address] [address] Eosinophil, Absolute 0.20 10 3/mcL Normal 0.00-0.40 A [facility] ([place]) Comment on above: Performed By: #### C BC, ADIFF, ANEU, LIP, CMP, GFR #### [address] [address] Eosinophils/100 WBC (Bld) 3.9 % Normal 0.0-7.0 [facility] ([place] Comment on above: Performed By: #### C BC, ADIFF, ANEU, LIP, CMP, GFR #### [address] [address] Lymphocyte, Absolute 0.70 10 3/mcL Low 0.77-3.85 [facility] ([place]) Comment on above: Performed By: #### C BC, ADIFF, ANEU, LIP, CMP, GFR #### [address] [address] Lymphocytes/100 WBC (Bld) 14.6 % Normal 10.0-50.0 [facility] ([place] Comment on above: Performed By: #### C BC, ADIFF, ANEU, LIP, CMP, GFR #### [address] [address] Monocyte, Absolute 0.50 10 3/mcL Normal 0.15-1.00 [facility] ([place] Comment on above: Performed By: #### C BC, ADIFF, ANEU, LIP, CMP, GFR #### [address] [address] Monocytes/100 WBC (Bld) 11.6 % Normal 1.7-13.0 [facility] ([place]) Comment on above: Performed By: #### C BC, ADIFF, ANEU, LIP, CMP, GFR #### [address] [address] Neutrophils/100 WBC (Bld) 69.4 % Normal 37.0-80.0 [facility] ([place] Comment on above: Performed By: #### C BC, ADIFF, ANEU, LIP, CMP, GFR #### [address] [address] .GFRon 10-06-2021 GFR Non- 42 ml/min/1.73sqm Normal [facility] ([place] Comment on above: Result Comment: GFR Population mean for , Non- Americans Ages 20-29 = 116 mL/min/1.73 sq.m. Ages 30-39 = 107 mL/min/1.73 sq.m. Ages 40-49 = 99 mL/min/1.73 sq.m. Ages 50-59 = 93 mL/min/1.73 sq.m. Ages 60-69 = 85 mL/min/1.73 sq.m. Ages 70+ = 75 mL/min/1.73 sq.m. Chronic Kidney Disease: Less than 60 mL/min/1.73 square meters End Stage Renal Disease: Less than 15 mL/min/1.73 square meters Performed By: #### C BC, ADIFF, ANEU, LIP, CMP, GFR #### [address] [address] GFR 51 ml/min/1.73sqm Normal [facility] ([place]) Comment on above: Result Comment: GFR Population mean for , Non- Americans Ages 20-29 = 116 mL/min/1.73 sq.m. Ages 30-39 = 107 mL/min/1.73 sq.m. Ages 40-49 = 99 mL/min/1.73 sq.m. Ages 50-59 = 93 mL/min/1.73 sq.m. Ages 60-69 = 85 mL/min/1.73 sq.m. Ages 70+ = 75 mL/min/1.73 sq.m. Chronic Kidney Disease: Less than 60 mL/min/1.73 square meters End Stage Renal Disease: Less than 15 mL/min/1.73 square meters Performed By: #### C BC, ADIFF, ANEU, LIP, CMP, GFR #### [place] [address] .NEUABSon 10-06-2021 Neutrophil, Absolute 3.20 10 3/mcL Normal 2.85-6.16 A [facility] ([place]) Comment on above: Performed By: #### C BC, ADIFF, ANEU, LIP, CMP, GFR #### [place] [address] .Urinalysis Microscopic (AO) on 10-06-[address] Ab[address] [facility] ([place] Comment on above: Performed By: #### U AMICAO, UA #### [place] [address] UA RBC None Seen Normal None Seen [facility] ([place] Comment on above: Performed By: #### U AMICAO, UA #### [place] [address] UA Squam Epithelial 0-5 Abnormal None Seen [facility] ([place]) Comment on above: Performed By: #### U AMICAO, UA #### [place] [address] UA WBC 0-[address] [facility] ([place] Comment on above: Performed By: #### U AMICAO, UA #### [place] [address] CBCon 10-06-2021 Erythrocyte distribution width (RBC) [Ratio] 14.7 % High 11.5-14.5 [facility] ([place] Comment on above: Performed By: #### C BC, ADIFF, ANEU, LIP, CMP, GFR #### [place] [address] Hematocrit (Bld) [Volume fraction] 35.4 % Low 37.0-47.0 [facility] ([place] Comment on above: Performed By: #### C BC, ADIFF, ANEU, LIP, CMP, GFR #### [address] [address] Hgb 11.5 G/dL Low 12.0-16.0 [facility] ([place] Comment on above: Performed By: #### C BC, ADIFF, ANEU, LIP, CMP, GFR #### [address] [address] MCH (RBC) [Entitic mass] 29.1 pg Normal 27.0-31.2 [facility] ([place] Comment on above: Performed By: #### C BC, ADIFF, ANEU, LIP, CMP, GFR #### [place] [address] MCHC 32.6 G/dL Low 33.0-37.0 [facility] ([place] Comment on above: Performed By: #### C BC, ADIFF, ANEU, LIP, CMP, GFR #### [place] [address] MCV (RBC) [Entitic vol] 89.5 fL Normal 80.0-94.0 A [facility] ([place]) Comment on above: Performed By: #### C BC, ADIFF, ANEU, LIP, CMP, GFR #### [address] [address] Platelet 406 10 3/mcL High 130-400 [facility] ([place]) Comment on above: Performed By: #### C BC, ADIFF, ANEU, LIP, CMP, GFR #### [place] [address] Platelet mean volume (Bld) [Entitic vol] 8.4 fL Normal 7.4-10.4 [facility] ([place]) Comment on above: Performed By: #### C BC, ADIFF, ANEU, LIP, CMP, GFR #### [place] [address] RBC 3.96 10 6/mcL Low 4.20-5.40 [facility] ([place] Comment on above: Performed By: #### C BC, ADIFF, ANEU, LIP, CMP, GFR #### [place] [phone] WBC 4.60 10 3/mcL Normal 4.60-10.80 [facility] ([place] Comment on above: Performed By: #### C BC, ADIFF, ANEU, LIP, CMP, GFR #### [address] [address] CMPon 10-06-2021 Albumin Level 3.0 G/dL Low 3.4-4.8 [facility] ([place] Comment on above: Performed By: #### C BC, ADIFF, ANEU, LIP, CMP, GFR #### [place] [id number] Albumin/Globulin [Mass ratio] 0.8 {ratio} Low 1.1-2.5 [facility] ([place] Comment on above: Performed By: #### C BC, ADIFF, ANEU, LIP, CMP, GFR #### [place] [id number] ALP [Catalytic activity/Vol] 128 U/L Normal 40-135 [facility] ([place] Comment on above: Performed By: #### C BC, ADIFF, ANEU, LIP, CMP, GFR #### [place] [phone] ALT [Catalytic activity/Vol] 59 U/L Normal 14-59 [facility] ([place] Comment on above: Performed By: #### C BC, ADIFF, ANEU, LIP, CMP, GFR #### [place] [id number] AST [Catalytic activity/Vol] 66 U/L High 10-40 [facility] ([place] Comment on above: Performed By: #### C BC, ADIFF, ANEU, LIP, CMP, GFR #### [place] [id number] Bili Total 0.7 mg/dL Normal 0.2-1.0 [facility] ([place] Comment on above: Result Comment: Use of this assay is not recommended for patients undergoing treatment with eltrombopag due to the potential for falsely elevated results. Performed By: #### C BC, ADIFF, ANEU, LIP, CMP, GFR #### [address] [address] BUN/Creatinine Ratio 25 ratio Normal 7-27 [facility] ([place]) Comment on above: Performed By: #### C BC, ADIFF, ANEU, LIP, CMP, GFR #### [address] [address] Calcium [Mass/Vol] 8.0 mg/dL Low 8.4-10.2 [facility] ([place] Comment on above: Performed By: #### C BC, ADIFF, ANEU, LIP, CMP, GFR #### [address] [address] Chloride [Moles/Vol] 103 mmol/L Normal 98-107 [facility] ([place] Comment on above: Performed By: #### C BC, ADIFF, ANEU, LIP, CMP, GFR #### [address] [address] CO2 [Moles/Vol] 23 mmol/L Normal 23-31 [facility] ([place] Comment on above: Performed By: #### C BC, ADIFF, ANEU, LIP, CMP, GFR #### [address] [address] Creatinine [Mass/Vol] 1.28 mg/dL High 0.55-1.02 [facility] ([place]) Comment on above: Performed By: #### C BC, ADIFF, ANEU, LIP, CMP, GFR #### [address] [address] Electrolyte Balance 16.0 mEq/L High 4.0-15.0 [facility] ([place]) Comment on above: Performed By: #### C BC, ADIFF, ANEU, LIP, CMP, GFR #### [address] [address] Globulin 4.0 G/dL Normal [facility] [place] Comment on above: Performed By: #### C BC, ADIFF, ANEU, LIP, CMP, GFR #### [address] [address] Glucose [Mass/Vol] 128 mg/dL High 80-115 [facility] ([place] Comment on above: Performed By: #### C BC, ADIFF, ANEU, LIP, CMP, GFR #### [address] [address] Potassium [Moles/Vol] 3.2 mmol/L Low 3.5-5.1 [facility] ([place] Comment on above: Performed By: #### C BC, ADIFF, ANEU, LIP, CMP, GFR #### [address] [address] Sodium [Moles/Vol] 142 mmol/L Normal 136-145 [facility] ([place] Comment on above: Performed By: #### C BC, ADIFF, ANEU, LIP, CMP, GFR #### [address] [address] Total Protein 7.0 G/dL Normal 6.4-8.2 [facility] ([place] Comment on above: Performed By: #### C BC, ADIFF, ANEU, LIP, CMP, GFR #### [address] [address] Urea nitrogen [Mass/Vol] 32 mg/dL High 7-18 [facility] ([place] Comment on above: Performed By: #### C BC, ADIFF, ANEU, LIP, CMP, GFR #### [address] [address] [address] ABDOMEN/PELVIS W/O CONTRA STon 10-06-2021 CT ABDOMEN/PELVIS W/O CONTRAST ORIGINAL EXAMINATION: CT OF THE ABDOMEN AND PELVIS WITHOUT CONTRAST 10/06/2021 8:09 pm TECHNIQUE: CT of the abdomen and pelvis was performed without the administration of intravenous contrast. Multiplanar reformatted images are provided for review. Dose modulation, iterative reconstruction, and/or weight based adjustment of the mA/kV was utilized to reduce the radiation dose to as low as reasonably achievable. COMPARISON: None. HISTORY: ORDERING SYSTEM PROVIDED HISTORY: Reason for Exam: Left-sided abdominal pain for 1 week FINDINGS: The lung bases demonstrate a ground-glass opacity predominantly in the subpleural regions of the lung. The liver, gallbladder, adrenal glands, and pancreas are within normal limits. There is dilatation of common bile duct measuring up to 1.5 cm. Patient is status post cholecystectomy. Atrophic right kidney. The left kidneys unremarkable. The bladder is circumferentially thick walled, likely secondary to under distension. Moderate hiatal hernia is present. The small and large bowel is normal in caliber. There is hyperdense material in the ascending colon and ileum which likely represents ingested material. The cecum appears fluid filled. There is no inflammatory stranding, or mesenteric congestion. No free air. No pathologically enlarged lymph nodes in the abdomen or pelvis. The aorta is mildly atherosclerotic but nonaneurysmal. The soft tissues are within normal limits. Grade 1 anterolisthesis of L4 on L5, likely degenerative. There are moderate degenerative changes of the lumbar spine most prominent at L5-S1. Hyperdense foci in the left acetabulum may represent bone islands. IMPRESSION: No acute intra-abdominal or intrapelvic process. Mild ground-glass opacity in the bibasilar lungs predominantly in the subpleural region is most consistent with infectious process such as COVID-19 pneumonia. Other atypical viral pneumonias are also in the differential consideration. Moderate size hiatal hernia. I have personally reviewed the images of this examination and edited the resident's findings and interpretation. Interpreted by: Gayle Alvarez Preliminary Report By: Papo Quinteros Electronically signed By Gayle Alvarez Dictated Date: 10/06/2021 8:33:51 PM Prelim Date: 10/06/2021 8:49:54 PM Sign Date: 10/06/2021 9:25:06 PM Ordering Provider: LANDON Humphreys [facility] ([place]) LABORATORYOrdered By: Sana Bright on 10-06-2021 ADMITTED TO INTENSIVE CARE UNIT FOR CONDITION OF INTEREST:FIND:PT:^PATIENT:O RD: No (10/06/21 9:11 PM) Invalid Interpretation Code AO Auto Urine SS EMPLOYED IN A HEALTHCARE SETTING:FIND:PT:^PATIENT:OR D: No (10/06/21 9:11 PM) Invalid Interpretation Code AO Auto Urine SS FIRST TEST FOR CONDITION OF INTEREST:FIND:PT:^PATIENT:O RD: No (10/06/21 9:11 PM) Invalid Interpretation Code AO Auto Urine SS HAS SYMPTOMS RELATED TO CONDITION OF INTEREST:FIND:PT:^PATIENT:O RD: No (10/06/21 9:11 PM) Invalid Interpretation Code AO Auto Urine SS Illness or injury onset date and time [id number] Invalid Interpretation Code AO Auto Urine SS Patient was hospitalized because of this condition No (10/06/21 9:11 PM) Invalid Interpretation Code AO Auto Urine SS status Not (10/06/21 9:11 PM) Invalid Interpretation Code AO Auto Urine SS RESIDES IN A CONGREGATE CARE SETTING:FIND:PT:^PATIENT:OR D: No (10/06/21 9:11 PM) Invalid Interpretation Code AO Auto Urine SS SARS-CoV-2 (COVID-19) RNA PONCE+probe Ql (Resp) Negative (10/06/21 9:11 PM) Invalid Interpretation Code Negative AO Auto Urine SS SARS-CoV-2 (COVID-19) RNA PONCE+probe Ql (Unsp spec) Negative results do not preclude SARS-CoV-2 infection and should not be used as the sole basis for patient management decisions. Negative results must be combined with clinical observations, patient history, and epidemiological information.There is a risk of false negative values resulting from improperly collected, transported, or handled specimens.There is a risk of false negative values due to the presence of sequence variants in the pathogen targets of the assay, procedural errors, amplification inhibitors in specimens, or inadequate numbers of organisms for amplification.LEONEL SARS-CoV-2 Assay is a Real-Time reverse-transcriptase polymerase chain reaction (RT-PCR) based qualitative in vitro diagnostic test intended for the qualitative detection of nucleic acid from the SARS-CoV-2 in nasopharyngeal swab specimens collected from individuals suspected of COVID-19 by their healthcare provider. Testing is limited to laboratories certified under the Clinical Laboratory Improvement Amendments of 1988 (CLIA), 42 U.S.C. 263a, to perform moderate and high complexity tests. Invalid Interpretation Code AO Auto Urine SS Appearance (U) Cloudy *ABN* (10/06/21 8:32 PM) Invalid Interpretation Code Clear AO Auto Urine SS Bacteria LM.HPF (Urine sed) [#/Area] Trace /HPF Invalid Interpretation Code AO Auto Urine SS Bilirubin Ql (U) Negative (10/06/21 8:32 PM) Invalid Interpretation Code Negative AO Auto Urine SS Color (U) Yellow (10/06/21 8:32 PM) Invalid Interpretation Code AO Auto Urine SS Glucose Test strip (U) [Mass/Vol] Negative Invalid Interpretation Code Negativemg /dL AO Auto Urine SS Hemoglobin Auto test strip (U) [Mass/Vol] Negative (10/06/21 8:32 PM) Invalid Interpretation Code Negative AO Auto Urine SS Ketones Ql (U) Negative Invalid Interpretation Code Negativemg /dL AO Auto Urine SS UA Leuk Est Trace *ABN* (10/06/21 8:32 PM) Invalid Interpretation Code Negative AO Auto Urine SS UA Nitrite Negative (10/06/21 8:32 PM) Invalid Interpretation Code Negative AO Auto Urine SS UA pH 5.5 (10/06/21 8:32 PM) Invalid Interpretation Code 5.0 - 8.0 AO Auto Urine SS UA Protein 30 mg/dL Invalid Interpretation Code Negativemg /dL AO Auto Urine SS UA RBC None Seen /HPF Invalid Interpretation Code None Seen/HPF AO Auto Urine SS UA Spec Grav 1.015 (10/06/21 8:32 PM) Invalid Interpretation Code 1.015-1.02 5 AO Auto Urine SS UA Specimen Type Clean Catch (10/06/21 8:32 PM) Invalid Interpretation Code AO Auto Urine SS UA Squam Epithelial 0-5 /HPF Invalid Interpretation Code None Seen/HPF AO Auto Urine SS UA Urobilinogen 1.0 E.U./dL Invalid Interpretation Code 0.2-1.0E.U ./dL AO Auto Urine SS WBC LM.HPF (Urine sed) [#/Area] 0-5 /HPF Invalid Interpretation Code None Seen/HPF AO Auto Urine SS Basophil, Absolute 0.00 103/mcL Invalid Interpretation Code 0.00 - 0.19 10^3/mcL AO Auto Heme SS Basophils/100 WBC (Bld) 0.5 % Invalid Interpretation Code 0.0 - 2.5 % AO Auto Heme SS Eosinophil, Absolute 0.20 103/mcL Invalid Interpretation Code 0.00 - 0.40 10^3/mcL AO Auto Heme SS Eosinophils/100 WBC (Bld) 3.9 % Invali d Interpretation Code 0.0 - 7.0 % AO Auto Heme SS Erythrocyte distribution width (RBC) [Ratio] 14.7 % Invalid Interpretation Code 11.5 - 14.5 % AO Auto Heme SS Hematocrit (Bld) [Volume fraction] 35.4 % Invalid Interpretation Code 37.0 - 47.0 % AO Auto Heme SS Hemoglobin (Bld) [Mass/Vol] 11.5 G/dL Inva lid Interpretation Code 12.0 - 16.0 G/dL AO Auto Heme SS Lymphocyte, Absolute 0.70 103/mcL Invalid Interpretation Code 0.77 - 3.85 10^3/mcL AO Auto Heme SS Lymphocytes/100 WBC (Bld) 14.6 % Invali d Interpretation Code 10.0 - 50.0 % AO Auto Heme SS MCH (RBC) [Entitic mass] 29.1 pg Invalid Interpretation Code 27.0 - 31.2 pg AO Auto Heme SS MCHC (RBC) [Mass/Vol] 32.6 G/dL Invalid Interpretation Code 33.0 - 37.0 G/dL AO Auto Heme SS MCV (RBC) [Entitic vol] 89.5 fL Invalid Interpretation Code 80.0 - 94.0 fL AO Auto Heme SS Monocyte, Absolute 0.50 103/mcL Invalid Interpretation Code 0.15 - 1.00 10^3/mcL AO Auto Heme SS Monocytes/100 WBC (Bld) 11.6 % Invalid Interpretation Code 1.7 - 13.0 % AO Auto Heme SS Neutrophil, Absolute 3.20 103/mcL Invalid Interpretation Code 2.85 - 6.16 10^3/mcL AO Auto Heme SS Neutrophils/100 WBC (Bld) 69.4 % Invali d Interpretation Code 37.0 - 80.0 % AO Auto Heme SS Platelet mean volume (Bld) [Entitic vol] 8.4 fL Invalid Interpretation Code 7.4 - 10.4 fL AO Auto Heme SS Platelets (Bld) [#/Vol] 406 103/mcL Invalid Interpretation Code 130 - 400 10^3/mcL AO Auto Heme SS RBC (Bld) [#/Vol] 3.96 106/mcL Invalid Interpretation Code 4.20 - 5.40 10^6/mcL AO Auto Heme SS WBC (Bld) [#/Vol] 4.60 103/mcL Invalid Interpretation Code 4.60 - 10.80 10^3/mcL AO Auto Heme SS LABORATORYOrdered By: Catia Zhu on 10-06-2021 Albumin BCP dye [Mass/Vol] 3.0 G/dL Inval id Interpretation Code 3.4 - 4.8 G/dL AO ADM SS Albumin/Globulin [Mass ratio] 0.8 {ratio} Invalid Interpretation Code 1.1 - 2.5 ratio AO ADM SS ALP [Catalytic activity/Vol] 128 U/L Invalid Interpretation Code 40 - 135 U/L AO ADM SS ALT With P-5'-P [Catalytic activity/Vol] 59 U/L Invalid Interpretation Code 14 - 59 U/L AO ADM SS AST With P-5'-P [Catalytic activity/Vol] 66 U/L Invalid Interpretation Code 10 - 40 U/L AO ADM SS Bilirubin [Mass/Vol] 0.7 mg/dL Invalid Interpretation Code 0.2 - 1.0 mg/dL AO ADM SS Calcium [Mass/Vol] 8.0 mg/dL Invalid Interpretation Code 8.4 - 10.2 mg/dL AO ADM SS Chloride [Moles/Vol] 103 mmol/L Invalid Interpretation Code 98 - 107 mmol/L AO ADM SS CO2 [Moles/Vol] 23 mmol/L Invalid Interpretation Code 23 - 31 mmol/L AO ADM SS Creatinine [Mass/Vol] 1.28 mg/dL Invalid Interpretation Code 0.55 - 1.02 mg/dL AO ADM SS Electrolyte Balance 16.0 mEq/L Invalid Interpretation Code 4.0 - 15.0 mEq/L AO ADM SS Globulin 4.0 G/dL Invalid Interpretation Code AO ADM SS Glucose [Mass/Vol] 128 mg/dL Invalid Interpretation Code 80 - 115 mg/dL AO ADM SS Lipase [Catalytic activity/Vol] 165 U/L Invalid Interpretation Code 73 - 393 U/L AO ADM SS Potassium [Moles/Vol] 3.2 mmol/L Invalid Interpretation Code 3.5 - 5.1 mmol/L AO ADM SS Protein [Mass/Vol] 7.0 G/dL Invalid Interpretation Code 6.4 - 8.2 G/dL AO ADM SS Sodium [Moles/Vol] 142 mmol/L Invalid Interpretation Code 136 - 145 mmol/L AO ADM SS Urea nitrogen [Mass/Vol] 32 mg/dL Invalid Interpretation Code 7 - 18 mg/dL AO ADM SS Urea nitrogen/Creatinine [Mass ratio] 25 ratio Invalid Interpretation Code 7 - 27 ratio AO ADM SS LABORATORYOrdered By: SYSTEM SYSTEM on 10-06-2021 GFR 51 ml/min/1.73sqm Invalid Interpretation Code AO Chemistry S GFR Non- 42 ml/min/1.73sqm Inval id Interpretation Code AO Chemistry S LIPon 10-06-2021 Lipase Level 165 U/L Normal 73-393 [facility] [place] Comment on above: Performed By: #### C BC, ADIFF, ANEU, LIP, CMP, GFR #### [address] [address] UAon 10-06-2021 Color (U) Yellow Normal [facility] [place]) Comment on above: Performed By: #### U AMICAO, UA #### [address] [address] Glucose (U) [Mass/Vol] Negative Normal Negative [facility] ([place] Comment on above: Performed By: #### U AMICAO, UA #### [address] [address] Ketones Ql (U) Negative Normal Negative [facility] [place] Comment on above: Performed By: #### U AMICAO, UA #### [address] [address] UA Appear Cloudy Abnormal Clear [facility] [place] Comment on above: Performed By: #### U AMICAO, UA #### [address] [address] UA Blood Negative Normal Negative [facility] [place] Comment on above: Performed By: #### U AMICAO, UA #### [address] [address] UA Leuk Est Trace Abnormal Negative [facility] ([place] Comment on above: Performed By: #### U AMICAO, UA #### [address] [address] UA Nitrite Negative Normal Negative [facility] [place] Comment on above: Performed By: #### U AMICAO, UA #### [address] [address] UA pH 5.5 Normal 5.0 - 8.0 [facility] [place] Comment on above: Performed By: #### U AMICAO, UA #### [address] [address] UA Protein 30 mg/dL Normal Negative [facility] [place] Comment on above: Performed By: #### U AMICAO, UA #### [address] [address] UA Spec Grav 1.015 Normal 1.015-1.[address] [facility] [place] Comment on above: Performed By: #### U AMICAO, UA #### [address] [address] UA Specimen Type Clean Catch Normal [facility] ([place] Comment on above: Performed By: #### U AMICAO, UA #### [address] [address] UA Urobilinogen 1.0 E.U./dL Normal 0.2-1.0 [facility] ([place] Comment on above: Performed By: #### U AMICAO, UA #### [address] [address] Urobilinogen (U) [Mass/Vol] Negative Normal Negative [facility] [place] Comment on above: Performed By: #### U AMICAO, UA #### [address] [address] Vital Signs Date Time Vital Sign Value Performing Clinician Juana dawson 01-28-2025 20:20-0400 Body temperature 98.3 [degF] Dr. Dede Giles MD Work Phone: [facility] 01-28-2025 20:20-0400 Diastolic blood pressure 78 mm[Hg] Dr. Dede Giles MD Work Phone: [facility] 01-28-2025 20:20-0400 Heart rate 75 /min Dr. Dede Giles MD Work Phone: [facility] 01-28-2025 20:20-0400 Respiratory rate 16 /min Dr. Dede Giles MD Work Phone: [facility] 01-28-2025 20:20-0400 SaO2% (BldA) [Mass fraction] 100 % Dr. Dede Giles MD Work Phone: [facility] 01-28-2025 20:20-0400 Systolic blood pressure 130 mm[Hg] Dr. Dede Giles MD Work Phone: [facility] 01-28-2025 12:26-0400 Body height 157.[address] Dede Giles MD Work Phone: 1(666)517-281809 [place] [address] 01-28-2025 12:26-0400 Body mass index (BMI) [Ratio] 26 kg/m2 Dr. Dede Giles MD Work Phone: 8(512)606-010309 [place] [address] 01-28-2025 12:26-0400 Body weight 64.[address] Dede Giles MD Work Phone: [facility] 12-03-2024 15:09-0400 Body height 157.[address] Dede Giles MD Work Phone: [facility] 12-03-2024 15:09-0400 Body mass index (BMI) [Ratio] 28.4 kg/m2 Dr. Dede Giles MD Work Phone: [facility] 12-03-2024 15:09-0400 Body temperature 97.6 [degF] Dr. Dede Giles MD Work Phone: [facility] 12-03-2024 15:09-0400 Body weight 70.[address] Dede Giles MD Work Phone: [facility] 12-03-2024 15:09-0400 Diastolic blood pressure 61 mm[Hg] Dr. Dede Giles MD Work Phone: [facility] 12-03-2024 15:09-0400 Heart rate 74 /min Dr. Dede Giles MD Work Phone: [facility] 12-03-2024 15:09-0400 Respiratory rate 18 /min Dr. Dede Giles MD Work Phone: [facility] 12-03-2024 15:09-0400 SaO2% (BldA) [Mass fraction] 99 % Dr. Dede Giles MD Work Phone: 2(366)072-762909 [place] [address] 12-03-2024 15:09-0400 Systolic blood pressure 111 mm[Hg] Dr. Dede Giles MD Work Phone: 4(654)024-945809 [place] [address] 11-01-2024 22:04-0400 Body temperature 98 [degF] Dr. Dede Giles MD Work Phone: 6(790)198-341709 [place] [address] 11-01-2024 22:04-0400 Diastolic blood pressure 72 mm[Hg] Dr. Dede Giles MD Work Phone: 5(668)612-096509 [place] [address] 11-01-2024 22:04-0400 Heart rate 72 /min Dr. Dede Giles MD Work Phone: 9(225)890-022109 [place] [address] 11-01-2024 22:04-0400 Respiratory rate 18 /min Dr. Dede Giles MD Work Phone: 7(796)196-618307 [place] [address] 11-01-2024 22:04-0400 SaO2% (BldA) [Mass fraction] 97 % Dr. Dede Giles MD Work Phone: 7(565)521-721109 [place] [address] 11-01-2024 22:04-0400 Systolic blood pressure 157 mm[Hg] Dr. Dede Giles MD Work Phone: 9(310)188-819809 [place] [address] 11-01-2024 20:36-0400 Body height 157.[address] Dede Giles MD Work Phone: 8(901)810-307407 [place] [address] 11-01-2024 20:36-0400 Body mass index (BMI) [Ratio] 27.8 kg/m2 Dr. Dede Giles MD Work Phone: 3(410)119-228209 [place] [address] 11-01-2024 20:36-0400 Body weight 69.[address] Dede Giles MD Work Phone: 4(139)973-088709 [place] [address] 09-27-2024 22:27-0500 Body temperature 97.5 [degF] Dr. Dede Giles MD Work Phone: [facility] 09-27-2024 22:27-0500 Diastolic blood pressure 61 mm[Hg] Dr. Dede Giles MD Work Phone: [facility] 09-27-2024 22:27-0500 Heart rate 82 /min Dr. Dede Giles MD Work Phone: [facility] 09-27-2024 22:27-0500 Respiratory rate 16 /min Dr. Dede Giles MD Work Phone: [facility] 09-27-2024 22:27-0500 SaO2% (BldA) [Mass fraction] 99 % Dr. Dede Giles MD Work Phone: [facility] 09-27-2024 22:27-0500 Systolic blood pressure 139 mm[Hg] Dr. Dede Giles MD Work Phone: [facility] 09-27-2024 16:08-0500 Body mass index (BMI) [Ratio] 26.2 kg/m2 Dr. Dede Giles MD Work Phone: [facility] 09-27-2024 16:08-0500 Body weight 65.[address] Dede Giles MD Work Phone: [facility] 10-06-2023 17:22-0500 Body temperature 98.5 [degF] [facility] 10-06-2023 17:22-0500 Diastolic blood pressure 64 mm[Hg] [facility] 10-06-2023 17:22-0500 Heart rate 88 /min [facility] 10-06-2023 17:22-0500 Respiratory rate 16 /min [facility] 10-06-2023 17:22-0500 SaO2% (BldA) [Mass fraction] 95 % [facility] 10-06-2023 17:22-0500 Systolic blood pressure 120 mm[Hg] [facility] 10-06-2023 14:03-0500 Body height 158.75 cm [facility] 05-16-2022 14:48-0400 Body height 158.[address] Sebastian Gorman Work Phone: [facility] Work Phone: 05-16-2022 14:48-0400 Body temperature 97.9 [degF] Dr. Sebastian Gorman Work Phone: [facility] Work Phone: 05-16-2022 14:48-0400 Diastolic blood pressure 90 mm[Hg] Dr. Sebastian Gorman Work Phone: [facility] Work Phone: 05-16-2022 14:48-0400 Heart rate 78 /min Dr. Sebastian Gorman Work Phone: [facility] Work Phone: 05-16-2022 14:48-0400 Respiratory rate 16 /min Dr. Sebastian Gorman Work Phone: [facility] Work Phone: 05-16-2022 14:48-0400 SaO2% (BldA) [Mass fraction] 97 % Dr. Sebastian Gorman Work Phone: [facility] Work Phone: 05-16-2022 14:48-0400 Systolic blood pressure 130 mm[Hg] Dr. Sebastian Gorman Work Phone: [facility] Work Phone: 12-28-2021 17:16-0400 Body height 158.[address] Sebastian Gorman Work Phone: [facility] Work Phone: 12-28-2021 17:16-0400 Body mass index (BMI) [Ratio] 31.5 kg/m2 Dr. Sebastian Gorman Work Phone: [facility] Work Phone: 12-28-2021 17:16-0400 Body temperature 97.8 [degF] Dr. Sebastian Gorman Work Phone: [facility] Work Phone: 12-28-2021 17:16-0400 Body weight 79.[address] Sebastian Gorman Work Phone: [facility] Work Phone: 12-28-2021 17:16-0400 Diastolic blood pressure 88 mm[Hg] Dr. Sebastian Gorman Work Phone: [facility] Work Phone: 12-28-2021 17:16-0400 Heart rate 75 /min Dr. Sebastian Gorman Work Phone: [facility] Work Phone: 12-28-2021 17:16-0400 Respiratory rate 14 /min Dr. Sebastian Gorman Work Phone: [facility] Work Phone: 12-28-2021 17:16-0400 SaO2% (BldA) [Mass fraction] 97 % Dr. Sebastian Gorman Work Phone: [facility] Work Phone: 12-28-2021 17:16-0400 Systolic blood pressure 146 mm[Hg] Dr. Sebastian Gorman Work Phone: [facility] Work Phone: 10-19-2021 16:43-0500 Body temperature 96.5 [degF] Dr. Sebastian Gorman Work Phone: [facility] Work Phone: 10-19-2021 16:43-0500 Diastolic blood pressure 90 mm[Hg] Dr. Sebastian Gorman Work Phone: [facility] Work Phone: 10-19-2021 16:43-0500 Heart rate 89 /min Dr. Sebastian Gorman Work Phone: [facility] Work Phone: 10-19-2021 16:43-0500 Respiratory rate 14 /min Dr. Sebastian Gorman Work Phone: [facility] Work Phone: 10-19-2021 16:43-0500 SaO2% (BldA) [Mass fraction] 94 % Dr. Sebastian Gomran Work Phone: [facility] Work Phone: 10-19-2021 16:43-0500 Systolic blood pressure 138 mm[Hg] Dr. Sebastian Gorman Work Phone: [facility] Work Phone: 10-06-2021 21:32-0500 Diastolic blood pressure 70 mm[Hg] LANDON GOSS MD [facility] 10-06-2021 21:32-0500 Heart rate 83 /min LANDON GOSS MD [facility] 10-06-2021 21:32-0500 Mean blood pressure 89 mm[Hg] LANDON GOSS MD [facility] 10-06-2021 21:32-0500 Systolic blood pressure 128 mm[Hg] LANDON GOSS MD [facility] 10-06-2021 19:25-0500 Body temperature 98.6 [degF] LANDON GOSS MD [facility] 10-06-2021 19:25-0500 Diastolic blood pressure 67 mm[Hg] LANDON GOSS MD [facility] 10-06-2021 19:25-0500 Heart rate 88 /min LANDON GOSS MD [facility] 10-06-2021 19:25-0500 Systolic blood pressure 120 mm[Hg] LANDON GOSS MD [facility] Encounters Encounter Date Encounter Type Care Provider Facility Start: 01-28-2025 Evaluation and management of inpatient Dr. Lizzy dArian DO -Medical Surgical 3 Work Phone: Start: 12-03-2024 End: 12-03-2024 Emergency department patient visit Dr. Dede Giles MD Work Phone: -Emergency Department Work Phone: Start: 11-01-2024 End: 11-01-2024 Emergency department patient visit Dr. Dede Giles MD Work Phone: -Emergency Department Work Phone: Start: 09-27-2024 End: 09-28-2024 Emergency department patient visit Dr. Mike May MD -Emergency Department Work Phone: Start: 04-18-2024 End: 04-19-2024 Emergency department patient visit [facility] Facility:[facility] Start: 10-06-2023 End: 10-06-2023 Emergency department patient visit [facility]-Emergency Department Work Phone: Start: 05-22-2022 End: 05-22-[address] Sebastian Gorman Work Phone: [facility] Start: 05-16-2022 End: 05-16-[address] Sebastian Gorman Work Phone: [facility] Work Phone: Start: 05-16-2022 End: 05-16-[address] [facility] Start: 05-16-2022 End: 05-16-[address] Sebastian Gorman Work Phone: [facility] Internal Medicine Start: 01-19-2022 End: 01-19-[address] Sebastian Gorman Work Phone: [facility]-Outpatient Breast Imaging Start: 12-28-2021 End: 12-28-[address] Sebastian Gorman Work Phone: [facility] Start: 10-19-2021 End: 10-19-[address] Sebastian Gorman Work Phone: [facility] Start: 10-06-2021 End: 10-06-2021 Emergency department patient visit LANDON GOSS MD [facility] Start: 07-13-[address] Sebastian Gorman Work Phone: [facility] Start: 04-04-[address] Sebastian Gorman Work Phone: [facility] Procedures Date Procedure Procedure Detail Performing Clinician Start: 01-28-2025 Urnls dip stick/tabl et reagent auto microscopy Dr. Dede Giles MD Work Phone: Start: 01-28-[address] Dede Giles MD Work Phone: Start: 10-06-2023 Computed tomography of abdomen and pelvis with intravenous contrast Start: 10-06-2023 Plain chest X-ray Start: 10-06-2023 SARS-CoV-2, Influenz a & RSV (PCR) Start: 05-22-2022 Radiologic examinati on of knee Dr. Sebastian Gorman Work Phone: Start: 01-19-[address] Sebastian Gorman Work Phone: Start: 01-19-2022 Bilateral mammography D r. Sebastian Gorman Work Phone: Cholecystectomy LANDON GOSS MD Hysterectomy LANDON GOSS MD Sling operation stre ss incontinence LANDON GOSS MD Plan of Treatment Date Care Activity Detail Author Start: 01-28-2025 [facility] Start: 01-28-2025 Hospital admission, emergency, from emergency room, medical nature [facility] Start: 01-28-2025 Verification routine [facility] Start: 01-28-2025 Admission procedure [facility] Start: 01-28-2025 Consultation [facility] Start: 12-03-2024 [facility] Start: 11-01-2024 [facility] Start: 09-27-2024 [facility] Start: 09-27-2024 End: 09-27-2024 Suicide precautions [facility] Start: 09-27-2024 Referral to service [facility] Start: 10-06-2023 [facility] Start: 05-16-2022 Patient referral [facility] Work Phone: Patient Education [facility] Work Phone: Patient referral [facility] Work Phone: Urine culture [facility] Immunizations Immunization Date Immunization Notes Care Provider Tanya hernandez 01-04-2018 tetanus toxoid, redu lay diphtheria toxoid, and acellular pertussis vaccine, adsorbed; Translations: [Boostrix (Tdap)] LANDON GOSS MD [facility] Payers Date Payer Category Payer Self-pay [id number] 2024 Unknown [id number] 2024 Unknown [id number] Medicare [facility], [facility] MEDIC[employer] PPO [id number] 1961 [id number] Unknown [id number] Unknown [id number] Unknown [id number] Unknown [id number] Unknown [id number] Social History Date Type Detail Facility Ex-smoker (finding) [facility] Start: 1955 Sex Assigned At Female [facility] Start: 12-28-2021 End: 10-06-2023 Tobacco smoking status NYIS Unknown if ever smoked [facility] Start: 06-24-2019 Non-smoker [facility] Start: 11-01-2024 End: 01-28-2025 Tobacco smoking status NHIS Never smoked tobacco (finding) [facility] Start: 11-01-2024 End: 12-03-2024 Sex Female (finding) [facility] Mental Status Date Assessment Result Facility 01-28-2025 Cognitive function Level Of Cons ciousness Awake;Alert;Appropriate;Follow s Commands [facility] Work Phone: 11-01-2024 Cognitive function Level Of Cons ciousness Awake;Alert;Appropriate;Follow s Commands [facility] Work Phone: Evaluation note 01-18-2025 Note Date & Type Note Facility 01-18-2025 Evaluation note Diagnosis Onset Date Resolution Abnormal urinalysis acute January 28, 2025 8:44pm SABINE (acute kidney injury) acute January 28, 2025 8:44pm Falls acute January 28 8:44pm Generalized weakness acute January 28, 2025 8:44pm Homelessness acute January 28 025 8:44pm Chronic pain chronic January 28 8:44pm [facility] Work Phone: Hospital Discharge instructions 10-06-2023 Note Date & Type Note Facility 10-06-2023 Hospital Discharg e instructions Additional Instructions Please call your PCP to make an appointment to be seen in the next 5 to 7 days. Your liver enzymes are elevated, this will need to be worked up. Also, you are anemic and should have this worked up by your PCP. Return for any worsening of your symptoms. Take aspirin as needed for fevers. [facility] Work Phone: Hospital Discharge instructions 10-06-2021 Note Date & [...] are taking other medicines. You may use [id number] medicine as directed on the bottle to [...] Numbness in the groin or genital area [id number] [employer]. [address] [place] [address]. All rights reserved. This information is not [...] or water and you are getting dehydrated [id number] [employer]. [address] [place] [address], [place] [address]. All rights reserved. This information is not intended as a substitute for professional medical care. Always follow your healthcare professional's instructions. Follow Up Care 10/06/2021 19:15:01 With:SEBASTIAN GORMAN MD Address: [address] [place] [address] [place] [address]- [phone] When:2-4 days [facility] Evaluation + Plan note Note Date & Type Note Facility Evaluation + Plan note No data available for this section [facility] Evaluation note Note Date & Type Note Facility Evaluation note Diagnosis Onset Date Abdominal pain acute Vomiting acute Hypertension chronic Osteoarthritis chronic Painful lumpy right breast a cute Hyperlipidemia chronic Hypertension chronic Osteoarthritis chronic [facility] Work Phone: Evaluation note Note Date & Type Note Facility Evaluation note Diagnosis Onset Date GERD (gastroesophageal reflux disease) chronic Hyperlipidemia chronic Hypertension chronic Bilateral primary osteoarthritis of knee acute [facility] Work Phone: Evaluation note Note Date & Type Note Facility Evaluation note No assessment information availa ble [facility] Work Phone: Hospital Discharge instructions Note Date & Type Note Facility Hospital Discharge instructions Additional Instructions Follow-up with your primary care doctor for your migraines. If symptoms worsen come back to the ER. [facility] Work Phone: Hospital Discharge instructions Note Date & Type Note Facility Hospital Discharge instructions Additional Instructions Please use the [facility] Work Phone: Reason for referral (narrative) Note Date & Type Note Facility Reason for referral (narrative) No reason for referral information available [facility] Work Phone: Summary Purpose Family History Relationship Condition Age at Onset Recorded Date/T elieser Not Specified Diabetes mellitus Unknown Alcoholism Unknown Depression Unknown Cardiac disease Unknown Malignant neoplasm of breast Unknown Hypertension Unknown Advance Directives Advance Directive Response Recorded Date/ Time Living Will No January 15, 2021 9 :41pm Power of Housing Relocation No January 15, 2021 9:41pm Advance Directive Response Recorded Date/ Time Living Will No May 11, 2022 3:03pm Power of Housing Relocation No April 3:03pm Advance Directive Response Recorded Date/ Time Living Will No October 06, 2:12pm Power of Housing Relocation No October 06, 2023 2:12pm Advance Directive Response Recorded Date/ Time Living Will No November 01, 2024 8:43pm Power of Housing Relocation No November 01 8:43pm Living Will No September 27 5:52pm Power of Housing Relocation No September 27, 2024 5:52pm Advance Directive Response Recorded Date/ Time Living Will No November 01, 2024 8:43pm Do you have a Healthcare Power of Housing Relocation? No November 01, 2024 8:43pm Living Will No September 27 5:52pm Do you have a Healthcare Power of Housing Relocation? No September 27, 2024 5:52pm Living Will No December 03, 2024 3:23pm Do you have a Healthcare Power of Housing Relocation? No December 03, 2024 3:23pm Advance Directive Response Recorded Date/ Time Living Will No November 01, 2024 8:43pm Do you have a Healthcare Power of Housing Relocation? No November 01, 2024 8:43pm Living Will No December 03, 2024 3:23pm Do you have a Healthcare Power of Housing Relocation? No December 03, 2024 3:23pm Do you have a Healthcare Power of Housing Relocation? No January 28, 2025 5:00pm Chief Complaint and Reason for Visit Chief Complaint 3 M FU 2 m f/u PAINFUL, LUMPY RT BREAST Reason for Visit Abdominal pain Vomiting Hypertension Osteoarthritis Painful lumpy right breast Hyperlipidemia Hypertension Osteoarthritis Chief Complaint CHECK UP BILAT KNEE xrays Reason for Visit GERD (gastroesophage al reflux disease) Hyperlipidemia Hypertension Bilateral primary osteoarthritis of knee Chief Complaint n/v/abd pain Chief Complaint Admit Date SUICIDAL September 27, 2024 4 :07pm headache November 01, 2024 8:3 3pm Chief Complaint Admit Date SUICIDAL September 27, 2024 4 :07pm headache November 01, 2024 8:3 3pm abscess December 03, 2024 3:0 9pm Chief Complaint Admit Date headache November 01, 2024 8:3 3pm abscess December 03, 2024 3:0 9pm SABINE/GENERALIZED WEAKNESS/FALLS January 8:44pm Reason for Visit Admit Date Abnormal urinalysis January 28, 2025 8:44 pm SABINE (acute kidney injury) January 28 8:44pm Falls January 28, 2025 8:44 pm Generalized weakness January 28, 2025 8:4 4pm Homelessness January 28, 2025 8:44 pm Chronic pain January 28, 2025 8:44 pm Additional Source Comments INFORMATION SOURCE (unrecogn ized section and content) DATE CREATED AUTHOR 10/22/2021 [facility] ([place]) DATE CREATED AUTHOR AUTHOR'S ORGANIZ ATION 01/07/2025 [facility] Goals (unrecognized section and content) Goals may be documented in a n alternate section Care Teams (unrecognized sec tion and content) Team Status: Active Member Role Status Dates Dr. Sebastian Gorman MD Family Provider Active Dr. Dede Giles MD Primary Care Provider Act myrtle Team Status: Inactive Member Role Status Dates Dr. Jeffrey Norris DO Emergency Provider Active Dr. Dede Giles MD Primary Care Provider Act myrtle Team Status: Active Member Role Status Dates Dr. Dede Giles MD Primary Care Provider Act myrtle Team Status: Inactive Member Role Status Dates Dr. Dede Giles MD Primary Care Provider [facility] [place] Start: September 27, 2024 End: September 28, 2024 Mike May MD Attending Provider Active Star t: September 27, 2024 End: September 28, 2024 Mike May MD Emergency Provider Active Star t: September 27, 2024 End: September 28, 2024 Team Status: Inactive Member Role Status Dates Dr. Dede Giles MD Primary Care Provider Act [place] Start: November 01, 2024 End: November 01, 2024 Mike May MD Emergency Provider Active Star t: November 01, 2024 End: November 01, 2024 Team Status: Inactive Member Role Status Dates Dr. Dede Giles MD Primary Care Provider Act [place] Start: November 01, 2024 End: November 01, 2024 Mike May MD Attending Provider Active Star t: November 01, 2024 End: November 01, 2024 Mike May MD Emergency Provider Active Star t: November 01, 2024 End: November 01, 2024 Team Status: Inactive Member Role Status Dates Dr. Dede Giles MD Primary Care Provider Act my[place] Start: December 03, 2024 End: December 03, 2024 Dr. Socrates Arteaga DO Referring Provider Active Start: December 03, 2024 End: December 03, 2024 Dr. Socrates Arteaga DO Emergency Provider Active Start: December 03, 2024 End: December 03, 2024 Team Status: Inactive Member Role Status Dates Dr. Dede Giles MD Primary Care Provider Act my[place]le Start: December 03, 2024 End: December 03, 2024 Dr. Socrates Arteaga DO Attending Provider Active Start: December 03, 2024 End: December 03, 2024 Dr. Socrates Arteaga DO Referring Provider Active Start: December 03, 2024 End: December 03, 2024 Dr. Socrates Arteaga DO Emergency Provider Active Start: December 03, 2024 End: December 03, 2024 Team Status: Active Member Role Status Dates Dr. Dede Giles MD Primary Care Provider Act my[place]le Start: January 28, 2025 Dr. Socrates Arteaga DO Emergency Provider Active Start: January 28, 2025 Dr. Lizzy Adrian DO Admit Provider Active Start : January 28, 2025 Dr. Lizzy Adrian DO Attending Provider Active S tart: January 28, 2025 FOR RECORDS PERTAINING TO PATIENTS WHO ARE [...] BE BASED ON THE PRIMARY CLINICAL RECORDS. [facility] [employer] [facility]. provides no warranty or guarantee of the accuracy or completeness of information in this document.
[2025-01-28] MEDS: 0.9% Normal Saline (1000mL) 1,000 ML 100 ML IV (22:42)
[2025-01-28] MEDS: MELATONIN 3 MG TABLET PO (23:22)
[2025-01-28] MEDS: Heparin Injection (Vial) 5,000 UNIT/ML VIAL 5000 UNIT SC (23:22)
[2025-01-29] VITALS (7 sets, daily range): BP systolic 107–148; BP diastolic 73–79; PULSE 51–68; RESP 15–18; TEMP 36.7–37; O2SAT 96–100; BMI 28.0
[2025-01-29] MEDS: Heparin Injection (Vial) 5,000 UNIT/ML VIAL 5000 UNIT SC ×3 (05:19→22:24)
[2025-01-29] MEDS: Acetaminophen 500 MG Tablet 1000 MG PO ×3 (05:19→22:25)
[2025-01-29 06:15] LABS: Absolute Lymphocyte Count 1.72 X10^3/uL (0.83-4.51); Absolute Neutrophil Count 1.2 X10^3/uL (2.0-7.7); Basophil# 0.02 X10^3/uL; Basophil% 0.6 % (0-1); Eosinophil# 0.26 X10^3/uL; Eosinophils% 7.4 % (0-5); Hematocrit 37.2 % (37-47); Hemoglobin 11.8 g/dL (12.0-15.0); Lymphocyte # 1.72 X10^3/ul (0.83-4.51); Mean Corp Hgb Conc 31.7 g/dL (32-36); Mean Corpuscular Hgb 31.1 pg (27.0-32.0); Mean Corpuscular Volume 97.9 fL (81-99); Mean Platelet Vol. 12.3 fl (6.2-12.0); Monocyte# 0.33 X10^3/uL; Monocyte% 9.4 % (0-10); NRBC Flagged by Analyzer 0 % (0-5); Neutrophil # 1.17 X10^3/uL (2.7-7.7); Neutrophil % 33.3 % (47-70); Platelet Count 135 K/mm3 (150-450); RBC Distribution Width CV 14.6 % (11.6-14.6); RBC Distribution Width SD 52.5 fl (35.1-43.9); White Blood Count 3.5 K/mm3 (4.4-11.0)
[2025-01-29 06:56] LABS: Phosphorus 4.3 mg/dL (2.7-4.5)
[2025-01-29 07:04] LABS: ALB/GLOB Ratio 1.5 RATIO (0.9-2.4); AST(SGOT) 22 U/L (<=31); Alanine Aminotransfer ALT/SGPT 11 U/L (<=34); Albumin, Serum 3.3 g/dL (3.4-4.8); Alkaline Phosphatase 53 U/L (35-104); Anion Gap 10 (5-15); BUN 31 mg/dL (4-19); BUN/Creat Ratio 20.6 RATIO (10-20); Calcium,Total 8.6 mg/dL (7.6-11.0); Carbon Dioxide 22.5 mmol/L (21.0-32.0); Chloride 111 mmol/L (98-108); EST Glomerular Filtration Rate 38 (>60); Estimated Creatinine Clearance 33.17 ml/min (50-250); Globulin 2.2 g/dL (2.2-4.2); Glucose 102 mg/dL (70-99); Potassium 4.8 mmol/L (3.3-5.1); Protein, Total 5.5 g/dL (5.9-8.4); Sodium Level 143 mmol/L (133-145); Total Bilirubin 0.22 mg/dL (0.00-1.30)
[2025-01-29 07:36] LABS: Vitamin B12 581 pg/mL (180-914); Vitamin D,25 Hydroxy 24.7 ng/mL (30-100)
[2025-01-29] MEDS: 0.9% Normal Saline (1000mL) 1,000 ML 100 ML IV (08:21)
[2025-01-29] MEDS: Multivitamins,Ther W-Minerals Tablet 1 TABLET PO (08:21)
[2025-01-29] MEDS: Pantoprazole Sodium 40 MG Tablet PO (08:21)
[2025-01-29] MEDS: Gabapentin 100 MG Capsule PO ×3 (08:21→16:41)
[2025-01-29] MEDS: Aspirin 81 MG TAB.CHEW PO (08:21)
[2025-01-29] MEDS: QUEtiapine 25 MG Tablet PO (08:21)
[2025-01-29] MEDS: amLODIPine 5 MG Tablet PO (08:21)
[2025-01-29] MEDS: Oxybutynin 5 MG Tablet PO ×2 (08:21→22:24)
[2025-01-29] MEDS: Ensure Plus High Protein 120 ML LIQUID PO ×3 (08:22→16:41)
[2025-01-29] MEDS: Divalproex Sodium 250 MG Tablet 500 MG PO ×2 (08:22→22:24)
[2025-01-29] MEDS: oxyCODONE 5 MG Tablet PO (11:49)
--- NOTE | 2025-01-29 13:46 | CASEMGMT ---
Discharge Planning A list of?SNF providers including quality and resource use data and consistent with the patient's preferred geographic region, medical needs, and insurance network was created in [facility] Guide.? This list was provided to the patient. Mariia Chester, Discharge Planning Asst.
--- NOTE | 2025-01-29 14:30 | CHAPLAIN ---
Type of Pastoral Visit _x__ Initial Visit ___ Follow-up Visit ___ On-call Visit ___ General Patient Visit ___ Spiritual Assessment ___ Family Conference ___ Bereavement ___ Rapid Response ___ Code Blue ___ Other (describe below) Pastoral Care Referral From _x__ Patient ___ Family ___ Nurse ___ Physician ___ Education And Outreach Coordinator ___ Production Welder ___ Other (describe below) Sacrament/Intervention _x__ Active listening ___ Anointing ___ Yarsani ___ Bereavement ___ Communion ___ Ryann exploration ___ _x__ Life review _x__ Prayer ___ Reconciliation ___ Sacrament of Sick _x__ Supportive presence ___ Wedding ___ Other (describe below) Pastoral Comments patient is open to talk about her situation and quickly brings conversation to her family and asks for prayers for many of them; pt is tearful briefly at times as she talks about these concerns; pt is able to articulate and give details about the needs; pt is more focused on them than herself;
--- NOTE | 2025-01-29 15:04 | CASEMGMT ---
Addendum entered by Becky Deal 01/29/25 16:13: SW met with pt to provide resources. Pt reports she had a negative interaction with [facility] and was not receptive to any information on their services, as she was asked to not return. Pt was appreciative of other resources. A list of SNF providers including quality and resource use data and consistent with the patient?s preferred geographic region, medical needs, and insurance network were provided from the [employer]Port Guide. SW verbally went over the list with pt. Pt selected [facility] as FOC with [facility]. [facility] notified of referral request. SW remains available to follow. DAVID Ragsdale Original Note: Social Work- SW met with pt to complete SDOH assessment. Pt reports that she lives in a mini van with her adult daughter, daughter's , adult granddaughter, and adult granddaughter's girlfriend. Pt reports that granddaughter and girlfriend sleep in the back cargo area of the van with their dog Kwesi who is a pit mix. Pt sleeps in the second row with her 2 small chihuahua mixes, her sister's two small dogs, and a large mixed breed Mo who is tied to the passenger's seat as Mo and Bulldarwine do not get along. Pt reports that daughter and son-in-law sleep in the front. Pt reports that her 74 year old sister had slept in the second row with her, but pt sister 6/6 in [facility] bathroom. Pt reports that she and sister were very close and tearfully shared stories from childhood. Pt reports that she is having her sister's one dog and one of her dogs euthanized in [facility] due to old age and blindness. Pt reports that the vet there does not charge for their services per previous experience of pt. Pt reports that they take the dogs to the [place] or to [employer] behind the bridge daily so the dogs can run and be outside all day. Pt then reports that they grill out in the pavilion at [employer] before loading into the van to go wash up at [employer] and park for the night. Pt reports that they have looked at apartments; to no avail. Pt dtr applied for disability, but has no income at this time. Pt dtr spouse lost his job and has no income at this time. Pt reports she gets two checks- one for $198 and one for $788 as well as $250 in food stamps. Pt reports that her dtr and granddtr also get food stamps. Pt reports that pt dtr manages her finances althoughshe's not doing me a service as pt dtr spends money on random items and candy rather than saving, food, etc. Pt reports that her dtr is her only child. Pt has a brother in [place], but reports that she hasn't spoken to him in years. Pt reports another brother previously. Pt shared that she was ; her spouse in 2012 or 2016; pt could not recall. Pt shared that she lived in a house when she worked and had income and that she had always managed to pay her bills. In 2022, pt moved into dtr home briefly before dtr placed pt in a place where people take care of me then proceeded to report that the place was a camper with a natalie. Pt reports dtr brought food 1-2 times per week for her. Pt moved to a new camper before moving to a trailer with dtr and granddtrs where pt and her 74 year old sister slept on the floor. Pt reports that her dtr wasn't good about paying rent and pt dtr spouse lost his job, so then pt and family moved into the van. Pt reports that she has a broken walker and a wheelchair. Pt reports that she walks to the bathroom normally, although she reports becoming increasingly incontinent. Pt reports that she washes up as able. Pt agreeable to discuss placement at SNF for therapy. SW to follow up with a list. SW provided [facility] card, senior living list, [facility] information, [facility], food pantries. Pt reports that she utilizes food pantries already.SW remains available to follow. DAVID Ragsdale
--- NOTE | 2025-01-29 16:20 | CASEMGMT ---
Addendum entered by Mariia Chester 01/30/25 07:56: Both [facility] and [facility] have declined. SW updated. Mariia Chester DC Planning Asst. Original Note: Discharge Planning Referral sent to [facility] and [facility]. Mariia Chester DC Planning Asst.
--- NOTE | 2025-01-29 19:10 | PN.HOSP_ITS ---
Reason for Visit Reason for Visit: Diagnoses Other chronic pain (01/28/25) Acute kidney failure, unspecified (01/28/25) Repeated falls (01/28/25) Weakness (01/28/25) Unspecified abnormal findings in urine (01/28/25) Homelessness unspecified (01/28/25) Subjective Subjective Patient was seen and examined today, we are awaiting confirmation that the patient can go to a detention facility, patient's creatinine today was improved at 1.5. Urine culture is pending at this time, patient is on IV Rocephin. Objective Data Objective Data Vital Signs: Vital Signs Temp Pulse Resp BP Pulse Ox O2 Del Method 98.6 F 68 18 107/74 97 Room Air 01/29/25 14:33 01/29/25 14:33 01/29/25 14:33 01/29/25 14:33 01/29/25 14:33 01/29/25 15:00 Oxygen Delivery Method Room Air Weight: 69.2 kg Body Mass Index (BMI) 28.0 Intake & Output: Intake and Output for Last 24 Hours 01/27/25 01/28/25 01/29/25 23:59 23:59 23:59 Intake Total 1050 / 1450 2565 / 2565 Balance 1050 / 1450 2565 / 2565 Lab / Micro Data 01/29/25 04:51 01/29/25 04:51 Labs: Laboratory Results - last 24 hr 01/28/25 18:36: Urine RBC 0-5 SEEN, Urine WBC 10-25 SEEN, Ur Squamous Epith Cells 0 SEEN, Urine Bacteria RARE, Urine Mucus 0 SEEN 01/29/25 04:51: WBC 3.5 L, RBC 3.80 L, Hgb 11.8 L, Hct 37.2, MCV 97.9, MCH 31.1, MCHC 31.7 L, RDW Std Deviation 52.5 H, RDW Coeff of Jose Alfredo 14.6, Plt Count 135 L, M PV 12.3 H, Immature Gran % (Auto) 0.300, Neut % (Auto) 33.3 L, Lymph % (Auto) 49.0 H, Dickens % (Auto) 9.4, Eos % (Auto) 7.4 H, Baso % (Auto) 0.6, Absolute Neuts (auto) 1.2 L, Absolute Lymphs (auto) 1.72, Nucleated RBC % 0, Sodium 143, Potassium 4.8, Chloride 111 H, Carbon Dioxide 22.5, Anion Gap 10, BUN 31 H, C reatinine 1.50 H, Estim Creat Clear Calc 33.17 L, Est GFR (MDRD) Non-Af 38 L, B UN/Creatinine Ratio 20.6 H, Glucose 102 H, Calcium 8.6, Phosphorus 4.3, Magnesium 2.0, Total Bilirubin 0.22, AST 22, ALT 11, Alkaline Phosphatase 53, T otal Protein 5.5 L, Albumin 3.3 L, Globulin 2.2, Albumin/Globulin Ratio 1.5, Vitamin B12 581, Vitamin D 25-Hydroxy 24.7 L, Serum Folate 11.30, TSH 3.310 Radiography Diagnostic Testing: Radiology Impression Renal Ultrasound 01/28/25 21:49 IMPRESSION: Atrophic right kidney. Left kidney simple cyst. Reading Location: [place] [address] Social Homelessness:: Sheltered Physical Exam Const alert, oriented x3 and no apparent distress Constitutional Narrative: Patient appears older than his stated age General Appearance: cooperative, well kempt and well developed Orientation / Consciousness: awake, oriented to person, oriented to place and oriented to time HEENT normocephalic, head/scalp atraumatic and moist oral mucous membranes Eyes PERRL, EOMs intact bilaterally and conjunctivae normal Neck supple, no JVD, thyroid normal and no carotid bruits General: trachea midline Resp normal respiratory effort, no retractions, no use of accessory muscles and clear to auscultation bilaterally Auscultation: Negative for rales, rhonchi or wheezes Cardio regular rate, regular rhythm, S1 normal heart sound, S2 normal heart sound, no murmurs, no rub and no gallops GI normal to inspection, nondistended, normoactive bowel sounds, soft to palpation, non-tender and non-distended Extremity no clubbing, cyanosis or edema Skin no rashes or lesions noted General Skin Exam: no breakdown Neuro oriented x3, CN's II-XII intact bilaterally, no focal motor deficits and no sensory deficits noted Sensorium / Orientation: awake and alert Speech: speech normal Psych affect normal Assessment & Plan Assessment/Plan (1) Generalized weakness: PLAN: Plan 1. Acute on chronic debility-PT and OT will continue to see the patient, we are awaiting pre-CERT for detention facility #2 probable cystitis-patient is on IV Rocephin at this time, urine culture pending #3 essential hypertension-patient will remain on her present blood pressure medications #4 osteoarthritis-complicates care, management, recovery, and prognosis #5 chronic kidney disease stage IIIb-complicates care, management, recovery, and prognosis #6 bipolar disorder-patient is on valproic acid Total clinical time spent by myself addressing the patient's medical issues, reviewing all of her data, and collaborating with the patient's care team: 35 minutes Charges/Coding Visit Charges Inpatient E&M: 19997 Subs Hosp L2
[2025-01-29] MEDS: QUEtiapine 25 MG Tablet 50 MG PO (22:24)
[2025-01-29] MEDS: Mirtazapine 15 MG Tablet 7.5 MG PO (22:24)
[2025-01-29] MEDS: Ceftriaxone 1 GM/50 ML BAG IV (22:25)
[2025-01-29] MEDS: 0.9% Saline Lock 10 ML Syringe IV (22:25)
[2025-01-29] MEDS: Menthol/Lanolin/Calamine/Znox 113 GM Tube 1 APPLIC TOPICAL (22:25)
[2025-01-30 04:08] VITALS: BP 132/80; PULSE 73; RESP 16; TEMP 37.1; O2SAT 97
[2025-01-30 06:00] VITALS: BMI 28.1
[2025-01-30] MEDS: Acetaminophen 500 MG Tablet 1000 MG PO ×3 (06:15→21:24)
[2025-01-30] MEDS: Heparin Injection (Vial) 5,000 UNIT/ML VIAL 5000 UNIT SC ×3 (06:16→21:24)
[2025-01-30] MEDS: oxyCODONE 5 MG Tablet PO ×2 (06:26→18:17)
[2025-01-30 08:00] VITALS: BP 117/72; PULSE 50; RESP 18; TEMP 36.6; O2SAT 96
[2025-01-30] MEDS: 0.9% Saline Lock 10 ML Syringe IV (09:14)
[2025-01-30] MEDS: Ondansetron 4 MG/2 ML Vial IV (09:14)
--- NOTE | 2025-01-30 09:17 | NURSING ---
pt c/o abd pain and nausea. oxycodone given recently. zofran given at this time
--- NOTE | 2025-01-30 10:01 | NURSING ---
pt returned to bed from bathroom, she did have approx 150mls clear emesis. pt states she does feel a little better and is going to try to eat breakfast. she would like to hold off until after she eats to take her medications
[2025-01-30] MEDS: Multivitamins,Ther W-Minerals Tablet 1 TABLET PO (10:37)
[2025-01-30] MEDS: Pantoprazole Sodium 40 MG Tablet PO (10:38)
[2025-01-30] MEDS: Menthol/Lanolin/Calamine/Znox 113 GM Tube 1 APPLIC TOPICAL ×2 (10:38→21:24)
[2025-01-30] MEDS: Aspirin 81 MG TAB.CHEW PO (10:38)
[2025-01-30] MEDS: Oxybutynin 5 MG Tablet PO ×2 (10:38→21:23)
[2025-01-30] MEDS: Divalproex Sodium 250 MG Tablet 500 MG PO ×2 (10:38→21:22)
[2025-01-30] MEDS: QUEtiapine 25 MG Tablet PO (10:39)
[2025-01-30] MEDS: amLODIPine 5 MG Tablet PO (10:39)
[2025-01-30] MEDS: Gabapentin 100 MG Capsule PO ×3 (10:42→16:10)
[2025-01-30] MEDS: Ensure Plus High Protein 120 ML LIQUID PO ×2 (10:42→16:10)
--- NOTE | 2025-01-30 11:13 | CASEMGMT ---
Social Work SW met with pt and introduced self. SW informed pt that [facility] denied. SW assisted pt in reviewing the SNF list. Pt choosing [facility]. SW provided emotional support to pt. Pt is able to acknowledge that she will need to be at facility assisted. Pt does not want to return to her situation of living in the van with her family. Pt expressing the difficulty with this situation. DC business support assistant updated and to send referrals. Plan[facility], pending acceptance and precert DAVID Sharif
--- NOTE | 2025-01-30 11:14 | CASEMGMT ---
Addendum entered by Mariia Chester 01/30/25 12:39: [facility]. [facility]. Both facilities updated and [facility] will submit for precert. Mariia Chester DC Planning Asst. Original Note: Discharge Planning Referral [facility] to [facility]. Mariia Chester DC Planning Asst.
--- NOTE | 2025-01-30 12:38 | CASEMGMT ---
Social Work NITA spoke with Lor[facility] at [facility]. [facility] able to accept pt if pt is agreeable for [facility] to become pt's payee and with understanding that family can visit but cannot stay overnight. NITA met with pt and informed that both the [facility] and [facility] are able to accept pt. NITA carefully explained [facility] conditions of acceptance. Pt states that she gets a SSI check for $198 monthly and a SSDI check for $700 monthly and they are direct deposit into her bank account and dgt has the bank card and does not allow pt to access the money. Pt is understanding of [facility] request to become payee and is in favor of this arrangement. Pt also is in favor of pt's family not being permitted to staying overnight. Pt choosing to go to [facility] at discharge. NITA spoke with Lorrie at [facility] and informed of pt choice. Precert to be started at this time. DC prosthetics assistant to cancel referral to [facility]. Plan: [facility], pending precert DAVID Sharif
[2025-01-30 14:35] VITALS: BP 135/64; PULSE 55; RESP 17; TEMP 36.9; O2SAT 95
--- NOTE | 2025-01-30 15:47 | CASEMGMT ---
Discharge Planning [facility] has obtained auth to admit. SW updated. Mariia Chester DC Planning Asst.
[2025-01-30] MEDS: Senna/Docusate Sodium 1 Tablet 2 TABLET PO (16:10)
--- NOTE | 2025-01-30 16:12 | TREXTCAR_ITS ---
Diet Diet Order/Speech Therapy: INPATIENT Hospital Diet / Speech Therapy Order(s) 01/28/25 21:49 Diet: Cardiac - Heart Healthy Food consistency:: Regular Liquid Consistency:: Regular/Thin Routine Orders/Code Status Code Status: Full Code DC O2, CPAP, BIPAP needs Home O2 Discharge instructions: No Therapies Weight Bearing: Full weight bearing (With walker) Physical Therapy: Eval and Treat Occupational Therapy: Eval and Treat Problem/Diagnosis (1) Abnormal urinalysis: Status: Acute Code(s): R82.90 - Unspecified abnormal findings in urine (2) SABINE (acute kidney injury): Status: Acute Code(s): N17.9 - Acute kidney failure, unspecified (3) Homelessness: Status: Acute Code(s): Z59.00 - Homelessness unspecified (4) Generalized weakness: Status: Acute Code(s): R53.1 - Weakness (5) Falls: Status: Acute Code(s): R29.6 - Repeated falls (6) Chronic pain: Status: Chronic Code(s): G89.29 - Other chronic pain (7) Chronic pain of both knees: Status: Chronic Code(s): M25.561 - Pain in right knee; M25.562 - Pain in left knee; G89.29 - Other chronic pain Plan 1. Acute on chronic debility-PT and OT will continue to see the patient, we are awaiting pre-CERT for detention facility #2 Cystitis was ruled out-patient's urine culture grew out mixed organisms, antibiotics will be stopped #3 essential hypertension-patient will remain on her present blood pressure medications #4 osteoarthritis-complicates care, management, recovery, and prognosis #5 chronic kidney disease stage IIIb-complicates care, management, recovery, and prognosis #6 bipolar disorder-patient is on valproic acid #7 homelessness-complicates care, management, recovery, and prognosis Allergies/Procedures Done in Hospital Allergies codeine Adverse Reaction (Verified 01/28/25 12:26) Nausea/Vom/Diarrhea Procedures: None Type of Care/Length of Stay Estimated LOS: Convalescent Care Less Than 30 days Type of Care Needed: Skilled Rehab Potential: Good Prognosis: Good Additional Orders/Day of Discharge H&P will serve as current which was dated: 01/28/25 Day of Discharge: 01/30/25 Dietary and Speech Recommendations Dietitian Recommendations/Changes: Continue cardiac diet with 120ml EPHP TID with medpass. If glucose levels become elevated recommend switching ensure to glucerna. Will monitor weight trends. Discharge Plan Admission Admit Date/Time: 01/28/25 20:44 Primary Reason for Your Visit: Acute on chronic debility Attending Provider: Tyler Ramsay Primary Care Provider: Dede Giles Consulting Providers: Lizzy Adrian Discharge Orders/Prescriptions Prescriptions: New albuterol sulfate 2.5 mg /3 mL (0.083 %) Solution For Nebulization 2.5 mg inhalation Q2H PRN PRN (Reason: SOB &/OR WHEEZING) Qty: 0 0RF acetaminophen 500 mg Tablet 1,000 mg PO Q8 Qty: 0 0RF amlodipine 5 mg Tablet 5 mg PO DAILY Qty: 0 0RF gabapentin 100 mg Capsule 100 mg PO TIDCM Qty: 0 0RF Therapeutic-M 9 mg iron-400 mcg Tablet 1 tab PO BREAKFAST Qty: 0 0RF menthol-zinc oxide [Calmoseptine] 0.44-20.6 % Ointment 1 applic topical BID Qty: 0 0RF Protocol: *Topical Application Instructions APPLICATION INSTRUCTIONS: APPLY TO BUTTOCKS Ensure Plus High Protein 0.08 gram-1.5 kcal/mL Liquid 120 ml PO TIDCM Qty: 0 0RF oxycodone 5 mg Tablet 5 mg PO Q4H PRN PRN (Reason: Pain Score 4-10) 2 Days Qty: 10 0RF quetiapine 25 mg Tablet 25 mg PO DAILY Qty: 0 0RF sennosides-docusate sodium [Stimulant Laxative Plus] 8.6-50 mg Tablet 2 tab PO BID PRN PRN (Reason: Constipation) Qty: 0 0RF Continued divalproex 500 mg tablet,delayed release (DR/EC) 500 mg PO BID mirtazapine 7.5 mg tablet 7.5 mg PO QHS lisinopril-hydrochlorothiazide 20-12.5 mg tablet 1 tab PO BID quetiapine [Seroquel] 50 mg tablet 50 mg PO QHS oxybutynin chloride 15 mg tablet extended release 24hr 5 mg PO BID aspirin 81 mg tablet,chewable 81 mg PO DAILY@0800 Qty: 90 3RF pantoprazole [Protonix] 40 mg tablet,delayed release (DR/EC) 40 mg PO DAILY Qty: 90 1RF Discontinued quetiapine 25 mg tablet 25 mg PO QHS (DME) BERTHA Knee Brace Misc See Rx Instructions .ROUTE .MEDSUPPLY Qty: 2 2RF Rx Instructions: As directed sumatriptan succinate [Imitrex] 25 mg tablet 25 mg PO ONCE PRN (Reason: Headache) Qty: 14 3RF potassium 20 mg tablet,chewable 20 mg PO DAILY One-A-Day Womens Formula 18 mg iron-400 mcg-500 mg tablet 1 tab PO DAILY amlodipine 10 mg tablet 5 mg PO DAILY cetirizine 10 mg tablet See Rx Instructions .ROUTE .COMPLEX Qty: 30 0RF Dose Instruction: TAKE 1 TABLET BY MOUTH DAILY NEEDED FOR ALLERGY SYMPTOMS Rx Instructions: TAKE 1 TABLET BY MOUTH DAILY NEEDED FOR ALLERGY SYMPTOMS Referrals / Follow Up: Dede Giles MD [Primary Care Provider] - Disposition Disposition (needs filled in before D/C Order can be placed): Group Home Facility
--- NOTE | 2025-01-30 16:57 | CASEMGMT ---
Social Work Precert has been obtained for pt to go to [facility]. Physician notified and pt is ready for discharge today. SW met with pt and informed of discharge plan and pt is agreeable. SW inquired if pt would like SW or staff to update pt's dgt listed on contact sheet and pt requesting that family not be notified of discharge plan. Nursing updated. 7000 completed in HENS. Green sheet placed on pt chart to facilitate discharge. DAVID Sharif
--- NOTE | 2025-01-30 17:05 | DS.PCM_ITS ---
Providers Date of Admission: 01/28/25 Date of Discharge: 01/30/25 Primary Care Physician: Dr. Dede Giles MD Reason For Visit: SABINE/GENERALIZED WEAKNESS/FALLS Diagnosis Discharge Diagnosis (1) Abnormal urinalysis: Status: Acute Code(s): R82.90 - Unspecified abnormal findings in urine (2) SABINE (acute kidney injury): Status: Acute Code(s): N17.9 - Acute kidney failure, unspecified (3) Homelessness: Status: Acute Code(s): Z59.00 - Homelessness unspecified (4) Generalized weakness: Status: Acute Code(s): R53.1 - Weakness (5) Falls: Status: Acute Code(s): R29.6 - Repeated falls (6) Chronic pain: Status: Chronic Code(s): G89.29 - Other chronic pain (7) Chronic pain of both knees: Status: Chronic Code(s): M25.561 - Pain in right knee; M25.562 - Pain in left knee; G89.29 - Other chronic pain Plan 1. Acute on chronic debility-PT and OT will continue to see the patient, we are awaiting pre-CERT for penitentiary facility #2 Cystitis was ruled out-patient's urine culture grew out mixed organisms, antibiotics will be stopped #3 essential hypertension-patient will remain on her present blood pressure medications #4 osteoarthritis-complicates care, management, recovery, and prognosis #5 chronic kidney disease stage IIIb-complicates care, management, recovery, and prognosis #6 bipolar disorder-patient is on valproic acid #7 homelessness-complicates care, management, recovery, and prognosis Medications at Discharge Home Medications aspirin 81 mg chewable tablet 81 mg PO DAILY@0800 BLOOD THINNER #90 tabs 01/11/22 pantoprazole 40 mg tablet,delayed release (Protonix) 40 mg PO DAILY stomach #90 tabs 11/27/22 divalproex 500 mg tablet,delayed release 500 mg PO BID 01/28/25 lisinopril 20 mg-hydrochlorothiazide 12.5 mg tablet 1 tab PO BID bp 01/28/25 mirtazapine 7.5 mg tablet 7.5 mg PO QHS sleep 01/28/25 oxybutynin chloride 15 mg tablet,extended release 24 hr 5 mg PO BID urinary 01/28/25 quetiapine 50 mg tablet (Seroquel) 50 mg PO QHS mood 01/28/25 acetaminophen 500 mg tablet 1,000 mg (2 x 500 mg) PO Q8 #0 tabs 01/30/25 albuterol sulfate 2.5 mg/3 mL (0.083 %) solution for nebulization 2.5 mg (3 mL) inhalation Q2H PRN PRN SOB &/OR WHEEZING #0 mL 01/30/25 amlodipine 5 mg tablet 5 mg PO DAILY #0 tabs 01/30/25 food supplemt, lactose-reduced 0.08 gram-1.5 kcal/mL oral liquid (Ensure Plus High Protein) 120 ml PO TIDCM #0 mL 01/30/25 gabapentin 100 mg capsule 100 mg PO TIDCM #0 caps 01/30/25 menthol 0.44 %-zinc oxide 20.6 % topical ointment (Calmoseptine) 1 applic topical BID #0 grams 01/30/25 multivitamin-iron 9 mg-folic acid 400 mcg-calcium and minerals tablet (Therapeutic-M) 1 tab PO BREAKFAST #0 tabs 01/30/25 oxycodone 5 mg tablet 5 mg PO Q4H PRN PRN Pain Score 4-10 2 days #10 tabs 01/30/25 quetiapine 25 mg tablet 25 mg PO DAILY #0 tabs 01/30/25 sennosides 8.6 mg-docusate sodium 50 mg tablet (Stimulant Laxative Plus) 2 tab PO BID PRN PRN Constipation #0 tabs 01/30/25 Hospital Course Operations None Procedures None Summary of Care Provided Minutes Spent on Discharge: 31 Hospital Course: This 69-year-old white female was seen in the emergency room at [facility] after being sent to the emergency room for evaluation from her PCPs office. Patient been living in a van with the rest of her family but she had been having diffuse arthritic pain for quite some time and had been falling frequently due to the pain. According to the emergency room documentation, patient desired placement in assisted living. Workup in the emergency room showed the patient have a normal CBC, creatinine was elevated at 1.63 and BUN was 34. Patient's urinalysis showed 10-25 WBCs and rare bacteria. Patient was admitted to [place] [address] and treated initially for acute cystitis and acute kidney injury-this examiner did not feel the patient had acute kidney injury however. She was seen by PT and OT and felt to be appropriate for placement in a penitentiary facility. Patient's urine culture resulted and showing no definitive cystitis and her antibiotics were stopped. On 01/30/2025, patient was seen and examined:alert, oriented x3 and no apparent distress Constitutional Narrative: Patient appears older than his stated age General Appearance: cooperative, well kempt and well developed Orientation / Consciousness: awake, oriented to person, oriented to place and oriented to time HEENT normocephalic, head/scalp atraumatic and moist oral mucous membranes Eyes PERRL, EOMs intact bilaterally and conjunctivae normal Neck supple, no JVD, thyroid normal and no carotid bruits General: trachea midline Resp normal respiratory effort, no retractions, no use of accessory muscles and clear to auscultation bilaterally Auscultation: Negative for rales, rhonchi or wheezes Cardio regular rate, regular rhythm, S1 normal heart sound, S2 normal heart sound, no murmurs, no rub and no gallops GI normal to inspection, nondistended, normoactive bowel sounds, soft to palpation, non-tender and non-distended Extremity no clubbing, cyanosis or edema Skin no rashes or lesions noted General Skin Exam: no breakdown Neuro oriented x3, CN's II-XII intact bilaterally, no focal motor deficits and no sensory deficits noted Sensorium / Orientation: awake and alert Speech: speech normal Psych affect normal Patient was discharged in stable condition on 01/30/2025 to a local extended care facility. Medical Records Data Homelessness:: Sheltered Weight / BMI Weight Weight: 69.4 kg Body Mass Index (BMI) 28.1 ABG / Lab / Microbiology Data 01/29/25 04:51 01/29/25 04:51 Microbiology: Microbiology 01/28/25 18:36 Urine, Clean Catch Urine Culture - Final Mixed Gram Pos & Gram Neg Org D/C Instructions DC O2, CPAP, BIPAP Needs Home O2 Discharge instructions: No Meaningful Use Info Meaningful Use Meaningful Use Diagnoses (Choose all that apply): None applicable Ischemic Stroke Statin Dosing Therapy Reference: STATIN DOSE THERAPY REFERENCE: * Patients > 75 years receive moderate or high dose statin therapy. * Patients 75 years or YOUNGER should receive HIGH intensity statin dose unless contraindicated. You will be required to document reason for non-treatment if statin daily dose does not meet guidelines. HIGH DOSE STATIN THERAPY DAILY Atorvastatin > than or = to 40 mg Rosuvastatin > than or = to 20 mg Amlodipine + Atorvastatin > than or = to 2.5/40 mg Ezetimibe + Simvastatin 10/80 mg Simvastatin 80mg Discharge Plan Admission Admit Date/Time: 01/28/25 20:44 Primary Reason for Your Visit: Acute on chronic debility Attending Provider: Tyler Ramsay Primary Care Provider: Dede Giles Consulting Providers: Lizzy Adrian Discharge Orders/Prescriptions Prescriptions: New albuterol sulfate 2.5 mg /3 mL (0.083 %) Solution For Nebulization 2.5 mg inhalation Q2H PRN PRN (Reason: SOB &/OR WHEEZING) Qty: 0 0RF acetaminophen 500 mg Tablet 1,000 mg PO Q8 Qty: 0 0RF amlodipine 5 mg Tablet 5 mg PO DAILY Qty: 0 0RF gabapentin 100 mg Capsule 100 mg PO TIDCM Qty: 0 0RF Therapeutic-M 9 mg iron-400 mcg Tablet 1 tab PO BREAKFAST Qty: 0 0RF menthol-zinc oxide [Calmoseptine] 0.44-20.6 % Ointment 1 applic topical BID Qty: 0 0RF Protocol: *Topical Application Instructions APPLICATION INSTRUCTIONS: APPLY TO BUTTOCKS Ensure Plus High Protein 0.08 gram-1.5 kcal/mL Liquid 120 ml PO TIDCM Qty: 0 0RF oxycodone 5 mg Tablet 5 mg PO Q4H PRN PRN (Reason: Pain Score 4-10) 2 Days Qty: 10 0RF quetiapine 25 mg Tablet 25 mg PO DAILY Qty: 0 0RF sennosides-docusate sodium [Stimulant Laxative Plus] 8.6-50 mg Tablet 2 tab PO BID PRN PRN (Reason: Constipation) Qty: 0 0RF Continued divalproex 500 mg tablet,delayed release (DR/EC) 500 mg PO BID mirtazapine 7.5 mg tablet 7.5 mg PO QHS lisinopril-hydrochlorothiazide 20-12.5 mg tablet 1 tab PO BID quetiapine [Seroquel] 50 mg tablet 50 mg PO QHS oxybutynin chloride 15 mg tablet extended release 24hr 5 mg PO BID aspirin 81 mg tablet,chewable 81 mg PO DAILY@0800 Qty: 90 3RF pantoprazole [Protonix] 40 mg tablet,delayed release (DR/EC) 40 mg PO DAILY Qty: 90 1RF Discontinued quetiapine 25 mg tablet 25 mg PO QHS (DME) BERTHA Knee Brace Misc See Rx Instructions .ROUTE .MEDSUPPLY Qty: 2 2RF Rx Instructions: As directed sumatriptan succinate [Imitrex] 25 mg tablet 25 mg PO ONCE PRN (Reason: Headache) Qty: 14 3RF potassium 20 mg tablet,chewable 20 mg PO DAILY One-A-Day Womens Formula 18 mg iron-400 mcg-500 mg tablet 1 tab PO DAILY amlodipine 10 mg tablet 5 mg PO DAILY cetirizine 10 mg tablet See Rx Instructions .ROUTE .COMPLEX Qty: 30 0RF Dose Instruction: TAKE 1 TABLET BY MOUTH DAILY NEEDED FOR ALLERGY SYMPTOMS Rx Instructions: TAKE 1 TABLET BY MOUTH DAILY NEEDED FOR ALLERGY SYMPTOMS Referrals / Follow Up: Dede Giles MD [Primary Care Provider] - Disposition Disposition (needs filled in before D/C Order can be placed): Long Term Facility Charges/Coding Visit Charges Inpatient E&M: 73186 Disch Hosp >30min
--- NOTE | 2025-01-30 17:23 | CASEMGMT ---
Social Work Orders sent to [facility]. Transportation arranged with [facility] for 9:30 pick up man time via wheel chair. SW requested with dispatch that pt be picked up earlier than this if possible, but pt cannot be picked up later than 9:30. Nursing updated. DAVID Sharif
[2025-01-30] MEDS: QUEtiapine 25 MG Tablet 50 MG PO (21:23)
[2025-01-30] MEDS: Mirtazapine 15 MG Tablet 7.5 MG PO (21:24)
[2025-01-30 21:32] VITALS: BP 155/74; PULSE 58; RESP 16; TEMP 36.6; O2SAT 92
[2025-01-30 21:38] VITALS: PULSE 58
== END 2025-01-30 22:45 | disposition skilled nursing facility (03) | DRG 884 ==
LOC: ED 20:47 → MS3 21:07
PROVIDERS: Admitting Provider Internal Medicine; Emergency Provider Emergency Medicine; PCP Family Medicine; Visit Provider Internal Medicine
DX: R54 Age-related physical debility (principal); Z59.02 Unsheltered homelessness; E11.22 Type 2 diabetes mellitus with diabetic chronic kidney disease; F31.9 Bipolar disorder, unspecified; J42 Unspecified chronic bronchitis; N18.32 Chronic kidney disease, stage 3b; I12.9 Hypertensive chronic kidney disease with stage 1 through stage 4 chronic kidney disease, or unspecified chronic kidney disease; E86.0 Dehydration; M17.0 Bilateral primary osteoarthritis of knee; K21.9 Gastro-esophageal reflux disease without esophagitis; R82.90 Unspecified abnormal findings in urine; R32 Unspecified urinary incontinence; R29.6 Repeated falls; G89.29 Other chronic pain; Z79.82 Long term (current) use of aspirin; Z79.899 Other long term (current) drug therapy
CPT/HCPCS: 36415; 76770; 80048; 80053; 81001; 82306; 82607; 82746; 83735; 84100; 84443; 85025; 87086; 87088; 94668; 97162; 97166; 97802; 99284; A4216; J2405